=== PATIENT | female | born 1975 | race Caucasian/White ===

== ENCOUNTER → 2018-08-22 | Outpatient (CLI) | payer MEDICAID ==
[~2018-08-22] MED LIST: BNZT1T; ESCT10T PO; RSP2T1
== END ==
LOC: LAB 11:02
PROVIDERS: ATTEND Family Medicine
DX: R29.818 Other symptoms and signs involving the nervous system (principal)
CPT/HCPCS: 36415; 82306; 82607; 82746

== ENCOUNTER → 2018-08-25 | Outpatient (CLI) | payer MEDICAID ==
--- NOTE | 2018-08-25 12:43 | Diagnostic Imaging Report ---
INDICATION: Neurologic deficit. Noncontrast brain CT is performed. There is no prior study for comparison. FINDINGS: There is a large area of hypodensity and mass effect in the left frontal lobe with vasogenic edema and sulcal effacement. The findings are suspicious for underlying neoplasm, either primary or metastatic. There is no associated hemorrhage or subdural collection. There is about 3 mm of midline shift in the frontal region. The ventricles are nondilated. There is no other focal abnormality. There is opacification of the left maxillary sinus incidentally noted. IMPRESSION: Findings suspicious for a mass in left frontal lobe as described above. Recommend MRI pre-and post IV contrast for further characterization. Either primary or metastatic lesion is suspected. Report faxed to Dr. Monson at 1:10 p.m. 08/25/2018/cb Dictated by: Dictated on workstation # [id number]
== END ==
LOC: RAD 11:18
PROVIDERS: ATTEND Family Medicine
DX: J34.89 Other specified disorders of nose and nasal sinuses (principal); R29.818 Other symptoms and signs involving the nervous system
CPT/HCPCS: 70450

== ENCOUNTER → 2018-08-28 | Outpatient (CLI) | payer MEDICAID ==
--- NOTE | 2018-08-28 09:33 | Diagnostic Imaging Report ---
INDICATION: Left arm pain Two views of the left humerus show no fracture or dislocation. IMPRESSION: Negative left humerus Dictated by: Dictated on workstation # [id number]
== END ==
LOC: RAD 08:48
PROVIDERS: ATTEND Family Medicine
DX: M79.602 Pain in left arm (principal); R29.818 Other symptoms and signs involving the nervous system
CPT/HCPCS: 73060

== ENCOUNTER → 2018-09-01 | Outpatient (CLI) | payer MEDICAID ==
[2018-09-01] MEDS: GADOBUTROL 10 MMOL/10 ML (GADAVIST) VIAL IV ONE (13:19)
--- NOTE | 2018-09-01 14:17 | Diagnostic Imaging Report ---
PROCEDURE: MR imaging of the brain with and without contrast. TECHNIQUE: Multiplanar, multisequence MR imaging of the brain was performed with and without contrast. INDICATION: Focal neurological deficit. Infiltrative process with vasogenic edema in the left frontal lobe with mass effect was present on head CT 08/25/2018. Pre-and postcontrast brain MRI performed as further evaluation. An infiltrative process intra-axial in the left frontal lobe is present with substantial perilesional vasogenic edema as well as some regional cortical edema. While this showed no identifiable enhancement following contrast, it is very suspicious for underlying neoplasm. The associated parenchymal distortion and edematous-like T2 signal crosses the midline via the genu of the corpus callosum. It is unclear if this is the perilesional vasogenic edema or if tumor itself is crossing the midline. Result in distortion and effacement and mass effect upon the left greater than right lateral ventricles anteriorly may be increased from the previous however some of this is likely attributed to improved sensitivity modality. The degree of left to right shifting of the midline structures is probably most accurately quantified on the coronal images measuring 4.4 mm left to right. This appears at least slightly increased from the previous when it measured about 3 mm. The brainstem and posterior fossa appeared unremarkable. There are no foci of abnormal diffusion restriction. There is no evidence for an acute or subacute ischemic infarct. There is no intracranial or intratumoral hemorrhage. There are no abnormal extra-axial fluid collections. There was no other focal abnormality identified. Owing to the absence of mass effect and the ill-defined character of this infiltrative process its very difficult to measure with any degree of confidence. When measured as a region of relative T1 hypointensity the process is roughly 5 cm x 4 cm in axial plane and even more poorly estimated in the coronal images. If not already performed, neurosurgical consultation is needed. IMPRESSION: Ill-defined nonenhancing intra-axial infiltrative process epicenter left frontal lobe. The findings are very suspicious for infiltrative neoplasm despite the absence of enhancement. Cannot be measured with any high level of confidence given the substantial perilesional vasogenic edema. Signal crosses the midline left to right via the genu of the corpus callosum which may be of extension of tumor versus perilesional edema itself. Mass effect and mild [id number] shift showed slight progression, no infarct, hemorrhage or hydrocephalus. Called and faxed to Dr. Monson at 2:10 p.m. by cvb. Dictated by: Dictated on workstation # [id number]
== END ==
LOC: RAD 12:08
PROVIDERS: ATTEND Family Medicine
DX: G93.6 Cerebral edema (principal); R29.818 Other symptoms and signs involving the nervous system
CPT/HCPCS: 70553

== ENCOUNTER → 2018-09-15 | Outpatient (CLI) | payer MEDICAID ==
[2018-09-15] MEDS: GADOBUTROL 10 MMOL/10 ML (GADAVIST) VIAL IV ONE (09:22)
--- NOTE | 2018-09-15 09:57 | Diagnostic Imaging Report ---
MRI LT UPPER EXT JOINT W/WO TECHNIQUE: Multiplanar, multisequence MR imaging of the left shoulder was performed without and with IV contrast. COMPARISON: Humerus radiographs of 08/28/2018. INDICATION: Right shoulder pain. FINDINGS: Rotator cuff: No high-grade partial or full-thickness rotator cuff tear. Low-grade partial-thickness bursal sided tearing of the posterior supraspinatus. No rotator cuff muscle atrophy. No muscle edema. Glenoid labrum: By non-arthrogram imaging, the glenoid labrum appears intact. No para-labral cyst. Long head of biceps: Long head of biceps is normally positioned within the bicipital groove. The intracapsular segment is intact. Bones and cartilage: No focal osseous lesion about the right humeral. No glenohumeral chondromalacia. The acromioclavicular joint is normal in alignment without significant degenerative change. Soft tissues: No glenohumeral joint effusion. No MRI findings to suggest adhesive capsulitis. No fluid or inflammatory like signal within the subacromial/subdeltoid space to indicate bursitis. No abnormal enhancing soft tissue masses around the left shoulder. IMPRESSION: 1. No osseous or soft tissue lesion about the left shoulder to indicate neoplastic process. 2. Low-grade partial-thickness bursal-sided tear of the supraspinatus. Dictated by: Dictated on workstation # [id number]
== END ==
LOC: RAD 08:23
PROVIDERS: ATTEND Internal Medicine Hematology & Oncology
DX: M75.101 Unspecified rotator cuff tear or rupture of right shoulder, not specified as traumatic (principal); G93.9 Disorder of brain, unspecified
CPT/HCPCS: 73223

== ENCOUNTER 2018-11-08 21:20 | Emergency (ER) | payer MEDICAID ==
[~2018-11-08] VITALS: Ht 165.1 cm; Wt 107.5 kg
--- OUTSIDE RECORDS SUMMARY | 2018-11-08 21:26 | XMS REPORT | Encounter Summary ---
Author Author [facility] Organization [facility] Address Unknown Phone Unavailable Care Team Providers Care Public Health Aide Name Role Phone Frandy Monson MD PCP Leatha Kolb MD 21 Reason for Visit * Reason Comments Surgical Followup Encounter Details Care Team Description Date Type Department Tavares Raman MD [address] [facility] [address] [place] [address] Surgical Followup 10/12/2018 Telephone [facility] [address] [place] [address] Social History Date Tobacco Use Types Packs/Day Years Used Never Smoker Smokeless Tobacco: Never Used Drinks/Week oz/Week Comments Alcohol Use Never Alcohol Habits Answer Date Recorded How often do you have a drink containing alcohol? Never 09/22/2018 How many drinks containing alcohol do you have on Not asked a typical day when you are drinking? How often do you have six or more drinks on one Not asked occasion? Sex Assigned at Date Recorded Not on file Industry Job Start Date Occupation Not on file Not on file Not on file Travel End Travel History Travel Start No recent travel history available. documented as of this encounter Functional Status Date of Assessment Functional Status Response 10/06/2018 Does the patient have a hearing impairment: No documented as of this encounter Plan of Treatment Not on filedocumented as of this encounter Visit Diagnoses Not on filedocumented in this encounter
--- OUTSIDE RECORDS SUMMARY | 2018-11-08 21:26 | XMS REPORT | Clinical Summary ---
Author Author [facility] Organization [facility] Address Unknown Phone Unavailable Care Team Providers Care Gamewell Operator Name Role Phone Frandy Monson MD PCP Leatha Kolb MD 21 Source Comments Some departments are not documenting in the electronic medical record. If you d o not see the information that you expected, contact Release of Information in [facility] [employer] Information Management department at [phone] for further assistan ce in locating additional records.[facility] Allergies No Known Allergies Medications End Date Status Medication Sig Dispensed Refills Start Date Active ARIPiprazole (ABILIFY) 15 Take 15 mg by 0 mg tablet mouth daily before dinner. Active escitalopram oxalate Take 20 mg by 0 (LEXAPRO) 20 mg tablet mouth daily before dinner. Active oxyCODONE (ROXICODONE, Take one 40 tablet 0 OXY-IR) 5 mg tablet tablet to two 9 tablets by mouth every 4 hours as needed Earliest Fill Date: 10/06/18 Active senna/docusate Take one 0 (SENOKOT-S) 8.6/50 mg tablet by 9 tablet mouth twice daily. Active acetaminophen (TYLENOL) Take two 0 325 mg tablet tablets by 9 mouth every 4 hours as needed. 10/12/2018 levETIRAcetam (KEPPRA) Take one 12 tablet 0 500 mg tablet tablet by 9 mouth twice daily for 6 days. 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 Encounters Care Team Description Date Type Specialty Ascencion Sanchez MD Anaplastic astrocytoma (HCC) (Primary Dx) 10/30/2018 Office Visit Neurosurgery Liz Dale MD Brain tumor, glioma (HCC) (Primary Dx) 10/17/2018 Office Visit Ascencion Willams MD Error 10/17/2018 Telephone Oncology Cynthia Soto MD Follow-up Phone Call 10/12/2018 Telephone Neurosurgery Cynthia Soto MD Surgical Followup 10/12/2018 Telephone Neurosurgery Ascencion Sanchez MD Navigation Assessment 10/05/2018 Telephone Oncology Cynthia Soto MD LEFT FRONTAL CRANIOTOMY FOR FRONTAL LOBECTOMY AND TUMOR RESECTION 10/04/2018 Surgery Marina Claudio, EVER 10/04/2018 Anesthesia Event Cynthia Soto MD 10/04/2018 Hospital Radiology Encounter Cynthia Soto MD Schizoaffective disorder (HCC) 10/04/2018 Hospital - Encounter 10/06/2018 Cynthia Soto MD Brain mass (Primary Dx) 09/25/2018 Orders Only Neurosurgery Cynthia Soto MD Mass of brain (Primary Dx); Brain mass 09/25/2018 Orders Only Cynthia Norton MD Brain tumor (HCC) (Primary Dx) 09/22/2018 PAC Office Anesthesiology Visit Cynthia Soto MD Brain tumor (HCC) 09/22/2018 Office Visit Cynthia Norton MD Brain tumor (HCC) (Primary Dx) 09/22/2018 Prep for Case Cynthia Norton MD Navigation Assessment 09/18/2018 Telephone Oncology 09/15/2018 Hospital Radiology Encounter 09/01/2018 Hospital Radiology Encounter 08/25/2018 Hospital Radiology Encounter from Last 3 Months Family History Medical History Relation Name Comments Arthritis Maternal Grandmother Heart Disease Maternal Grandmother Cataract Mother Diabetes Mother Hypertension Mother Relation Name Status Comments Maternal Grandmother Mother Social History Date Tobacco Use Types Packs/Day [...] Travel Start No recent travel history available. Last Filed Vital Signs Reading Time Taken Comments Vital Sign 114/83 10/30/2018 10:59 AM CDT Blood Pressure 89 10/30/2018 10:59 AM CDT Pulse 36.6 C (97.8 F) 10/30/2018 10:59 AM CDT Temperature 16 10/30/2018 10:59 AM CDT Respiratory Rate 99% 10/30/2018 10:59 AM CDT Oxygen Saturation - - Inhaled Oxygen Concentration 107.6 kg (237 lb 3.2 oz) 10/30/2018 10:59 AM CDT Weight 165.1 cm (5' 5") 10/30/2018 10:59 AM CDT Height 39.47 10/30/2018 10:59 AM CDT Body Mass Index Plan of Treatment Health Maintenance Due Date Last Done Comments PHYSICAL (COMPREHENSIVE) 1982 EXAM HIV SCREENING 1990 DTAP/TDAP VACCINES ( - 1993 Tdap) CERVICAL CANCER SCREENING 2005 BREAST CANCER SCREENING 2015 INFLUENZA VACCINE 02/06/2019 Implants Device Identifier Shelf Expiration Date Model / Serial / Lot Implanted Type Area Manufactur er [id number] / NA / NA Plate Bone Level One Medium Curve Left: Jaleesa SERRANO Craniofacial Bur Hole - Sna CMF Implanted: Qty: 3 on 10/04/2018 by IMPLANTS Cynthia Soto MD at [facility] [id number] / NA / NA Plate Bone Level One Square Left: Skull FANY SERRANO Craniofacial 2x2 Hole Ultra Low - CMF Sna IMPLANTS Implanted: Qty: 1 on 10/04/2018 by Cynthia Soto MD at [facility] [id number] / NA / NA Plate Bone Level One Long Left: Jaleesa SERRANO Craniofacial 2 Hole Ultra Low - Sna CMF Implanted: Qty: 1 on 10/04/2018 by IMPLANTS Cynthia Soto MD at [facility] [id number] / NA / NA Screw Bone Level One Titanium Left: Jaleesa SERRANO Craniomaxillofacial Drill Free - CMF Sna IMPLANTS Implanted: Qty: 18 on 10/04/2018 by Cynthia Soto MD at [facility] Procedures Comments Procedure Name Priority Date/Time Associated Diagnosis MRI HEAD WO/W CONTRAST Routine 10/05/2018 2:09 PM CDT IONIZED CALCIUM Routine 10/05/2018 3:53 AM CDT PHOSPHORUS Routine 10/05/2018 3:03 AM CDT MAGNESIUM Routine 10/05/2018 3:03 AM CDT BASIC METABOLIC PANEL Routine 10/05/2018 3:03 AM CDT CBC Routine 10/05/2018 3:03 AM CDT SURGICAL PATHOLOGY 10/04/2018 10:00 AM CDT ANESTHESIA ARTERIAL LINE Routine 10/04/2018 INSERTION 9:17 AM CDT MICROSURGICAL TECHNIQUES 10/04/2018 Brain tumor (HCC) - REQUIRING OPERATING 7:51 AM CDT MICROSCOPE USE STEREOTACTIC 10/04/2018 Brain tumor (HCC) COMPUTER-ASSISTED CRANIAL 7:51 AM CDT PROCEDURE - INTRADURAL CRANIECTOMY/ BONE FLAP 10/04/2018 Brain tumor (HCC) CRANIOTOMY EXCISION 7:51 AM CDT SUPRATENTORIAL BRAIN TUMOR MRI HEAD WO/W CONTRAST Routine 10/04/2018 Brain mass 7:20 AM CDT TYPE & CROSSMATCH Routine 10/04/2018 Brain tumor (HCC) 6:16 AM CDT BETA-HCG STAT 10/04/2018 6:16 AM CDT PATHOLOGY REPORTS FROM 10/04/2018 OUTSIDE SCAN 12:00 AM CDT PATHOLOGY REPORTS FROM 10/04/2018 OUTSIDE SCAN 12:00 AM CDT TELEMETRY STRIPS-SCAN 10/04/2018 12:00 AM CDT TYPE & SCREEN (NOT Routine 09/22/2018 Brain tumor (HCC) CROSSMATCH ELIGIBLE) 3:59 PM CDT COMPREHENSIVE METABOLIC Routine 09/22/2018 Brain tumor (HCC) PANEL 3:59 PM CDT PTT (APTT) Routine 09/22/2018 Brain tumor (HCC) 3:59 PM CDT PROTIME INR (PT) Routine 09/22/2018 Brain tumor (HCC) 3:59 PM CDT CBC Routine 09/22/2018 Brain tumor (HCC) 3:59 PM CDT MRI UPPER EXT EXTERNAL Routine 09/15/2018 IMAGING 12:00 AM CDT MRI HEAD EXTERNAL IMAGING Routine 09/01/2018 12:[address] HEAD EXTERNAL IMAGING Routine 08/25/2018 12:00 AM CDT from Last 3 Months Results * MRI HEAD WO/W CONTRAST (10/05/2018 2:09 PM CDT) Only the most recent of 2 results within the time period is included. Specimen Impressions Performed At 1.Interval debulking/partial resection of the infiltrative left frontal [facility] RAD RESULTS mass. There is persistent left frontal, anterior callosal, and medial right frontal FLAIR hyperintensity consistent with tumor and/or edema. 2.Unchanged tiny right external capsule/insular focus of enhancement, favored to represent benign vascular area of enhancement. Approved by Alcides Guerrero M.D. on 10/05/2018 3:48 PM By my electronic signature, I attest that I have personally reviewed the images for this examination and formulated the interpretations and opinions expressed in this report Finalized by Sánchez Villatoro M.D. on 10/05/2018 3:49 PM. Dictated by Alcides Guerrero M.D. on 10/05/2018 2:11 PM. Narrative Performed At EXAM: MRI BRAIN [facility] RAD RESULTS HISTORY: 43-year-old female, Include stereotactic flair, left frontal tumor. TECHNIQUE: Multiplanar and multisequence MR imaging of the head was performed. This was done both before and after the administration of gadolinium contrast. COMPARISON: MRI head 10/04/2018 FINDINGS: Interval left frontal craniotomy with partial resection/debulking of the infiltrative left frontal mass. There is postsurgical fluid within the resection cavity and small volume pneumocephalus. There are areas of T1 hyperintense hemorrhage at the resection margins. Residual infiltrative FLAIR hyperintensity along the posterior margins of the resection cavity within the frontal lobe extends across the midline along the genu to involve the medial right frontal lobe white matter. The ventricles and subarachnoid spaces are otherwise stable in size and configuration. There is no significant change in degree of mild rightward midline shift, again measuring up to 5 mm. There is no area of abnormal contrast enhancement. The vascular flow-voids are unremarkable. Diffusion weighted imaging is not indicative of acute or recent infarct. Redemonstration of a tiny focus of enhancement along the right external capsule/insula which previously demonstrated susceptibility. Procedure Note Interface, Radiant Results - 10/05/2018 3:52 PM CDT EXAM: MRI BRAIN HISTORY: 43-year-old female, Include stereotactic flair, left frontal tumor. TECHNIQUE: Multiplanar and multisequence MR imaging of the head was performed. This was done both before and after the administration of gadolinium contrast. COMPARISON: MRI head 10/04/2018 FINDINGS: Interval left frontal craniotomy with partial resection/debulking of the infiltrative left frontal mass. There is postsurgical fluid within the resection cavity and small volume pneumocephalus. There are areas of T1 hyperintense hemorrhage at the resection margins. Residual infiltrative FLAIR hyperintensity along the posterior margins of the resection cavity within the frontal lobe extends across the midline along the genu to involve the medial right frontal lobe white matter. The ventricles and subarachnoid spaces are otherwise stable in size and configuration. There is no significant change in degree of mild rightward midline shift, again measuring up to 5 mm. There is no area of abnormal contrast enhancement. The vascular flow-voids are unremarkable. Diffusion weighted imaging is not indicative of acute or recent infarct. Redemonstration of a tiny focus of enhancement along the right external capsule/insula which previously demonstrated susceptibility. IMPRESSION 1. Interval debulking/partial resection of the infiltrative left frontal mass. There is persistent left frontal, anterior callosal, and medial right frontal FLAIR hyperintensity consistent with tumor and/or edema. 2. Unchanged tiny right external capsule/insular focus of enhancement, favored to represent benign vascular area of enhancement. Approved by Alcides Guerrero M.D. on 10/05/2018 3:48 PM By my electronic signature, I attest that I have personally reviewed the images for this examination and formulated the interpretations and opinions expressed in this report Finalized by Sánchez Villatoro M.D. on 10/05/2018 3:49 PM. Dictated by Alcides Guerrero M.D. on 10/05/2018 2:11 PM. Performing Organization Address [facility] Phone Number [facility] RESULTS * IONIZED CALCIUM (10/05/2018 3:53 AM CDT) Pathologist [facility] Ionized Calcium 1.20 1.0 - 1.3 MMOL/L MAIN LAB Specimen Blood Performing Organization Address [facility] Phone Number MAIN LAB [address] [place] [address] * CBC (10/05/2018 3:03 AM CDT) Only the most recent of 2 results within the time period is included. White Blood 6.3 4.5 - 11.0 K/UL MAIN LAB Cells RBC 4.06 4.0 - 5.0 M/UL MAIN LAB Hemoglobin 12.5 12.0 - 15.0 GM/DL MAIN LAB Hematocrit 36.0 36 - 45 % MAIN LAB MCV 88.5 80 - 100 FL MAIN LAB MCH 30.9 26 - 34 PG MAIN LAB MCHC 34.9 32.0 - 36.0 G/DL MAIN LAB RDW 14.3 11 - 15 % [facility] MAIN [facility] Platelet Count 92 (L) 150 - 400 K/UL MAIN LAB MPV 9.5 7 - 11 FL MAIN LAB Specimen Blood Performing Organization Address [facility] Phone Number MAIN LAB [address] [place] [address] * PHOSPHORUS (10/05/2018 3:03 AM CDT) Phosphorus 3.3Comment: NOTE NEW REFERENCE 2.0 - 4.5 MG/DL MAIN LAB RANGES Specimen Blood Performing Organization Address [facility] Phone Number MAIN LAB [address] [place] [address] * MAGNESIUM (10/05/2018 3:03 AM CDT) Magnesium 2.2 1.6 - 2.6 mg/dL MAIN LAB Specimen Blood Performing Organization Address [facility] Phone Number [facility] [address] [place] [phone] * BASIC METABOLIC PANEL (10/05/2018 3:03 AM CDT) Sodium 143 137 - 147 MMOL/L [facility] Potassium 4.2 3.5 - 5.1 MMOL/L [facility] Chloride 110 98 - 110 MMOL/L [facility] CO2 26 21 - 30 MMOL/L [facility] Anion Gap 7 3 - 12 [facility] Glucose 145 (H) 70 - 100 MG/DL [facility] Blood Urea 9 7 - 25 MG/DL [facility] Nitrogen Creatinine 0.83 0.4 - 1.00 MG/DL [facility] Calcium 8.7 8.5 - 10.6 MG/DL [facility] eGFR Non >60 >60 mL/min [facility] Comment: [place] The eGFR is not validated for use in drug dosing adjustments.Continue to use estimated creatinine clearance per dosing reference text.Please contact the Clinical Pharmacist for questions. eGFR >60 >60 mL/min [facility] [place] Comment: The eGFR is not validated for use in drug dosing adjustments.Continue to use estimated creatinine clearance per dosing reference text.Please contact the Clinical Pharmacist for questions. Specimen Blood Performing Organization Address City/State/Zipcode Phone Number [facility] [address] [place] [address] * SURGICAL PATHOLOGY (10/04/2018 10:00 AM CDT) PATHOLOGY [email or web address] Department of Pathology and Laboratory Medicine [address] [place] [address] Surgical Pathology Office:[phone] :[phone] SURGICAL PATHOLOGY REPORT NAME: DEBBIE LOUISE SURG PATH #: [id number] MR #: [id number] SPECIMEN CLASS: [facility] BILLING #: [id number] ALT ID #:LOCATION: DISCHARGED DATE OF PROCEDURE: 10/04/2018 AGE:43 SEX: F DATE RECEIVED: 10/04/2018 : 1975TIME RECEIVED:10:00 PHYSICIAN: CYNTHIA SOTO MD DATE OF REPORT: 10/05/2018 COPY TO:DATE OF PRINTIN11/02/2018 Procedures/Addenda Addendum Date Ordered: 11/02/2018 Status:Signed Out Date Complete: 11/02/2018 By: Mónica Roberson MD Date Reported: 11/02/2018 Addendum Diagnosis Final integrated diagnosis from the [facility] scanned into the medical record on 11/02/2018: "Brain, left frontal lobe mass, resection ([id number]; 10/04/2018): Anaplastic astrocytoma, 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 See comment. Comment: This infiltrating glioma is positive for the IDH1 p.R132S mutation and does not harbor 1p/19q-codeletion, supporting the diagnosis of infiltrating astrocytoma, IDH mutant. Scattered mitotic figures (up to 3 per 10 HPF) are identified throughout the tumor. No microvascular proliferation or necrosis is present. Grading of IDH-mutant astrocytomas (grade II and grade III) is controversial at present. The WHO 2016 POLICE DETENTION ATTENDANT Classification suggests to continue grading IDH-mutant astrocytoma with the traditional criteria used before (WHO 2007) by which this tumor is best considered an anaplastic astrocytoma, IDH mutant (WHO grade III). There is, however, evidence that the traditional WHO criteria may not provide adequate stratification for diffuse grade II and grade III astrocytomas, IDH mutant ([place] et al. Acta Neuropathol 2015; 129:585 - 96 and Reuss et al. Acta Neuropathol 2015 129:867-73). Although the tumor does not show CDKN2A/B homozygous deletion, which has recently been associated with poor outcome, it shows a moderately complex array pattern (see below). This copy number complexity may be associated with a poor outcome in IDH-mutant astrocytomas (John et al. J Neuropathol Exp Pathol 74:442; 2015). Overall, the frequency of mitotic activity identified here in conjunction with the molecular findings, is considered to be in keeping with the WHO grade III designation." Initial preliminary report from the [facility] was scanned into the medical record on 10/16/2018. Please see the medical record/O2 for all original scanned reports as well the molecular studies results reports performed at the [facility]. The treating team were provided with updates on 10/16/2018 & 10/25/2018. ############################## ############################## ############ Final Diagnosis: A. Brain, "frontal tumor frozen", biopsy: Pending outside consultation. B. Brain, "frontal tumor permanent", biopsy: Pending outside consultation. Comment: The case is submitted to [facility] for diagnostic evaluation. Please see addendum report and O2 for final diagnosis. Attestation: By this signature, I attest that I have personally formulated the final interpretation expressed in this report and that the above diagnosis is based upon my examination of the slides and/or other material indicated in this report. +++ +++ john/10/05/2018 ############################## ############################## ############ Material Received: A: frontal tumor frozen B: frontal tumor permanent History: 43-year-old female with a history of brain tumor. Gross Description: A. Received fresh, labeled with patient's name and "frontal tumor for frozen" is a 0.6 x 0.6 x 0.2 cm white-white tissue fragment. Touch preps are made. A sales representative printing paper section is submitted for frozen consultation with the remnant placed in cassette A1FS for permanent diagnosis. The remaining tissue is submitted entirely in cassette A2. ([facility]) B. Received in formalin, labeled with the patient's name and "frontal tumor for routine" is a 7.2 x 4.9 x 2.2 cm white-white portion of brain. The specimen is serially sectioned to reveal a white-white cut surface with scattered, somewhat speckled appearing white-brown to red focal areas. Represented sections of the specimen are submitted in cassettes B1-B5 (B4 and B5 contain sales representative printing paper sections of focal speckled areas). ([facility]) [facility]/10/04/2018 Intraoperative Consultation: A1FS and smears, brain, "frontal tumor for frozen", biopsy: Mild to moderately hypercellular neoplasm with atypia, compatible with glial tumor. Note: Acytologic smear/squash (A1TP) was performed on different areas from the specimen and used together with frozen sections (A1FS) for optimal evaluation. Frozen section performed at the [facility], [facility], [address] [place] [address]. Margaret Boyce MD Specimen Performing Organization Address City/State/Zipcode Phone Number MAIN LAB [address] [place] [address] * A-LINE INSERTION (10/04/2018 9:17 AM CDT) Narrative Performed At Nirav Sung MD 10/04/20183:16 PM Anesthesia Procedure: Arterial Line Placement A-LINE INSERTION Date/Time: 10/04/2018 8:40 AM Patient location: OR Indications: multiple ABGs, frequent labs and hemodynamic monitoring Preprocedure checklist performed: 2 patient identifiers, risks & benefits discussed, patient evaluated, timeout performed, consent obtained, patient being monitored and sterile drape Sterile technique: - Proper hand washing - Cap, mask - Sterile gloves - Skin prep for antisepsis Arterial Line Procedure Patient sedated: yes (see MAR) Sedation type: general; Artery prepped with chlorhexidine; skin prep agent completely dried prior to procedure. Location: dorsalis pedis artery Laterality: left Technique: palpation and anatomical landmarks Needle gauge: 20 G Number of attempts: 4 Procedure Outcome Catheter secured with adhesive dressing applied Events: no complications noted during insertion Observation: pt tolerated well Additional notes: ATTESTATION I was present during the entire procedure performed by a GREENHOUSE MANAGER Staff name:Nirav Sung MD Date:10/04/2018 Performed by: Andrew Mcneill CRNA Authorized by: Nirav Sung MD Procedure Note Nirav Sung MD - 10/04/2018 9:17 AM CDT Anesthesia Procedure: Arterial Line Placement A-LINE INSERTION Date/Time: 10/04/2018 8:40 AM Patient location: OR Indications: multiple ABGs, frequent labs and hemodynamic monitoring Preprocedure checklist performed: 2 patient identifiers, risks & benefits discussed, patient evaluated, timeout performed, consent obtained, patient being monitored and sterile drape Sterile technique: - Proper hand washing - Cap, mask - Sterile gloves - Skin prep for antisepsis Arterial Line Procedure Patient sedated: yes (see MAR) Sedation type: general; Artery prepped with chlorhexidine; skin prep agent completely dried prior to procedure. Location: dorsalis pedis artery Laterality: left Technique: palpation and anatomical landmarks Needle gauge: 20 G Number of attempts: 4 Procedure Outcome Catheter secured with adhesive dressing applied Events: no complications noted during insertion Observation: pt tolerated well Additional notes: ATTESTATION I was present during the entire procedure performed by a GREENHOUSE MANAGER Staff name: Nirav Sung MD Date: 10/04/2018 Performed by: Andrew Mcneill CRNA Authorized by: Nirav Sung MD * TYPE & CROSSMATCH (10/04/2018 6:16 AM CDT) Units Ordered 0 MAIN LAB Crossmatch 10/07/2018 MAIN LAB Expires Record Check FOUND MAIN LAB ABO/RH(D) O POS [facility] MAIN LAB Antibody Screen NEG MAIN LAB Electronic YES MAIN LAB Crossmatch Specimen Blood Performing Organization Address [facility] Phone Number [facility] LAB [address] [place] [address] * BETA-HCG (10/04/2018 6:16 AM CDT) Beta-HCG,Serum <1 <5 U/L MAIN LAB Specimen Blood Performing Organization Address [facility] Phone Number [facility] [address] [place] [address] * PATHOLOGY REPORTS FROM OUTSIDE SCAN (10/04/2018 12:00 AM CDT) Only the most recent of 2 results within the time period is included. Narrative Performed At Ordered by an unspecified provider. * TELEMETRY STRIPS-SCAN (10/04/2018 12:00 AM CDT) Narrative Performed At Ordered by an unspecified provider. * PTT (APTT) (09/22/2018 3:59 PM CDT) APTT 22.5 (L) 24.0 - 36.5 SEC MAIN LAB Specimen Blood Performing Organization Address [facility] Phone Number MA[facility] LAB [address] [place] [address] * PROTIME INR (PT) (09/22/2018 3:59 PM CDT) INR 1.0 0.8 - 1.2 MAIN LAB Specimen Blood Performing Organization Address [facility] Phone Number [facility] [address] [place] [address] * TYPE & SCREEN (NOT CROSSMATCH ELIGIBLE) (09/22/2018 3:59 PM CDT) ABO/RH(D) O POS MAIN LAB Antibody Screen NEG MAIN LAB Blood Component RED CELL GROUP MAIN LAB Type Specimen Blood, venous - Blood Performing Organization Address [facility] Phone Number [facility] [address] [place] [address] * COMPREHENSIVE METABOLIC PANEL (09/22/2018 3:59 PM CDT) Sodium 137 137 - 147 MMOL/L MAIN LAB Potassium 4.0 3.5 - 5.1 MMOL/L MAIN LAB Chloride 105 98 - 110 MMOL/L [facility] MAIN LAB Glucose 134 (H) 70 - 100 MG/DL [facility] MAIN LAB Blood Urea 26 (H) 7 - 25 MG/DL [facility]IN [facility] Nitrogen Creatinine 0.99 0.4 - 1.00 MG/DL [facility] MAIN [facility] Calcium 9.3 8.5 - 10.6 MG/DL [facility] MAIN [facility] Total Protein 6.6 6.0 - 8.0 G/DL [facility] MAIN [facility] Total Bilirubin 2.4 (H) 0.3 - 1.2 MG/DL [facility] MAIN LAB Albumin 4.2 3.5 - 5.0 G/DL [facility] MAIN LAB Alk Phosphatase 70 25 - 110 U/L [facility] MAIN LAB AST (SGOT) 11 7 - 40 U/L [facility] MAIN LAB CO2 24 21 - 30 MMOL/L MAIN LAB ALT (SGPT) 15 7 - 56 U/L MAIN LAB Anion Gap 8 3 - 12 MAIN LAB eGFR Non >60 >60 mL/min MAIN LAB Comment: [place] The eGFR is not validated for use in drug dosing adjustments.Continue to use estimated creatinine clearance per dosing reference text.Please contact the Clinical Pharmacist for questions. eGFR >60 >60 mL/min MAIN LAB [place] Comment: The eGFR is not validated for use in drug dosing adjustments.Continue to use estimated creatinine clearance per dosing reference text.Please contact the Clinical Pharmacist for questions. Specimen Blood Performing Organization Address [facility]/Zipcode Phone Number [facility] [address] [place] [address] * MRI UPPER EXT EXTERNAL IMAGING (09/15/2018 12:00 AM CDT) Specimen Narrative Performed At This order has been auto finalized and does not contain a result. * MRI HEAD EXTERNAL IMAGING (09/01/2018 12:00 AM CDT) Specimen Narrative Performed At This order has been auto finalized and does not contain a result. * CT HEAD EXTERNAL IMAGING (08/25/2018 12:00 AM CDT) Specimen Narrative Performed At This order has been auto finalized and does not contain a result. from Last 3 Months Insurance Type Payer Benefit Subscriber ID Effective Phone Address Plan / Dates Group Medicaid UHC MEDICAID [place] UHC xxxxxxxxxxx 2018-P COMMUNITY resent PLAN [place] Advance Directives Patient Exhibit Technician Explanation Type Date Recorded Advance Directive/DPOA Advance 10/04/2018 7:48 AM Directive/DPOA Date Inactivated Comments Code Status Date Activated 10/06/2018 5:02 PM Full Code 10/04/2018 12:02 PM Provider has discussed Code Status No, discussion not w/Patient or Family? necessary based on Dx
--- OUTSIDE RECORDS SUMMARY | 2018-11-08 21:26 | XMS REPORT | Encounter Summary ---
Author Author [facility] Organization [facility] Address Unknown Phone Unavailable Care Team Providers Care Population Geneticist Name Role Phone Frandy Monson MD PCP Leatha Kolb MD 21 Reason for Visit * Reason Comments Error Encounter Details Care Team Description Date [place] [address] [place] [address] [phone] Error 10/17/2018 Telephone [facility] [address] [address] Social History Date Tobacco Use Types Packs/Day [...]
--- OUTSIDE RECORDS SUMMARY | 2018-11-08 21:26 | XMS REPORT | Encounter Summary ---
Author Author [facility] Organization [facility] Address Unknown Phone Unavailable Care Team Providers Care Supervisor Grain And Yeast Plants Name Role Phone Frandy Monson MD PCP Leatha Kolb MD 21 Reason for Visit * Reason Comments Neuro Oncology Care Encounter Details Care Team Description Date [place] [address] [place] [address] Anaplastic astrocytoma (HCC) (Primary Dx) 10/30/2018 Office Visit [facility] [address] [place] [address] Social History Date Tobacco Use [...] history available. documented as of this encounter Last Filed Vital Signs Reading Time Taken [...] 10/30/2018 10:59 AM CDT Body Mass Index documented in this encounter Functional Status Date of Assessment Functional Status Response 10/06/2018 Does the patient have a hearing impairment: No documented as of this encounter Progress Notes * Ascencion Sanchez MD - 10/30/2018 11:00 AM CDT Neuro-oncology Clinic Visit Summary Date of Service: 10/30/2018 Subjective: Debbie Farrell is a 43 y.o. 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 Reason For Visit: Neuro-Oncology Care Treatment History: Seen by her PCP for hand tremor and left shoulder pain that had been occurring f or about 2 months. PCP ordered a CT Head and MRI Brain and found a lesion. S he was referred to oncology who referred on to neurosurgery at . Patient has a history of mental retardation and schizophrenia but is very high functioning. Roller Gold Leaf is her mother who is a nurse at [employer]. Seen in clinic by Dr. Soto and surgery was scheduled. RE-Navigation the following reflects updated information since original navigati on note dated 09/18/18 10/04/18: MRI Head - Large, infiltrative non enhancing left frontal lobe mass w hich extends across midline and results in associated mass effect and minimal le ft right midline shift. 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 Increased conspicuity of a t iny right external capsule/insular focus, which is favored for a small vascular lesion such as telangiectasia or cavernoma . Attention follow-up imaging is suggested. Nasal turbinate prominence, sugges tive of rhinitis or allergies. 10/04/18: Left frontal craniotomy - [place] prelim: Diffusely infiltrating glioma w ith increased mitotic active. See comment. Report attached. 10/05/18: MRI Head - Interval debulking/partial resection of the infiltrative l eft frontal mass. There is persistent left frontal, anterior callosal, and media l right frontal FLAIR hyperintensity consistent with tumor and/or edema.Unchange d tiny right external capsule/insular focus of enhancement, favored to represent benign vascular area of enhancement Interval History: Debbie Farrell is seen today in the company of her mother, she is recoverin g well from surgery with no focal deficits. Incision healing well. Review of Systems ROS is conducted in all 12 systems and, except as noted above in HPI, is summari zed below: No headaches, no vision changes. No difficulty with speech or swallowing. No chest pain, back pain, no breathing difficulties. No abdominal pain. No extremity edema No neurologic changes, specifically weakness or sensory changes No recent seizures, no recent falls No fevers, chills or sweats. No cough No nausea, vomiting, diarrhea or constipation No unintended weight loss. No excessive fatigue. No skin changes or rash No depression complaints Past Medical History: Medical History: Diagnosis Date Depression Glioma of frontal lobe (HCC) History of tremor Murmur Schizophrenia (HCC) Surgical History: Procedure Laterality Date CRANIECTOMY Left 10/04/2018 LEFT FRONTAL CRANIOTOMY FOR FRONTAL LOBECTOMY AND TUMOR RESECTION performed by Cynthia Soto MD at [facility] OR/Periop Social History Socioeconomic History Marital status: Single Spouse name: Not on file Number of children: Not on file Years of education: Not on file Highest education level: Not on file Occupational History Not on file Tobacco Use Smoking status: Never Smoker Smokeless tobacco: Never Used Substance and Sexual Activity Alcohol use: Never Frequency: Never Drug use: Never Sexual activity: Not on file Other Topics Concern Not on file Social History Narrative She has a long history of schizoaffective disorder that was diagnosed in her 20 s. She lives with her mother at home. 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 Current Medications: acetaminophen (TYLENOL) 325 mg tablet Take two tablets by mouth every 4 hour s as needed. ARIPiprazole (ABILIFY) 15 mg tablet Take 15 mg by mouth daily before dinner. escitalopram oxalate (LEXAPRO) 20 mg tablet Take 20 mg by mouth daily before dinner. oxyCODONE (ROXICODONE, OXY-IR) 5 mg tablet Take one tablet to two tablets by mouth every 4 hours as needed Earliest Fill Date: 10/06/18 senna/docusate (SENOKOT-S) 8.6/50 mg tablet Take one tablet by mouth twice d aily. Allergies: No Known Allergies Vitals: Vitals: 10/30/18 1059 BP: 114/83 Pulse: 89 Resp: 16 Temp: 36.6 C (97.8 F) TempSrc: Oral SpO2: 99% Weight: 107.6 kg (237 lb 3.2 oz) Height: 165.1 cm (65") Body surface area is 2.22 meters squared. Pain Addressed: No pain complaints today, pain score=0/10. Eastern Cooperative Oncology Group performance status is 1. Physical Exam General- This is a well-nourished, well developed female who appears in no acute distress . Mood and affect are appropriate for the situation Speech is fluent and cognition appears grossly intact. Ambulatory around the clinic without difficulty. Head - Normocephalic, with a well healed surgical incision, no erythema or drain age Eyes - Pupils are equal, extra-ocular movements are intact. Visual soler are g rossly intact to testing Mouth - Oral mucosa pink and moist, no lesions. Neck - No cervical lyphadenopathy, thyroid non-remarkable to palpation. Lungs (auscultation) - Clear bilaterally with good air movement. Heart (auscultation) - Regular rate and rhythm, no murmors Abdomen - Soft, non tender, no masses, positive bowel sounds. Lymph Node Exam/Extremities - No palpable adenopathy, no extremity edema. Derm - No rashes or lesions Neurologic - Cranial nerves II - XII are grossly intact Strength is 5/5 in all muscle groups in all four extremities. Sensation is subjectively intact Balance function, including ptpohe-hgml-bdeocp and gait testing are unremarkable . Laboratory and Imaging Results (FlexMinder system): [facility] [email or web address] Department of Pathology and Laboratory Medicine [address] [place] [id number] Surgical Pathology Office: [phone] SURGICAL PATHOLOGY REPORT NAME: DEBBIE FARRELL SURG PATH #: [id number] MR #: [id number] SPECIMEN CLASS: [facility] BILLING #: [id number] ALT ID #: LOCATION: DISCHARGED DATE OF PROCEDURE: 10/04/2018 AGE: 43 SEX: F DATE RECEIVED: 10/04/2018 : 1975 TIME RECEIVED: 10:00 PHYSICIAN: CYNTHIA SOTO MD DATE OF REPORT: 10/05/2018 COPY TO: DATE OF PRINTIN11/02/2018 Procedures/Addenda Addendum Date Ordered: 11/02/2018 Status: Signed Out Date Complete: 11/02/2018 By: Mónica Roberson MD Date Reported: 11/02/2018 Addendum Diagnosis Final integrated diagnosis from the [facility] scanned into the medical record on 11/02/2018: "Brain, left frontal lobe mass, resection ([id number]; 10/04/2018): Anaplastic astrocytoma, 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 [...] is controversial at present. The WHO 2016 HARNESS REPAIRER Classification suggests to continue grading IDH-mutant astrocytoma with the traditional criteria used before (WHO 2007) by which this tumor is best considered an anaplastic astrocytoma, IDH mutant (WHO grade III). There is, however, evidence that the traditional WHO criteria may not provide adequate stratification for diffuse grade II and grade III astrocytomas, IDH mutant (Dayton et al. Acta Neuropathol 2015; 129:585 - [...] III designation." Initial preliminary report from the [facility] was scanned into the medical record on 10/16/2018. Please see the medical record/O2 for all original scanned reports as well the molecular studies results reports performed at the [facility]. The treating team were provided with updates on 10/16/2018 & 10/25/2018. ######################################################################## Final Diagnosis: A. Brain, "frontal tumor frozen", biopsy: Pending outside consultation. B. Brain, "frontal tumor permanent", biopsy: Pending outside consultation. Comment: The case is submitted to [facility] for diagnostic evaluation. Please see addendum report and O2 for final diagnosis. Attestation: By this signature, I attest that I have personally formulated the final interpretation expressed in this report and that the above diagnosis is based upon my examination of the slides and/or other material indicated in this report. +++ +++ rolandor/10/05/2018 ######################################################################## Material Received: A: frontal tumor frozen B: frontal tumor permanent History: 43-year-old female with a history of brain tumor. Gross Description: A. Received fresh, labeled with patient's name and "frontal tumor for frozen" is a 0.6 x 0.6 x 0.2 cm white-white tissue fragment. Touch preps are made. A pharmaceutical specialty representative section is submitted for frozen consultation with the remnant placed in cassette A1FS for permanent diagnosis. The remaining tissue is submitted entirely in cassette A2. ([facility]) B. Received in formalin, labeled with the patient's name and "frontal tumor for routine" is a 7.2 x 4.9 x 2.2 cm white-white portion of brain. The specimen is serially sectioned to reveal a white-white cut surface with scattered, somewhat speckled appearing white-brown to red focal areas. Represented sections of the specimen are submitted in cassettes B1-B5 (B4 and B5 contain pharmaceutical specialty representative sections of focal speckled areas). ([facility]) [facility]/10/04/2018 Intraoperative Consultation: A1FS and smears, brain, "frontal tumor for frozen", biopsy: Mild to moderately hypercellular neoplasm with atypia, compatible with glial tumor. Note: Acytologic smear/squash (A1TP) was performed on different areas from the specimen and used together with frozen sections (A1FS) for optimal evaluation. Frozen section performed at the [facility], [facility], [address] [facility] [place] [address]. Margaret Boyce MD EXAM: MRI BRAIN HISTORY: 43-year-old female, Include [...] by Alcides Guerrero M.D. 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 Her mother is DPOA and caregiver given her history of axis 1 psychiatric disorder, and she is present for this conversation. Clinically Ms Farrell has recovered to her base line, we reviewed the MRI scans together demonstrating the interval left frontal debulking of a left > right, non-ennhancing, bifrontal, infiltrative FLAIR hyperintense lesion with residual FLAIR signal in the left frontal lobe, genu and right frontal areas. We discussed the pathology results demonstrating a mitotically active infiltrative astrocytoma with favorable IDH mutation and lacking 1p/19q codeletion. No findings suggestive of grade 4 tumor (no necrosis or microvascular proliferation). Discussed the CATNON data demonstrating superiority of adjuvant 5-day temozolomide x 12 cycles (vs no adjuvant) and the equivocal results of concurrent temozolomide. I would recommend a course of involved field RT for grade 3 glioma and then adjuvantly 12 cycles of 5-day temozolomide. Plant to RTC about 2-3 weeks post conclusion of RT mono-therapy with repeat MRI scan. I spent a total of 70 minutes today in direct patient evaluation, from 1100 to 1 210, with more than 45 minutes spent in treatment plan formulation, symptom marquita gement discussion and consultation as outlined above. * Maylin Morel RN - 10/30/2018 11:00 AM CDT Follow up with local oncologist for referral to radiation monotherapy. RTC 2 we eks post completion of RT with new MRI head w/wo contrast. documented in this encounter Plan of Treatment Not on filedocumented as of this encounter Visit Diagnoses Diagnosis Anaplastic astrocytoma (HCC) - Primary Malignant neoplasm of brain, unspecified site documented in this encounter
--- OUTSIDE RECORDS SUMMARY | 2018-11-08 21:26 | XMS REPORT | Encounter Summary ---
Author Author [facility] Organization [facility] Address Unknown Phone Unavailable Care Team Providers Care Multiskill Operator Name Role Phone Frandy Monson MD PCP Leatha Kolb MD 21 Reason for Visit * Reason Comments Post Operative Visit Encounter Details Care Team Description Date Type Department Liz Dale MD [address] [facility] [address] [place], [place] [id number] Brain tumor, glioma (HCC) (Primary Dx) 10/17/2018 Office Visit [facility] [address] [place] [address] Social History Date Tobacco Use Types Packs/Day [...] Signs Reading Time Taken Comments Vital Sign 120/79 10/17/2018 11:30 AM CDT Blood Pressure 77 10/17/2018 11:30 AM CDT Pulse 36.8 C (98.3 F) 10/17/2018 11:30 AM CDT Temperature - - Respiratory Rate - - Oxygen Saturation - - Inhaled Oxygen Concentration - - Weight - - Height - - Body Mass Index documented in this encounter Functional Status Date of Assessment Functional Status Response 10/06/2018 Does the patient have a hearing impairment: No documented as of this encounter Progress Notes * Liz Dale MD - 10/17/2018 11:15 AM CDT 10/17/2018 Patient: Ashley [facility] Rec #: [id number] : 1975 Vitals: 10/17/18 1130 BP: 120/79 Pulse: 77 Temp: 36.8 C (98.3 F) TempSrc: Oral History of Present Illness: Ashley Louise is a 43 y.o. female with a past medical history significant for schizophrenia and depression as well as left upper extremity tremor who underwen t a left frontal craniotomy for resection of a diffuse infiltrating glioma with increased mitotic activity and IDH 1- on October 04, 2018. She presents today with her mother for removal of her sutures. Since she has been home she has been doing fairly well. She denies having any m ajor headaches. She does have some incisional pain which goes away with Tylenol . She is been taking Tylenol at bedtime otherwise she is gone without. She den ies any difficulty with nausea or constipation. She has had some difficulty wit h her medication and schizophrenic type symptoms. Her mom states that originally after surgery she no longer had the tremor howeve r about a week after surgery the tremor has returned. She denies any redness or drainage from her wound. She denies fevers or chills. She denies any seizures. Allergies as of 10/17/2018 (No Known Allergies) acetaminophen (TYLENOL) 325 mg tablet Take two [...] one tablet by mouth twice d aily. Medical History: Diagnosis Date Depression Glioma of frontal lobe (HCC) History of tremor Murmur Schizophrenia (HCC) Surgical History: Procedure Laterality Date CRANIECTOMY Left 10/04/2018 LEFT FRONTAL CRANIOTOMY FOR FRONTAL LOBECTOMY AND TUMOR RESECTION performed by Tavares Raman MD at [facility] OR/Periop No flowsheet data found. Incision: Her left frontal incision is healing well. She does have some associa walter scabbing but there is no evidence of wound separation or underlying fluid. She has some left periorbital swelling with bruising. Physical Exam: She is alert and oriented. Her speech is clear and fluent. Her face is asymmet yamini to the left periorbital swelling and bruising. Her extraocular muscles are intact. Tongue is midline. Her sensorimotor exam are normal. Her gait is inde pendent she is right-handed. Assessment and Plan: 1. Brain tumor, glioma (HCC) Ashley Louise is recovering well from surgery. I briefly went over her pathology results. I discussed these with her mother as well as her. They are understanding that this appears to be a glioma that will require some adjuvant therapy which may include chemotherapy as well as radiati on therapy. She is set up for a follow-up appointment with Dr. Sanchez from the oncology department. Her care will be coordinated with him and her oncologist n [facility]. She will be following up for postoperative care with Dr. Raman. We will assist baltazar charles arranging her oncological care as needed. All of her questions and her mother 's questions were answered to their satisfaction. Liz Dale MD phone. [phone] fax. [phone] Dictated but not read. documented in this encounter Plan of Treatment Not on filedocumented as of this encounter Visit Diagnoses Diagnosis Brain tumor, glioma (HCC) - Primary Malignant neoplasm of brain, unspecified site documented in this encounter
--- OUTSIDE RECORDS SUMMARY | 2018-11-08 21:26 | XMS REPORT | Encounter Summary ---
Author Author [facility] Organization [facility] Address Unknown Phone Unavailable Care Team Providers Care Roving Teller Name Role Phone Frandy Monson MD PCP Leatha Kolb MD 21 Reason for Visit * Reason Comments Follow-up Phone Call Encounter Details Care Team Description Date Type Department Tavares Raman MD [address] Ortho/Med Pav[facility] [address] [place] [address] Follow-up Phone Call 10/12/2018 Telephone [facility] [address] [place] [address] Social History Date Tobacco Use [...] impairment: No documented as of this encounter Miscellaneous Notes * Telephone Encounter - Nahed Oconnor RN - 10/12/2018 5:30 PM CDT Katina patient's mother returned post op phone call for Ashley. She states Leightonalfred is doing very well, she has not used any pain medications and has seen her PCP and follow up appointment with Psychiatry. She states incision looks great, pat ient is eating/sleeping well. Mother has no other questions or concerns at this time. Provided clinic number for any further needs. Nahed Oconnor RN Clinical Nurse Coordinator Neurosurgery Office: [phone] documented in this encounter Plan of Treatment Not on filedocumented as of this encounter Visit Diagnoses Not on filedocumented in this encounter
--- OUTSIDE RECORDS SUMMARY | 2018-11-08 21:27 | XMS REPORT | Encounter Summary ---
Author Author [facility] Organization [facility] Address Unknown Phone Unavailable Care Team Providers Care Turkey Pinner Name Role Phone Frandy Monson MD PCP Leatha Kolb MD 21 Reason for Visit * Auth/Cert Referred By Contact Referred To Contact Status Reason Specialty Diagnoses / Procedures Diagnoses Brain tumor (HCC) Brain tumor (HCC) [D49.6] P rocedures OR CRANIEC TREPHINE BONE FLP BRAIN TUMOR SUPRTENTOR OR STRTCTC CPTR ASSTD PX CRANIAL INTRADURAL OR MICROSURG TQS REQ USE OPERATING MICROSCOPE LEFT FRONTAL CRANIOTOMY FOR FRONTAL LOBECTOMY AND TUMOR RESECTION STEREOTACTIC COMPUTER-ASSISTED CRANIAL PROCEDURE - INTRADURAL MICROSURGICAL TECHNIQUES - REQUIRING OPERATING MICROSCOPE USE Encounter Details Care Team Description Date Type Department Tavares Soto MD [address] [facility] [address] [place] [address] [phone] Schizoaffective disorder (HCC) 10/04/2018 [facility] 10/06/[address] [place] [id number] Social History Date Tobacco Use Types Packs/Day [...] Signs Reading Time Taken Comments Vital Sign 124/79 10/06/2018 12:14 PM CDT Blood Pressure 75 10/06/2018 12:14 PM CDT Pulse 36.9 C (98.5 F) 10/06/2018 12:14 PM CDT Temperature - - Respiratory Rate 96% 10/06/2018 12:14 PM CDT Oxygen Saturation - - Inhaled Oxygen Concentration 107.9 kg (237 lb 14 oz) 10/06/2018 5:00 AM CDT Weight 165.1 cm (5' 5") 10/04/2018 6:00 AM CDT Height 39.58 10/04/2018 6:00 AM CDT Body Mass Index documented in this encounter Functional Status Date of Assessment Functional Status Response 10/06/2018 Does the patient have a hearing impairment: No documented as of this encounter Discharge Summaries * Mercy Aviles APRN-NP - 10/06/2018 2:57 PM CDT Physician Discharge Summary Name: Debbie Louise Date Of : 1975 Age: 43 years Admit date: 10/04/2018 Discharge date: 10/06/18 Attending Physician: Tavares Soto MD Service: Surgery-Neuro Physician Summary completed by: HARINDER Greenwood Reason for hospitalization: Brain mass Significant PMH: Medical History: Diagnosis Date Depression Glioma of frontal lobe (HCC) History of tremor Murmur Schizophrenia (HCC) Allergies: Patient has no known allergies. Admission Physical Exam notable for: 43-year-old very pleasant right-handed fe male who is here for evaluation of tremors. She has developed tremors that are resting on the left side and the right side. It is worse in the left side. It is hard to know exactly when this begun, but she has had some changes in her antipsychotic medications. She has seen her psychiatrist, and they do not helga saji that this is the cause. She has a long history of schizoaffective disorder that was diagnosed in the 20s. She is on multiple antipsychotic medications a nd lives with her mother at home. 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 She even uriel etimes drives. She has occasionally had headaches, but they are relatively mild. Denies any h istory of seizures. She has never had an MRI before. During the work-up of h er tremor, an MRI was obtained which showed evidence of a left frontal tumor and therefore she was referred to Dr. Soto for further care. Admission Lab/Radiology studies notable for: MRI of the brain reviewed which sultana ws evidence of an extensive left frontal ill-defined nonenhancing mass which is most consistent with an infiltrative glioma. This does cross over to the right side to the corpus callosum and also goes into parts of the insula. Brief Hospital Course: The patient was admitted and the following issues were a ddressed during this hospitalization: (with pertinent details). Patient was adm itted and underwent the procedure listed below. Patient was extubated and tolera walter procedure well. Post operative MRI head was obtained and reviewed. Patient was admitted to Neurology ICU in stable condition. Post-operatively, patient's d iet was advanced and was mobilized with PT/OT. Pain was controlled. Patient was transferred to floor and dressings removed. Patient continued to work with PT/OT . Patient was discharged home with follow-up appointment with Dr. Soto. Condition at Discharge: Stable Discharge Diagnoses: Hospital Problems Active Problems Brain tumor (HCC) Cerebral edema (HCC) Brain compression (HCC) Schizoaffective disorder (HCC) Brain tumor, glioma (HCC) Schizophrenia (HCC) Murmur History of tremor Glioma of frontal lobe (HCC) Depression Surgical Procedures: LEFT FRONTAL CRANIOTOMY FOR FRONTAL LOBECTOMY AND TUMOR RES ECTION Significant Diagnostic Studies and Procedures: noted in brief hospital course Consults: Neuro critical care Patient Disposition: Home Patient instructions/medications: Orders/Medications for Discharges to Home and External Facilities: Activity as Tolerated It is important to keep increasing your activity level after you leave the hosp ital. Moving around can help prevent blood clots, lung infection (pneumonia) an d other problems. Gradually increasing the number of times you are up moving ar ound will help you return to your normal activity level more quickly. Continue to increase the number of times you are up to the chair and walking daily to ret urn to your normal activity level. Begin to work toward your normal activity lev el at discharge. .As tolerated; No driving until cleared by your surgeon at foll ow up appointment. Avoid pulling, pushing or lifting greater than 10 pounds. Regular Diet You have no dietary restriction. Please continue with a healthy balanced diet. Report These Signs and Symptoms Please contact your doctor if you have any of the following symptoms: Call if t emperature greater than 101, incision red, drainage or odor noted from incision, pain that is uncontrolled with pain medication, numbness or weakness, vision ch anges, trouble with speech or slurring of speech, or any questions/concerns. Questions About Your Stay For questions or concerns regarding your hospital stay. Call [phone]. If y ou have any questions once at home during the work week between the hours of 080 0 -1500, please call the clinic at [phone]. Otherwise, [facility] ([phone]) and ask for the neurosurgery resident rn peritoneal dialysis t o be paged. Discharging attending physician: TAVARES SOTO [[id number]] Incision Care *Keep your incision clean and dry. *May shower. May get incision wet and wash hair 5 days following procedure. *Do not submerge incision in tub, pool, hot tub, or kelly for 4 weeks. *Your incision should gradually look better each day. If you notice unusual swel ling, redness, drainage, have increasing pain at the site, or have a fever great er than 100 degrees, notify your physician immediately. Opioid (Narcotic) Safety Information OPIOID (NARCOTIC) PAIN MEDICATION SAFETY We care about your comfort, and believe you need opioid medications at this time to treat your pain. An opioid is a strong pain medication. It is only availab le by prescription for moderate to severe pain. Usually these medications are u sed for only a short time to treat pain, but sometimes will be prescribed for lo nger. Talk with your doctor or nurse about how long they expect you to need thi s medication. When used the right way, opioids are safe and effective medications to treat you r pain, even when used for a long time. Yet, when used in the wrong way, opioid s can be dangerous for you or others. Opioids do not work for everyone. Most p atients do not get full relief of their pain from opioid medication; full relief of your pain may not be possible. For your safety, we ask you to follow these instructions: *Only take your opioid medication as prescribed. If your pain is not controlled with the prescribed dose, or the medication is not lasting long enough, call yo ur doctor. *Do not break or crush your opioid medication unless your doctor or pharmacist s ays you can. With certain medications, this can be dangerous, and may cause ashly th. *Never share your medications with others, even if they appear to have a good re ason. Never take someone else's pain medication-this is dangerous, and illegal (a crime). Overdoses and deaths have occurred. *Keep your opioid medications safe, as you would with cochran, in a lock box or sim ilar container. *Make sure your opioids are going to be secure, especially if you are around chi ldren or teens. *Talk with your doctor or pharmacist before you take other medications. *Avoid driving, operating machinery, or drinking alcohol while taking opioid chuck n medication. This may be unsafe. Pain medications can cause constipation. Constipation is bowel movements that ar e less often than normal. Stools often become very hard and difficult to pass. T his may lead to stomach pain and bloating. It may also cause pain when trying to use the bathroom. Constipation may be treated with suppositories, laxatives or stool softeners. A diet high in fiber with plenty of fluids helps to maintain re gular, soft bowel movements. DISCHARGE SUTURE/STAPLE REMOVAL Farnam will be removed at 2 week follow up appointment. Medication List START taking these medications acetaminophen 325 mg tablet Commonly known as: TYLENOL Take two tablets by mouth every 4 hours as needed. levETIRAcetam 500 mg tablet Commonly known as: KEPPRA Take one tablet by mouth twice daily for 6 days. oxyCODONE 5 mg tablet Commonly known as: ROXICODONE, OXY-IR Take one tablet to two tablets by mouth every 4 hours as needed Earliest Fill Da te: 10/06/18 senna/docusate 8.6/50 mg tablet Commonly known as: SENOKOT-S Take one tablet by mouth twice daily. CONTINUE taking these medications ABILIFY 15 mg tablet Generic drug: ARIPiprazole escitalopram oxalate 20 mg tablet Commonly known as: LEXAPRO Where to Get Your Medications These medications were sent to [facility] [address] [place] [id number] [place] [id number] Hours: M-F 9:00AM-5:30PM levETIRAcetam 500 mg tablet oxyCODONE 5 mg tablet You can get these medications from any pharmacy You don't need a prescription for these medications acetaminophen 325 mg tablet senna/docusate 8.6/50 mg tablet Scheduled appointments: Oct 17, 2018 11:15 AM CDT Post - Op with Liz Dale MD [facility] (NeuroSurgery) [address] [facility] [id number] Oct 30, 2018 11:00 AM CDT (Arrive by 9:45 AM) New Patient with Ascencion Sanchez MD [facility] (NeuroSurgery) [address] [facility] Level 2 Pod [address] [facility] [id number] Nov 10, 2018 1:15 PM CDT Post - Op with Tavares Soto MD [facility] (NeuroSurgery) [address] [facility] Level 2 [address] [facility] [id number] Pending items needing follow up: Final pathology pending outside consultation Signed: HARINDER Greenwood 10/09/2018 cc: Primary Care Physician: Frandy Monson Verified Referring physicians: Frandy Monson MD Additional provider(s): documented in this encounter Discharge Instructions * Instructions* Nahed Oconnor RN - 10/05/2018 2:42 PM CDT Debbie Louise Left Frontal Craniotomy for Frontal Lobectomy and Tumor Resection on 10/04/18 [facility] Dr. Soto Neurosurgery Discharge Instructions Contact information: ? Please feel free to call Neurosurgery at any time if you have questions or are experiencing problems at discharge [phone]. Post-operative wound care: ? Your incision has kartik in place. Your incision may be open to air. ? Keep your incision dry for 5 days. After this you may shower normally on 9. ? Use baby shampoo to wash incision, pat dry and leave open to air. ? Do not submerge your incision under water at all for 6 weeks. ? Have someone look at your incision every day. It should look the same or maria esther r daily. ? Do not apply any ointment, cream or lotions to incision line. Activity restrictions: ? Avoid pushing, pulling, lifting or bending more than 10 pounds (about a gallon of milk). If you hold children, they should be placed in your lap or crawl into lap if old enough. ? Do NOT drive until you are cleared by your physician. Post-operative pain and medications: ? Please use your pain medications and muscle relaxers as prescribed. ? Pain medications can make you constipated. You may take a stool softener and m iralax. ? Do NOT take Ibuprofen or NSAIDS (Aleve, Motrin, Naproxen) until doctor approve d. ? Tylenol is approved for pain control. This is available over the counter. Follow up appointment: ? 10/17/18 @ 11:[address] Dale for staple removal and wound check. ? 10/30/18 @ 11:[address] Sanchez, Neuro-Oncologist. ? 11/10/18 @ 1:[address] Soto for surgical follow up. Please contact Neurosurgery if you develop any of the following: ? Numbness, abnormal sensations of your face, arms or legs, especially on one si de. ? New or worsening changes in memory, confusion, speech or vision, or coordinati on. ? Fever 101 or greater. Redness, swelling, continuous oozing, fluid collection, warmth or bad odor near the incision site. ? Intense pain that is getting worse or unrelieved by pain medications or muscle relaxers. ? Seizure or new onset seizure like activity. documented in this encounter Medications at Time of Discharge Start Date End Date Medication Sig Dispensed Refills 10/06/2018 acetaminophen (TYLENOL) Take two 0 325 mg tablet tablets by mouth every 4 hours as needed. ARIPiprazole (ABILIFY) 15 Take 15 mg by 0 mg tablet mouth daily before dinner. escitalopram oxalate Take 20 mg by 0 (LEXAPRO) 20 mg tablet mouth daily before dinner. 10/06/2018 oxyCODONE (ROXICODONE, Take one 40 tablet 0 OXY-IR) 5 mg tablet tablet to two tablets by mouth every 4 hours as needed Earliest Fill Date: 10/06/18 10/06/2018 senna/docusate Take one 0 (SENOKOT-S) 8.6/50 mg tablet by tablet mouth twice daily. 10/06/2018 10/12/2018 levETIRAcetam (KEPPRA) Take one 12 tablet 0 500 mg tablet tablet by mouth twice daily for 6 days. documented as of this encounter Progress Notes * Jeremie Davis RN - 10/06/2018 12:34 PM CDT Debbie Louise discharged on 10/06/2018. . Discharge instructions reviewed with patient and family. Valuables returned: Personal Items / Valuables: Clothing Where Are Valuables Stored?: sent with family. Home medications: . Functional assessment at discharge complete: Yes . Discharge instructions were reviewed with the patient and the patients mother. A ll of their questions were answered. Prescriptions had been given to the patient . Patients IV was removed earlier d/t being infiltrated. Awaiting patients ride and she will be wheeled off of the unit. 1455 patient was wheeled off of the unit with all of her belongings. * Simran Prince OT - 10/06/2018 11:51 AM CDT OCCUPATIONAL THERAPY NO TREATMENT/DISCHARGE NOTE The patient was not seen due to: Patient resting, remained asleep while OT spoke with pt's mother. Pt's mother denies any ADL concerns and will be available to help pt at discharge. She feels pt is at her cognitive and ADL baseline. Pt with mild balance deficits for which they plan to do outpatient PT. Pt's mother stat es pt does have a tear in R shoulder, diagnosed by MRI at outside facility. Moth er asking if this will improve on its own. OT advised it depends on what is torn and to what extent. Recommend pt do pain-free ROM only, modify ADLs to thread L UE first and unthread last when donning shirts. Mother stating they are already doing this. Mother also stating that shoulder ROM is improving some. Pt may bene fit from outpatient therapy, which could be done by PT or OT for L shoulder to e ncourage good shoulder mechanics and prevent further impingement/tearing. Since pt is already going to go to PT, this may be the best option. Pt's mother plans to ask about this. There are no acute OT needs identified, will sign off. Therapist: Simran Prince OT Date: 10/06/2018 * Rehana Syed, PT - 10/06/2018 11:05 AM CDT PHYSICAL THERAPY PROGRESS NOTE MOBILITY: Progressive Mobility Level: Walk laps Distance Walked (feet): 450 ft Level of Assistance: Stand by assistance Assistive Device: None Time Tolerated: 0-10 minutes Activity Limited By: Fatigue SUBJECTIVE: Significant hospital events: 43 y.o. female with a PMH of schizoaffective disord er and bilateral resting tremor found on MRI to have a left frontal infiltrative glioma now s/p left frontal crani for left frontal lobectomy and tumor resectio n. Mental / Cognitive Status: Alert;Cooperative;Follows Commands Persons Present: Mother Pain: Patient has no complaint of pain BED MOBILITY/TRANSFERS: Bed Mobility: Supine to Sit: Standby Assist;Head of Bed Elevated;No Rail Transfer Type: Sit to/from Stand Transfer: Assistance Level: To/From;Bed;Standby Assist Transfer: Assistive Device: None Transfers: Type Of Assistance: For Safety Considerations End Of Activity Status: In Bed;Nursing Notified;Instructed Patient to Request As sist with Mobility;Instructed Patient to Use Call Light BALANCE: 4 Item Dynamic Gait Index: Assessed Gait Level Surface: 3 - Normal: Walks 20', no assistive devices, good speed, no evidence for imbalance, normal gait pattern Change in Gait Speed: 2 - Mild Impairment: Is able to change speed but demonstra karen mild gait deviations, or not gait deviations but unable to achieve a signifi cant change in velocity, or uses an assistive device. Gait with Horizontal Head Turns: 2 - Mild Impairment: Performs head turns smooth ly with slight change in gait velocity, ie., minor disruption to smooth gait pat h or uses walking aid. Gait with Vertical Head Turns: 2 - Mild Impairment: Performs head turns smoothly with slight change in gait velocity, ie., minor disruption to smooth gait path or uses walking aid. 4 Dynamic Gait Index Total : 9 out of 12 4 Dynamic Gait Index Fall Risk: Less than 10 - Increased Risk for Falls GAIT: Gait Distance: 450 feet Gait: Assistance Level: Standby Assist Gait: Assistive Device: None Gait: Descriptors: Pace: Slow;No balance loss;Normal step length Stairs: Number Climbed: 3 Stairs: Descriptors: Ascend;Descend;Reciprocal Stairs: Assistance Level: Standby Assist Stairs: Assistive Device: Two Rails Activity Limited By: Complaint of Fatigue EDUCATION: Persons Educated: Patient/Family Patient Barriers To Learning: Cognitive Deficits Interventions: Family Education Teaching Methods: Verbal Instruction Patient Response: Verbalized Understanding Topics: Plan/Goals of PT Interventions;Mobility Progression;Up with Assist Only; Importance of Increasing Activity;Ambulate With Nursing;Recommend Continued Ther apy ASSESSMENT/PROGRESS: Impaired Mobility Due To: Impaired Balance;Safety Concerns;Decreased Activity To lerance;Post Surgical Changes Assessment/Progress: Should Improve w/ Continued PT Turning from your back to your side while in a flat bed without using bed rails: None Moving from lying on your back to sitting on the side of a flatbed without using bedrails : None Moving to and from a bed to a chair (including a wheelchair): A Little Standing up from a chair using your arms (e.g. wheelchair, or bedside chair): A Little To walk in hospital room: A Little Climbing 3-5 steps with a railing: A Little Raw Score: 20 Standardized (T-scale) Score: 43.99 Basic Mobility CMS 0-100%: 33.32 CMS G Code Modifier for Basic Mobility: CJ GOALS: Goal Formulation: With Patient/Family Time For Goal Achievement: 4 days Patient Will Go Supine To/From Sit: Independently Patient Will Transfer Bed/Chair: Independently Patient Will Ambulate: Greater than 200 Feet, w/ No Device, Independently Patient Will Go Up / Down Stairs: 1-2 Flights, Independently PLAN: Treatment Interventions: Mobility Training;Strengthening;Balance Activities;Coor dination Training;Endurance Training;Neuromuscular Reeducation Plan Frequency: 5 Days per Week PT Plan for Next Visit: Increase stair training; balance activities. RECOMMENDATIONS: Recommendation: Home with consistent supervision/assistance Recommendation for Therapy Post Discharge: Outpatient Patient Currently Requires Physical Assist With: Ambulation Patient Currently Requires Equipment: None Therapist: Rehana Syed, PT Date: 10/06/2018 Mercy Houser, FIELD SALES AGENT-SUPERVISOR ADULT EDUCATION - 10/06/2018 9:00 AM CDT Neurosurgery Progress Note Admission Date: 10/04/2018 LOS: 2 days S: No acute events noted. Patient seen this AM with resident team. Mom at bedsid e, states patient is at her cognitive baseline. Patient reports pain but states it is managed well with medication. Mom and patient agreeable to discharge home today. O: Vital Signs: 24 Hour Range BP: (89-138)/(65-93) Temp: [36.5 C (97.7 F)-37.2 C (98.9 F)] Pulse: [81-97] Respirations: [11 PER MINUTE-21 PER MINUTE] SpO2: [95 %-97 %] O2 Delivery: None (Room Air) Physical Exam: Awake and alert Swelling and bruising to left eye--expected Oriented x4 VICK to command without focal deficit at the bed level Incision CDI with kartik, OR dressing removed A/P: 43 y.o. female Active Problems: Brain tumor (HCC) Cerebral edema (HCC) Brain compression (HCC) Schizoaffective disorder (HCC) Brain tumor, glioma (HCC) Schizophrenia (HCC) Murmur History of tremor Glioma of frontal lobe (HCC) Depression Neurologically stable--transition to floor care MRI reviewed with Dr. Lamine Canales for 48 hours-ends today, lorrie PRN Pain control PT./OT--home with assist Regular diet Discharge planning ongoing--home today Prophylaxis: A) GI: PPI B) Lines: No C) Urinary Catheter: No D) Antibiotic Usage: No E) VTE: Mechanical prophylaxis; Sequential compression device; No anticoagulati on until 48 hours post operative; contraindication due to bleeding risk F) Restraints: Patient assessed for need for restraints. Please call [phone] with any questions. HARINDER Greenwood Pager [phone] * Yoana Mc - 10/06/2018 8:19 AM CDT SPEECH-LANGUAGE PATHOLOGY Orders rec'd for a cognitive evaluation. Contacted by BRENT Madrid w/ primary team zev carrillo communicated order for cognitive evaluation canceled. Chart review completed . Please re-consult in future for language evaluation as indicated. Therapist: Yoana Mc MA, L/CCC-LINOLEUM INSTALLER Voalte: [id number] Date: 10/06/2018 * Maylin Dougherty, PT - 10/05/2018 11:00 AM CDT PHYSICAL THERAPY ASSESSMENT MOBILITY: Progressive Mobility Level: Walk in room Distance Walked (feet): 75 ft Level of Assistance: Assist X1 Assistive Device: Hand Held Time Tolerated: 11-30 minutes Activity Limited By: Dizziness(slow processing) SUBJECTIVE: Significant hospital events: 43 y.o. female with a PMH of schizoaffective disord er and bilateral resting tremor found on MRI to have a left frontal infiltrative glioma now s/p left frontal crani for left frontal lobectomy and tumor resectio n. Mental / Cognitive Status: Cooperative;Alert;Disoriented;To Place;To Time;[place] ed;To Person Persons Present: Mother Ambulation Assist: Independent Mobility in Community without Device Patient Owned Equipment: None Home Situation: Lives with Family Type of Home: House Entry Stairs: Rail on 1 Side;3-5 Stairs In-Home Stairs: No Stairs Comments: patient lives with her mother, denies falls prior, very slow to respon d both in motor and verbal reponses throughout session ROM: UE ROM WFL: Yes LE ROM WFL: Yes STRENGTH: Overall Strength: Generalized Weakness POSTURE/NEURO: LUE Sensation/Proprioception: Intact Light Touch RUE Sensation/Proprioception: Intact Light Touch LLE Sensation/Proprioception: Intact Light Touch RLE Sensation/Proprioception: Intact Light Touch Coordination: (delayed reaction) BED MOBILITY/TRANSFERS: Bed Mobility: Supine to Sit: Minimal Assist Transfer Type: Sit to/from Stand Transfer: Assistance Level: To/From;Bed;Minimal Assist Transfer: Assistive Device: Hand Hold Assist Transfers: Type Of Assistance: For Balance;For Strength Deficit;For Safety Consi derations Other Transfer Type: Stand to Sit Other Transfer: Assistance Level: To;Bed Side Chair;Minimal Assist End Of Activity Status: Up in Chair;Nursing Notified;Instructed Patient to Reque st Assist with Mobility;Instructed Patient to Use Call Light BALANCE: Sitting Balance: Static Sitting Balance;Dynamic Sitting Balance;Standby Assist Standing Balance: Static Standing Balance;Dynamic Standing Balance;Minimal Meghan t GAIT: Gait Distance: 75 feet Gait: Assistance Level: Minimal Assist Gait: Assistive Device: Hand Hold Assist Gait: Descriptors: Pace: Slow;Pathway deviations;Loss of balance Comments: large LOB x2 episodes requiring modA to recover Activity Limited By: Complaint of Fatigue;Complaint of Dizziness EDUCATION: Persons Educated: Patient/Family Patient Barriers To Learning: Cognitive Deficits Interventions: Family Education Teaching Methods: Verbal Instruction Patient Response: Verbalized Understanding Topics: Plan/Goals of PT Interventions;Mobility Progression;Up with Assist Only; Importance of Increasing Activity;Ambulate With Nursing;Recommend Continued Ther apy ASSESSMENT/PROGRESS: Impaired Mobility Due To: Decreased Strength;Impaired Balance;Cognitive Deficits ;Safety Concerns;Decreased Activity Tolerance;Post Surgical Changes Impaired Strength Due To: Decreased Level of Alertness;Post Surgical Changes Assessment/Progress: Should Improve w/ Continued PT Turning from your back to your side while in a flat bed without using bed rails: A Little Moving from lying on your back to sitting on the side of a flatbed without using bedrails : A Little Moving to and from a bed to a chair (including a wheelchair): A Little Standing up from a chair using your arms (e.g. wheelchair, or bedside chair): A Little To walk in hospital room: A Little Climbing 3-5 steps with a railing: A Little Raw Score: 18 Standardized (T-scale) Score: 41.05 Basic Mobility [facility] 0-100%: 40.47 [facility] G Code Modifier for Basic Mobility: CK GOALS: Goal Formulation: With Patient/Family Time For Goal Achievement: 4 days Patient Will Go Supine To/From Sit: Independently Patient Will Transfer Bed/Chair: Independently Patient Will Ambulate: Greater than 200 Feet, w/ No Device, Independently Patient Will Go Up / Down Stairs: 1-2 Flights, Independently PLAN: Treatment Interventions: Mobility Training;Strengthening;Balance Activities;Coor dination Training;Endurance Training;Neuromuscular Reeducation Plan Frequency: 5 Days per Week PT Plan for Next Visit: increase ind with gait, balance activities and steps RECOMMENDATIONS: Recommendation: Home with consistent supervision/assistance Recommendation for Therapy Post Discharge: Outpatient Patient Currently Requires Physical Assist With: All mobility Comments: 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 Patient seen this AM with resident team. Family at bed side. O: Vital Signs: 24 Hour Range BP: (92-144)/(53-87) ABP: (142-183)/(53-75) Temp: [36.6 C (97.9 F)-36.8 C (98.3 F)] Pulse: [66-99] Respirations: [12 PER MINUTE-27 PER MINUTE] SpO2: [93 %-98 %] O2 Delivery: None (Room Air) Physical Exam: Sleeping, wakes easily to voice Swelling and bruising to left eye--expected Oriented x4 VICK to command without focal deficit at the bed level Incision CDI A/P: 43 y.o. female Active Problems: Brain tumor (HCC) Cerebral edema (HCC) Brain compression (HCC) Schizoaffective disorder (HCC) Brain tumor, glioma (HCC) Schizophrenia (HCC) Murmur History of tremor Glioma of frontal lobe (HCC) Depression Neurologically stable--transition to floor care MRI pending Dex for 48 hours, keppra x14 days Na 143 PRN Pain control PT./OT Regular diet Discharge planning ongoing--likely home next day or two Prophylaxis: A) GI: PPI B) Lines: No C) Urinary Catheter: No D) Antibiotic Usage: No E) VTE: Mechanical prophylaxis; Sequential compression device; No anticoagulati on until 48 hours post operative; contraindication due to bleeding risk F) Restraints: Patient assessed for need for restraints. Please call [phone] with any questions. HARINDER Greenwood Pager [phone] * Haley Nelson RN - 10/05/2018 12:11 AM CDT Unable to get MRI tonight until 24 hours after initial dose of IV contrast on 0700. Will pass along to day RN. * Angely Ragsdale RN - 10/04/2018 12:57 PM CDT Patient arrived to room # 5119 via bed accompanied by OR staff. Patient transfer red to the bed with assistance. Bedside safety checks completed. Initial patient assessment completed. Refer to flowsheet for details. Admission skin assessment completed with: Nancy Guadarrama RN Pressure injury present on arrival?: No 1. Head/Face/Neck: No 2. Trunk/Back: No 3. Upper Extremities: No 4. Lower Extremities: No 5. Pelvic/Coccyx: No 6. Assessed for device associated injury? No 7. Malnutrition Screening Tool (Nursing Nutrition Assessment) Completed? Yes See Doc Flowsheet for additional wound details. INTERVENTIONS: * Jenny Braden RN - 10/04/2018 6:43 AM CDT Pt taken off unit to MRI per request of Dr. Soto. documented in this encounter H&P Notes * Tavares Soto MD - 10/04/2018 6:21 AM CDT I have seen and examined the patient. There have been no interval changes from t he H&P. Pt denies recent infection, fevers, chills, cp, or soa. Consent signed. We will proceed with Left frontal craniotomy for tumor resection. Tavares Soto MD Most recent clinic note: History of Present Illness PCP: Dr. Frandy Monson Oncology: Dr. Damien Kolb 43-year-old very pleasant right-handed female who is here for evaluation of trem ors. She has developed tremors that are resting on the left side and the right side. It is worse in the left side. It is hard to know exactly when this begun , but she has had some changes in her antipsychotic medications. She has seen h psychiatrist, and they do not believe that this is the cause. She has a long history of schizoaffective disorder that was diagnosed in the 20s. She is on m ultiple antipsychotic medications and lives with her mother at home. 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 She has occasionally had headaches, but they are relatively mild. Denies any hi story of seizures. She has never had an MRI before. During the work-up of her tremor, an MRI was obtained which showed evidence of a left frontal tumor and th erefore she has been referred to me. She is not on any blood thinners. Review of Systems Neurological: Positive for headaches. All other systems reviewed and are negative. Medical History: Diagnosis Date Schizophrenia (HCC) History reviewed. No pertinent surgical history. Family History Problem Relation Age of Onset Diabetes Mother Cataract Mother Hypertension Mother Social History Socioeconomic History Marital status: Single [...] Concern Not on file Social History Narrative Not on file Objective: ARIPiprazole (ABILIFY) 15 mg tablet Take 15 mg by mouth daily. dexamethasone (DECADRON) 4 mg tablet Take 4 mg by mouth every 6 hours. Take with food. escitalopram oxalate (LEXAPRO) 20 mg tablet Take 20 mg by mouth daily. Vitals: 09/22/18 1328 BP: 130/82 Pulse: 111 Temp: 36.8 C (98.2 F) TempSrc: Oral Weight: 106.6 kg (235 lb) Height: 165.1 cm (65") Body mass index is 39.11 kg/m. Physical Exam Constitutional: Well-developed, well nourished, flat affect HENT: Normocephalic, atraumatic, Oropharynx clear and moist Eyes: Pupils equal round and reactive to light, Extraocular muscles normal Cardiovascular: Heart sounds normal, heart murmur present Pulmonary: Effort normal Abdominal: No tenderness Musculoskeletal: ROM normal Skin: Warm, dry Neurological: A&Ox3, speech slow, but understandable (baseline) CN: Facial sensation equal, Smile equal, eye closure equal, hearing present bila terally, palate rises bilaterally, shoulder shrug equal, tongue protrusion midline 5/5 strength x 4 extremities Soft touch present x 4 extremities MRI of the brain reviewed which shows evidence of an extensive left frontal ill- defined nonenhancing mass which is most consistent with an infiltrative glioma. This does cross over to the right side to the corpus callosum and also goes into parts of the insula. 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 This is not believed to be the cause of her tremors. Had a long discussion with the patient and her mother today in the office about the findings of the MRI. We reviewed the MRI together. I showed them that the infiltration goes into the left frontal lobe going into the premotor cortex and also goes across midline through the corpus callosum to the right side. She als o has evidence of tumor going into the left insula. She is right-handed making speech very likely on the left side. I thoroughly reviewed the indications, risks, alternatives, and potential compli cations of the procedure. I also explained to them that the purpose of the surg hansel would be for tumor resection, but we could not get all of the tumor. I jasbir duff will be performing a left frontal lobectomy for tumor resection. We will have her see PAT clinic. On the morning of surgery, we will obtain a [facility] MRI with the addition of thin cut FLAIR sequences and DTI. She is currently on steroids, dexamethasone 4 mg every 6 hours. She has been on this for approximately 2 weeks. I am going to taper her off the steroids over 6 days. I have written out the taper plan for them. I personally do not think that there is significant edema in the situation. She has not had much benefit since being on the steroids. I also reviewed with her that neuro-oncology would be required and would help us decide on further treatment which could include chemotherapy and/or radiation t herapy. We will refer her to see Dr. Ascencion Sanchez postoperatively from neuro- oncology. She is scheduled for surgery 10/04. Thank you for allowing me to take care of Debbie Louise. If you have any quest ions or concerns, do not hesitate to contact me at [phone]. Tavares Soto MD documented in this encounter Consult Notes * Noris Fonseca MD - 10/04/2018 2:07 PM CDT Debbie Louise October 04, 2018 Noris Fonseca MD Neuro ICU Admission Referral: Neurosurgery Chief Complaint: post-op This note is tied to the note authored by Ms. Flores of today's date. I have seen and examined Debbie Louise in the neurosciences ICU. I have revie wed the hospital admission note authored by Ms. Flores and I agree with their f indings as stated, unless amended below. History of Present Illness: Ms. Louise is a 43 yo female with a medical historyof schizophrenia, cardiac mu rmur, and a recently found left frontal tumor identified after presenting with t remor. She underwent frontal lobectomy and tumor resection today and is admitte d to the ICU for post-op care. She is feeling well currently, after receiving so me pain medication, and has no specific concerns at this time. 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 Family History: Family History Problem Relation Age of Onset Diabetes Mother Cataract Mother Hypertension Mother Review of Systems: per Ms. Flores Physical Exam: Vitals: 10/04/18 1230 10/04/18 1245 10/04/18 1300 10/04/18 1315 BP: 144/72 Pulse: 78 76 81 81 Temp: SpO2: 96% 98% 97% Weight: Height: General: awake, sitting in bed Cardiac: regular rate and rhythm, subtle systolic murmur Pulmonary: clear anteriorly, normal effort on room air. Abdomen: soft, non-distended, non-tender Extremities: no edema. Art line in left foot. Neurologic: awake, attentive. EOMI, face symmetric, normal strength grossly in U E. No dysarthria. Impression: Ms. Louise is a 43 yo who is s/p resection of a left frontal lobe tumor. Continue supportive care. Remove arterial line in left foot. Advance diet. Mobilize as able. Continue home aripiprazole and escitalopram. Kaley-operative Ancef per surgery. Steroids and prophylactic Keppra per surgery. Remainder per Ms. Flores. * Dayan Flores, FIELD SALES AGENT - 10/04/2018 1:02 PM CDT Associated Order(s): CONSULT NEURO CRITICAL CARE PHYSICIAN Neuro Critical Care Consult Note Debbie Louise Admission Date: 10/04/2018 LOS: 0 days Full Code ASSESSMENT/PLAN Patient Active Problem List Diagnosis Date Noted Cerebral edema (HCC) 10/04/2018 Brain compression (HCC) 10/04/2018 Schizoaffective disorder (HCC) 10/04/2018 Brain tumor, glioma (HCC) 10/04/2018 Schizophrenia (HCC) Murmur History of tremor Glioma of frontal lobe (HCC) Depression Brain tumor (HCC) 09/22/2018 Debbie Louise is a 43 y.o. female with a PMH of schizoaffective disorder and b ilateral resting tremor found on MRI to have a left frontal infiltrative glioma now s/p left frontal crani for left frontal lobectomy and tumor resection. Hospital and ICU course: 10/04: Admit NEICU post op Neuro: Schizoaffective disorder, bilateral resting tremor, left frontal infiltr ative glioma s/p left frotnal crani for left frontal lobectomy and tumor resecti on. - Pre-op MRI: Evidence of an extensive left frontal ill-defined nonenhancing mas s which is most consistent with an infiltrative glioma. This does cross over t o the right side to the corpus callosum and also goes into parts of the insula. - NeuroOncology following - MRI in AM - Keppra for secondary seizure prevention - Ancef x 3 doses - MRI w w/o in the morning - Dexamethazone - S IRON WORKER Abilify and Lexapro - Neuro-ICU monitoring, neurochecks q 1 hrs Sedation/Pain Management: - PRN fentanyl, oxycodone, and tylenol - Assess for delirium daily Cardiac: Murmur - SBP goal: <150 - MAP goal > 65 - PRN labetalol and hydralazine available Respiratory: - Sating well on room air - PaO2 goal >100, Spo2 goal >95% GI: - Feeding: ADAT to regular diet - pepcid - continue while on steroids - neurosurgery bowel regimen, ensure daily BM Heme: - Daily CBC - assess for coagulopathy, maintain platelets above 100k, INR <1.5 ID: - Tmax afebrile - Daily CBC - aim for normothermia, Temp <38.3 celsius, normothermia protocol if febrile Renal: - maintain strict I&O monitoring - Daily BMP - Aim for normovolemia Endocrine: - Blood glucose goal 100-180mg/dl FEN: - IVF: SL - electrolyte replacement protocol in place - Magnesium goal >2.0, i-Bertin goal > 1.0, Potassium goal >4.0 mEq/L Prophylaxis Review: A)GI: [id number] B) Lines: Yes; Arterial Line; Indication: Continuous BP monitoring; Location: Radial C) Urinary Catheter: Yes; Retain wetzel due to: Need for accurate Intake and Ou tput D) Antibiotic Usage: Yes; Infection present or suspected: Post op ppx E) VTE: Mechanical prophylaxis; Sequential compression device F) Isolation: NA G)Seizures: NA I) Restraints: Patient assessed for need for restraints. Disposition/Family: NEICU post op Primary service: GENEVA Consults: NEICU, NeuroOncology, CRISTY/TRACE SUBJECTIVE Chief Complaint: Left frontal tumor, tremor History of Present Illness: Debbie Louise is a 43 y.o. female with a PMH of sc hizoaffective disorder and bilateral resting tremor L>R found on MRI to have a left frontal infiltrative glioma that extends over to the right side to the corpus callosum and also goes into parts of the insula. This tumor is not felt to be the cause of her tremor however. She met with Neurosurgery who discussed that they would not be able to resect the entire mass, but would do a left frontal lobectomy and debulking of the tumor and she would be followed by NeuroOncology afterward. The pt is now s/p left frontal crani for left frontal lobectomy and tumor resection. Medical History: Diagnosis Date Depression Glioma of frontal lobe (HCC) History of tremor Murmur Schizophrenia (HCC) History reviewed. No pertinent surgical history. Family History Problem Relation Age of Onset Diabetes Mother Cataract Mother Hypertension Mother Social History Social History Narrative She has a long history of schizoaffective disorder that was diagnosed in her 20 s. She lives with her mother at home. 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 Code Status: Full Code Decision Maker: Mother Josep Immunizations (includes history and patient reported): There is no immunization history on file for this patient. Allergies: Patient has no known allergies. Medications Prior to Admission Medication Sig ARIPiprazole (ABILIFY) 15 mg tablet Take 15 mg by mouth daily before dinner. escitalopram oxalate (LEXAPRO) 20 mg tablet Take 20 mg by mouth daily before dinner. Review of Systems: A 14 point review of systems was negative except for: Neurological: positive for headaches OBJECTIVE Vital Signs: Last Filed Vital Signs: [address] [facility] BP: 151/104 (10/04 0600) ABP: 179/72 (10/04 1245) Temp: 36.6 C (97.9 F) (10/04 1202) Pulse: 76 (10/04 1245) Respirations: 26 PER MINUTE (10/04 1245) SpO2: 96 % (10/04 1230) O2 Delivery: None (Room Air) (10/04 1202) Height: 165.1 cm (65") (10/04 0600) Weight: 106.5 kg (234 lb 12.8 oz) (10/04 06) BP: (151)/(104) ABP: (166-183)/(69-75) Temp: [36.6 C (97.9 F)-36.8 C (98.2 F)] Pulse: [76-98] Respirations: [16 PER MINUTE-26 PER MINUTE] SpO2: [94 %-97 %] O2 Delivery: None (Room Air) Intensity Pain Scale (Self Report): (not recorded) Vitals: 10/04/18 0600 Weight: 106.5 kg (234 lb 12.8 oz) Lines: Arterial Line and Peripheral Line Drains: Wetzel Catheter: -720 mL Intake/Output Summary: (Last 24 hours) Intake/Output Summary (Last 24 hours) at 10/04/2018 1316 Last data filed at 10/04/2018 1202 Gross per 24 hour Intake 1700 ml Output 920 ml Net 780 ml Physical Exam: Blood pressure (!) 151/104, pulse 76, temperature 36.6 C (97.9 F), height 16 5.1 cm (65"), weight 106.5 kg (234 lb 12.8 oz), last menstrual period 09/25/2018 , SpO2 96 %. Mariela coma score: E: 4 - Opens eyes on own M: 6 - Follows simple motor commands V: 5 - Alert and oriented Neuro: Mental Status: Lethargic post op but awake and oriented x4 Cranial Nerves: Cranial nerves 2-12 INTACT by inspection. - Pupil exam: Size: 3 Reactivity: Brisk - EOM: Intact - Corneal reflex: R - present L - present - Grimace/facial movement: present - Cough: present Motor: 4/5 throughout Sensory: normal Lungs: clear to auscultation bilaterally Pulmonary: Respiratory status: Stable Heart: RRR, murmur grade 1 Abdomen: soft, non-tender. Bowel sounds normal. No masses, no organomegaly, abn ormal findings: obese Extremities: extremities normal, atraumatic, no cyanosis or edema Skin: Skin color, texture, turgor normal. No rashes or lesions Point of Care Testing: (Last 24 hours): Lab Review: Pertinent labs reviewed Radiology and Other Diagnostic Procedures Review: Pertinent radiologic and diag nostic procedures reviewed. Dayan Mark, FIELD SALES AGENT Date: 10/04/[phone] I spent 45 minutes managing the care of this patient. Ms. Louise is in need of critical care monitoring with schizoaffective disorder and left frontal tumor s/ p left frontal lobectomy and tumor resection. Cares included: detailed neurologi c and systems exam, medication review, laboratory data review and interpretation , electrolyte management, review of available imaging, DVT/PE prophylaxis review , diet review, activity review, mechanical ventilation and sedation management, and coordination of care with consulted teams documented in this encounter Miscellaneous Notes * Case Mgmt DC Plan - Lavinia Puri RN - 10/06/2018 10:08 AM CDT Case Management Progress Note NAME:Debbie Louise :1975 AGE: 43 y.o. ADMISSION DATE: 10/04/2018 DAYS ADMITTED: LOS: 2 days Todays Date: 10/06/2018 Plan Discharge to home today Outpatient therapy Interventions ? Support ? Info or Referral ? Discharge Planning [facility] notes PT is recommending outpatient therapy at discharge. Patient has not castillo d OT evaluation. Patient has adequate transportation options to attend outpatient therapy appoint ments, and family support to participate in recovery recommendations. [facility] tasked [facility] Alex D to deliver list of in-network PT providers in patient's area to otoniel ent's room, along with written instructions describing process of accessing outp atient therapies. ? Medication Needs ? Financial ? Legal ? Other Disposition ? Expected Discharge Date Expected Discharge Date: 10/06/18 Expected Discharge Time: 1300 ? Transportation Does the patient need discharge transport arranged?: No Transportation Name, Phone and Availability #1: Pt's mother is planning to stay with pt time analysis clerk, until she is medically stable to return home. Does the patient use Medicaid Transportation?: No ? Next Level of Care (Acute Psych discharges only) ? Discharge Disposition Durable Medical Equipment No service has been selected for the patient. [facility] Destination No service has been selected for the patient. Home Care No service has been selected for the patient. Dialysis/Infusion No service has been selected for the patient. FANNIE Millan, RN, ACM-commercial sales consultant Nurse Entry Analyst [phone], *[phone] * Case Mgmt DC Plan - Corina Harris - 10/05/2018 11:49 AM CDT Case Management Admission Assessment NAME:Debbie Louise : [birth year] AGE: 43 y.o. ADMISSION DATE: 10/04/2018 DAYS ADMITTED: LOS: 1 day Todays Date: 10/05/2018 Source of Information: Mrs. Calderon (pt's mother) and Ms. Louise Plan Plan: Case Management Assessment, Discharge Planning for Home Anticipated Ms. Louise was admitted for frontal lobectomy and tumor resection. She is doin g well, overall, with some obvious swelling and fatigue. Ms. Louise lives at home with her mother, who works in a clinical setting for [email or web address] (RN). 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 She can drive, but her mother typically does the driving for Ms. Louise. Ms. Louise really enjoys reading, spending time with her animals, cooking, and taking walks outside. She sees Dr. Corrales 2-4x/month and feels as though her mental health symptoms are really well controlled at this point in time. CM d/c planning: No identified needs at this time. CM team will continue to fol low and be available to assist. Patient Address/Phone [address] [facility] [id number] (home) Emergency Contact Extended Emergency Contact Information Primary Emergency Contact: JOSEP CALDERON Mobile Relation: Mother Preferred language: TOGOLESE Healthcare Directive Healthcare Directive: Yes, patient has a healthcare directive Type of Healthcare Directive: Durable power of deputy attorney general for healthcare, [facility] re directive Location of Healthcare Directive: Copy in paper chart Would patient like to fill out a (a new) Healthcare Directive?: No, patient decl ined Psych Advance Directive (Psych unit only): No, patient does not have a Psych Adv ance Directive Transportation Does the patient need discharge transport arranged?: No Transportation Name, Phone and Availability #1: Pt's mother is planning to stay with pt time analysis clerk, until she is medically stable to return home. Does the patient use Medicaid Transportation?: No Expected Discharge Date Expected Discharge Date: 10/07/18 Expected Discharge Time: 1300 Living Situation Prior to Admission ? Living Arrangements Type of Residence: Home, independent Living Arrangements: Parent Bathroom Shower / Tub: Tub/Shower Unit How many levels in the residence?: 1 Can patient live on one level if needed?: Yes Does residence have entry and/or side stairs?: No Assistance needed prior to admit or anticipated on discharge: No Who provides assistance or could if needed?: Pt's mother is at home with pt, and has 2 weeks off from work to assist with transitioning bck home Are they in good health?: Yes Can support system provide 24/7 care if needed?: Yes ? Level of Function Prior level of function: Independent ? Cognitive Abilities Cognitive Abilities: Alert and Oriented, Continue to Assess(Pt extremely sleepy during the assessment) Financial Resources ? Coverage Primary Insurance: Medicaid Pending Additional Coverage: RX ? Source of Income Source Of Income: SSI ? Financial Assistance Needed? Psychosocial Needs ? Mental Health Mental Health History: Yes Agency name: [facility] Mental Health Provider: Dr. Corrales Mental Health Symptoms: Feeling depressed, Confused thinking(Schizoaffective dis order) ? Substance Use History Substance Use History Screen: No ? Other Current/Previous Services ? PCP Frandy Monson, , ? Pharmacy [address] - [address] [facility] [address] ? Durable Medical Equipment Durable Medical Equipment at home: None ? Home Health Receiving home health: No ? Hemodialysis or Peritoneal Dialysis Undergoing hemodialysis or peritoneal dialysis: No ? Tube/Enteral Feeds Receive tube/enteral feeds: No ? Infusion Receive infusions: No ? Private Duty Private duty help used: No ? Home and Community Based Services Home and community based services: No ? Etrence White Terence White: N/A ? Hospice Hospice: No ? Outpatient Therapy PT: No OT: No LINOLEUM INSTALLER: No ? [facility] Facility/Custodial SNF: No NH: No ? Inpatient Rehab IPR: No ? [facility]-Term Acute Care Hospital LTACH: No ? Acute Hospital Stay Acute Hospital Stay: No Corina Harris LMSW *[phone] * Anesthesia Post Op Day 1 - Flynn Martinez SRNA - 10/05/2018 10:36 AM CDT Anesthesia Follow-Up Evaluation: Post-Procedure Day One Name: Debbie Louise : 1975 Age: 43 y.o. Se x: female Procedure Date: 10/04/2018 Procedure: Procedure(s) with comments: LEFT FRONTAL CRANIOTOMY FOR FRONTAL LOBECTOMY AND TUMOR RESECTION - CASE LENGTH 4 HOURS, [place] CHAMBERS, MICROSCOPE, NEEDS MRI BRAIN W/ & W/OUT CONTRAST STEREOTACTIC SEQUENCES INCLUDING DTI & THIN CUT FLAIR SEQUENCES MORNING OF SURGERY, REQUEST 0800 START STEREOTACTIC COMPUTER-ASSISTED CRANIAL PROCEDURE - INTRADURAL MICROSURGICAL TECHNIQUES - REQUIRING OPERATING MICROSCOPE USE Physical Assessment Height: 165.1 cm (65") Weight: 106.6 kg (235 lb 0.2 oz) Vital Signs (Last Filed in 24 hours) BP: 97/66 (10/05 899) Temp: 36.8 C (98.3 F) (10/05 0400) Pulse: 99 (10/05 899) Respirations: 17 PER MINUTE (10/05 899) SpO2: 98 % (10/05 899) O2 Delivery: None (Room Air) (10/05 899) SpO2 Pulse: 99 (10/05 0800) Patient History Allergies No Known Allergies Medications Scheduled Meds: ARIPiprazole (ABILIFY) tablet 15 mg 15 mg Oral QDAY before dinner dexamethasone (DECADRON) injection 4 mg 4 mg Intravenous Q6H* docusate (COLACE) capsule 100 mg 100 mg Oral BID escitalopram oxalate (LEXAPRO) tablet 20 mg 20 mg Oral QDAY before dinner levETIRAcetam (KEPPRA) tablet 500 mg 500 mg Oral BID milk of magnesia (CONC) oral suspension 10 mL 10 mL Oral QDAY senna/docusate (SENOKOT-S) tablet 1 tablet 1 tablet Oral BID Continuous Infusions: niCARdipine (cardENE) 20 mg/NS 200 mL infusion (std conc)(premade) Stopped (10/04/18 1259) PRN and Respiratory Meds:acetaminophen Q4H PRN, fentaNYL citrate PF Q1H PRN, hyd rALAZINE Q6H PRN, labetalol (NORMODYNE; TRANDATE) injection Q15 MIN PRN, ondanse janette (ZOFRAN) IV Q6H PRN, oxyCODONE Q4H PRN Diagnostic Tests Hematology: Lab Results Component Value Date HGB 12.5 10/05/2018 HCT 36.0 10/05/2018 PLTCT 92 10/05/2018 WBC 6.3 10/05/2018 MCV 88.5 10/05/2018 MCH 30.9 10/05/2018 MCHC 34.9 10/05/2018 MPV 9.5 10/05/2018 RDW 14.3 10/05/2018 General Chemistry: Lab Results Component Value Date NA 143 10/05/2018 K 4.2 10/05/2018 CL 110 10/05/2018 CO2 26 10/05/2018 GAP 7 10/05/2018 BUN 9 10/05/2018 CR 0.83 10/05/2018 GLU 145 10/05/2018 CA 8.7 10/05/2018 ALBUMIN 4.2 09/22/2018 OBSCA 1.20 10/05/2018 MG 2.2 10/05/2018 TOTBILI 2.4 09/22/2018 PO4 3.3 10/05/2018 Coagulation: Lab Results Component Value Date PTT 22.5 09/22/2018 INR 1.0 09/22/2018 Follow-Up Assessment Patient location during evaluation: ICU Anesthetic Complications: Anesthetic complications: The patient did not experience any anesthestic complic ations. Pain: Score: 5 Management:satisfactory to patient Level of Consciousness: awake and alert Hydration:acceptable Airway Patency: patent Respiratory Status: acceptable and room air Cardiovascular Status:hemodynamically stable and acceptable Regional/Neuroaxial: * Operative Report (Direct Entry) - Tavares Soto MD - 10/04/2018 9:00 AM CDT Operative Note Name: Debbie Louise is a 43 y.o. female : 1975 MRN#: [id number] DATE OF OPERATION: 10/04/2018 Surgeon(s) and Role: * Tavares Soto MD - Primary * Alex Abdi MD - Resident - Assisting Pre-op Diagnosis: Left frontal tumor Post-op Diagnosis: Same Procedure: Procedure(s) (LRB): LEFT FRONTAL CRANIOTOMY FOR FRONTAL LOBECTOMY AND TUMOR RESECTION (Left) STEREOTACTIC COMPUTER-ASSISTED CRANIAL PROCEDURE - INTRADURAL (Left) MICROSURGICAL TECHNIQUES - REQUIRING OPERATING MICROSCOPE USE (Left) Anesthesia: General endotracheal anesthesia Estimated Blood Loss: 200 mL Drains: none Specimens: ID Type Source Tests Collected by Time Destination 1 : Frontal Tumor Tissue Brain SURGICAL PATHOLOGY Tavares Soto MD 10/04 0957 2 : Frontal Tumor Tissue Brain SURGICAL PATHOLOGY Tavares Soto MD 10/04 1016 Complications: none Implants: KLS plating system Indication for Procedure: 43-year-old female who presents with tremors and 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 After reviewing the MRI and reviewing this with the patient and her m other, we decided to do subtotal resection. After reviewing the indications, ri sks, alternatives, and potential complications of the procedure, patient has keyanna cted to proceed with surgery. Description of Procedure: After obtaining informed consent, the patient was brou ght back to the operating room where orotracheal anesthesia was induced. The [facility] desizing machine operator head end was attached and the patient was positioned appropriately. [employer] neuro navigation system was utilized and registration was performed to allow for intraoperative stereotaxis. Clippers were used to remove a small a mount of hair. Chlorhexidine, alcohol, and DuraPrep were applied in usual steri le fashion. After confirming site and side, a proper timeout was performed. St erile towels, Ioban, and sterile drapes were applied in the usual sterile fashio n. Local anesthetic was injected into the incision site. A 10 blade scalpel was used to make a question manolo incision on the left side. Monopolar cautery was used to obtain hemostasis and dissect down to the bone. J ust a little bit of the muscle had to be dissected for our exposure. Fishhooks were placed for retraction. A blackjack dealer was used to make several bur holes on midline. A craniotomy was then fashioned in the usual manner. Epidural hemosta sis was obtained and several tack up sutures were placed. The dura was then opened in the usual manner and flap towards the midline. We n ext identified the superior and middle frontal gyrus. We used our navigation to figure out the posterior extent of resection. Using her bipolar cautery, and s ections, we performed a frontal lobectomy involving the superior and middle fron neeru gyrus. We took this down to the cingulate gyrus. We did this in the subpia l manner. We were extremely careful to not injure or violate any crossing/passi ng arteries. There is a small branch that was bleeding which was able to be con trolled easily with Gelfoam and cottonoids. The operating room microscope was brought into the field and used for the remain oli of the case for microdissection. Using our navigation, we cleaned up the ed ges and removed additional tumor. We did send a frozen section which was consis tent with a low to mid grade glioma. Hemostasis was obtained and the cavity was layered with Surgicel. The dura was reapproximated using 4-0 Nurolon sutures in a simple running fashion. A dry piece of Gelfoam was placed on top of the dura. The bone flap was then pl ated and secured using the KLS plating system. The wound was thoroughly irrigat ed with bacitracin irrigation and hemostasis was obtained. The tissues were ismael sed in anatomical layers using 2-0 Vicryl sutures. The skin was closed using st aples. The incision was cleaned and dressed in the usual sterile fashion. The patient was extubated, moved to the rwashington, and taken to the recovery room in st able fashion. All sponge and needle counts were correct. I performed this proc edure with the resident. Disposition: PACU - hemodynamically stable. Condition: stable Post-op Instructions: MRI in AM. Dex. Keppra. Ancef x 3. Post-op Exam: Patient sedated, unable to perform neurological exam. Tavares Soto MD Pager [phone] documented in this encounter Plan of Treatment Order Schedule Name Type Priority Associated Diagnoses ONCE for 1 Occurrences starting 10/04/2018 SURGICAL PATHOLOGY Pathology Routine Brain tumor (HCC) documented as of this encounter Procedures Comments Procedure Name Priority Date/Time Associated Diagnosis MRI HEAD WO/W CONTRAST Routine 10/05/2018 2:09 PM CDT IONIZED CALCIUM Routine 10/05/2018 3:53 AM CDT CBC Routine 10/05/2018 3:03 AM CDT PHOSPHORUS Routine 10/05/2018 3:03 AM CDT MAGNESIUM Routine 10/05/2018 3:03 AM CDT BASIC METABOLIC PANEL Routine 10/05/2018 3:03 AM CDT SURGICAL PATHOLOGY 10/04/2018 10:00 AM CDT MICROSURGICAL TECHNIQUES 10/04/2018 Brain tumor (HCC) - REQUIRING OPERATING 7:51 AM CDT MICROSCOPE USE STEREOTACTIC 10/04/2018 Brain tumor (HCC) COMPUTER-ASSISTED CRANIAL 7:51 AM CDT PROCEDURE - INTRADURAL CRANIECTOMY/ BONE FLAP 10/04/2018 Brain tumor (HCC) CRANIOTOMY EXCISION 7:51 AM CDT SUPRATENTORIAL BRAIN TUMOR TYPE & CROSSMATCH Routine 10/04/2018 Brain tumor (HCC) 6:16 AM CDT BETA-HCG STAT 10/04/2018 6:16 AM CDT PATHOLOGY REPORTS FROM 10/04/2018 OUTSIDE SCAN 12:00 AM CDT PATHOLOGY REPORTS FROM 10/04/2018 OUTSIDE SCAN 12:00 AM CDT TELEMETRY STRIPS-SCAN 10/04/2018 12:00 AM CDT documented in this encounter Results * MRI HEAD WO/W CONTRAST (10/05/2018 2:09 PM CDT) Specimen Impressions Performed At 1.Interval debulking/partial resection [...] on 10/05/2018 2:11 PM. Performing Organization Address City/[facility] Phone Number RAD RESULTS * IONIZED CALCIUM (10/05/2018 3:53 AM CDT) Ionized Calcium 1.20 1.0 - 1.3 MMOL/L MAIN LAB Specimen Blood Performing Organization Address [facility] Phone Number MAIN LAB [address] [place] [address] * PHOSPHORUS (10/05/2018 3:03 AM CDT) Phosphorus 3.3Comment: NOTE NEW REFERENCE 2.0 - 4.5 MG/DL MAIN LAB RANGES Specimen Blood Performing Organization Address [facility]/Zipcode Phone Number [facility] [address] [place] [address] * MAGNESIUM (10/05/2018 3:03 AM CDT) Magnesium 2.2 1.6 - 2.6 mg/dL [facility] Specimen Blood Performing Organization Address [facility] Phone Number [facility] [address] [place] [address] * BASIC METABOLIC PANEL (10/05/2018 3:03 AM CDT) Sodium 143 137 - 147 MMOL/L [facility] Potassium 4.2 3.5 - 5.1 MMOL/L [facility] Chloride 110 98 - 110 MMOL/L [facility] CO2 26 21 - 30 MMOL/L [facility] Anion Gap 7 3 - 12 [facility] Glucose 145 (H) 70 - 100 MG/DL [facility] Blood Urea 9 7 - 25 MG/DL [facility] Nitrogen Creatinine 0.83 0.4 - 1.00 MG/DL [facility] Calcium 8.7 8.5 - 10.6 MG/DL [facility] eGFR Non >60 >60 mL/min [facility] Comment: Serbian The eGFR is not validated for use in drug dosing adjustments.Continue to use estimated creatinine clearance per dosing reference text.Please contact the Clinical Pharmacist for questions. eGFR >60 >60 mL/min [facility] Serbian Comment: The eGFR is not validated for use in drug dosing adjustments.Continue to use estimated creatinine clearance per dosing reference text.Please contact the Clinical Pharmacist for questions. Specimen Blood Performing Organization Address [facility] Phone Number MAIN LAB [address] [place] [address] * CBC (10/05/2018 3:03 AM CDT) White Blood 6.3 4.5 - 11.0 K/UL [facility] Cells RBC 4.06 4.0 - 5.0 M/UL [facility] Hemoglobin 12.5 12.0 - 15.0 GM/DL [facility] Hematocrit 36.0 36 - 45 % [facility] MCV 88.5 80 - 100 FL [facility] MCH 30.9 26 - 34 PG [facility] MCHC 34.9 32.0 - 36.0 G/DL [facility] RDW 14.3 11 - 15 % [facility] Platelet Count 92 (L) 150 - 400 K/UL [facility] MPV 9.5 7 - 11 FL [facility] Specimen Blood Performing Organization Address City/State/Zipcode Phone Number [facility] [address] [place] [address] * SURGICAL PATHOLOGY (10/04/2018 10:00 AM CDT) PATHOLOGY [facility] [email or web address] Department of Pathology and Laboratory Medicine [address] [place] [address] Surgical Pathology Office:[phone] :[phone] SURGICAL PATHOLOGY REPORT NAME: DEBBIE LOUISE SURG PATH #: [id number] MR #: [id number] SPECIMEN CLASS: [facility] BILLING #: [id number] ALT ID #:LOCATION: DISCHARGED DATE OF PROCEDURE: 10/04/2018 AGE:43 SEX: F DATE RECEIVED: 10/04/2018 : 1975TIME RECEIVED:10:00 PHYSICIAN: TAVARES SOTO MD DATE OF REPORT: 10/05/2018 COPY TO:DATE OF PRINTIN11/02/2018 Procedures/Addenda Addendum Date Ordered: 11/02/2018 Status:Signed Out Date Complete: 11/02/2018 By: Mónica Roberson MD Date Reported: 11/02/2018 Addendum Diagnosis Final integrated diagnosis from the [facility] scanned into the medical record on 11/02/2018: "Brain, left frontal lobe mass, resection ([id number]; 10/04/2018): Anaplastic astrocytoma, 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 [...] is controversial at present. The WHO 2016 [employer] DIRECT[employer] Classification suggests to continue grading IDH-mutant astrocytoma with the traditional criteria used before (WHO 2007) by which this tumor is best considered an anaplastic astrocytoma, IDH mutant (WHO grade III). There is, however, evidence that the traditional WHO criteria may not provide adequate stratification for diffuse grade II and grade III astrocytomas, IDH mutant ([place] et al. Acta Neuropathol 2015; 129:585 - [...] Initial preliminary report from the [facility] was scanned into the medical record on 10/16/2018. Please see the medical record/O2 for all original scanned reports as well the molecular studies results reports performed at the [facility]. The treating team were provided with updates on 10/16/2018 & 10/25/2018. ############################## ############################## ############ Final Diagnosis: A. Brain, "frontal tumor frozen", biopsy: Pending outside consultation. B. Brain, "frontal tumor permanent", biopsy: Pending outside consultation. Comment: The case is submitted to [facility] for diagnostic evaluation. Please see addendum [...] tissue fragment. Touch preps are made. A industrial relations representative section is submitted for frozen consultation [...] in cassettes B1-B5 (B4 and B5 contain industrial relations representative sections of focal speckled areas). (nyu [...] optimal evaluation. Frozen section performed at the [facility], [address] [place] [address]. Margaret Boyce MD Specimen Performing Organization Address City/[facility]/Zipcode Phone Number [facility] [address] [phone] * BETA-HCG (10/04/2018 6:16 AM CDT) Beta-HCG,Serum <1 <5 U/L [facility] Specimen Blood Performing Organization Address City/[facility]/Zipcode Phone Number [facility] [address] [place] [address] * TYPE & CROSSMATCH (10/04/2018 6:16 AM CDT) Units Ordered 0 [facility] Crossmatch 10/07/2018 [facility] Expires Record Check FOUND [facility] ABO/RH(D) O POS MAIN LAB Antibody Screen NEG MAIN LAB Electronic YES [facility] Crossmatch Specimen Blood Performing Organization Address City/State/Zipcode Phone Number MAIN LAB [address] [place] [address] * TELEMETRY STRIPS-SCAN (10/04/2018 12:00 AM CDT) Narrative Performed At Ordered by an unspecified provider. * PATHOLOGY REPORTS FROM OUTSIDE SCAN (10/04/2018 12:00 AM CDT) Narrative Performed At Ordered by an unspecified provider. * PATHOLOGY REPORTS FROM OUTSIDE SCAN (10/04/2018 12:00 AM CDT) Narrative Performed At Ordered by an unspecified provider. documented in this encounter Visit Diagnoses Diagnosis Glioma of frontal lobe (HCC) - Primary Brain tumor (HCC) Neoplasm of unspecified nature of brain Cerebral edema (HCC) Cerebral edema Brain compression (HCC) Compression of brain Schizoaffective disorder (HCC) Schizoaffective disorder, unspecified condition Anaplastic astrocytoma (HCC) Malignant neoplasm of brain, unspecified site Schizophrenia (HCC) Unspecified schizophrenia, unspecified condition Murmur Undiagnosed cardiac murmurs History of tremor Depression Depressive disorder, not elsewhere classified documented in this encounter Admitting Diagnoses Diagnosis Brain tumor, glioma (HCC) Malignant neoplasm of brain, unspecified site documented in this encounter Administered Medications Action Date Dose Rate Site Medication Order MAR Action 10/06/2018 10:13 AM CDT 650 mg acetaminophen (TYLENOL) tablet 650 mg Given 650 mg, Oral, EVERY 4 HOURS PRN, Starting Tue10/04/18 at 1730, Until Tue10/06/18 at 1657, Temp > ..., 38.3 C, TOTAL ACETAMINOPHEN DOSE NOT TO EXCEED 4GM DAILY, 650 mg Given 10/05/2018 3:34 PM CDT 650 mg Given 10/05/2018 8:55 AM CDT 10/05/2018 4:53 PM CDT 15 mg ARIPiprazole (ABILIFY) tablet 15 mg Given 15 mg, Oral, DAILY BEFORE DINNER, First dose on Tue10/04/18 at 1700, Until Discontinued 15 mg Given 10/04/2018 3:54 PM CDT 10/05/2018 8:46 AM CDT 2 g ceFAZolin (ANCEF) IVP 2 g Given 2 g, Intravenous, EVERY 8 HOURS, 3 doses, First dose on Tue10/04/18 at 1700, Last dose on Tue10/05/18 at 0900, IV PUSH -- RECONSTITUTE each 1 g vial by adding 10 mL 0.9% NACL, 2 g Given 10/05/2018 1:17 AM CDT 2 g Given 10/04/2018 5:17 PM CDT 10/06/2018 3:02 AM CDT 4 mg dexamethasone (DECADRON) injection 4 mg Given 4 mg, Intravenous, 1 mL, Administer over 5 Minutes, EVERY 6 HOURS, 8 doses, First dose on Tue10/04/18 at 1500, Last dose on Tue10/06/18 at 0900, Administration of IV Push Dexamethasone (on Non-Critical Care Units): - Adults: Administer doses of 10 mg or less diluted in 10 mL of NS or D5W IV Push over 5 minutes. Doses greater than 10mg should be administered via Piggyback. - Pediatrics: Administer doses of 10 mg or less diluted in 5-10 mL of NS or D5W IV Push over 5 minutes. Doses greater than 10mg should be administered via Piggyback., 4 mg Given 10/05/2018 9:07 PM CDT 4 mg Given 10/05/2018 3:15 PM CDT 10/06/2018 9:16 AM CDT 4 mg dexamethasone (DECADRON) tablet 4 mg Given 4 mg, Oral, EVERY 6 HOURS, 1 dose, First dose on Tue10/06/18 at 0915 10/06/2018 8:55 AM CDT 100 mg docusate (COLACE) capsule 100 mg Given 100 mg, Oral, TWICE DAILY, First dose on Tue10/04/18 at 1230, Until Discontinued, Hold for loose stools, 100 mg Given 10/05/2018 8:16 PM CDT 100 mg Given 10/05/2018 8:46 AM CDT 10/05/2018 4:53 PM CDT 20 mg escitalopram oxalate (LEXAPRO) tablet 20 Given mg 20 mg, Oral, DAILY BEFORE DINNER, First dose on Tue10/04/18 at 1700, Until Discontinued 20 mg Given 10/04/2018 3:55 PM CDT 10/04/2018 1:22 PM CDT 50 mcg fentaNYL citrate PF (SUBLIMAZE) Given injection 25-50 mcg 25-50 mcg, Intravenous, EVERY 1 HOUR PRN, Starting Tue10/04/18 at 1202, Until Tue10/05/18 at 1047, Pain Injectable fentaNYL citrate PF (SUBLIMAZE) injection 25-50 mcg 25-50 mcg, Intravenous, EVERY 4 HOURS PRN, Starting Tue10/05/18 at 1045, Until Tue10/06/18 at 1657, Pain Injectable 10/05/2018 1:55 PM CDT 20 mL gadobenate dimeglumine (MULTIHANCE) Given injection 20 mL 20 mL, Intravenous, ONCE, 1 dose, Tue10/05/18 at 1415, NOTE: This is a HIGH ALERT Medication., 10/04/2018 12:48 PM CDT 10 mg hydrALAZINE (APRESOLINE) injection 10 mg Given 10 mg, Intravenous, EVERY 6 HOURS PRN, Starting Tue10/04/18 at 1202, Until Tue10/05/18 at 1047, Systolic Blood Pressure..., >160 mmHg or MAP >110 mmHg 10/04/2018 12:19 PM CDT 10 mg labetalol (NORMODYNE) injection 10-20 mg Given 10-20 mg, Intravenous, EVERY 15 MIN PRN, Starting Tue10/04/18 at 1202, Until Tue10/05/18 at 1047, Other..., For SBP > 160 mmHg or MAP > 110 mmHg, Hold for HR < 60/min and/or MAP < 110 mmHg or SBP < 160 mmHg. , 10/06/2018 8:55 AM CDT 500 mg levETIRAcetam (KEPPRA) tablet 500 mg Given 500 mg, Oral, TWICE DAILY, 14 doses, First dose on Tue10/04/18 at 1245, Last dose on Tue10/10/18 at 2100 500 mg Given 10/05/2018 8:16 PM CDT 500 mg Given 10/05/2018 8:46 AM CDT 10/06/2018 8:55 AM CDT 10 mL milk of magnesia (CONC) oral suspension Given 10 mL 10 mL, Oral, DAILY, First dose on Tue10/04/18 at 1215, Until Discontinued, May hold if BM within 24 hours of dose. 10 mL CONC=30 mL MOM, 10 mL Given 10/05/2018 8:46 AM CDT 10/06/2018 10:13 AM CDT 10 mg oxyCODONE (ROXICODONE, OXY-IR) tablet Given 5-10 mg 5-10 mg, Oral, EVERY 4 HOURS PRN, Starting Tue10/04/18 at 1202, Until Tue10/06/18 at 1657, Pain PO 10 mg Given 10/05/2018 8:21 PM CDT 5 mg Given 10/05/2018 3:34 PM CDT 10/06/2018 8:55 AM CDT 1 tablet senna/docusate (SENOKOT-S) tablet 1 Given tablet 1 tablet, Oral, TWICE DAILY, First dose on Tue10/04/18 at 1230, Until Discontinued, Hold for loose stools. If patient unable to take tablet, give 10 mL of senna/docusate (SENOKOT-S) solution. Send inCaliopa message to pharmacy., If patient unable to take tablet, give 10 mL of senna/docusate (SENOKOT-S) solution., 1 tablet Given 10/05/2018 8:16 PM CDT 1 tablet Given 10/05/2018 8:46 AM CDT 10/04/2018 6:00 AM CDT 1,000 mL 20 mL/hr sodium chloride 0.9 % infusion Given - New 1,000 mL, 1,000 mL, Intravenous, at 20 Bag mL/hr, CONTINUOUS, Starting Tue10/04/18 at 0545, Until Tue10/05/18 at 0745, Pre-Op SODIUM CHLORIDE 0.9 % IV SOLP (Cabinet Override) NOW, 1 dose, Tue10/04/18 at 0600, Created by cabinet override, Created by cabinet override, documented in this encounter
--- OUTSIDE RECORDS SUMMARY | 2018-11-08 21:27 | XMS REPORT | Encounter Summary ---
Author Author [facility] Organization [facility] Address Unknown Phone Unavailable Care Team Providers Care Cold Rolling Supervisor Name Role Phone Frandy Monson MD PCP Leatha Kolb MD 21 Reason for Visit * Reason Comments Navigation Assessment Encounter Details Care Team Description Date [place] [address] [place] [address] [phone] Navigation Assessment 10/05/2018 Telephone [facility] [address] [id number] Social History Date Tobacco Use Types Packs/Day [...] history available. 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 PCP ordered a CT Head and MRI Brain and found a lesion. She was referred to oncology who referred on to neurosurgery at . Patient has a history of mental retardation and schizophrenia but is very high functioning. Abimbola obregon is her mother who is a nurse at [employer]. Seen in clinic b y Dr. Raman and surgery was scheduled. RE-Navigation the following [...] or allergies. 10/04/18: Left frontal craniotomy - [place] prelim: Diffusely infiltrating glioma w ith increased mitotic active. See comment. Report attached. 10/05/18: MRI Head - Interval debulking/partial resection of the infiltrative l eft frontal mass. There is persistent left frontal, anterior callosal, and media l right frontal FLAIR hyperintensity consistent with tumor and/or edema.Unchange d tiny right external capsule/insular focus of enhancement, favored to represent benign vascular area of enhancement. Comments: Final path expected 10/27/18. Will forward when received. Spoke with p atients mom who will be bringing her to this appointment. She is MMR and mom is POA/caregiver. [facility] scheduling letter sent. documented in this encounter Plan of Treatment Not on filedocumented as of this encounter Visit Diagnoses Not on filedocumented in this encounter
--- OUTSIDE RECORDS SUMMARY | 2018-11-08 21:27 | XMS REPORT | Encounter Summary ---
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 Name Role Phone Frandy Monson MD PCP Leatha Kolb MD 21 Reason for Referral * Radiology Services (Routine) Referred By Contact Referred To Contact Status Reason Specialty Diagnoses / Procedures Tavares Raman MD [address] [facility] [address] [place] [address] Ca2 Mri [address] [address] No Auth Needed Radiology Diagnoses Brain mass P rocedures MRI HEAD WO/W CONTRAST * Radiology Services (Routine) Referred By Contact Referred To Contact Status Reason Specialty Diagnoses / Procedures Tavares Raman MD [address] [facility] [address] [place] [address] Ca2 Mri [address] [address] No Auth Needed Radiology Diagnoses Brain mass P rocedures MRI HEAD WO/W CONTRAST Reason for Visit * Auth/Cert Referred By Contact Referred To Contact Status Reason Specialty Diagnoses / Procedures Diagnoses Brain tumor (HCC) Brain tumor (HCC) [D49.6] P rocedures CO CRANIEC TREPHINE BONE FLP BRAIN TUMOR SUPRTENTOR CO STRTCTC CPTR ASSTD PX CRANIAL INTRADURAL CO MICROSURG TQS REQ USE OPERATING MICROSCOPE LEFT FRONTAL CRANIOTOMY FOR FRONTAL LOBECTOMY AND TUMOR RESECTION STEREOTACTIC COMPUTER-ASSISTED CRANIAL PROCEDURE - INTRADURAL MICROSURGICAL TECHNIQUES - REQUIRING OPERATING MICROSCOPE USE Encounter Details Care Team Description Date Type Department Tavares Raman MD [address] [facility] [address] [place] [address] [phone] 10/04/2018 [facility] [address] [place] [phone] Social History Date Tobacco Use Types Packs/Day [...] history available. documented as of this encounter Medications at Time of Discharge [...] by mouth twice daily for 6 days. 10/06/2018 10/06/2018 levETIRAcetam (KEPPRA) Take one 12 tablet 0 500 mg tablet tablet by mouth twice daily for 6 days. documented as of this encounter Plan of Treatment Not on filedocumented as of this encounter Procedures Comments Procedure Name Priority Date/Time Associated Diagnosis MRI HEAD WO/W CONTRAST Routine 10/04/2018 Brain mass 7:20 AM CDT documented in this encounter Results * MRI HEAD WO/W CONTRAST (10/04/2018 7:20 AM CDT) Specimen Impressions Performed At 1.Large, infiltrative nonenhancing left frontal lobe mass which extends [facility] across midline and results in associated mass effect and minimal left right midline shift. 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 2.Increased conspicuity of a tiny right external capsule/insular focus, which is favored for a small vascular lesion such as telangiectasia or cavernoma. Attention follow-up imaging is suggested. 3.Nasal turbinate prominence, suggestive of rhinitis or allergies. Approved by Jaimie Marques D.O. on 10/04/2018 9:15 AM By my electronic signature, I attest that I have personally reviewed the images for this examination and formulated the interpretations and opinions expressed in this report Finalized by Sánchez Villatoro M.D. on 10/04/2018 11:15 AM. Dictated by Jaimie Marques D.O. on 10/04/2018 8:30 AM. Narrative Performed At EXAM: MRI BRAIN (NEURONAVIGATIONAL TREATMENT PLANNING) [facility] HISTORY: 43-year-old female. Neuronavigational protocol for surgical planning. Brain mass. TECHNIQUE: Thin section MRI images were obtained of the brain before and following the administration of MultiHancecontrast according to neuronavigational treatment planning protocol. COMPARISON:Outside MRI brain 09/01/2018 FINDINGS: Redemonstration of confluent, nonenhancing masslike FLAIR hyperintensity in the left frontal lobe with cortical and diffuse white matter involvement, which extends into portions of the anterior inferior and external capsule. Infiltrative mass extends across midline along the genu and anterior body of the corpus callosum to involve the adjacent anterior right frontal lobe deep white matter. There is associated mass effect, mild ventricular effacement and izxb-cs-vlkgn midline shift measuring approximately 5 mm. There is disruption of the descending corticospinal tracts in the left frontal lobe and diffusion tensor imaging. There has been interval increased conspicuity of a tiny focus of enhancement along the right external capsule/insula with associated susceptibility. There is prominence of the bilateral visualized nasal turbinates. Procedure Note Interface, Radiant Results - 10/04/2018 11:30 AM CDT EXAM: MRI BRAIN (NEURONAVIGATIONAL TREATMENT PLANNING) HISTORY: 43-year-old female. Neuronavigational protocol for surgical planning. Brain mass. TECHNIQUE: Thin section MRI images were obtained of the brain before and following the administration of MultiHancecontrast according to neuronavigational treatment planning protocol. COMPARISON:Outside MRI brain 09/01/2018 FINDINGS: Redemonstration of confluent, nonenhancing masslike FLAIR hyperintensity in the left frontal lobe with cortical and diffuse white matter involvement, which extends into portions of the anterior inferior and external capsule. Infiltrative mass extends across midline along the genu and anterior body of the corpus callosum to involve the adjacent anterior right frontal lobe deep white matter. There is associated mass effect, mild ventricular effacement and ykoh-fy-ffbjw midline shift measuring approximately 5 mm. There is disruption of the descending corticospinal tracts in the left frontal lobe and diffusion tensor imaging. There has been interval increased conspicuity of a tiny focus of enhancement along the right external capsule/insula with associated susceptibility. There is prominence of the bilateral visualized nasal turbinates. IMPRESSION 1. Large, infiltrative nonenhancing left frontal lobe mass which extends across midline and results in associated mass effect and minimal left right midline shift. 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 2. Increased conspicuity of a tiny right external capsule/insular focus, which is favored for a small vascular lesion such as telangiectasia or cavernoma. Attention follow-up imaging is suggested. 3. Nasal turbinate prominence, suggestive of rhinitis or allergies. Approved by Jaimie Marques D.O. on 10/04/2018 9:15 AM By my electronic signature, I attest that I have personally reviewed the images for this examination and formulated the interpretations and opinions expressed in this report Finalized by Sánchez Villatoro M.D. on 10/04/2018 11:15 AM. Dictated by Jaimie Marques D.O. on 10/04/2018 8:30 AM. Performing Organization Address City/State/Zipcode Phone Number [facility] documented in this encounter Visit Diagnoses Diagnosis Brain mass Unspecified condition of brain documented in this encounter Administered Medications Action Date Dose Rate Site Medication Order MAR Action 10/04/2018 7:10 AM CDT 20 mL gadobenate dimeglumine (MULTIHANCE) Given injection 20 mL 20 mL, Intravenous, ONCE, 1 dose, 10/04/18 at 0715, NOTE: This is a HIGH ALERT Medication., documented in this encounter
--- OUTSIDE RECORDS SUMMARY | 2018-11-08 21:28 | XMS REPORT | Encounter Summary ---
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 Name Role Phone Frandy Monson MD PCP Leatha Kolb MD 21 Encounter Details Care Team Description Date Type Department Tavares Raman MD [address] [facility] [address] [place] [address] Brain tumor (HCC) (Primary Dx) 09/22/2018 PAC Office [facility] [address] [place], [place] [id number] Anesthesia Record Responsible Anesthesiologist Anesthesia Start Time Anesthesia Stop Time Procedure Name Nirav Sung MD 10/04/18 0751 10/04/18 1158 LEFT FRONTAL CRANIOTOMY FOR FRONTAL LOBECTOMY AND TUMOR RESECTION (Left Head) Date Time Event Comment 629 AN Equip Check 2018 0746 0750 Out of Pre Procedure 0751 Anes Start 0751 In Room 0753 An Start Data 0757 An Induction The patient was reevaluated immediately before moderate or deep sedation use and before anesthesia induction. 0800 An Intubation 0803 IV Placed 0805 Anesthesia Ready 0818 Quick Note pinning 0840 Art Line 0851 Antibiotic Given 0900 Proc Start 0911 Quick Note 1140 An Extubation 1143 an stop data 1148 Handoff to RN I completed my SBAR handoff to the receiving nurse. 1158 An Stop Meds * No agents on file. * No blood administrations on file. Removal Type Details Placement Wounds 10/04/18; 1102; Left; Head; Surgical 10/04/18 1102 by (NOT for Incision Tao Gatica RN Pressure Injuries) 10/05/18 1309 by Kaela Kunz RN Peripheral 10/04/18; 0645; RN; L; Hand; 20 G; 1; 10/04/18 0645 by IV 10/05/18; 1309 Jenny Braden RN 10/04/18 1140 by Andrew Mcneill CRNA ETT 10/04/18; 0800; Ventilated by mask (1); 10/04/18 0800 by Direct laryngoscopy, Stylet; Andrew Mcneill CRNA Single-Lumen; 7mm; Mac; 3; Oral; 2a-Partial view of the glottis; 2 insertion attempts (SRNA attempt, STAMPING PRESS OPERATOR successful; small mouth opening, slight anterior); Auscultation, ETCO2 Detector; 21 centimeters; atraumatic intubation; dentition unchanged; 10/04/18; 1140 10/05/18 1309 by Kaela Kunz RN Peripheral 10/04/18; 0803; Provider (Dr. Sung); 10/04/18 0803 by IV R; Hand; 16 G; No; 1; 10/05/18; 1309 Andrew Mcneill CRNA 10/05/18 0903 by Kaela Kunz RN Indwelling 10/04/18; 0815; 16 FR; Regular 10/04/18 0815 by Urinary (Two-way); 10/05/18; 0903 Tao Gatica RN Catheter 10/04/18 1420 by Angely Ragsdale RN Arterial 10/04/18; 0840 (created via procedure 10/04/18 0840 by Line documentation); 20 G; 10/04/18; 1420 Andrew Mcneill CRNA documented in this encounter Social History Date Tobacco Use Types Packs/Day [...] Signs Reading Time Taken Comments Vital Sign 123/78 09/22/2018 2:51 PM CDT michael-big cuff Blood Pressure 90 09/22/2018 2:51 PM CDT Pulse 37 C (98.6 F) 09/22/2018 2:51 PM CDT Temperature - - Respiratory Rate 100% 09/22/2018 2:51 PM CDT Oxygen Saturation - - Inhaled Oxygen Concentration 107 kg (235 lb 12.8 oz) 09/22/2018 2:51 PM CDT Weight 165.1 cm (5' 5") 09/22/2018 2:51 PM CDT Height 39.24 09/22/2018 2:51 PM CDT Body Mass Index documented in this encounter Patient Instructions * Pre-Anesthesia Patient Instructions* Shyann Soto RN - 09/22/2018 2:30 PM CDT GENERAL INFORMATION Before you come to the hospital Make arrangements for a responsible adult to drive you home and stay with you for 24 hours following surgery. Bath/Shower Instructions Take a bath or shower using the special soap given to you in PAC. Use half th e bottle the night before, and the other half the morning of your procedure. Use clean towels with each bath or shower. Put on clean clothes after bath or shower. Avoid using lotion and oils. If you are having surgery above the waist, wear a shirt that fastens up the f ront. Sleep on clean sheets if bath or shower is done the night before procedure. Leave money, credit cards, jewelry, and any other valuables at home. The [facility] is not responsible for the loss or breakage of persona l items. Remove nail lithuanian, makeup and all jewelry (including piercings) before comin g to the hospital. The morning of your procedure: brush your teeth and tongue do not smoke do not shave the area where you will have surgery What to bring to the hospital ID/ Insurance Card Records And Information Manager card Official documents for legal guardianship Copy of your Living Will, Advanced Directives, and/or Durable Power of Attorn ey Small bag with a few personal belongings CPAP/BiPAP machine (including all supplies) Walker,cane, or motorized scooter Cases for glasses/hearing aids/contact lens (bring solutions for contacts) Dress in clean, loose, comfortable clothing Eating or drinking before surgery Do not eat or drink anything after 11:00 p.m. the day before your procedure ( including gum, mints, candy, or chewing tobacco) OR follow the specific instruct ions you were given by your Surgeon. You may have WATER ONLY up to 2 hours before arriving at the hospital. Other instructions Notify your surgeon if: there is a possibility that you are you become ill with a cough, fever, sore throat, nausea, vomiting or flu-like symptoms you have any open wounds/sores that are red, painful, draining, or are new si nce you last saw the doctor you need to cancel your procedure You will receive a call with your surgery arrival time from between 2:30pm an d 4:30pm the last business day before your procedure. If you do not receive a c all, please call [phone] before 4:30pm or [phone] after 4:30pm. Notify us at [facility]: if you need to cancel your procedure if you are going to be late Arrival at the [id number] [place] [address] ? Park in the P5 parking garage located at [facility] [address]. ? Director Of Student Affairs parking is available in front of [facility] between the hours of 7:00 am and 4:00 pm Tuesday through Tuesday. ? If parking in the P5 garage, take the east elevators in the parking garage to the second level and walk to the entrance of the [facility]. ? Enter through the 1st floor main entrance and check in with Information Desk. ? If you are a woman between the ages of 10 and 55, and have not had a hysterect rochelle, you will be asked for a urine sample prior to surgery. Please do not urina te before arriving in the Surgery Waiting Room. Once there, check in and let th e attendant know if you need to provide a sample. * Pre-Anesthesia Medication Instructions* Franny Jackson, PHARMD - 09/22/2018 2:30 PM CDT YOUR MEDICATIONS: ARIPiprazole (ABILIFY) 15 mg tablet Take 15 mg by mouth daily before dinner. dexamethasone (DECADRON) 4 mg tablet Take 4 mg by mouth. Tapering down. Take with food. escitalopram oxalate (LEXAPRO) 20 mg tablet Take 20 mg by mouth daily before dinner. YOUR MEDICATION INSTRUCTIONS FOR SURGERY: Before surgery Do not start any new vitamins, herbals, or natural supplements before surgery. Stop the following medications 7 days before surgery: Anti-inflammatory medications such as ibuprofen (Advil, Motrin) and naproxen (Aleve) You may use acetaminophen (Tylenol) Morning of surgery On the morning of surgery, do NOT take these medications: Remaining vitamins/supplements Ointments/creams/lotions On the morning of surgery, nothing to take! Other information Before surgery, please contact the clinic pharmacist with any medicine updates o r questions. E-mail: [email or web address] Before going home from the hospital, please ask your doctor when you should re-s tart your medicines that were stopped before surgery. documented in this encounter Plan of Treatment Not on filedocumented as of this encounter Procedures Comments Procedure Name Priority Date/Time Associated Diagnosis PTT (APTT) Routine 09/22/2018 Brain tumor (HCC) 3:59 PM CDT PROTIME INR (PT) Routine 09/22/2018 Brain tumor (HCC) 3:59 PM CDT CBC Routine 09/22/2018 Brain tumor (HCC) 3:59 PM CDT TYPE & SCREEN (NOT Routine 09/22/2018 Brain tumor (HCC) CROSSMATCH ELIGIBLE) 3:59 PM CDT COMPREHENSIVE METABOLIC Routine 09/22/2018 Brain tumor (HCC) PANEL 3:59 PM CDT documented in this encounter Results * TYPE & SCREEN (NOT CROSSMATCH ELIGIBLE) (09/22/2018 3:59 PM CDT) Pathologist [facility] ABO/RH(D) O POS MAIN LAB Antibody Screen NEG MAIN LAB Blood Component RED CELL GROUP MAIN LAB Type Specimen Blood, venous - Blood Performing Organization Address City/[facility]/Zipcode Phone Number [facility] [address] [place] [address] * COMPREHENSIVE METABOLIC PANEL (09/22/2018 3:59 PM CDT) Pathologist [facility] Sodium 137 137 - 147 MMOL/L MAIN LAB Potassium 4.0 3.5 - 5.1 MMOL/L MAIN LAB Chloride 105 98 - 110 MMOL/L [facility] Glucose 134 (H) 70 - 100 MG/DL MAIN LAB Blood Urea 26 (H) 7 - 25 MG/DL MAIN LAB Nitrogen Creatinine 0.99 0.4 - 1.00 MG/DL [facility] Calcium 9.3 8.5 - 10.6 MG/DL MAIN LAB Total Protein 6.6 6.0 - 8.0 G/DL MAIN LAB Total Bilirubin 2.4 (H) 0.3 - 1.2 MG/DL [facility] Albumin 4.2 3.5 - 5.0 G/DL MAIN LAB Alk Phosphatase 70 25 - 110 U/L MAIN LAB AST (SGOT) 11 7 - 40 U/L [facility] CO2 24 21 - 30 MMOL/L [facility] ALT (SGPT) 15 7 - 56 U/L [facility] Anion Gap 8 3 - 12 [facility] eGFR Non >60 >60 mL/min [facility] Comment: [place] The eGFR is not validated for use in drug dosing adjustments.Continue to use estimated creatinine clearance per dosing reference text.Please contact the Clinical Pharmacist for questions. eGFR >60 >60 mL/min [facility] [place] Comment: The eGFR is not validated for use in drug dosing adjustments.Continue to use estimated creatinine clearance per dosing reference text.Please contact the Clinical Pharmacist for questions. Specimen Blood Performing Organization Address City/[facility]/Zipcode Phone Number [facility] [address] [place] [address] * PTT (APTT) (09/22/2018 3:59 PM CDT) Pathologist [facility] APTT 22.5 (L) 24.0 - 36.5 SEC [facility] Specimen Blood Performing Organization Address City/[facility]/Zipcode Phone Number [facility] [address] [place] [address] * PROTIME INR (PT) (09/22/2018 3:59 PM CDT) Pathologist [facility] INR 1.0 0.8 - 1.2 MAIN LAB Specimen Blood Performing Organization Address City/[facility] Phone Number [facility] [address] [place] [address] * CBC (09/22/2018 3:59 PM CDT) Pathologist [facility] White Blood 8.1 4.5 - 11.0 K/UL MAIN LAB Cells RBC 4.79 4.0 - 5.0 M/UL [facility] Hemoglobin 14.2 12.0 - 15.0 GM/DL MAIN LAB Hematocrit 43.2 36 - 45 % MAIN LAB MCV 90.1 80 - 100 FL MAIN LAB MCH 29.6 26 - 34 PG MAIN LAB MCHC 32.9 32.0 - 36.0 G/DL MAIN LAB RDW 14.0 11 - 15 % MAIN LAB Platelet Count 171 150 - 400 K/UL MAIN LAB MPV 10.4 7 - 11 FL MAIN LAB Specimen Blood Performing Organization Address City/[facility] Phone Number MA[facility] LAB [address] [place] [address] documented in this encounter Visit Diagnoses Diagnosis Brain tumor (HCC) - Primary Neoplasm of unspecified nature of brain documented in this encounter
--- OUTSIDE RECORDS SUMMARY | 2018-11-08 21:28 | XMS REPORT | Encounter Summary ---
Author Author [facility] Organization [facility] Address Unknown Phone Unavailable Care Team Providers Care Hogshead Wrecker Name Role Phone Frandy Monson MD PCP Leatha Kolb MD 21 Reason for Visit * Auth/Cert Referred By Contact Referred To Contact Status Reason Specialty Diagnoses / Procedures Diagnoses Brain tumor (HCC) Brain tumor (HCC) [D49.6] P rocedures UT CRANIEC TREPHINE BONE FLP BRAIN TUMOR SUPRTENTOR UT STRTCTC CPTR ASSTD PX CRANIAL INTRADURAL UT MICROSURG TQS REQ USE OPERATING MICROSCOPE LEFT FRONTAL CRANIOTOMY FOR FRONTAL LOBECTOMY AND TUMOR RESECTION STEREOTACTIC COMPUTER-ASSISTED CRANIAL PROCEDURE - INTRADURAL MICROSURGICAL TECHNIQUES - REQUIRING OPERATING MICROSCOPE USE Encounter Details Care Team Description Date Type Department Tavares Soto MD [address] [facility] [address] [place] [address] [phone] LEFT FRONTAL CRANIOTOMY FOR FRONTAL LOBECTOMY AND TUMOR RESECTION 10/04/2018 Surgery [facility] [place] [address] [place] [id number] Social History Date Tobacco Use Types Packs/Day [...] Service: Surgery-Neuro Physician Summary completed by: HARINDER Greenowod Reason for hospitalization: Brain mass Significant PMH: [...] or concerns regarding your hospital stay. Call [phone]. If y ou have any questions once at home during the work week between the hours of 080 0 -1500, please call the clinic at [phone]. Otherwise, please call the [facility] number ([phone]) and ask for the neurosurgery resident boring machine operator horizontal t o be paged. Discharging attending physician: TAVARES SOTO [[id number]] Incision Care *Keep your incision clean and [...] gular, soft bowel movements. DISCHARGE SUTURE/STAPLE REMOVAL [place] will be removed at 2 week follow [...] Your Medications These medications were sent to [facility] [address] [place] [id number] [place] [id number] Hours: M-F 9:00AM-5:30PM levETIRAcetam 500 mg tablet oxyCODONE 5 mg tablet You can get these medications from any pharmacy You don't need a prescription for these medications acetaminophen 325 mg tablet senna/docusate 8.6/50 mg tablet Scheduled appointments: Oct 17, 2018 11:15 AM CDT Post - Op with Liz Dale MD [facility] (NeuroSurgery) [address] [facility] [address] Oct 30, 2018 11:00 AM CDT (Arrive by 9:45 AM) New Patient with Ascencion Sanchez MD [facility] (NeuroSurgery) [address] [facility] Level 2 [address] [facility] [id number] Nov 10, 2018 1:15 PM CDT Post - Op with Tavares Soto MD [facility] (NeuroSurgery) [address] [facility] [address] [facility] [id number] Pending items needing follow up: Final pathology pending outside consultation Signed: HARINDER Greenwood 10/09/2018 cc: Primary Care Physician: Frandy Monson Verified Referring physicians: Frandy Monson MD Additional provider(s): documented in this encounter Discharge Instructions * Instructions* Nahed Oconnor RN - 10/05/2018 2:42 PM CDT Debbie Louise Left Frontal Craniotomy for Frontal Lobectomy and Tumor Resection on 10/04/[address] [facility] [address] Soto Neurosurgery Discharge Instructions Contact information: ? Please feel free to call Neurosurgery at any time if you have questions or are experiencing problems at discharge [phone]. Post-operative wound care: ? Your incision has [...] Rehana Syed, PT Date: 10/06/2018 Mercy Houser, HAIR TINTER-NURSING SERVICES MANAGER - 10/06/2018 9:00 AM CDT Neurosurgery Progress [...] assessed for need for restraints. Please call [phone] with any questions. HARINDER Greenwood Pager [phone] * Yoana Mc - 10/06/2018 8:19 AM CDT SPEECH-LANGUAGE PATHOLOGY Orders rec'd for a cognitive evaluation. Contacted by BRENT Madrid/ primary team w lorena communicated order for cognitive evaluation canceled. Chart review completed . Please re-consult in future for language evaluation as indicated. Therapist: Yoana Mc MA, L/CCC-CONCRETE PRODUCTS DISPATCHER Voalte: [phone] Date: 10/06/2018 * Maylin Dougherty, PT - [...] n. Mental / Cognitive Status: Cooperative;Alert;Disoriented;To Place;To Time;[place] ed;To Person Persons Present: Mother Ambulation Assist: [...] 18 Standardized (T-scale) Score: 41.05 Basic Mobility [facility] 0-100%: 40.47 [facility] G Code Modifier for Basic Mobility: CK [...] Physical Assist With: All mobility Comments: rec CONCRETE PRODUCTS DISPATCHER consult for cognition Therapist: Mayiln Dougherty PT, DPT, [facility] [place] Date: 10/05/2018 * Stefan Mercy Josette, HAIR TINTER-NURSING SERVICES MANAGER - 10/05/2018 10:49 AM CDT Neurosurgery Progress [...] assessed for need for restraints. Please call [phone] with any questions. HARINDER Greenwood Pager [phone] * Haley Nelson RN - 10/05/2018 12:11 [...] morning of surgery, we will obtain a [facility] MRI with the addition of thin [...] do not hesitate to contact me at [phone]. Tavares Soto MD documented in this encounter [...] cooking, cleaning, bathe herself, and she works [employer]. She drive s occasionally. Family History: Family [...] per surgery. Remainder per Ms. Flores. * Mark Dayan, EVER - 10/04/2018 1:02 PM CDT Associated Order(s): [...] w/o in the morning - Dexamethazone - MILLROOM SUPERVISOR Abilify and Lexapro - Neuro-ICU monitoring, neurochecks [...] Potassium goal >4.0 mEq/L Prophylaxis Review: A)GI: N3Ljurimy B) Lines: Yes; Arterial Line; Indication: Continuous BP monitoring; Location: Radial C) Urinary Catheter: Yes; Retain wetzel due to: Need for accurate Intake and Ou tput D) Antibiotic Usage: Yes; Infection present or suspected: Post op ppx E) VTE: Mechanical prophylaxis; Sequential compression device F) Isolation: NA G)Seizures: NA I) Restraints: Patient assessed for need for restraints. Disposition/Family: NEICU post op Primary service: JOIEG Consults: NEICU, NeuroOncology, CRISTY/TRACE SUBJECTIVE Chief Complaint: [...] Signs: Last Filed Vital Signs: 24 Hour [facility] BP: 151/104 (10/04 0600) ABP: 179/72 (10/04 1245) Temp: 36.6 C (97.9 F) (10/04 1202) Pulse: 76 (10/04 1245) Respirations: 26 PER MINUTE (10/04 1245) SpO2: 96 % (10/04 1230) O2 Delivery: None (Room Air) (10/04 1202) Height: 165.1 cm (65") (10/04 06) Weight: 106.5 kg (234 lb 12.8 oz) [...] menstrual period 09/25/2018 , SpO2 96 %. [place] coma score: E: 4 - Opens eyes [...] and diag nostic procedures reviewed. Dayan Mark, HAIR TINTER Date: 10/04/[phone] I spent 45 minutes managing the care [...] ? Info or Referral ? Discharge Planning [facility] notes PT is recommending outpatient therapy at discharge. Patient has not castillo d OT evaluation. Patient has adequate transportation options to attend outpatient therapy appoint ments, and family support to participate in recovery recommendations. [facility] tasked [facility] Alex D to deliver list of in-network [...] mother is planning to stay with pt roller hand, until she is medically stable to return [...] selected for the patient. 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 Ms. Louise works 1 day a [...] to assist. Patient Address/Phone [address] [facility] [phone] (home) Emergency Contact Extended Emergency Contact Information Primary Emergency Contact: JOSEP CALDERON Mobile Relation: Mother Preferred language: VIET[place]ESE Healthcare Directive Healthcare Directive: Yes, patient has a healthcare directive Type of Healthcare Directive: Durable power of sports attorney for healthcare, [facility] re directive Location of [...] mother is planning to stay with pt roller hand, until she is medically stable to return [...] Health Mental Health History: Yes Agency name: [facility] M/H Mental Health Provider: Dr. Corrales Mental Health Symptoms: Feeling depressed, Confused thinking(Schizoaffective dis order) ? Substance Use History Substance Use History Screen: No ? Other Current/Previous Services ? PCP Frandy Monson, , ? Pharm[address] [facility] [address] ? Durable Medical Equipment Durable Medical Equipment at home: None ? Home Health Receiving home health: No ? Hemodialysis or Peritoneal Dialysis Undergoing hemodialysis or peritoneal dialysis: No ? Tube/Enteral Feeds Receive tube/enteral feeds: No ? Infusion Receive infusions: No ? Private Duty Private duty help used: No ? Home and Community Based Services Home and community based services: No ? Terence White Terence White: N/A ? Hospice Hospice: No ? Outpatient Therapy PT: No OT: No CONCRETE PRODUCTS DISPATCHER: No ? Assisted Facility/Correction SNF: No NH: No ? Inpatient Rehab IPR: No ? Long-Term Acute Care Hospital LTACH: No ? Acute Hospital Stay Acute Hospital Stay: No Corina Harris LMSW *[phone] * Anesthesia Post Op Day 1 - [...] Air) (10/05 899) SpO2 Pulse: 99 (10/05 899) Patient History Allergies No Known Allergies Medications [...] 43 y.o. female : 1975 MRN#: [id number] DATE OF OPERATION: 10/04/2018 Surgeon(s) and Role: [...] room where orotracheal anesthesia was induced. [facility] overhead crane technician was attached and the patient was positioned appropriately. [employer] neuro navigation system was utilized and registration [...] exposure. Fishhooks were placed for retraction. A kitchen mechanic was used to make several bur holes [...] The patient was extubated, moved to the rgreenwood, and taken to the recovery room in st able fashion. All sponge and needle counts were correct. I performed this proc edure with the resident. Disposition: PACU - hemodynamically stable. Condition: stable Post-op Instructions: MRI in AM. Dex. Keppra. Ancef x 3. Post-op Exam: Patient sedated, unable to perform neurological exam. Tavares Soto MD Pager [phone] documented in this encounter Plan of Treatment [...] on 10/05/2018 2:11 PM. Performing Organization Address City/[facility] Phone Number RAD RESULTS * IONIZED CALCIUM (10/05/2018 3:53 AM CDT) Ionized Calcium 1.20 1.0 - 1.3 MMOL/L [employer] MAIN LAB Specimen Blood Performing Organization Address [facility] Phone Number MAIN LAB [address] [place] [address] * PHOSPHORUS (10/05/2018 3:03 AM CDT) Phosphorus 3.3Comment: NOTE NEW REFERENCE 2.0 - 4.5 MG/DL [facility] MAIN LAB RANGES Specimen Blood Performing Organization Address [facility] Phone Number MAIN LAB [address] [place] [address] * MAGNESIUM (10/05/2018 3:03 AM CDT) Magnesium 2.2 1.6 - 2.6 mg/dL [facility] MAIN LAB Specimen Blood Performing Organization Address [facility] [place] Phone Number MAIN LAB [address] [place] [address] * BASIC METABOLIC PANEL (10/05/2018 3:03 AM [...] >60 >60 mL/min [facility] MAIN LAB Comment: [place] The eGFR is not validated for use in drug dosing adjustments.Continue to use estimated creatinine clearance per dosing reference text.Please contact the Clinical Pharmacist for questions. eGFR >60 >60 mL/min [facility] MAIN LAB [place] Comment: The eGFR is not validated for use in drug dosing adjustments.Continue to use estimated creatinine clearance per dosing reference text.Please contact the Clinical Pharmacist for questions. Specimen Blood Performing Organization Address [facility] Phone Number MAIN LAB [address] [place] [address] * CBC (10/05/2018 3:03 AM CDT) White [...] LAB RDW 14.3 11 - 15 % [facility] Platelet Count 92 (L) 150 - 400 K/UL [facility] MPV 9.5 7 - 11 FL [facility] Specimen Blood Performing Organization Address City/State/Zipcode Phone Number [facility] [address] [place] [address] * SURGICAL PATHOLOGY (10/04/2018 10:00 AM CDT) PATHOLOGY [facility] [email or web address] Department of Pathology and Laboratory Medicine [address] [place] [address] Surgical Pathology Office:[phone] :[phone] SURGICAL PATHOLOGY REPORT NAME: DEBBIE LOUISE SURG PATH #: [id number] MR #: [id number] SPECIMEN CLASS: [facility] BILLING #: [id number] ALT ID #:LOCATION: DISCHARGED DATE OF PROCEDURE: 10/04/2018 AGE:43 SEX: F DATE RECEIVED: 10/04/2018 : 1975TIME RECEIVED:10:00 PHYSICIAN: TAVARES SOTO MD DATE OF REPORT: 10/05/2018 COPY TO:DATE OF PRINTIN11/02/2018 Procedures/Addenda Addendum Date Ordered: 11/02/2018 Status:Signed Out Date Complete: 11/02/2018 By: Mónica Roberson MD Date Reported: 11/02/2018 Addendum Diagnosis Final integrated diagnosis from the [facility] scanned into the medical record on 11/02/2018: "Brain, left frontal lobe mass, resection ([id number]; 10/04/2018): Anaplastic astrocytoma, 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 [...] is controversial at present. The WHO 2016 FINANCE CONSULTANT Classification suggests to continue grading IDH-mutant astrocytoma with the traditional criteria used before (WHO 2007) by which this tumor is best considered an anaplastic astrocytoma, IDH mutant (WHO grade III). There is, however, evidence that the traditional WHO criteria may not provide adequate stratification for diffuse grade II and grade III astrocytomas, IDH mutant (Ewing et al. Acta Neuropathol 2015; 129:585 - [...] Initial preliminary report from the [facility] was scanned into the medical record on 10/16/2018. Please see the medical record/O2 for all original scanned reports as well the molecular studies results reports performed at the [facility]. The treating team were provided with updates on 10/16/2018 & 10/25/2018. ############################## ############################## ############ Final Diagnosis: A. Brain, "frontal tumor frozen", biopsy: Pending outside consultation. B. Brain, "frontal tumor permanent", biopsy: Pending outside consultation. Comment: The case is submitted to [facility] for diagnostic evaluation. Please see addendum [...] tissue fragment. Touch preps are made. A route service representative section is submitted for frozen consultation with the remnant placed in cassette A1FS for permanent diagnosis. The remaining tissue is submitted entirely in cassette A2. ([facility]) B. Received in formalin, labeled with the patient's name and "frontal tumor for routine" is a 7.2 x 4.9 x 2.2 cm white-white portion of brain. The specimen is serially sectioned to reveal a white-white cut surface with scattered, somewhat speckled appearing white-brown to red focal areas. Represented sections of the specimen are submitted in cassettes B1-B5 (B4 and B5 contain route service representative sections of focal speckled areas). 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 Note: Acytologic smear/squash (A1TP) was performed on different areas from the specimen and used together with frozen sections (A1FS) for optimal evaluation. Frozen section performed at the [facility], [address] [place] [address]. Margaret Boyce MD Specimen Performing Organization Address City/[facility]/Zipcode Phone Number [facility] [address] [place] [address] * BETA-HCG (10/04/2018 6:16 AM CDT) Beta-HCG,Serum <1 <5 U/L [facility] Specimen Blood Performing Organization Address City/[facility]/Zipcode Phone Number [facility] [address] [place] [address] * TYPE & CROSSMATCH (10/04/2018 6:16 AM CDT) Units Ordered 0 [facility] Crossmatch 10/07/2018 [facility] Expires Record Check FOUND [facility] ABO/RH(D) O POS [employer] Antibody Screen NEG [facility] MAIN LAB Electronic YES [facility] Crossmatch Specimen Blood Performing Organization Address City/State/Zipcode Phone Number MAIN LAB [address] [place] [address] * TELEMETRY STRIPS-SCAN (10/04/2018 12:00 AM CDT) Narrative Performed At Ordered by an unspecified provider. * PATHOLOGY REPORTS FROM OUTSIDE SCAN (10/04/2018 12:00 AM CDT) Narrative Performed At Ordered by an unspecified provider. * PATHOLOGY REPORTS FROM OUTSIDE SCAN (10/04/2018 12:00 AM CDT) Narrative Performed At Ordered by an unspecified provider. documented in this encounter Visit Diagnoses Diagnosis Brain tumor (HCC) Neoplasm of unspecified nature of brain documented in this encounter Admitting Diagnoses Diagnosis [...] 15 mg Given 10/04/2018 3:54 PM CDT 10/04/2018 9:40 AM CDT 500 mL Other bacitracin (BACIIM) 50,000 Units in Given Ringer's 500 mL irrigation bottle 500 mL, INTRA-PROCEDURE MED, Starting Tue10/04/18 at 0940, Until Tue10/04/18 at 1143, Intra-op 10/04/2018 11:17 AM CDT 1 Dose Other bacitracin topical ointment Given INTRA-PROCEDURE MED, Starting Tue10/04/18 at 1117, Until Tue10/04/18 at 1143, Intra-op 10/06/2018 8:55 AM CDT 100 mg docusate [...] 20 mg Given 10/04/2018 3:55 PM CDT fentaNYL citrate PF (SUBLIMAZE) injection 25-50 mcg 25-50 mcg, Intravenous, EVERY 4 HOURS PRN, Starting Jenny 10/05/18 at 1045, Until Tue10/06/18 at 1657, Pain Injectable 10/06/2018 8:55 AM CDT 500 mg levETIRAcetam (KEPPRA) tablet 500 mg Given 500 mg, Oral, TWICE DAILY, 14 doses, First dose on Tue10/04/18 at 1245, Last dose on Tue10/10/18 at 2100 500 mg Given 10/05/2018 8:16 PM CDT 500 mg Given 10/05/2018 8:46 AM CDT 10/04/2018 10:03 AM CDT 8 mL Other lidocaine 1%/EPINEPHrine 1:100,000 Given injection INTRA-PROCEDURE MED, Starting Tue10/04/18 at 1003, Until Tue10/04/18 at 1143, Intra-op 10/06/2018 8:55 AM CDT 10 mL milk [...] 10 mL of senna/docusate (SENOKOT-S) solution. Send [employer] message to pharmacy., If patient unable to take tablet, give 10 mL of senna/docusate (SENOKOT-S) solution., 1 tablet Given 10/05/2018 8:16 PM CDT 1 tablet Given 10/05/2018 8:46 AM CDT 10/04/2018 9:40 AM CDT 5,000 Units Other thrombin 5,000 unit topical solution Given INTRA-PROCEDURE MED, Starting Tue10/04/18 at 0940, Until Tue10/04/18 at 1143, Intra-op documented in this encounter
--- OUTSIDE RECORDS SUMMARY | 2018-11-08 21:28 | XMS REPORT | Encounter Summary ---
Author Author [facility] Organization [facility] Address Unknown Phone Unavailable Care Team Providers Care Wastewater Treatment Operator Name Role Phone Frandy Monson MD PCP Leatha Kolb MD 21 Reason for Visit * Auth/Cert Referred By Contact Referred To Contact Status Reason Specialty Diagnoses / Procedures Diagnoses Brain tumor (HCC) Brain tumor (HCC) [D49.6] P rocedures WI CRANIEC TREPHINE BONE FLP BRAIN TUMOR SUPRTENTOR WI STRTCTC CPTR ASSTD PX CRANIAL INTRADURAL WI MICROSURG TQS REQ USE OPERATING MICROSCOPE LEFT FRONTAL CRANIOTOMY FOR FRONTAL LOBECTOMY AND TUMOR RESECTION STEREOTACTIC COMPUTER-ASSISTED CRANIAL PROCEDURE - INTRADURAL MICROSURGICAL TECHNIQUES - REQUIRING OPERATING MICROSCOPE USE Encounter Details Care Team Description Date Type Department Geno Buchanan MD [address] [place] [address] [id number] 10/04/2018 Anesthesia [facility] [place] [address] [place] [address] Anesthesia Record Responsible Anesthesiologist Anesthesia Start Time [...] the receiving nurse. 1158 An Stop Meds Name Total fentaNYL PF (SUBLIMAZE) injection 125 mcg lidocaine (2%) 200 mg/10mL Injection 130 mg syringe propofol (DIPRIVAN) 200 mg/ 20 mL 200 mg injection (VIAL) rocuronium (ZEMURON) injection 40 mg ondansetron (ZOFRAN) injection 4 mg dexamethasone (DECADRON) 4 mg/mL 10 mg injection propofol (DIPRIVAN) infusion 2,338.21 mg remifentanil (ULTIVA) 1 mg/3 mL 1,000 1,998.95 mcg mcg in sodium chloride 0.9% (NS) 20 mL Injection phenylephrine (GURWINDER-SYNEPHRINE) 0.1 mg/mL 100 mcg injection (SYRINGE) dextran 70/hypromellose (GENTEAL TEARS; 2 drop BION TEARS) ophthalmic solution ceFAZolin (ANCEF) IVP 2 g 2 g levETIRAcetam (KEPPRA) 1,000 mg in 1,000 mg sodium chloride 0.9% (NS) 100 mL IVPB mannitol (OSMITROL) 20 % infusion 35 g esmolol (BREVIBLOC) 10 mg/mL injection 5 mg labetalol (NORMODYNE; TRANDATE) 5mg/mL 20 mg 20 mg injection (SYRINGE) acetaminophen (OFIRMEV) 1,000 mg 1,000 mg injection sugammadex (BRIDION) 100 mg/mL iv soln 213 mg sodium chloride 0.9 % infusion 900 mL electrolyte-A (PLASMA-LYTE A PH 7.4) 800 mL infusion * Name O2 N2O Inspired * No blood administrations on file. Removal [...] the glottis; 2 insertion attempts (SRNA attempt, HERNAN successful; small mouth opening, slight anterior); Auscultation, [...] history available. documented as of this encounter OR Notes * Anesthesia Postprocedure Evaluation - Andrew Mcneill CRNA - 10/04/2018 12:07 PM CDT Post-Anesthesia Evaluation Name: Ashley Louise : 1975 Age: 43 y.o. S ex: female Procedure Date: 10/04/2018 Procedure: Procedure(s) with comments: LEFT FRONTAL CRANIOTOMY FOR FRONTAL LOBECTOMY AND TUMOR RESECTION - CASE LENGTH 4 HOURS, CHAMBERS, BRAINLAB, MICROSCOPE, NEEDS MRI BRAIN W/ & W/OUT CONTRAST STEREOTACTIC SEQUENCES INCLUDING DTI & THIN CUT FLAIR SEQUENCES MORNING OF SURGERY, REQUEST 0800 START STEREOTACTIC COMPUTER-ASSISTED CRANIAL PROCEDURE - INTRADURAL MICROSURGICAL TECHNIQUES - REQUIRING OPERATING MICROSCOPE USE Surgeon: Surgeon(s): Alex Abdi MD Shah, Kushal, MD Post-Anesthesia Vitals BP 144/82, HR 84, RR 14, SPO2 100% 6L NC, 98.2 F Post Anesthesia Evaluation Note Evaluation location: ICU Patient participation: recovered; patient participated in evaluation Level of consciousness: sleepy but conscious Pain management: adequate Hydration: normovolemia Temperature: 36.0C - 38.4C Airway patency: adequate Perioperative Events Post-op nausea and vomiting: no PONV Postoperative Status Cardiovascular status: hemodynamically stable Respiratory status: spontaneous ventilation and supplemental oxygen (6L NC) ICU Information Blood Products Given-no NSICU information ICP lowering technique in OR: mannitol no ICP monitor used anticonvulsants were given Staff involved in transport include: JOGGLE PRESS OPERATOR, SRNA, OR nurse and surg resident Perioperative Events Perioperative Event: No Emergency Case Activation: No Associated attestation - Nirav Sung MD - 10/04/2018 3:17 PM CDT Post-Anesthesia Evaluation Attestation: I reviewed and agree the indicated post- anethesia care was provided. Staff name: Nirav Sung MD Date: 10/04/2018 * Anesthesia Procedure Notes - Nirav Sung MD - 10/04/2018 9:17 AM CDT Associated Order(s): A-LINE INSERTION Anesthesia Procedure: Arterial Line Placement A-LINE INSERTION [...] skin prep agent completely dried prior to pro cedure. Location: dorsalis pedis artery Laterality: left Technique: palpation and anatomical landmarks Needle gauge: 20 G Number of attempts: 4 Procedure Outcome Catheter secured with adhesive dressing applied Events: no complications noted during insertion Observation: pt tolerated well Additional notes: ATTESTATION I was present during the entire procedure performed by a JOGGLE PRESS OPERATOR Staff name: Nirav Sung MD Date: 10/04/2018 Performed by: Andrew Mcneill CRNA Authorized by: Nirav Sung MD * Anesthesia Preprocedure Evaluation - Nirav Sung MD - 09/22/2018 3:15 PM CDT Anesthesia Pre-Procedure Evaluation Name: Ashley Louise : 1975 Age: 43 y.o. S ex: female Procedure Date: 10/04/2018 Procedure: Procedure(s) with comments: LEFT FRONTAL CRANIOTOMY FOR FRONTAL LOBECTOMY AND TUMOR RESECTION - CASE LENGTH 4 HOURS, [place] CHAMBERS, MICROSCOPE, NEEDS MRI BRAIN W/ & W/OUT CONTRAST STEREOTACTIC SEQUENCES INCLUDING DTI & THIN CUT FLAIR SEQUENCES MORNING OF SURGERY, REQUEST 0800 START STEREOTACTIC COMPUTER-ASSISTED CRANIAL PROCEDURE - INTRADURAL MICROSURGICAL TECHNIQUES - REQUIRING OPERATING MICROSCOPE USE Physical Assessment Vital Signs (last filed in past 24 hours): BP: 151/104 (10/04 0600) Temp: 36.8 C (98.2 F) (10/04 599) Pulse: 98 (10/04 599) Respirations: 16 PER MINUTE (10/04 599) SpO2: 97 % (10/04 599) O2 Delivery: None (Room Air) (10/04 599) Height: 165.1 cm (65") (10/04 599) Weight: 106.5 kg (234 lb 12.8 oz) (10/04 599) Patient History No Known Allergies Current Medications Medication Directions ARIPiprazole (ABILIFY) 15 mg tablet Take 15 mg by mouth daily before dinner. escitalopram oxalate (LEXAPRO) 20 mg tablet Take 20 mg by mouth daily before din ner. Medical History: Diagnosis Date Depression Glioma of frontal lobe (HCC) History of tremor Murmur Schizophrenia (HCC) History reviewed. No pertinent surgical history. Social History Socioeconomic History Marital status: Single [...] file Social History Narrative Not on file Review of Systems/Medical History Patient summary reviewed Nursing notes reviewed Pertinent labs reviewed PONV Screening: Female gender and Non-smoker No history of anesthetic complications No family history of anesthetic complications Airway - negative Pulmonary - negative Not a current smoker Cardiovascular Exercise tolerance: >4 METS (able to walk 4 blocks, ascend 1 flight of stairs, push grocery cart without CP or dyspnea) Beta Janes therapy: No No hypertension, Valvular problems/murmurs (Dr. Raman appreciated murmur on exam 09/2018; patijohn nt denies history of known murmur) No past MS, No palpitations No dysrhythmias No angina No hyperlipidemia GI/Hepatic/Renal - negative No GERD, Neuro/Psych No seizures Psychiatric history Depression Psychosis Glioma: current steroid taper per Lamine (anticipated end date 09/27/18) tremors RUE > LUE (per patient) Musculoskeletal Left shoulder rotator cuff tear (able to abduct to ~70 degrees passively wit hout discomfort) Endocrine/Other Obesity Not (LMP: 09/07/18); GA:Unknown, GP:No obstetric history on file. Constitution - negative Physical Exam Airway Findings Mallampati: II TM distance: >3 FB Neck ROM: full Mouth opening: limited Dental Findings: Cardiovascular Findings: Rhythm: regular Rate: normal Other findings: murmur (I/ murmur) No carotid bruit, no peripheral edema Pulmonary Findings: Negative Abdominal Findings: Obese (BMI 39) Neurological Findings: Negative Alert and oriented x 3 Normal mental status Comments: flat affect Constitutional findings: Negative Diagnostic Tests Hematology: Lab Results Component Value Date HGB 14.2 09/22/2018 HCT 43.2 09/22/2018 PLTCT 171 09/22/2018 WBC 8.1 09/22/2018 MCV 90.1 09/22/2018 MCH 29.6 09/22/2018 MCHC 32.9 09/22/2018 MPV 10.4 09/22/2018 RDW 14.0 09/22/2018 General Chemistry: Lab Results Component Value Date NA 137 09/22/2018 K 4.0 09/22/2018 CL 105 09/22/2018 CO2 24 09/22/2018 GAP 8 09/22/2018 BUN 26 09/22/2018 CR 0.99 09/22/2018 GLU 134 09/22/2018 CA 9.3 09/22/2018 ALBUMIN 4.2 09/22/2018 TOTBILI 2.4 09/22/2018 Coagulation: Lab Results Component Value Date PTT 22.5 09/22/2018 INR 1.0 09/22/2018 Anesthesia Plan ASA score: 3 Plan: general Special equipment/procedures: Art line Induction method: intravenous NPO status: acceptable Informed Consent Anesthetic plan and risks discussed with patient and mother. Use of blood products discussed with patient and mother Blood Consent: consented Plan discussed with: anesthesiologist, JOGGLE PRESS OPERATOR and SRNA. labs: CBC, CMP, PT/PTT, T & S, T & C DOS MAHENDRA: none consult: none Patient discussed with Dr. Buchanan. Slight murmur appreciated on exam. Patien t is functional at >4 METS, no peripheral edema noted, denies SOB. ECHO recommended in future if murmur becomes symptomatic. documented in this encounter Plan of Treatment Not on filedocumented as of this encounter Procedures Comments Procedure Name Priority Date/Time Associated Diagnosis ANESTHESIA ARTERIAL LINE Routine 10/04/2018 INSERTION 9:17 AM CDT documented in this encounter Results * A-LINE INSERTION (10/04/2018 9:17 AM CDT) [...] during the entire procedure performed by a JOGGLE PRESS OPERATOR Staff name:Nirav Sung MD Date:10/04/2018 Performed by: Andrew Mcneill JOGGLE PRESS OPERATOR Authorized by: Nirav Sung MD Procedure Note [...] during the entire procedure performed by a JOGGLE PRESS OPERATOR Staff name: Nirav Sung MD Date: 10/04/2018 Performed by: Andrew Mcneill CRNA Authorized by: Nirav Sung MD documented in this encounter Visit Diagnoses Not on filedocumented in this encounter Administered Medications Action Date Dose Rate Site Medication Order MAR Action 10/04/2018 11:31 AM CDT 1,000 mg acetaminophen (OFIRMEV) injection Given Administer over 15 Minutes, INTRA-PROCEDURE MED, Starting Tue10/04/18 at 1131, Until Tue10/04/18 at 1158, Anesthesia Intra-op 10/04/2018 8:51 AM CDT 2 g ceFAZolin (ANCEF) IVP 2 g Given 2 g, Intravenous, ONCE, 1 dose, Tue10/04/18 at 0545, Give Pre-Op < 60 minutes prior to first incision. (Given in OR) IV PUSH -- RECONSTITUTE each 1 g vial by adding 10 mL 0.9% NACL, patients < 120 kg, Pre-Op 10/04/2018 9:05 AM CDT 10 mg dexamethasone (DECADRON) injection Given Intravenous, INTRA-PROCEDURE MED, Starting Tue10/04/18 at 0905, Until Tue10/04/18 at 1158, Anesthesia Intra-op 10/04/2018 8:01 AM CDT 2 drops dextran 70/hypromellose (GENTEAL TEARS; Given BION TEARS) ophthalmic solution INTRA-PROCEDURE MED, Starting Tue10/04/18 at 0801, Until Tue10/04/18 at 1158, Anesthesia Intra-op 10/04/2018 8:05 AM CDT electrolyte-A (PLASMA-LYTE A PH 7.4) Given - New injection Bag INTRA-PROCEDURE MED(CONT), Starting Tue10/04/18 at 0805, Until Tue10/04/18 at 1158, Anesthesia Intra-op 10/04/2018 11:19 AM CDT 5 mg esmolol (BREVIBLOC) injection Given INTRA-PROCEDURE MED, Starting Tue10/04/18 at 1119, Until Tue10/04/18 at 1158, Anesthesia Intra-op 10/04/2018 11:40 AM CDT 25 mcg fentaNYL citrate PF (SUBLIMAZE) Given injection INTRA-PROCEDURE MED, Starting Tue10/04/18 at 0756, Until Tue10/04/18 at 1158, Anesthesia Intra-op 25 mcg Given 10/04/2018 11:01 AM CDT 75 mcg Given 10/04/2018 7:56 AM CDT 10/04/2018 11:35 AM CDT 10 mg labetalol (NORMODYNE) injection Given INTRA-PROCEDURE MED, Starting Tue10/04/18 at 1129, Until Tue10/04/18 at 1158, Anesthesia Intra-op 5 mg Given 10/04/2018 11:33 AM CDT 5 mg Given 10/04/2018 11:29 AM CDT 10/04/2018 9:05 AM CDT 1,000 mg levETIRAcetam (KEPPRA) 1,000 mg in Given - New sodium chloride 0.9% (NS) 100 mL IVPB Bag 100 mL, Administer over 15 Minutes, INTRA-PROCEDURE MED(CONT), Starting Tue10/04/18 at 0905, Until Tue10/04/18 at 1158, Anesthesia Intra-op 10/04/2018 11:17 AM CDT 40 mg lidocaine (PF) injection Given INTRA-PROCEDURE MED, Starting Tue10/04/18 at 0757, Until Tue10/04/18 at 1158, Anesthesia Intra-op 90 mg Given 10/04/2018 7:57 AM CDT 10/04/2018 9:05 AM CDT 35 g mannitol (OSMITROL) 20 % infusion Given INTRA-PROCEDURE MED, Starting Tue10/04/18 at 0905, Until Tue10/04/18 at 1158, Anesthesia Intra-op 10/04/2018 11:11 AM CDT 4 mg ondansetron (ZOFRAN) injection Given Intravenous, INTRA-PROCEDURE MED, Starting Tue10/04/18 at 1111, Until Tue10/04/18 at 1158, Anesthesia Intra-op 10/04/2018 8:10 AM CDT 100 mcg phenylephrine in NS injection syringe Given Intravenous, INTRA-PROCEDURE MED, Starting Tue10/04/18 at 0808, Until Tue10/04/18 at 1158, Anesthesia Intra-op 10/04/2018 11:00 AM CDT 40 mcg/kg/min 25.6 mL/hr propofol (DIPRIVAN) infusion Dose/Rate 100 mL, Intravenous, INTRA-PROCEDURE Change MED(CONT), Starting Tue10/04/18 at 0800, Until Tue10/04/18 at 1158, Anesthesia Intra-op 90 mcg/kg/min 57.5 mL/hr Dose/Rate Change 10/04/2018 9:45 AM CDT 100 mcg/kg/min 63.9 mL/hr Dose/Rate Change 10/04/2018 9:37 AM CDT 10/04/2018 11:03 AM CDT 20 mg propofol (DIPRIVAN) injection Given Intravenous, INTRA-PROCEDURE MED, Starting Tue10/04/18 at 0757, Until Tue10/04/18 at 1158, Anesthesia Intra-op 30 mg Given 10/04/2018 8:18 AM CDT 150 mg Given 10/04/2018 7:57 AM CDT 10/04/2018 11:14 AM CDT 0.05 mcg/kg/min 6.4 mL/hr remifentanil (ULTIVA) 1 mg/3 mL 1,000 Dose/Rate mcg in sodium chloride 0.9% (NS) 20 mL Change Injection Intravenous, INTRA-PROCEDURE MED(CONT), Starting Tue10/04/18 at 0800, Until Tue10/04/18 at 1158, Anesthesia Intra-op 0.05 mcg/kg/min 6.4 mL/hr Dose/Rate Change 10/04/2018 11:08 AM CDT 0.05 mcg/kg/min 6.4 mL/hr Dose/Rate Change 10/04/2018 10:50 AM CDT 10/04/2018 7:57 AM CDT 40 mg rocuronium (ZEMURON) injection Given Intravenous, INTRA-PROCEDURE MED, Starting Tue10/04/18 at 0757, Until Tue10/04/18 at 1158, Anesthesia Intra-op 10/04/2018 11:35 AM CDT 213 mg sugammadex (BRIDION) injection Given INTRA-PROCEDURE MED, Starting Tue10/04/18 at 1135, Until Tue10/04/18 at 1158, Anesthesia Intra-op documented in this encounter
--- OUTSIDE RECORDS SUMMARY | 2018-11-08 21:28 | XMS REPORT | Encounter Summary ---
Author Author [facility] Organization [facility] Address Unknown Phone Unavailable Care Team Providers Care Tunnel Mucker Name Role Phone Frandy Monson MD PCP Leatha Kolb MD 21 Encounter Details Care Team Description Date Type Department Tavares Raman MD [address] [facility] [address] [place] [address] Brain tumor (HCC) (Primary Dx) 09/22/2018 Prep for Case [facility] [address] [place] [address] Social History Date Tobacco Use [...] history available. documented as of this encounter Plan of Treatment Not on filedocumented as of this encounter Visit Diagnoses Diagnosis Brain tumor (HCC) - Primary Neoplasm of unspecified nature of brain documented in this encounter
--- OUTSIDE RECORDS SUMMARY | 2018-11-08 21:28 | XMS REPORT | Encounter Summary ---
Author Author [facility] Organization [facility] Address Unknown Phone Unavailable Care Team Providers Care Car Salesperson Name Role Phone Frandy Monson MD PCP Leatha Kolb MD 21 Encounter Details Care Team Description Date Type Department aTvares Raman MD [address] [facility] [address] [place] [address] Mass of brain (Primary Dx); Brain mass 09/25/2018 Orders Only [facility] [address] [place] [address] Social History Date Tobacco Use [...] as of this encounter Miscellaneous Notes * Addendum Note - Janett Costa RN - 09/25/2018 9:57 AM CDT Addended by: JANETT COSTA on: 09/25/2018 10:05 AM Modules accepted: Orders documented in this encounter Plan of Treatment Not on filedocumented as of this encounter Visit Diagnoses Diagnosis Mass of brain - Primary Unspecified condition of brain Brain mass Unspecified condition of brain documented in this encounter
--- OUTSIDE RECORDS SUMMARY | 2018-11-08 21:28 | XMS REPORT | Encounter Summary ---
Author Author [facility] Organization [facility] Address Unknown Phone Unavailable Care Team Providers Care Interior Design Project Manager Name Role Phone Frandy Monson MD PCP Leatha Kolb MD 21 Reason for Referral * Radiology Services (Routine) Referred By Contact Referred To Contact Status Reason Specialty Diagnoses / Procedures Tavares Raman MD [address] [facility] [address] [place] [address] Ca2 Mri [address] [address] No Auth Needed Radiology Diagnoses Brain mass P rocedures MRI HEAD WO/W CONTRAST Encounter Details Care Team Description Date Type Department Tavares Raman MD [address] [facility] [address] [place] [address] [phone] Brain mass (Primary Dx) 09/25/2018 Orders Only The [facility] [address] [place] [id number] Social History Date Tobacco Use Types Packs/Day [...] Not on filedocumented as of this encounter Results * MRI HEAD WO/W [...] associated mass effect, mild ventricular effacement and [id number] midline shift measuring approximately 5 mm. There [...] associated mass effect, mild ventricular effacement and [id number] midline shift measuring approximately 5 mm. There [...] M.D. on 10/04/2018 11:15 AM. Dictated by Jiamie Marques D.O. on 10/04/2018 8:30 AM. Performing Organization Address City/State/Zipcode Phone Number [facility] RESULTS documented in this encounter Visit Diagnoses Diagnosis Brain mass - Primary Unspecified condition of brain documented in this encounter
--- OUTSIDE RECORDS SUMMARY | 2018-11-08 21:28 | XMS REPORT | Encounter Summary ---
Author Author [facility] Organization [facility] Address Unknown Phone Unavailable Care Team Providers Care Adult High School Instructor Name Role Phone Frandy Monson MD PCP Leatha Kolb MD 21 Reason for Visit * Reason Comments New Patient * Consult, Test & Treat (Routine) Referred By Contact Referred To Contact Status Reason Specialty Diagnoses / Procedures Leatha Kolb MD [address] [place] [address] Tavares Raman MD [address] [facility] [address] [place] [address] Pending Review Neurological Diagnoses Surgery / GAS BRAZER, new brain Neurosurgery lesion, Ambrose Kolb rocedures NEW PATIENT Encounter Details Care Team Description Date Type Department Tavares Raman MD [address] [facility] [address] [place] [address] Brain tumor (HCC) 09/22/2018 Office Visit [facility] [address] [place] [address] Social History Date Tobacco Use [...] Signs Reading Time Taken Comments Vital Sign 130/82 09/22/2018 1:28 PM CDT Blood Pressure 111 09/22/2018 1:28 PM CDT Pulse 36.8 C (98.2 F) 09/22/2018 1:28 PM CDT Temperature - - Respiratory Rate - - Oxygen Saturation - - Inhaled Oxygen Concentration 106.6 kg (235 lb) 09/22/2018 1:28 PM CDT Weight 165.1 cm (5' 5") 09/22/2018 1:28 PM CDT Height 39.11 09/22/2018 1:28 PM CDT Body Mass Index documented in this encounter Progress Notes * Tavares Raman MD - 09/22/2018 2:15 PM CDT Date of Service: 09/22/2018 Subjective: Ashley Louise is a 43 y.o. female. History of Present Illness PCP: Dr. Frandy [...] her antipsychotic medications. She has seen h er psychiatrist, and they do not believe that [...] morning of surgery, we will obtain a [facility] MRI with the addition of thin [...] for allowing me to take care of Ashley Louise. If you have any quest ions or concerns, do not hesitate to contact me at [phone]. Tavares Raman MD documented in this encounter Plan of Treatment Not on filedocumented as of this encounter Visit Diagnoses Diagnosis Brain tumor (HCC) Neoplasm of unspecified nature of brain documented in this encounter
--- OUTSIDE RECORDS SUMMARY | 2018-11-08 21:29 | XMS REPORT ---
Author Author Migration, Doctor Organization [facility] Address Unknown Phone Unavailable Care Team Providers Care Pmp Name Role Phone Migration, Doctor Unavailable Unavailable PROBLEMS Type Condition ICD9-CM Code HUK53-TS Code Onset Dates Condition Status SNOMED Code Problem Schizoaffective disorder, depressive type F25.1 Active [id number] ALLERGIES No Information ENCOUNTERS Encounter Location Date Diagnosis [facility] [address] [address] Oct, [facility] [id number] [place] [address] September, [facility] [id number] [place] [address] Jul, Schizoaffective disorder, depressive type F25.1 [facility] [id number] [place] [address] Jul, [facility] [id number] [place] [address] Jul, [facility] [id number] [place] [address] May, Schizoaffective disorder, depressive type F25.1 [facility] [id number] [place] [address] Feb, Schizoaffective disorder, depressive type F25.1 [facility] [id number] [address] Feb, Schizoaffective disorder, depressive type F25.1 [facility] [address] [address] Jan, Schizoaffective disorder, depressive type F25.1 [facility] [id number] [place] [address] Jun, Schizoaffective disorder, depressive type F25.1 [facility] [address] [id number] [place] [address] Apr, Schizoaffective disorder, depressive type F25.1 [facility] [address] [id number] [place] [address] Feb, Schizoaffective disorder, depressive type F25.1 [facility] [address] [facility] [id number] [place] [address] Jan, Schizoaffective disorder, depressive type F25.1 [facility] [address] [id number] [place] [address] Nov, [facility] [address] [id number] [place] [address] Nov, Schizoaffective disorder, depressive type F25.1 [facility] [address] [id number] [place] [address] Aug, Schizoaffective disorder, depressive type F25.1 [facility] [address] [id number] [place] [address] Jun, Schizoaffective disorder, depressive type F25.1 [facility] [address] [id number] [place] [address] May, Schizoaffective disorder, depressive type F25.1 [facility] [address] [facility] [id number] [place] [address] Apr, Schizoaffective disorder, depressive type F25.1 [facility] [address] [id number] [place] [address] 14 Aug, 2014 [facility] [address] [id number] [address] 13 Aug, 2014 [facility] [address] [id number] [address] Dec, [facility] [address] [id number] [place] [address] Dec, [facility] [place] [facility] [address] [id number] [place] [address] Dec, [facility] [address] [id number] [place] [address] Nov, [facility] [place] [facility] [address] [id number] [place] [address] Nov, [facility] [address] [id number] [place] [address] September, [facility] [place] [facility] [address] [id number] [place] [address] Aug, [facility] [address] [id number] [place] [address] Apr, [facility] [place] [facility] [address] [id number] [place] [address] Apr, [facility] [address] [id number] [place] [address] Apr, [facility] [place] [facility] [address] [facility] [id number] [place] [address] Apr, [facility] [place] [facility] [address] [id number] [place] [address] Feb, [facility] [place] [facility] [address] [id number] [place] [address] Feb, [facility] [place] [facility] [address] [id number] [place] [address] Nov, [facility] [place] [facility] [address] [id number] [place] [address] September, [facility] [place] [facility] [address] [facility] [id number] [place] [address] September, [facility] [place] [facility] [address] [id number] [place] [address] Aug, [facility] [place] [facility] [address] [id number] [place] [address] Jul, [facility] [place] [facility] [address] [id number] [place] [address] Jul, [facility] [place] [facility] [address] [id number] [place] [address] 24 Jun, 2011 [facility] [place] [facility] [address] [id number] [place] [address] Jun, [facility] [place] [facility] [address] [id number] [place] [address] May, [facility] [place] [facility] [address] [id number] [place] [address] May, [facility] [place] [facility] [address] [id number] [place] [address] 29 Apr, 2011 [facility] [place] [facility] [address] [id number] [place] [address] Apr, [facility] [place] [facility] [address] [id number] [place] [address] Apr, [facility] [place] [facility] [address] [id number] [place] [address] Apr, [facility] [place] [facility] [address] [id number] [place] [address] 28 Mar, 2011 [facility] [place] [facility] [address] [id number] [place] [address] 15 Mar, 2011 [facility] [place] [facility] [address] [id number] [place] [address] 15 Mar, 2011 [facility] [place] [facility] [address] [id number] [place] [address] 08 Mar, 2010 [facility] [place] [facility] [address] [id number] [place] [address] Feb, IMMUNIZATIONS No Known Immunizations SOCIAL HISTORY Never Assessed REASON FOR VISIT EMR-[facility] PLAN OF CARE VITAL SIGNS MEDICATIONS Medication Instructions Dosage Frequency Start Date End Date Duration Status Risperdal 2 mg 0.5 Tablet by Oral route 1 time per day qAM1.5 Tablet by Oral route 1 time per day q Nov, Active Ativan 1 mg Take Ativan 1mg and Risperidone 1mg with any exaurbation of auditory hallucination September, Active Lexapro 10 mg 1 tablet by Oral route 1 time per day Nov, Active benztropine 1 mg 1 Tablet by Oral route 1 time per day qAM and3 Tablet(s) by Oral route 1 time per day q Dec, Active RESULTS No Results PROCEDURES No Known procedures INSTRUCTIONS MEDICATIONS ADMINISTERED No Known Medications MEDICAL (GENERAL) HISTORY Type Description Date Surgical History No Surgical history information
--- OUTSIDE RECORDS SUMMARY | 2018-11-08 21:29 | XMS REPORT ---
Author Author MARVIN MULLINS [facility] Address [address] [place] [address] Care Team Providers Care Edger Automatic Name Role Phone SUSANNA, MARVIN Unavailable PROBLEMS Type Condition ICD9-CM Code [id number] Code Onset Dates Condition Status SNOMED Code Problem Schizoaffective disorder, depressive type F25.1 Active [id number] ALLERGIES No Known Allergies ENCOUNTERS Encounter Location Date Diagnosis [place] [id number] [place] [address] Jul, [place] [id number] [place] [address] Feb, Schizoaffective disorder, depressive type F25.1 [place] [id number] [place] [address] Feb, Schizoaffective disorder, depressive type F25.1 [place] [id number] [place] [address] Jan, Schizoaffective disorder, depressive type F25.1 [place] [id number] [place] [address] Jun, Schizoaffective disorder, depressive type F25.1 [place] [id number] [place] [address] Apr, Schizoaffective disorder, depressive type F25.1 [place] [id number] [place] [address] Feb, Schizoaffective disorder, depressive type F25.1 [place] [id number] [place] [address] Jan, Schizoaffective disorder, depressive type F25.1 [facility] [address] [facility] [id number] [place] [address] Nov, [facility] [address] [id number] [address] Nov, Schizoaffective disorder, depressive type F25.1 [facility] [address] [place] [address] Aug, Schizoaffective disorder, depressive type F25.1 [facility] [address] [id number] [address] Jun, Schizoaffective disorder, depressive type F25.1 [facility] [address] [id number] [address] May, Schizoaffective disorder, depressive type F25.1 [facility] [address] [place] [address] Apr, Schizoaffective disorder, depressive type F25.1 [facility] [address] [address] Aug, [facility] [id number] [address] Aug, [facility] [address], [place] [address] Dec, [facility] [id number] [address] Dec, [facility] [id number] [address] Dec, [facility] [id number] [address] Nov, [facility] [address], [place] [address] Nov, [facility] [id number] [place] [address] September, [facility] [address] [id number] [place] [address] Aug, [facility] [address] [id number] [place] [address] Apr, [facility] [address] [id number] [place] [address] Apr, [facility] [address] [id number] [place] [address] Apr, [facility] [address] [id number] [place] [address] Apr, [facility] [address] [id number] [place] [address] Feb, [facility] [address] [id number] [place] [address] Feb, [facility] [address] [id number] [place] [address] Nov, [facility] [address] [id number] [place] [address] September, [facility] [address] [facility] [id number] [place] [address] September, [facility] [address] [id number] [place] [address] Aug, [facility] [address] [id number] [place] [address] Jul, [facility] [place] [facility] [address] [id number] [place] [address] Jul, [facility] [place] [facility] [address] [id number] [place] [address] 24 Jun, 2011 [facility] [address] [id number] [place] [address] Jun, [facility] [id number] [address] May, [facility] [address] [facility] [id number] [address] May, [facility] [address] [facility] [id number] [address] Apr, [facility] [address] [facility] [id number] [address] Apr, [facility] [address] [facility] [id number] [address] Apr, [facility] [address] [facility] [id number], [place] [address] Apr, [facility] [address], [place] [address] Mar, [facility] [address], [place] [address] Mar, [facility] [address], [place] [address] Mar, [facility] [address], [place] [address] Mar, [facility] [id number], [place] [address] Feb, IMMUNIZATIONS No Known Immunizations SOCIAL HISTORY Never Assessed REASON FOR VISIT f/u Lissette PLAN OF CARE Activity Details Follow Up 6 Months Reason: VITAL SIGNS Height 65.5 in 2018-02-22 Weight 236.8 lbs 2018-02-22 Heart Rate 74 bpm 2018-02-22 Respiratory Rate 20 2018-02-22 BMI 38.80 kg/m2 2018-02-22 Blood pressure systolic 130 mmHg 2018-02-22 Blood pressure diastolic 82 mmHg 2018-02-22 MEDICATIONS Medication Instructions Dosage Frequency Start Date End Date Duration Status Lexapro 20 mg Orally QHS 1 tablet 30 days Active Abilify 15 mg Orally Once a day 1 tablet 24h 30 days Active RESULTS No Results PROCEDURES No Known procedures INSTRUCTIONS MEDICATIONS ADMINISTERED No Known Medications MEDICAL (GENERAL) HISTORY Type Description Date Surgical History No Surgical history information
--- OUTSIDE RECORDS SUMMARY | 2018-11-08 21:29 | XMS REPORT | Encounter Summary ---
Author Author [facility] Organization [facility] Address Unknown Phone Unavailable Care Team Providers Care Line Welder Name Role Phone PCP Unavailable Encounter Details Care Team Description Date Type Department 09/15/2018 Hospital [facility] Encounter [facility] [address] [address] Social History Date Tobacco Use Types Packs/Day Years Used Never Assessed Sex Assigned at Date Recorded Not on file Industry Job Start Date Occupation Not on file Not on file Not on file Travel End Travel History Travel Start No recent travel history available. documented as of this encounter Plan of Treatment Not on filedocumented as of this encounter Procedures Comments Procedure Name Priority Date/Time Associated Diagnosis MRI UPPER EXT EXTERNAL Routine 09/15/2018 IMAGING 12:00 AM CDT documented in this encounter Results * MRI UPPER EXT EXTERNAL IMAGING (09/15/2018 12:00 AM CDT) Specimen Narrative Performed At This order has been auto finalized and does not contain a result. documented in this encounter Visit Diagnoses Not on filedocumented in this encounter
--- OUTSIDE RECORDS SUMMARY | 2018-11-08 21:29 | XMS REPORT ---
Author Author Migration, Doctor Organization [facility] Address Unknown Phone Unavailable Care Team Providers Care Geophysical Manager Name Role Phone Migration, Doctor Unavailable Unavailable PROBLEMS Type Condition ICD9-CM Code HUI38-UT Code Onset Dates Condition Status SNOMED Code Problem Schizoaffective disorder, depressive type F25.1 Active [id number] ALLERGIES No Information ENCOUNTERS Encounter Location Date Diagnosis [facility] [address] [address] Oct, [facility] [id number] [place] [address] Aug, [facility] [id number] [place] [address] Jul, Schizoaffective disorder, depressive type F25.1 [facility] [id number] [place] [address] Jul, [facility] [id number] [place] [address] Jul, [facility] [id number] [place] [address] May, Schizoaffective disorder, depressive type F25.1 [facility] [id number] [place] [address] Feb, Schizoaffective disorder, depressive type F25.1 [facility] [id number] [address] Feb, Schizoaffective disorder, depressive type F25.1 [facility] [address], [place] [address] Jan, Schizoaffective disorder, depressive type F25.1 [facility] [id number] [place] [address] Jun, Schizoaffective disorder, depressive type F25.1 [facility] [address] [id number] [place] [address] Apr, Schizoaffective disorder, depressive type F25.1 [facility] [address] [id number] [place] [address] Feb, Schizoaffective disorder, depressive type F25.1 [facility] [address] [facility] [id number] [place] [address] Jan, Schizoaffective disorder, depressive type F25.1 [facility] [address] [id number] [place] [address] Nov, [facility] [id number] [place] [address] Nov, Schizoaffective disorder, depressive type F25.1 [facility] [id number] [place] [address] Aug, Schizoaffective disorder, depressive type F25.1 [facility] [address] [id number] [place] [address] Jun, Schizoaffective disorder, depressive type F25.1 [facility] [id number] [place] [address] May, Schizoaffective disorder, depressive type F25.1 [facility] [address] [facility] [id number] [place] [address] Apr, Schizoaffective disorder, depressive type F25.1 [facility] [address] [id number] [place] [address] 14 Aug, 2014 [facility] [id number] [address] 13 Aug, 2014 [facility] [id number] [address] Dec, [facility] [address] [id number] [place] [address] Dec, [facility] [place] [facility] [address] [id number] [place] [address] Dec, [facility] [address] [id number] [place] [address] Nov, [facility] [place] [facility] [address] [id number] [place] [address] Nov, [facility] [address] [id number] [place] [address] September, [facility] [place] [facility] [address] [id number] [place] [address] Aug, [facility] [address] [id number] [place] [address] Apr, [facility] [place] [facility] [address] [id number] [place] [address] Apr, [facility] [address] [id number] [place] [address] Apr, [facility] [place] [facility] [address] [facility] [id number] [place] [address] Apr, [facility] [place] [facility] [address] [id number] [place] [address] Feb, [facility] [place] [facility] [address] [id number] [place] [address] Feb, [facility] [place] [facility] [address] [id number] [place] [address] Nov, [facility] [place] [facility] [address] [id number] [place] [address] September, [facility] [place] [facility] [address] [facility] [id number] [place] [address] September, [facility] [place] [facility] [address] [id number] [place] [address] Aug, [facility] [place] [facility] [address] [id number] [place] [address] Jul, [facility] [place] [facility] [address] [id number] [place] [address] Jul, [facility] [place] [facility] [address] [id number] [place] [address] 24 Jun, 2011 [facility] [place] [facility] [address] [id number] [place] [address] Jun, [facility] [place] [facility] [address] [id number] [place] [address] May, [facility] [place] [facility] [address] [id number] [place] [address] May, [facility] [place] [facility] [address] [id number] [place] [address] 29 Apr, 2011 [facility] [place] [facility] [address] [id number] [place] [address] Apr, [facility] [place] [facility] [address] [id number] [place] [address] Apr, [facility] [place] [facility] [address] [id number] [place] [address] Apr, [facility] [place] [facility] [address] [id number] [place] [address] 28 Mar, 2011 [facility] [place] [facility] [address] [id number] [place] [address] 15 Mar, 2011 [facility] [place] [facility] [address] [id number] [place] [address] 15 Mar, 2011 [facility] [place] [facility] [address] [id number] [place] [address] 08 Mar, 2010 [facility] [place] [facility] [address] [id number] [place] [address] Feb, IMMUNIZATIONS No Known Immunizations SOCIAL HISTORY Never Assessed REASON FOR VISIT [facility] PLAN OF CARE VITAL SIGNS MEDICATIONS Unknown Medications RESULTS No Results PROCEDURES No Known procedures INSTRUCTIONS MEDICATIONS ADMINISTERED No Known Medications MEDICAL (GENERAL) HISTORY Type Description Date Surgical History No Surgical history information
--- OUTSIDE RECORDS SUMMARY | 2018-11-08 21:29 | XMS REPORT | Encounter Summary ---
Author Author [facility] Organization [facility] Address Unknown Phone Unavailable Care Team Providers Care Hadoop Administrator Name Role Phone PCP Unavailable Encounter Details Care Team Description Date Type Department 08/25/2018 Hospital [facility] En[facility] [address] [address] Social History Date Tobacco Use Types Packs/Day [...] Comments Procedure Name Priority Date/Time Associated Diagnosis CT HEAD EXTERNAL IMAGING Routine 08/25/2018 12:00 AM CDT documented in this encounter Results * CT HEAD EXTERNAL IMAGING (08/25/2018 12:00 AM CDT) Specimen Narrative Performed At This order has been auto finalized and does not contain a result. documented in this encounter Visit Diagnoses Not on filedocumented in this encounter
--- OUTSIDE RECORDS SUMMARY | 2018-11-08 21:29 | XMS REPORT | Encounter Summary ---
Author Author [facility] Organization [facility] Address Unknown Phone Unavailable Care Team Providers Care Carton Packaging Machine Operator Name Role Phone PCP Unavailable Encounter Details Care Team Description Date Type Department 09/01/2018 Hospital [facility] [address] [address] Social History Date Tobacco Use Types Packs/Day [...] Name Priority Date/Time Associated Diagnosis MRI HEAD EXTERNAL IMAGING Routine 09/01/2018 12:00 AM CDT documented in this encounter Results * MRI HEAD EXTERNAL IMAGING (09/01/2018 12:00 AM CDT) Specimen Narrative Performed At This order has been auto finalized and does not contain a result. documented in this encounter Visit Diagnoses Not on filedocumented in this encounter
--- OUTSIDE RECORDS SUMMARY | 2018-11-08 21:29 | XMS REPORT | Encounter Summary ---
Author Author [facility] Organization [facility] Address Unknown Phone Unavailable Care Team Providers Care Office Machinery Or Equipment Installer Name Role Phone Frandy Monson MD PCP Leatha Kolb MD 21 Reason for Visit * Reason Comments Navigation Assessment Encounter Details Care Team Description Date Type Department Tavares Raman MD [address] [facility] [address] [place] [address] [phone] Navigation Assessment 09/18/2018 Telephone [facility] [address] [address] Social History Date Tobacco Use Types Packs/Day Years Used Never Assessed Sex Assigned at Date Recorded Not on file Industry Job Start Date Occupation Not on file Not on file Not on file Travel End Travel History Travel Start No recent travel history available. documented as of this encounter Miscellaneous Notes * Telephone Encounter - Kenisha Miranda RN - 09/18/2018 11:22 AM CDT Neuro-Tumor Navigation Intake Assessment Document Patient Name: Ashley Louise : 1975 Insurance: [email or web address] Appointment Info: Future Appointments Date Time Provider Department Center 09/22/2018 2:15 PM Tavares Raman MD NEUROSRG NeuroSurg Diagnosis & Reason for Visit: New brain lesion/Discuss treatment options Physician Info: Referring Physician: Kennedi Medical Oncologist: Kennedi Phone/ /[phone] Medical Oncologist: Kennedi PCP: [place]ona Phone/ /[phone] Location of Films: PACS Location of Pathology: N/A History of Present Illness/Treatment Timeline: Seen by [...] her mother who is a nurse at [employer]. Imagin09/01/18: CT Head - There is a large area of hypodensity and mass effect in the left frontal lobe with vasogenic edema and sulcal effacement. The findings are suspicious for underlying neoplasm, either primary or metastatic. There is No associated hemorrhage or subdural collection. There is about 3 mm of midline sh ift in the frontal region. The ventricles are non dilated. There is no other f ocal abnormality. 09/01/18: MRI Brain - Ill-defined non enhancing intra-axial infiltrative process epicenter left frontal lobe. The findings are very suspicious for infiltrative neoplasm despite the absence of enhancement. Cannot be measured with an high le luan of confidence given the substantial perilesional vasogenic edema. Signa cros ses the midline left to right via the genu of the corpus callosum which may be o f extension of tumor versus perilesional edema itself. Mass effect and mild lef t to right shift showed slight progression, no infarct, hemorrhage or hydrocepha darrick. Needs Assessment: Genetic Counseling: Genetic Assessment: Not assessed at this time Nutrition: Additional Nutrition Assessment: No concerns identified Social & Financial: Social and Financial Assessment: No needs identified;Reports adequate support sy stem Tobacco assessment last 30 days: Patient has not used tobacco products within th e last 30 days Spiritual & Emotional: Spiritual and Emotional Assessment: No needs identified;Reports adequate support system Physical: Fall Risk: None identified Communication: Communication Barrier: No Onc Fertility: Onc Fertility Assessment: Not applicable Additional Education: Additional Education Documented: No Referral Type: Fax Comments: Mom (RN) is POA as patient is mildly MR and schizophrenic but high fu nctioning. They will be at this appointment. documented in this encounter Plan of Treatment Not on filedocumented as of this encounter Visit Diagnoses Not on filedocumented in this encounter
--- OUTSIDE RECORDS SUMMARY | 2018-11-08 21:29 | XMS REPORT ---
Author Author Migration, Doctor Organization [facility] Address Unknown Phone Unavailable Care Team Providers Care Precision Inspector Name Role Phone Migration, Doctor Unavailable Unavailable PROBLEMS Type Condition ICD9-CM Code [id number] Code Onset Dates Condition Status SNOMED Code Problem Schizoaffective disorder, depressive type F25.1 Active 07377949 ALLERGIES No Information ENCOUNTERS Encounter Location Date Diagnosis [facility] [place] [address] [address] Oct, [facility] [place] [id number] [place] [address] Aug, [facility] [place] [id number] [place] [address] Jul, Schizoaffective disorder, depressive type F25.1 [facility] [place] [id number] [place] [address] Jul, [facility] [place] [id number] [place] [address] Jul, [facility] [place] [id number] [place] [address] May, Schizoaffective disorder, depressive type F25.1 [facility] [place] [id number] [place] [address] Feb, Schizoaffective disorder, depressive type F25.1 [facility] [place] [id number] [address] Feb, Schizoaffective disorder, depressive type F25.1 [facility] [place] [address] [address] Jan, Schizoaffective disorder, depressive type F25.1 [facility] [place] [id number] [address] Jun, Schizoaffective disorder, depressive type F25.1 [facility] [place] [id number] [address] Apr, Schizoaffective disorder, depressive type F25.1 [facility] [place] [id number] [address] Feb, Schizoaffective disorder, depressive type F25.1 [facility] [place] [address] [facility] [id number] [place] [address] Jan, Schizoaffective disorder, depressive type F25.1 [facility] [place] [id number] [address] Nov, [facility] [place] [id number] [address] Nov, Schizoaffective disorder, depressive type F25.1 [facility] [place] [id number] [address] Aug, Schizoaffective disorder, depressive type F25.1 [facility] [place] [id number] [address] Jun, Schizoaffective disorder, depressive type F25.1 [facility] [place] [id number] [address] May, Schizoaffective disorder, depressive type F25.1 [facility] [place] [address] [facility] [id number] [place] [address] Apr, Schizoaffective disorder, depressive type F25.1 [facility] [place] [id number] [address] 14 Aug, 2014 [facility] [place] [id number] [address] 13 Aug, 2014 [facility] [place] [id number] [address] Dec, [facility] [address] [id number] [place] [address] Dec, [facility] [place] [facility] [address] [id number] [place] [address] Dec, [facility] [address] [id number] [place] [address] Nov, [facility] [place] [facility] [address] [id number] [place] [address] Nov, [facility] [address] [id number] [place] [address] September, [facility] [place] [facility] [address] [id number] [place] [address] Aug, [facility] [address] [id number] [place] [address] Apr, [facility] [place] [facility] [address] [id number] [place] [address] Apr, [facility] [address] [id number] [place] [address] Apr, [facility] [place] [facility] [address] [facility] [id number] [place] [address] Apr, [facility] [place] [facility] [address] [id number] [place] [address] Feb, [facility] [place] [facility] [address] [id number] [place] [address] Feb, [facility] [place] [facility] [address] [id number] [place] [address] Nov, [facility] [place] [facility] [address] [id number] [place] [address] September, [facility] [place] [facility] [address] [facility] [id number] [place] [address] September, [facility] [place] [facility] [address] [id number] [place] [address] Aug, [facility] [place] [facility] [address] [id number] [place] [address] Jul, [facility] [place] [facility] [address] [id number] [place] [address] Jul, [facility] [place] [facility] [address] [id number] [place] [address] 24 Jun, 2011 [facility] [place] [facility] [address] [id number] [place] [address] Jun, [facility] [place] [facility] [address] [id number] [place] [address] May, [facility] [place] [facility] [address] [id number] [place] [address] May, [facility] [place] [facility] [address] [id number] [place] [address] 29 Apr, 2011 [facility] [place] [facility] [address] [id number] [place] [address] Apr, [facility] [place] [facility] [address] [id number] [place] [address] Apr, [facility] [place] [facility] [address] [id number] [place] [address] Apr, [facility] [place] [facility] [address] [id number] [place] [address] 28 Mar, 2011 [facility] [place] [facility] [address] [id number] [place] [address] 15 Mar, 2011 [facility] [place] [facility] [address] [id number] [place] [address] 15 Mar, 2011 [facility] [place] [facility] [address] [id number] [place] [address] 08 Mar, 2010 [facility] [place] [facility] [address] [id number] [place] [address] Feb, IMMUNIZATIONS No Known Immunizations SOCIAL HISTORY Never Assessed REASON FOR VISIT EMR-[facility] PLAN OF CARE VITAL SIGNS MEDICATIONS Unknown Medications RESULTS No Results PROCEDURES No Known procedures INSTRUCTIONS MEDICATIONS ADMINISTERED No Known Medications MEDICAL (GENERAL) HISTORY Type Description Date Surgical History No Surgical history information
--- OUTSIDE RECORDS SUMMARY | 2018-11-08 21:30 | XMS REPORT ---
Author Author MARVIN MULLINS [facility] Address [address] [place] [address] Care Team Providers Care Nursing Department Chairperson Name Role Phone SUSANNA, MARVIN Unavailable PROBLEMS Type Condition ICD9-CM Code [id number] Code Onset Dates Condition Status SNOMED Code Problem Schizoaffective disorder, depressive type F25.1 Active [id number] ALLERGIES No Information ENCOUNTERS Encounter Location Date Diagnosis [place] [id number] [place] [address] Feb, [place] [id number] [place] [address] Jan, Schizoaffective disorder, depressive type F25.1 [place] [id number] [place] [address] Jun, Schizoaffective disorder, depressive type F25.1 [place] [id number] [place] [address] Apr, Schizoaffective disorder, depressive type F25.1 [place] [id number] [place] [address] Feb, Schizoaffective disorder, depressive type F25.1 [facility] [id number] [place] [address] Jan, Schizoaffective disorder, depressive type F25.1 [place] [id number] [place] [address] Nov, [place] [id number] [place] [address] Nov, Schizoaffective disorder, depressive type F25.1 [place] [address] [place] [address] Aug, Schizoaffective disorder, depressive type F25.1 [facility] [address] [place] [address] Jun, Schizoaffective disorder, depressive type F25.1 [facility] [address] [place] [address] May, Schizoaffective disorder, depressive type F25.1 [facility] [address] [place] [address] Apr, Schizoaffective disorder, depressive type F25.1 [facility] [address] [place] [address] Aug, [facility] [address] [place] [address] Aug, [facility] [address] [place] [address] Dec, [facility] [address] [place] [address] Dec, [facility] [address] [place] [address] Dec, [facility] [address] [place] [address] Nov, [facility] [address], [place] [address] Nov, [facility] [address] [place] [address] September, [facility] [address] [place] [address] Aug, [facility] [address] [place] [address] Apr, [facility] [address] [id number] [place] [address] Apr, [facility] [place] [facility] [address] [id number] [place] [address] Apr, [facility] [place] [facility] [address] [id number] [place] [address] Apr, [facility] [place] [facility] [address] [id number] [place] [address] Feb, [facility] [place] [facility] [address] [id number] [place] [address] Feb, [facility] [place] [facility] [address] [id number] [place] [address] Nov, [facility] [place] [facility] [address] [id number] [place] [address] September, [facility] [place] [facility] [address] [id number] [place] [address] September, [facility] [place] [facility] [address] [id number] [place] [address] Aug, [facility] [place] [facility] [address] [id number] [place] [address] Jul, [facility] [place] [facility] [address] [id number] [place] [address] Jul, [facility] [place] [facility] [address] [id number] [place] [address] Jun, [facility] [place] [facility] [address] [id number] [place] [address] Jun, [facility] [place] [facility] [address] [id number] [place] [address] May, [facility] [place] [facility] [address] [id number] [place] [address] May, [facility] [place] [facility] [address] [id number] [place] [address] Apr, [facility] [id number] [address] Apr, [facility] [address], [place] [address] Apr, [facility] [address], [place] [address] Apr, [facility] [address], [place] [address] Mar, [facility] [address], [place] [address] Mar, [facility] [address], [place] [address] Mar, [facility] [address], [place] [address] Mar, [facility] [address], [place] [address] Feb, IMMUNIZATIONS No Known Immunizations SOCIAL HISTORY Never Assessed REASON FOR VISIT f/u PLAN OF CARE Activity Details Follow Up 6 Weeks Reason: VITAL SIGNS Height 65.5 in 2018-01-11 Weight 241.1 lbs 2018-01-11 Heart Rate 75 bpm 2018-01-11 Respiratory Rate 24 2018-01-11 BMI 39.51 kg/m2 2018-01-11 Blood pressure systolic 120 mmHg 2018-01-11 Blood pressure diastolic 78 mmHg 2018-01-11 MEDICATIONS Medication Instructions Dosage Frequency Start Date End Date Duration Status Lexapro 20 MG TAKE ONE-HALF TABLET BY MOUTH IN THE MORNING AND ONE-HALF TABLET AT BEDTIME 30 Active Aripiprazole 10 MG TAKE ONE-HALF TABLET BY MOUTH TWICE DAILY 30 Active Benztropine Mesylate 1 MG Orally QHS 1/2 tablet 30 days Active Risperdal 0.25 MG Orally at bedtime as needed 1 tablet Active Lexapro 20 mg Orally QHS 1 tablet 30 days Active Abilify 15 MG Orally twice a day 1/2 tablet 12h 30 days Active Risperidone 0.5 MG Orally QHS 1/2 tablet 30 days Active Risperidone 0.25 MG TAKE ONE TABLET BY MOUTH AT BEDTIME 30 Active RESULTS No Results PROCEDURES No Known procedures INSTRUCTIONS MEDICATIONS ADMINISTERED No Known Medications
--- OUTSIDE RECORDS SUMMARY | 2018-11-08 21:30 | XMS REPORT ---
Author Author MARVIN MULLINS Organization [facility] Address [address] [place] [address] Care Team Providers Care Stock Letterer Name Role Phone MARVIN MULLINS Unavailable PROBLEMS Type Condition ICD9-CM Code [id number] Code Onset Dates Condition Status SNOMED Code Problem Schizoaffective disorder, depressive type F25.1 Active [id number] ALLERGIES Unknown Allergies SOCIAL HISTORY No smoking Hx information available PLAN OF CARE VITAL SIGNS MEDICATIONS Unknown Medications RESULTS Name Result Date Reference Range TSH 2016-05-18 TSH 3.790 0.450-4.500 CBC 2016-05-18 WBC 3.1 3.4-10.8 RBC 4.48 3.77-5.28 Hemoglobin 13.4 11.1-15.9 Hematocrit 39.7 34.0-46.6 MCV 89 79-97 MCH 29.9 26.6-33.0 MCHC 33.8 31.5-35.7 RDW 13.5 12.3-15.4 Platelets 180 150-379 Neutrophils 51 Lymphs 38 Monocytes 6 Eos 4 Basos 1 Neutrophils (Absolute) 1.6 1.4-7.0 Lymphs (Absolute) 1.2 0.7-3.1 Monocytes(Absolute) 0.2 0.1-0.9 Eos (Absolute) 0.1 0.0-0.4 Baso (Absolute) 0.0 0.0-0.2 Immature Granulocytes 0 Immature Grans (Abs) 0.0 0.0-0.1 LIPID PANEL 2016-05-18 Cholesterol, Total 158 100-199 Triglycerides 94 0-149 HDL Cholesterol 58 >39 VLDL Cholesterol Bertin 19 5-40 LDL Cholesterol Calc 81 0-99 Comment: CMP 2016-05-18 Glucose, Serum 85 65-99 BUN 13 6-24 Creatinine, Serum 0.86 0.57-1.00 eGFR If NonAfricn Am 84 >59 eGFR If Africn Am 97 >59 BUN/Creatinine Ratio 15 9-23 Sodium, Serum 146 134-144 Potassium, Serum 3.9 3.5-5.2 Chloride, Serum 107 96-106 Carbon Dioxide, Total 21 18-29 Calcium, Serum 9.0 8.7-10.2 Protein, Total, Serum 7.0 6.0-8.5 Albumin, Serum 4.5 3.5-5.5 Globulin, Total 2.5 1.5-4.5 A/G Ratio 1.8 1.1-2.5 Bilirubin, Total 0.7 0.0-1.2 Alkaline Phosphatase, S 84 39-117 AST (SGOT) 22 0-40 ALT (SGPT) 17 0-32 PROCEDURES Procedure Date Ordered Related Diagnosis Body [facility] May 18, 2016 VENIPUNCT, ROUTINE* May 18, 2016 IMMUNIZATIONS No Known Immunizations
--- OUTSIDE RECORDS SUMMARY | 2018-11-08 21:30 | XMS REPORT ---
Author Author MARVIN MULLINS Organization [facility] Address [address] [place] [address] Care Team Providers Care Couture Dressmaker Name Role Phone MARVIN MULLINS Unavailable PROBLEMS Type Condition ICD9-CM Code [id number] Code Onset Dates Condition Status SNOMED Code Problem Schizoaffective disorder, depressive type F25.1 Active [id number] ALLERGIES No Known Allergies SOCIAL HISTORY Never Assessed PLAN OF CARE Activity Details Follow Up 3 Months Reason: VITAL SIGNS Height 65.5 in 2016-08-25 Weight 238.7 lbs 2016-08-25 Heart Rate 92 bpm 2016-08-25 Respiratory Rate 20 2016-08-25 BMI 39.11 kg/m2 2016-08-25 Blood pressure systolic 109 mmHg 2016-08-25 Blood pressure diastolic 76 mmHg 2016-08-25 MEDICATIONS Medication Instructions Dosage Frequency Start Date End Date Duration Status Abilify 5 mg Orally twice a day 1 tablet 12h 30 days Active Benztropine Mesylate 1 MG Orally Once a day 1 tablet at bedtime 24h 30 days Active Risperidone 1 MG Orally QHS 1 tablet 30 days Active Lexapro 20 mg Orally Once a day 1/2 tablet in the AM and 1/2 tab QHS 24h 30 days Active RESULTS No Results PROCEDURES No Known procedures IMMUNIZATIONS No Known Immunizations
--- OUTSIDE RECORDS SUMMARY | 2018-11-08 21:30 | XMS REPORT ---
Author Author MARVIN MULLINS [facility] Address [address] [place] [address] Care Team Providers Care Wellness Rn Name Role Phone SUSANNA, MARVIN Unavailable PROBLEMS Type Condition ICD9-CM Code [id number] Code Onset Dates Condition Status SNOMED Code Problem Schizoaffective disorder, depressive type F25.1 Active 13559169 ALLERGIES No Known Allergies ENCOUNTERS Encounter Location Date Diagnosis [place] [id number] [place] [address] Dec, [place] [id number] [place] [address] Jun, Schizoaffective disorder, depressive type F25.1 [place] [id number] [place] [address] Apr, Schizoaffective disorder, depressive type F25.1 [place] [id number] [place] [address] Feb, Schizoaffective disorder, depressive type F25.1 [place] [id number] [place] [address] Jan, Schizoaffective disorder, depressive type F25.1 [facility] [id number] [place] [address] Nov, [place] [id number] [place] [address] Nov, Schizoaffective disorder, depressive type F25.1 [place] [id number] [place] [address] Aug, Schizoaffective disorder, depressive type F25.1 [place] [address] [facility] [id number] [place] [address] Jun, Schizoaffective disorder, depressive type F25.1 [facility] [address] [facility] [id number] [place] [address] May, Schizoaffective disorder, depressive type F25.1 [facility] [address] [facility] [id number] [place] [address] Apr, Schizoaffective disorder, depressive type F25.1 [facility] [address] [facility] [id number] [place] [address] Aug, [facility] [address] [facility] [id number] [place] [address] Aug, [facility] [id number] [place] [address] Dec, [facility] [address] [facility] [id number], [place] [address] Dec, [facility] [id number] [place] [address] Dec, [facility] [address] [id number] [address] Nov, [facility] [address] [id number] [address] Nov, [facility] [address] [facility] [id number], [place] [address] September, [facility] [address] [facility] [id number] [place] [address] Aug, [facility] [address] [facility] [id number] [place] [address] Apr, [facility] [place] [facility] [address] [facility] [id number], [place] [address] Apr, [facility] [address] [id number] [address] Apr, [facility] [address] [id number] [place] [address] Apr, [facility] [place] [facility] [address] [id number] [place] [address] Feb, [facility] [address] [id number] [place] [address] Feb, [facility] [place] [facility] [address] [id number] [place] [address] Nov, [facility] [address] [id number] [place] [address] September, [facility] [address] [id number] [place] [address] September, [facility] [address] [id number] [place] [address] Aug, [facility] [place] [facility] [address] [id number] [place] [address] Jul, [facility] [address] [id number] [place] [address] Jul, [facility] [place] [facility] [address] [id number] [place] [address] Jun, [facility] [address] [id number] [place] [address] Jun, [facility] [place] [facility] [address] [id number] [place] [address] May, [facility] [place] [facility] [address] [id number] [place] [address] May, [facility] [place] [facility] [address] [id number] [place] [address] Apr, [facility] [place] [facility] [address] [id number] [place] [address] Apr, [facility] [place] [facility] [address] [facility] [id number], [place] [address] Apr, [facility] [address] [id number] [address] Apr, [facility] [address] [facility] [id number], [place] [address] Mar, [facility] [address] [id number] [address] Mar, [facility] [address] [id number] [address] Mar, [facility] [address] [id number] [address] Mar, [facility] [address] [facility] [id number], [place] [address] Feb, IMMUNIZATIONS No Known Immunizations SOCIAL HISTORY Never Assessed REASON FOR VISIT f/u Lissette PLAN OF CARE Activity Details Follow Up 2 Months Reason: VITAL SIGNS Height 65.5 in 2017-04-27 Weight 231.2 lbs 2017-04-27 Heart Rate 84 bpm 2017-04-27 Respiratory Rate 20 2017-04-27 BMI 37.88 kg/m2 2017-04-27 Blood pressure systolic 150 mmHg 2017-04-27 Blood pressure diastolic 78 mmHg 2017-04-27 MEDICATIONS Medication Instructions Dosage Frequency Start Date End Date Duration Status Benztropine Mesylate 1 MG Orally QHS 1/2 tablet 30 days Active Risperdal 2 MG Orally Once a day PRN 1/4 tablet Active Abilify 5 mg Orally twice a day 1 tablet 12h 30 days Active Lexapro 20 mg Orally Once a day 1/2 tablet in the AM and 1/2 tab QHS 24h 30 days Active Risperidone 0.5 MG Orally QHS 1/2 tablet 30 days Active RESULTS No Results PROCEDURES No Known procedures INSTRUCTIONS MEDICATIONS ADMINISTERED No Known Medications
--- OUTSIDE RECORDS SUMMARY | 2018-11-08 21:30 | XMS REPORT ---
Author Author MARVIN MULLINS [facility] Address [address] [place] [address] Care Team Providers Care Instrumentation Technologist Name Role Phone SUSANNA, MARVIN Unavailable PROBLEMS Type Condition ICD9-CM Code [id number] Code Onset Dates Condition Status SNOMED Code Problem Schizoaffective disorder, depressive type F25.1 Active [id number] ALLERGIES No Information ENCOUNTERS Encounter Location Date Diagnosis [place] [id number] [place] [address] Dec, [place] [id number] [place] [address] Jun, Schizoaffective disorder, depressive type F25.1 [place] [id number] [place] [address] Apr, Schizoaffective disorder, depressive type F25.1 [place] [id number] [place] [address] Feb, Schizoaffective disorder, depressive type F25.1 [place] [id number] [place] [address] Jan, Schizoaffective disorder, depressive type F25.1 [facility] [id number] [place] [address] Nov, [place] [id number] [place] [address] Nov, Schizoaffective disorder, depressive type F25.1 [place] [id number] [place] [address] Aug, Schizoaffective disorder, depressive type F25.1 [place] [address] [facility] [id number] [place] [address] Jun, Schizoaffective disorder, depressive type F25.1 [facility] [address] [facility] [id number] [place] [address] May, Schizoaffective disorder, depressive type F25.1 [facility] [address] [facility] [id number] [place] [address] Apr, Schizoaffective disorder, depressive type F25.1 [facility] [address] [id number] [place] [address] Aug, [facility] [address] [facility] [id number] [place] [address] Aug, [facility] [id number] [place] [address] Dec, [facility] [id number] [place] [address] Dec, [facility] [address] [facility] [id number] [place] [address] Dec, [facility] [id number] [address] Nov, [facility] [id number] [place] [address] Nov, [facility] [address] [facility] [id number], [place] [address] September, [facility] [address] [facility] [id number] [place] [address] Aug, [facility] [address] [facility] [id number] [place] [address] Apr, [facility] [address] [facility] [id number] [place] [address] Apr, [facility] [address] [id number], [place] [address] Apr, [facility] [place] [address] [id number] [place] [address] Apr, [facility] [place] [facility] [address] [id number] [place] [address] Feb, [facility] [place] [facility] [address] [id number] [place] [address] Feb, [facility] [place] [facility] [address] [id number] [place] [address] Nov, [facility] [place] [facility] [address] [id number] [place] [address] September, [facility] [place] [facility] [address] [id number] [place] [address] September, [facility] [place] [facility] [address] [id number] [place] [address] Aug, [facility] [place] [facility] [address] [id number] [place] [address] Jul, [facility] [place] [facility] [address] [id number] [place] [address] Jul, [facility] [place] [facility] [address] [id number] [place] [address] 24 Jun, 2011 [facility] [place] [facility] [address] [id number] [place] [address] Jun, [facility] [place] [facility] [address] [id number] [place] [address] May, [facility] [place] [facility] [address] [id number] [place] [address] May, [facility] [place] [facility] [address] [id number] [place] [address] Apr, [facility] [place] [facility] [address] [id number] [place] [address] Apr, [facility] [place] [facility] [address] [id number] [address] 13 Apr, 2011 [facility] [address] [id number] [address] Apr, [facility] [address], [place] [address] Mar, [facility] [address], [place] [address] Mar, [facility] [address], [place] [address] Mar, [facility] [id number] [address] 08 Mar, 2010 [facility] [address] [id number] [address] Feb, IMMUNIZATIONS No Known Immunizations SOCIAL HISTORY Never Assessed REASON FOR VISIT Requests return call PLAN OF CARE VITAL SIGNS MEDICATIONS Unknown Medications RESULTS No Results PROCEDURES No Known procedures INSTRUCTIONS MEDICATIONS ADMINISTERED No Known Medications
--- OUTSIDE RECORDS SUMMARY | 2018-11-08 21:30 | XMS REPORT ---
Author Author MARVIN MULLINS [facility] Address [address] [place] [address] Care Team Providers Care Ocular Care Aide Name Role Phone SUSANNA, MARVIN Unavailable PROBLEMS Type Condition ICD9-CM Code MLC38-OY Code Onset Dates Condition Status SNOMED Code Problem Schizoaffective disorder, depressive type F25.1 Active [id number] ALLERGIES No Information ENCOUNTERS Encounter Location Date Diagnosis [place] [id number] [place] [address] Dec, [place] [id number] [place] [address] Jun, Schizoaffective disorder, depressive type F25.1 [place] [id number] [place] [address] Apr, Schizoaffective disorder, depressive type F25.1 [place] [id number] [place] [address] Feb, Schizoaffective disorder, depressive type F25.1 [place] [id number] [place] [address] Jan, Schizoaffective disorder, depressive type F25.1 [facility] [id number] [place] [address] Nov, [place] [id number] [place] [address] Nov, Schizoaffective disorder, depressive type F25.1 [place] [id number] [place] [address] Aug, Schizoaffective disorder, depressive type F25.1 [place] [address] [facility] [id number] [place] [address] Jun, Schizoaffective disorder, depressive type F25.1 [facility] [address] [facility] [id number] [place] [address] May, Schizoaffective disorder, depressive type F25.1 [facility] [address] [facility] [id number] [place] [address] Apr, Schizoaffective disorder, depressive type F25.1 [facility] [address] [id number] [place] [address] Aug, [facility] [address] [facility] [id number] [place] [address] Aug, [facility] [address] [id number] [place] [address] Dec, [facility] [id number] [place] [address] Dec, [facility] [address] [facility] [id number] [place] [address] Dec, [facility] [address] [id number] [address] Nov, [facility] [address] [id number] [place] [address] Nov, [facility] [address] [facility] [id number], [place] [address] September, [facility] [address] [facility] [id number] [place] [address] Aug, [facility] [address] [facility] [id number] [place] [address] Apr, [facility] [address] [facility] [id number] [place] [address] Apr, [facility] [address] [id number] [address] Apr, [facility] [address] [id number] [place] [address] Apr, [facility] [place] [facility] [address] [id number] [place] [address] Feb, [facility] [place] [facility] [address] [id number] [place] [address] Feb, [facility] [place] [facility] [address] [id number] [place] [address] Nov, [facility] [place] [facility] [address] [id number] [place] [address] September, [facility] [place] [facility] [address] [id number] [place] [address] September, [facility] [address] [id number] [place] [address] Aug, [facility] [place] [facility] [address] [id number] [place] [address] Jul, [facility] [place] [facility] [address] [id number] [place] [address] Jul, [facility] [place] [facility] [address] [id number] [place] [address] 24 Jun, 2011 [facility] [place] [facility] [address] [id number] [place] [address] Jun, [facility] [place] [facility] [address] [id number] [place] [address] May, [facility] [place] [facility] [address] [id number] [place] [address] May, [facility] [place] [facility] [address] [id number] [place] [address] Apr, [facility] [place] [facility] [address] [id number] [place] [address] Apr, [facility] [place] [facility] [address] [facility] [id number], [place] [address] Apr, [facility] [address] [id number] [address] Apr, [facility] [address] [facility] [id number], [place] [address] Mar, [facility] [address] [id number] [address] Mar, [facility] [id number] [address] Mar, [facility] [id number] [address] Mar, [facility] [address] [facility] [id number], [place] [address] Feb, IMMUNIZATIONS No Known Immunizations SOCIAL HISTORY Never Assessed REASON FOR VISIT f/u-- Vira Larry RN PLAN OF CARE Activity Details Follow Up 2 Months Reason: VITAL SIGNS Height 65.5 in 2016-11-17 Heart Rate 88 bpm 2016-11-17 Blood pressure systolic 134 mmHg 2016-11-17 Blood pressure diastolic 82 mmHg 2016-11-17 MEDICATIONS Medication Instructions Dosage Frequency Start Date End Date Duration Status Abilify 5 mg Orally twice a day 1 tablet 12h 30 days Active Benztropine Mesylate 1 MG Orally QHS 1/2 tablet 30 days Active Risperidone 1 MG Orally QHS 1/2 tablet 30 days Active Lexapro 20 mg Orally Once a day 1/2 tablet in the AM and 1/2 tab QHS 24h 30 days Active RESULTS No Results PROCEDURES No Known procedures INSTRUCTIONS MEDICATIONS ADMINISTERED No Known Medications
--- OUTSIDE RECORDS SUMMARY | 2018-11-08 21:30 | XMS REPORT ---
Author Author HAYES VARMA Organization [facility] Address [address] [place] [address] Care Team Providers Care Program Management Specialist Name Role Phone RICOGATITOALLI HAYES Unavailable PROBLEMS Type Condition ICD9-CM Code [id number] Code Onset Dates Condition Status SNOMED Code Problem Schizoaffective disorder, depressive type F25.1 Active [id number] ALLERGIES No Information ENCOUNTERS Encounter Location Date Diagnosis [facility] [id number] [place] [address] Feb, [facility] [id number] [place] [address] Feb, Schizoaffective disorder, depressive type F25.1 [facility] [id number] [place] [address] Jan, Schizoaffective disorder, depressive type F25.1 [facility] [id number] [place] [address] Jun, Schizoaffective disorder, depressive type F25.1 [facility] [id number], [place] [address] Apr, Schizoaffective disorder, depressive type F25.1 [facility] [id number] [address] Feb, Schizoaffective disorder, depressive type F25.1 [facility] [id number] [place] [address] Jan, Schizoaffective disorder, depressive type F25.1 [facility] [id number] [place] [address] Nov, [facility] [address] [facility] [id number] [place] [address] Nov, Schizoaffective disorder, depressive type F25.1 [facility] [place] [address] [facility] [id number] [place] [address] Aug, Schizoaffective disorder, depressive type F25.1 [facility] [address] [facility] [id number] [place] [address] Jun, Schizoaffective disorder, depressive type F25.1 [facility] [address] [facility] [id number] [place] [address] May, Schizoaffective disorder, depressive type F25.1 [facility] [id number] [place] [address] Apr, Schizoaffective disorder, depressive type F25.1 [facility] [address] [id number] [address] Aug, [facility] [id number] [address] Aug, [facility] [id number] [address] Dec, [facility] [id number], [place] [address] Dec, [facility] [id number], [place] [address] Dec, [facility] [address] [facility] [id number], [place] [address] Nov, [facility] [id number] [address] Nov, [facility] [address] [id number] [address] September, [facility] [id number], [place] [address] 17 Aug, 2012 [facility] [address] [id number] [place] [address] Apr, [facility] [place] [facility] [address] [id number] [place] [address] Apr, [facility] [address] [facility] [id number] [place] [address] Apr, [facility] [place] [facility] [address] [id number] [place] [address] Apr, [facility] [address] [id number] [place] [address] Feb, [facility] [place] [facility] [address] [id number] [place] [address] Feb, [facility] [id number] [place] [address] Nov, [facility] [place] [facility] [address] [facility] [id number] [place] [address] September, [facility] [address] [facility] [id number] [place] [address] September, [facility] [place] [facility] [address] [facility] [id number] [place] [address] Aug, [facility] [place] [facility] [address] [facility] [id number], [place] [address] Jul, [facility] [place] [facility] [address] [facility] [id number], [place] [address] Jul, [facility] [place] [facility] [address] [id number] [place] [address] Jun, [facility] [place] [facility] [address] [facility] [id number], [place] [address] Jun, [facility] [place] [facility] [address] [facility] [id number] [place] [address] May, [facility] [place] [facility] [address] [facility] [id number], [place] [address] May, [facility] [address] [facility] [id number], [place] [address] 29 Apr, 2011 [facility] [address] [facility] [id number], [place] [address] Apr, [facility] [address] [facility] [id number], [place] [address] Apr, [facility] [address] [facility] [id number], [place] [address] Apr, [facility] [address] [facility] [id number], [place] [address] Mar, [facility] [address] [facility] [id number], [place] [address] Mar, [facility] [address], [place] [address] Mar, [facility] [address] [facility] [id number], [place] [address] Mar, [facility] [address] [id number], [place] [address] Feb, IMMUNIZATIONS No Known Immunizations SOCIAL HISTORY Never Assessed REASON FOR VISIT Lab (walk-in) PLAN OF CARE Activity Details Pending Test DIFFERENTIAL, MANUAL Pending Test TSH w/ FREE T4 Pending Test LIPID PANEL Pending Test CMP Pending Test CBC w/MANUAL DIFF Pending Test A1C VITAL SIGNS MEDICATIONS Unknown Medications RESULTS No Results PROCEDURES Procedure Date Ordered Result Body Site LAB NOT BILLED BY [facility] Feb 10, 2018 Hemoglobin Test Send Out 0 dollar Feb 10, 2018 VENIPFORREST, ROUTINE* Feb 10, 2018 INSTRUCTIONS MEDICATIONS ADMINISTERED No Known Medications
--- OUTSIDE RECORDS SUMMARY | 2018-11-08 21:31 | XMS REPORT ---
Author Author MARVIN MULLINS Organization [facility] Address [address] [place] [address] Care Team Providers Care Media Law Faculty Member Name Role Phone MARVIN MULLINS Unavailable PROBLEMS Type Condition ICD9-CM Code [id number] Code Onset Dates Condition Status SNOMED Code Problem Schizoaffective disorder, depressive type F25.1 Active [id number] ALLERGIES No Known Allergies SOCIAL HISTORY Never Assessed PLAN OF CARE Activity Details Follow Up 2 Months Reason: VITAL SIGNS Height 65.5 in 2016-06-30 Weight 234.8 lbs 2016-06-30 Heart Rate 92 bpm 2016-06-30 Respiratory Rate 20 2016-06-30 BMI 38.47 kg/m2 2016-06-30 Blood pressure systolic 119 mmHg 2016-06-30 Blood pressure diastolic 82 mmHg 2016-06-30 MEDICATIONS Medication Instructions Dosage Frequency Start Date End Date Duration Status Lexapro 20 mg Orally Once a day 1/2 tablet in the AM and 1/2 tab QHS 24h 30 days Active Risperidone 1 MG Orally QHS 1 tablet 30 days Active Benztropine Mesylate 1 MG Orally Once a day 1 tablet at bedtime 24h 30 days Active Abilify 5 mg Orally twice a day 1 tablet 12h 30 days Active RESULTS No Results PROCEDURES No Known procedures IMMUNIZATIONS No Known Immunizations
--- OUTSIDE RECORDS SUMMARY | 2018-11-08 21:31 | XMS REPORT ---
Author Author MARVIN MULLINS Organization [facility] Address [address] [place] [address] Care Team Providers Care Utility Maintenance Worker Name Role Phone VICTOR MANUEL MULLINSKARY Unavailable PROBLEMS Type Condition ICD9-CM Code [id number] Code Onset Dates Condition Status SNOMED Code Problem Schizoaffective disorder, depressive type F25.1 Active [id number] ALLERGIES Substance Reaction Event Type Date Status N.K.D.A. Unknown Non Drug Allergy Apr, Unknown SOCIAL HISTORY No smoking Hx information available PLAN OF CARE Activity Details Follow Up 2 Months Reason: VITAL SIGNS Height 65.5 in 2016-05-05 Weight 237.3 lbs 2016-05-05 Heart Rate 72 bpm 2016-05-05 Respiratory Rate 20 2016-05-05 BMI 38.88 kg/m2 2016-05-05 Blood pressure systolic 110 mmHg 2016-05-05 Blood pressure diastolic 77 mmHg 2016-05-05 MEDICATIONS Medication Instructions Dosage Frequency Start Date End Date Duration Status Risperidone 1 MG Orally QHS 1 tablet Active Benztropine Mesylate 1 MG Orally Once a day 1 tablet at bedtime 24h Active Lexapro 20 MG Orally Once a day 1 tablet 24h Active Abilify 5 mg Orally twice a day 1 tablet 12h Active RESULTS No Results PROCEDURES Procedure Date Ordered Related Diagnosis Body Site MH Office Visit, Est Pt., Level 3 May 05, 2016 IMMUNIZATIONS No Known Immunizations
--- OUTSIDE RECORDS SUMMARY | 2018-11-08 21:31 | XMS REPORT | Continuity of Care Document ---
Author Organization Unknown Address Unknown Allergies Active Description Code Type Severity Reaction Onset Reported/Identified Relationship to Patient Clinical Status Yes No Known Drug Allergies [id number] Drug Allergy Unknown N/A 02/20/2010 Medications There is no data. 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 01/02/2008 PATSY TIMMONS DDS 311 MO DEPRESSIVE DISORDER NOS 07/02/2008 995.20 UNSPECIFIED ADVERSE EFFECT OF UNSPECIFIED DRUG MEDICINAL AND BIOLOGICAL SUBSTANCE 07/02/2008 E939.9 UNSPECIFIED PSYCHOTROPIC AGENT CAUSING ADVERSE EFFECTS IN THERAPEUTIC USE 07/02/2008 995.20 UNSPECIFIED ADVERSE EFFECT OF UNSPECIFIED DRUG MEDICINAL AND BIOLOGICAL SUBSTANCE 07/02/2008 E939.9 UNSPECIFIED PSYCHOTROPIC AGENT CAUSING ADVERSE EFFECTS IN THERAPEUTIC USE 07/02/2008 PHILIP RIVERO DO 995.20 UNSPECIFIED ADVERSE EFFECT OF UNSPECIFIED DRUG MEDICINAL AND BIOLOGICAL SUBSTANCE 07/02/2008 PHILIP RIVERO DO E939.9 UNSPECIFIED PSYCHOTROPIC AGENT CAUSING ADVERSE EFFECTS IN THERAPEUTIC USE 07/02/2008 PATSY TIMMONS DDS 995.20 UNSPECIFIED ADVERSE EFFECT OF UNSPECIFIED DRUG MEDICINAL AND BIOLOGICAL SUBSTANCE 07/02/2008 PATSY TIMMONS DDS E939.9 UNSPECIFIED PSYCHOTROPIC AGENT CAUSING ADVERSE EFFECTS IN THERAPEUTIC USE 09/02/2009 318.0 MODERATE MENTAL RETARDATION 09/02/2009 V58.69 MEDICATION HIGH RISK 09/02/2009 318.0 MODERATE MENTAL RETARDATION 09/02/2009 V58.69 MEDICATION HIGH RISK 09/02/2009 PHILIP RIVERO DO 318.0 MODERATE MENTAL RETARDATION 09/02/2009 PHILIP RIVERO DO V58.69 MEDICATION HIGH RISK 09/02/2009 IAIN DDS, PATSY Johnston 318.0 MODERATE MENTAL RETARDATION 09/02/2009 IAIN DDS, PATSY Johnston V58.69 MEDICATION HIGH RISK 02/20/2010 Ot 295.90 02/20/2010 Ot 300.00 04/20/2011 295.70 P SCHIZO AFFECTIVE 04/20/2011 295.70 P SCHIZO AFFECTIVE 04/20/2011 PHILIP RIVERO DO 295.70 P SCHIZO AFFECTIVE 04/20/2011 IAIN DDS, PATSY Johnston 295.70 P SCHIZO AFFECTIVE 11/02/2014 VITT, VERA M PROJECT PRODUCTION ENGINEER Ot 285.9 11/02/2014 VITT, VERA M PROJECT PRODUCTION ENGINEER Ot 311 11/02/2014 VITT, VERA M PROJECT PRODUCTION ENGINEER Ot V58.69 01/17/2015 BREONNA PINEDA, ROCÍO R Ot 625.9 01/17/2015 BREONNA PINEDA, ROCÍO R Ot 793.82 01/17/2015 BREONNA PINEDA, ROCÍO R Ot V76.12 03/11/2015 VITT, VERA M PROJECT PRODUCTION ENGINEER Ot 285.9 03/11/2015 VITT, VERA M PROJECT PRODUCTION ENGINEER Ot 311 03/11/2015 VITT, VERA M PROJECT PRODUCTION ENGINEER Ot V58.69 03/11/2015 VITT, VERA M PROJECT PRODUCTION ENGINEER Ot 311 03/11/2015 VITT, VERA M PROJECT PRODUCTION ENGINEER Ot V58.69 03/11/2015 VITT, VERA M PROJECT PRODUCTION ENGINEER Ot V58.83 03/11/2015 VITT, VERA M PROJECT PRODUCTION ENGINEER Ot 285.9 03/11/2015 VITT, VERA M PROJECT PRODUCTION ENGINEER Ot 311 03/11/2015 VITT, VERA M PROJECT PRODUCTION ENGINEER Ot V58.69 03/11/2015 BREONNA PINEDA, ROCÍO R Ot 625.9 03/11/2015 BREONNA PINEDA, ROCÍO R Ot 793.82 03/11/2015 BREONNA PINEDA, ROCÍO R Ot V76.12 04/01/2015 BREONNA PINEDA, ROCÍO R Ot R92.8 09/19/2015 BREONNA PINEDA, ROCÍO R Ot R92.8 OTH ABN AND INCONCLUSIVE FINDINGS ON DX 10/03/2015 ROCÍO RAVI MD R Ot R92.8 OTH ABN AND INCONCLUSIVE FINDINGS ON DX 02/05/2016 VITT, VERA M PROJECT PRODUCTION ENGINEER Ot 285.9 ANEMIA NOS 02/05/2016 VITT, VERA M PROJECT PRODUCTION ENGINEER Ot 311 DEPRESSIVE DISORDER NEC 02/05/2016 VITT, VERA M PROJECT PRODUCTION ENGINEER Ot V58.69 OTH MED,LT,CURRENT USE 02/05/2016 VITT, VERA M PROJECT PRODUCTION ENGINEER Ot 311 DEPRESSIVE DISORDER NEC 02/05/2016 VITT, VERA M PROJECT PRODUCTION ENGINEER Ot V58.69 OTH MED,LT,CURRENT USE 02/05/2016 VITT, VERA M PROJECT PRODUCTION ENGINEER Ot V58.83 ENCOUNTER FOR THERAPEUTIC DRUG MONITORIN 02/05/2016 VITT, VERA M PROJECT PRODUCTION ENGINEER Ot 285.9 ANEMIA NOS 02/05/2016 VITT, VERA M PROJECT PRODUCTION ENGINEER Ot 311 DEPRESSIVE DISORDER NEC 02/05/2016 VITT, VERA M PROJECT PRODUCTION ENGINEER Ot V58.69 OTH MED,LT,CURRENT USE 02/05/2016 ROCÍO RAVI MD R Ot 625.9 FEM GENITAL SYMPTOMS NOS 02/05/2016 ROCÍO RAVI MD R Ot 793.82 INCONCLUSIVE MAMMOGRAM 02/05/2016 ROCÍO RAVI MD R Ot V76.12 OTH SCREEN MAMMO-MALIGN NEOPLASM OF JAMES 02/05/2016 ROCÍO RAVI MD R Ot R92.8 OTH ABN AND INCONCLUSIVE FINDINGS ON DX 02/05/2016 ROCÍO RAVI MD R Ot R92.8 OTH ABN AND INCONCLUSIVE FINDINGS ON DX 02/06/2016 ROCÍO RAVI MD R Ot R92.8 OTH ABN AND INCONCLUSIVE FINDINGS ON DX 02/06/2016 VITT, VERA M PROJECT PRODUCTION ENGINEER Ot 285.9 ANEMIA NOS 02/06/2016 VITT, VERA M PROJECT PRODUCTION ENGINEER Ot 311 DEPRESSIVE DISORDER NEC 02/06/2016 VITT, VERA M PROJECT PRODUCTION ENGINEER Ot V58.69 OTH MED,LT,CURRENT USE 02/06/2016 VITT, VERA M PROJECT PRODUCTION ENGINEER Ot 311 DEPRESSIVE DISORDER NEC 02/06/2016 VITT, VERA M PROJECT PRODUCTION ENGINEER Ot V58.69 OTH MED,LT,CURRENT USE 02/06/2016 VITT, VERA M PROJECT PRODUCTION ENGINEER Ot V58.83 ENCOUNTER FOR THERAPEUTIC DRUG MONITORIN 02/06/2016 VITTKATIEA M PROJECT PRODUCTION ENGINEER Ot 285.9 ANEMIA NOS 02/06/2016 VITT, VERA M PROJECT PRODUCTION ENGINEER Ot 311 DEPRESSIVE DISORDER NEC 02/06/2016 VITT, VERA M PROJECT PRODUCTION ENGINEER Ot V58.69 OTH MED,LT,CURRENT USE 02/06/2016 ROCÍO RAVI MD R Ot 625.9 FEM GENITAL SYMPTOMS NOS 02/06/2016 ROCÍO RAVI MD R Ot 793.82 INCONCLUSIVE MAMMOGRAM 02/06/2016 ROCÍO RAVI MD R Ot V76.12 OTH SCREEN MAMMO-MALIGN NEOPLASM OF JAMES 02/06/2016 ROCÍO RAVI MD R Ot R92.8 OTH ABN AND INCONCLUSIVE FINDINGS ON DX 02/06/2016 ROCÍO RAVI MD R Ot R92.8 OTH ABN AND INCONCLUSIVE FINDINGS ON DX 02/06/2016 ROCÍO RAVI MD R Ot R92.8 OTH ABN AND INCONCLUSIVE FINDINGS ON DX 02/19/2016 ROCÍO RAVI MD R Ot R92.8 OTH ABN AND INCONCLUSIVE FINDINGS ON DX 08/23/2018 ROCÍO RAVI MD R Ot R29.818 OTHER SYMPTOMS AND SIGNS INVOLVING THE N 08/28/2018 ROCÍO RAVI MD R Ot J34.89 OTHER SPECIFIED DISORDERS OF NOSE AND NA 08/28/2018 ROCÍO RAVI MD R Ot R29.818 OTHER SYMPTOMS AND SIGNS INVOLVING THE N 08/29/2018 ROCÍO RAVI MD R Ot M79.602 PAIN IN LEFT ARM 08/29/2018 ROCÍO RAVI MD R Ot R29.818 OTHER SYMPTOMS AND SIGNS INVOLVING THE N 09/03/2018 ROCÍO RAVI MD R Ot G93.6 CEREBRAL EDEMA 09/03/2018 ROCÍO RAVI MD R Ot R29.818 OTHER SYMPTOMS AND SIGNS INVOLVING THE N 09/04/2018 VITT VERA M PROJECT PRODUCTION ENGINEER Ot 285.9 ANEMIA NOS 09/04/2018 VITT, VERA M PROJECT PRODUCTION ENGINEER Ot 311 DEPRESSIVE DISORDER NEC 09/04/2018 VITT, KATIEA M PROJECT PRODUCTION ENGINEER Ot V58.69 OTH MED,LT,CURRENT USE 09/04/2018 VITT, VERA M PROJECT PRODUCTION ENGINEER Ot 311 DEPRESSIVE DISORDER NEC 09/04/2018 VITT, VERA M PROJECT PRODUCTION ENGINEER Ot V58.69 OTH MED,LT,CURRENT USE 09/04/2018 VITTELIJAH PROJECT PRODUCTION ENGINEER Ot V58.83 ENCOUNTER FOR THERAPEUTIC DRUG MONITORIN 09/04/2018 ELIJAH CUADRA PROJECT PRODUCTION ENGINEER Ot 285.9 ANEMIA NOS 09/04/2018 VITTELIJAH PROJECT PRODUCTION ENGINEER Ot 311 DEPRESSIVE DISORDER NEC 09/04/2018 ELIJAH CUADRA PROJECT PRODUCTION ENGINEER Ot V58.69 OTH MED,LT,CURRENT USE 09/04/2018 ROCÍO RAVI MD Ot 625.9 FEM GENITAL SYMPTOMS NOS 09/04/2018 ROCÍO RAVI MD Ot 793.82 INCONCLUSIVE MAMMOGRAM 09/04/2018 ROCÍO RAVI MD Ot V76.12 OTH SCREEN MAMMO-MALIGN NEOPLASM OF JAMES 09/04/2018 ROCÍO RAVI MD Ot R92.8 OTH ABN AND INCONCLUSIVE FINDINGS ON DX 09/04/2018 ROCÍO RAVI MD Ot R92.8 OTH ABN AND INCONCLUSIVE FINDINGS ON DX 09/04/2018 ROCÍO RAVI MD R Ot R92.8 OTH ABN AND INCONCLUSIVE FINDINGS ON DX 09/04/2018 ROCÍO RAVI MD R Ot J34.89 OTHER SPECIFIED DISORDERS OF NOSE AND NA 09/04/2018 ROCÍO RAVI MD R Ot R29.818 OTHER SYMPTOMS AND SIGNS INVOLVING THE N 09/04/2018 ROCÍO RAVI MD R Ot R29.818 OTHER SYMPTOMS AND SIGNS INVOLVING THE N 09/04/2018 ROCÍO RAVI MD Ot M79.602 PAIN IN LEFT ARM 09/04/2018 ROCÍO RAVI MD R Ot R29.818 OTHER SYMPTOMS AND SIGNS INVOLVING THE N 09/04/2018 ROCÍO RAVI MD Ot G93.6 CEREBRAL EDEMA 09/04/2018 ROCÍO RAVI MD R Ot R29.818 OTHER SYMPTOMS AND SIGNS INVOLVING THE N 09/07/2018 ROCÍO RAVI MD R Ot R29.818 OTHER SYMPTOMS AND SIGNS INVOLVING THE N 09/07/2018 ROCÍO RAVI MD R Ot J34.89 OTHER SPECIFIED DISORDERS OF NOSE AND NA 09/07/2018 ROCÍO RAVI MD R Ot R29.818 OTHER SYMPTOMS AND SIGNS INVOLVING THE N 09/15/2018 VITT, VERA M PROJECT PRODUCTION ENGINEER Ot 285.9 ANEMIA NOS 09/15/2018 VITT, VERA M PROJECT PRODUCTION ENGINEER Ot 311 DEPRESSIVE DISORDER NEC 09/15/2018 VITT, VERA M PROJECT PRODUCTION ENGINEER Ot V58.69 OTH MED,LT,CURRENT USE 09/15/2018 VITT, VERA M PROJECT PRODUCTION ENGINEER Ot 311 DEPRESSIVE DISORDER NEC 09/15/2018 VITT, VERA M PROJECT PRODUCTION ENGINEER Ot V58.69 OTH MED,LT,CURRENT USE 09/15/2018 VITT, VERA M PROJECT PRODUCTION ENGINEER Ot V58.83 ENCOUNTER FOR THERAPEUTIC DRUG MONITORIN 09/15/2018 VITT, VERA M PROJECT PRODUCTION ENGINEER Ot 285.9 ANEMIA NOS 09/15/2018 VITT, VERA M PROJECT PRODUCTION ENGINEER Ot 311 DEPRESSIVE DISORDER NEC 09/15/2018 VITT, VERA M PROJECT PRODUCTION ENGINEER Ot V58.69 OTH MED,LT,CURRENT USE 09/15/2018 ROCÍO RAVI MD Ot 625.9 FEM GENITAL SYMPTOMS NOS 09/15/2018 ROCÍO RAVI MD Ot 793.82 INCONCLUSIVE MAMMOGRAM 09/15/2018 ROCÍO RAVI MD Ot V76.12 OTH SCREEN MAMMO-MALIGN NEOPLASM OF JAMES 09/15/2018 ROCÍO RAVI MD Ot R92.8 OTH ABN AND INCONCLUSIVE FINDINGS ON DX 09/15/2018 ROCÍO RAVI MD Ot R92.8 OTH ABN AND INCONCLUSIVE FINDINGS ON DX 09/15/2018 ROCÍO RAVI MD Ot R92.8 OTH ABN AND INCONCLUSIVE FINDINGS ON DX 09/15/2018 ROCÍO RAVI MD Ot J34.89 OTHER SPECIFIED DISORDERS OF NOSE AND NA 09/15/2018 ROCÍO RAVI MD Ot R29.818 OTHER SYMPTOMS AND SIGNS INVOLVING THE N 09/15/2018 ROCÍO RAVI MD Ot R29.818 OTHER SYMPTOMS AND SIGNS INVOLVING THE N 09/15/2018 ROCÍO RAVI MD Ot M79.602 PAIN IN LEFT ARM 09/15/2018 ROCÍO RAVI MD Ot R29.818 OTHER SYMPTOMS AND SIGNS INVOLVING THE N 09/15/2018 ROCÍO RAVI MD Ot G93.6 CEREBRAL EDEMA 09/15/2018 ROCÍO RAVI MD Ot R29.818 OTHER SYMPTOMS AND SIGNS INVOLVING THE N 09/15/2018 ANJUM GOMEZ MD, Ot E66.9 OBESITY, UNSPECIFIED 09/15/2018 ANJUM GOMEZ MD, Ot F20.9 SCHIZOPHRENIA, UNSPECIFIED 09/15/2018 ANJUM GOMEZ MD, Ot F32.9 MAJOR DEPRESSIVE DISORDER, SINGLE EPISOD 09/15/2018 ANJUM GOMEZ MD, Ot F41.9 ANXIETY DISORDER, UNSPECIFIED 09/15/2018 ANJUM GOMEZ MD Ot F70 MILD INTELLECTUAL DISABILITIES 09/15/2018 ANJUM GOMEZ MD, Ot G93.9 DISORDER OF BRAIN, UNSPECIFIED 09/15/2018 ANJUM GOMEZ MD, Ot M25.512 PAIN IN LEFT SHOULDER 09/15/2018 ANJUM GOMEZ MD, Ot R25.1 TREMOR, UNSPECIFIED 09/15/2018 ANJUM GOMEZ MD, Ot Z68.39 BODY MASS INDEX (BMI) 39.0-39.9, ADULT 09/15/2018 ANJUM GOMEZ MD, Ot Z79.899 OTHER BANK OFFICER (CURRENT) DRUG THERAPY 09/15/2018 ROCÍO RAVI MD Ot M79.602 PAIN IN LEFT ARM 09/15/2018 ROCÍO RAVI MD Ot R29.818 OTHER SYMPTOMS AND SIGNS INVOLVING THE N 09/15/2018 ROCÍO RAVI MD Ot G93.6 CEREBRAL EDEMA 09/15/2018 ROCÍO RAVI MD Ot R29.818 OTHER SYMPTOMS AND SIGNS INVOLVING THE N 09/16/2018 ANJUM GOMEZ MD, Ot G93.9 DISORDER OF BRAIN, UNSPECIFIED 09/16/2018 ANJUM GOMEZ MD Ot M75.101 UNSP ROTATR-CUFF TEAR/RUPTR OF RIGHT MING 09/29/2018 ANJUM GOMEZ MD, Ot G93.9 DISORDER OF BRAIN, UNSPECIFIED 09/29/2018 ANJUM GOMEZ MD Ot M75.101 UNSP ROTATR-CUFF TEAR/RUPTR OF RIGHT MING 11/02/2018 ANJUM GOMEZ MD, Ot E66.9 OBESITY, UNSPECIFIED 11/02/2018 ANJUM GOMEZ MD, Ot F20.9 SCHIZOPHRENIA, UNSPECIFIED 11/02/2018 ANJUM GOMEZ MD, Ot F32.9 MAJOR DEPRESSIVE DISORDER, SINGLE EPISOD 11/02/2018 ANJUM GOMEZ MD, Ot F41.9 ANXIETY DISORDER, UNSPECIFIED 11/02/2018 ANJUM GOMEZ MD, Ot F70 MILD INTELLECTUAL DISABILITIES 11/02/2018 ANJUM GOMEZ MD, Ot G93.9 DISORDER OF BRAIN, UNSPECIFIED 11/02/2018 ANJUM GOMEZ MD, Ot M25.512 PAIN IN LEFT SHOULDER 11/02/2018 ANJUM GOMEZ MD, Ot R25.1 TREMOR, UNSPECIFIED 11/02/2018 ANJUM GOMEZ MD, Ot Z68.39 BODY MASS INDEX (BMI) 39.0-39.9, ADULT 11/02/2018 ANJUM GOMEZ MD, Ot Z79.899 OTHER BANK OFFICER (CURRENT) DRUG THERAPY Procedures Code Description [place] [address] ROUTINE VENIPUNCTURE 09/07/2012 27751 GLUCOSE 09/07/2012 63416 LIPID PANEL 09/07/2012 Results Test Result Range A1C - 02/10/18 08:57 HEMOGLOBIN A1c 4.8 % of total Hgb <5.7 DIFFERENTIAL, MANUAL - 02/10/18 08:57 ABSOLUTE NEUTROPHILS 1495 cells/uL 6614-6569 ABSOLUTE MONOCYTES 374 cells/uL 200-950 ABSOLUTE EOSINOPHILS 74 cells/uL 15-500 ABSOLUTE BASOPHILS 111 cells/uL 0-200 NEUTROPHILS 40.4 % NRG LYMPHOCYTES 44.5 % NRG MONOCYTES 10.1 % NRG EOSINOPHILS 2.0 % NRG BASOPHILS 3.0 % NRG ABSOLUTE LYMPHOCYTES 1647 cells/uL 850-3900 PLATELET ESTIMATION ADEQUATE ADEQUATE Serum or plasma folate measurement (mass/volume) - 08/22/18 11:08 Serum or plasma folate measurement (mass/volume) 9.8 % >=4.0 Cyanocobalamin measurement - 08/22/18 11:08 Vitamin B12 311 pg/mL 190-1100 VITAMIN D 25-HYDROXY - 08/22/18 11:08 VITAMIN D 25-HYDROXY (TOTAL) 10.5 % 30.0-100.0 Encounters ACCT No. Visit Date/Time Discharge Status Pt. Type Provider Facility Loc./Unit Complaint [id number] 05/31/2013 00:00:00 05/31/2013 23:59:59 CLS Outpatient PATSY TIMMONS DDS [id number] 11/22/2012 10:37:00 11/22/2012 23:59:59 CLS Outpatient PHILIP RIVERO DO [id number] 04/24/2012 12:36:00 04/24/2012 23:59:59 CLS Outpatient [id number] 09/07/2012 11:43:00 Document Registration [id number] 09/15/2018 08:23:00 09/15/2018 23:59:59 CLS Outpatient PATRICIA PINEDA, ANJUM [facility] RAD PAIN,FRONTAL MASS OF BRAIN [id number] 09/01/2018 12:08:00 09/01/2018 23:59:59 CLS Outpatient ROCÍO RAVI MD [facility] RAD FOCAL NEUOLOGICAL DEFICIT [id number] 08/28/2018 08:48:00 08/28/2018 23:59:59 CLS Outpatient ROCÍO RAVI MD [facility] RAD PAIN IN LEFT ARM [id number] 08/25/2018 11:18:00 08/25/2018 23:59:59 CLS Outpatient ROCÍO RAVI MD [facility] RAD FOCAL NEUROLOGICAL DEFICIT [id number] 08/22/2018 11:02:00 08/22/2018 23:59:59 CLS Outpatient ROCÍO RAVI MD [facility] LAB ROUTINE [id number] 02/05/2016 08:35:00 02/05/2016 23:59:59 CLS Outpatient ROCÍO RAVI MD [facility] RAD NODULE INFERIOR ASPECT LT BREAST [id number] 09/18/2015 07:24:00 09/18/2015 23:59:59 CLS Outpatient ROCÍO RAVI MD [facility] RAD ANBORMAL MAMMO [id number] 03/11/2015 08:03:00 03/11/2015 23:59:59 CLS Outpatient ROCÍO RAVI MD [facility] RAD ABNORMAL MAMMO L BREAST [id number] 01/03/2015 13:21:00 01/03/2015 23:59:59 CLS Outpatient ROCÍO RAVI MD [facility] RAD VAGINAL INTROITUS [id number] 10/04/2014 07:35:00 10/04/2014 23:59:59 CLS Outpatient VITTELIJAH [facility] LAB BANK OFFICER MED UASGE,DEPRESSION,ANEMIA [id number] 08/27/2013 11:51:00 08/27/2013 23:59:59 CLS Outpatient VITTLEIJAH PROJECT PRODUCTION ENGINEER [facility] LAB DEPRESSION [id number] 06/05/2013 09:15:00 06/05/2013 23:59:59 CLS Outpatient VITTELIJAH PROJECT PRODUCTION ENGINEER [facility] LAB DEPRESSION [id number] 11/08/2018 21:21:00 ACT Emergency DUNIA PINEDA, WALT Brown [facility] ER RASH [id number] 11/07/2018 08:06:00 ACT Outpatient PATRICIA PINEDA, ANJUM [facility] ONC [id number] 02/20/2010 20:17:00 Document Registration [id number] 10/11/2018 14:40:00 10/11/2018 23:59:59 CLS Outpatient PHILIP RIVERO DO [facility] [id number] 02/10/2018 09:20:00 Document Registration
[2018-11-08] MEDS ORDERED: methylPREDNISolone 125 MG (Solu-MEDROL) VIAL IM ONE (21:45)
[2018-11-08] MEDS ORDERED: diphenhydrAMINE 50 MG/ML INJ (BENADRYL) IM ONE (21:45)
--- NOTE | 2018-11-08 21:45 | ED Integumentary General ---
General Chief Complaint: Allergic Reaction Stated Complaint: RASH Source: patient Exam Limitations: no limitations History of Present Illness Date Seen by Provider: Nov 08, 2018 Time Seen by Provider: 21:40 Initial Comments To ER with a rash. This began yesterday about 5 PM. This was to the inguinal folds and lower abdominal folds. It is nonpruritic. About 4 hours before the rash started she received IV contrast for CT of the brain. 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 She is to start radiation next Week. Her only 2 medications are Lexapro and Abilify. She is no longer on the Decadron. Mother states that she had several MRIs up at the [facility] which she believes were with IV contrast and without adverse reaction. I discussed with her that this is a different type of contrast material than with CTs. Timing/Duration: just prior to arrival Severity: moderate Location: torso Associated Symptoms: rash Allergies and Home Medications Allergies Coded Allergies: No Known Drug Allergies (Unverified , 02/20/10) PT REPORTS ALLERGIES TO MEDICINES "SOMETIMES." Home Medications Escitalopram Oxalate 10 Mg Tablet, 1 EACH PO DAILY, (Reported) Patient Home Medication List Home Medication List Reviewed: Yes Review of Systems Review of Systems Constitutional: see HPI EENTM: see HPI Respiratory: no symptoms reported Cardiovascular: no symptoms reported Genitourinary: no symptoms reported Musculoskeletal: no symptoms reported Skin: no symptoms reported Psychiatric/Neurological: No Symptoms Reported Endocrine: No Symptoms Reported Past Mhzgmha-Eonqyu-Ryrcsi Hx Patient Social History Alcohol Use: Denies Use Recreational Drug Use: No Smoking Status: Never a Smoker Recent Foreign Travel: No Contact w/Someone Who Travel: No Recent Hopitalizations: No Seasonal Allergies Seasonal Allergies: No Past Medical History Surgeries: No Respiratory: No Cardiac: No Neurological: No Genitourinary: No Gastrointestinal: No Musculoskeletal: No Endocrine: No HEENT: No Cancer: No Psychosocial: No Integumentary: No Physical Exam Vital Signs Capillary Refill : General Appearance: WD/WN, no apparent distress HEENT: PERRL/EOMI, normal ENT inspection, pharynx normal Neck: non-tender, full range of motion Respiratory: no respiratory distress, no accessory muscle use Neurologic/Psychiatric: alert, normal mood/affect, oriented x 3 Skin: normal color, warm/dry Skin Problem Location: other (is a fine maculopapular rash to the torso that is much more fluent and erythematous to the lower abdominal folds and inguinal folds) Progress/Results/Core Measures Results/Orders My Orders Orders - DANNY CHAMPAGNE APRN Diphenhydramine Injection (Benadryl Inje (11/08/18 21:45) Methylprednisolone Sod Succ (Solu-Medrol (11/08/18 21:45) Departure Impression Primary Impression: Rash and nonspecific skin eruption Disposition: HOME, SELF-CARE Condition: Stable Departure-Patient Inst. Decision time for Depature: 21:45 Referrals: ROCÍO RAVI MD (PCP/Family) Primary Care Physician Patient Instructions: Skin Rash Add. Discharge Instructions: 1. Steroids as directed 2. Benadryl one tablet every 4-6 hours as needed for itching develops. Return to ER for any concerns. I cannot say with certainty that this is from the IV contrast for CT, however it would be worthwhile mentioning that she's had this twice following IV contrast for CT and they may want to premedicate her with an antihistamine and steroid prior to receiving the IV contrast. All discharge instructions reviewed with patient and/or family. Voiced understanding. Scripts Prednisone (Prednisone) 20 Mg Tab 40 MG PO DAILY, #6 TAB 0 Refills Prov: DANNY CHAMPAGNE APRN 11/08/18 DANNY CHAMPAGNE APRN Nov 08, 2018 21:45
[2018-11-08] MEDS ORDERED: PRD20T PO (21:47)
[2018-11-08 22:21] VITALS: BP 147/116
== END 2018-11-08 22:22 | disposition home or self-care (01) ==
LOC: EDUNIT# 21:20 → ER 21:21
DX: R21 Rash and other nonspecific skin eruption (principal)
CPT/HCPCS: 99284

== ENCOUNTER → 2018-12-06 | Outpatient (RCR) | payer MEDICAID ==
[2018-09-07 10:16] LABS: BASOPHILS % (AUTO) 1 % (0-10); EOSINOPHILS # (AUTO) 0.1 10^3/uL (0.0-0.3); EOSINOPHILS % (AUTO) 2 % (0-10); HEMATOCRIT 39 % (35-52); HEMOGLOBIN 12.5 G/DL (11.5-16.0); LYMPHOCYTES # (AUTO) 1.1 X 10^3 (1.0-4.0); LYMPHOCYTES % (AUTO) 29 % (12-44); MEAN CORPUSCULAR HEMOGLOBIN 29 PG (25-34); MEAN CORPUSCULAR HGB CONC 32 G/DL (32-36); MEAN CORPUSCULAR VOLUME 90 FL (80-99); MEAN PLATELET VOLUME 11.9 FL (7.4-10.4); MONOCYTES # (AUTO) 0.3 X 10^3 (0.0-1.0); MONOCYTES % (AUTO) 8 % (0-12); NEUTROPHILS # (AUTO) 2.4 X 10^3 (1.8-7.8); NEUTROPHILS % (AUTO) 61 % (42-75); PLATELET COUNT 181 10^3/uL (130-400); RED CELL DISTRIBUTION WIDTH 13.3 % (10.0-14.5); WHITE BLOOD COUNT 3.9 10^3/uL (4.3-11.0)
[2018-09-07 10:41] LABS: ALANINE AMINOTRANSFERASE 14 U/L (0-55); ALBUMIN 4.2 GM/DL (3.2-4.5); ALKALINE PHOSPHATASE 101 U/L (40-136); BILIRUBIN,TOTAL 1.1 MG/DL (0.1-1.0); BUN/CREATININE RATIO 14; CALCIUM 9.4 MG/DL (8.5-10.1); CARBON DIOXIDE 23 MMOL/L (21-32); CHLORIDE 110 MMOL/L (98-107); CREATININE SERUM 0.92 MG/DL (0.60-1.30); GFR ESTIMATED > 60; GLUCOSE 77 MG/DL (70-105); POTASSIUM 3.9 MMOL/L (3.6-5.0); SODIUM 145 MMOL/L (135-145); TOTAL PROTEIN 6.9 GM/DL (6.4-8.2)
[~2018-12-06] MED LIST changes: +PRD20T PO
== END | disposition home or self-care (01) ==
LOC: ONC 09-07 08:41
PROVIDERS: ATTEND Internal Medicine Hematology & Oncology
DX: Z51.0 Encounter for antineoplastic radiation therapy (principal); G93.9 Disorder of brain, unspecified; F70 Mild intellectual disabilities; F20.9 Schizophrenia, unspecified; F41.9 Anxiety disorder, unspecified; F32.9 Major depressive disorder, single episode, unspecified; R25.1 Tremor, unspecified; M25.512 Pain in left shoulder; E66.9 Obesity, unspecified; Z68.39 Body mass index [BMI] 39.0-39.9, adult; Z79.899 Other long term (current) drug therapy
CPT/HCPCS: 36415; 77290; 77300; 77301; 77334; 77336; 77338; 77386; 77470; 80053; 85025; 99205; 99213; 99214

== ENCOUNTER 2019-01-01 17:11 | Emergency (ER) | payer MEDICAID ==
[~2019-01-01] VITALS: Ht 165.1 cm; Wt 107.5 kg
--- NOTE | 2019-01-01 17:47 | ED Syncope ---
General Chief Complaint: Neurological Problems Stated Complaint: SEIZURE Nursing Triage Note: pt arrives via ems with c/o "seizurue like activity" PT WAS FOUND BY MOTHER SLUMPED OVER TO THE RIGHT SIDE WITH SNORING RESPIRIAITONS AND LOOKING AROUND AND NOT VERBALLY RESPONDING TO MOTHER. MOTHER DENIES SEIZURE HISTORY. PT HAD TUMOR RESECTION AND CRANIOTOMY IN SEPTEMBER. PT JUST FINISHED RADIATION. PT WAS PROACTIVELY ON KEPPRA FOR 6 DAYS POST CRANIOTOMY. History of Present Illness Date Seen by Provider: Jan 01, 2019 Time Seen by Provider: 17:21 Initial Comments 43 year old female presents via EMS after episode of syncopal event and lethargy at home. She at lunch about 2:30 pm, hadn't eaten prior to that today, approximately 3:15 pm her mother found her unresponsive and 'staring off" in her room, slumped to her right side, but no facial drooping. She had no inconti nence. After moving her and yelling her name, she became responsive. She was found to have a blood sugar of 64 and EMS gave her oral glucose, while in transport it was rechecked and found to be 88. No previous history of seizures, she did have craniotomy for brain tumor at [facility] in September of 2018 and just finished 30 treatments of radiation. She is currently alert and oriented, no c omplaints of headache, n/v or weakness. She answers all questions appropriately. Timing/Prior Episodes: Single Episode Today Symptoms Prior to Episode: None Precipitating Factors: None Loss of Consciousness: No Loss of Consciousness Current Symptoms: Back to Normal Allergies and Home Medications Allergies Coded Allergies: No Known Drug Allergies (Unverified , 02/20/10) PT REPORTS ALLERGIES TO MEDICINES "SOMETIMES." Home Medications Escitalopram Oxalate 10 Mg Tablet, 1 EACH PO DAILY, (Reported) Prednisone 20 Mg Tab, 40 MG PO DAILY Prescribed by: DANNY CHAMPAGNE on 11/08/182146 Sulfamethoxazole/Trimethoprim 1 Each Tablet, 1 EACH PO BID Prescribed by: KENDRA TRUJILLO on 01/01/191919 Patient Home Medication List Home Medication List Reviewed: Yes Review of Systems Constitutional: no symptoms reported, see HPI Psychiatric/Neurological: See HPI, Weakness, Other (Hx Brain Tumor with craniotomy 3 months ago. ) All Other Systems Reviewed Negative Unless Noted: Yes Past Ajytqub-Nigyec-Cxelwy Hx Past Med/Social Hx: Reviewed Nursing Past Med/Soc Hx Patient Social History Alcohol Use: Denies Use Recreational Drug Use: No Smoking Status: Never a Smoker Recent Foreign Travel: No Contact w/Someone Who Travel: No Recent Infectious Disease Expo: No Recent Hopitalizations: No Physical Abuse: No Sexual Abuse: No Mistreated: No Fear: No Seasonal Allergies Seasonal Allergies: No Past Medical History Surgeries: Yes (craniotomy) Respiratory: No Cardiac: No Neurological: No Genitourinary: No Gastrointestinal: No Musculoskeletal: No Endocrine: No HEENT: No Cancer: Yes Brain Did You Recieve Any Treatments: Yes What Type of Treatment Did You: Chemotherapy, Radiation, Surgical Intervention Psychosocial: No Integumentary: No Physical Exam Vital Signs Vital Signs - First Documented 01/01/19 01/01/19 17:21 19:27 Temp 98.6 Pulse 108 Resp 20 B/P (MAP) 140/96 (111) Pulse Ox 98 O2 Delivery Room Air Capillary Refill : Less Than 3 Seconds Height, Weight, BMI Height: 5'5.00" Weight: 237lbs. oz. 107.286590tk; BMI Method:Stated General Appearance: No Apparent Distress, WD/WN HEENT: PERRL/EOMI, TMs Normal, Normal ENT Inspection, Pharynx Normal Neck: Full Range of Motion, Normal Inspection, Non Tender, Supple Cardiovascular: Regular Rate, Rhythm, No Edema, No Murmur, Normal Peripheral Pulses Respiratory: Chest Non Tender, Lungs Clear, Normal Breath Sounds Gastrointestinal: Normal Bowel Sounds, Non Tender, Soft; No Distended, No Gua rding, No Rebound, No Tenderness Back: Normal Inspection, No CVA Tenderness, No Vertebral Tenderness Extremities: Normal Capillary Refill, Normal Inspection, Normal Range of Motion, No Pedal Edema Neurologic/Psychiatric: Alert, Oriented x3, No Motor/Sensory Deficits, Normal Mood/Affect, 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 Norm as Tested Cranial Nerves: Normal Hearing, Normal Speech, PERRL Coordination/Gait: Normal Finger to Nose, Normal Gait Motor/Sensory: No Motor Deficit, No Sensory Deficit Skin: Normal Color, Warm/Dry Lymphatic: No Adenopathy Progress/Results/Core Measures Results/Orders Lab Results Laboratory Tests Test 01/01/19 17:26 01/01/19 17:49 01/01/19 18:34 Range/Units Glucometer 94 70-110 MG/DL White Blood Count 6.0 4.3-11.0 10^3/uL Red Blood Count 4.47 4.35-5.85 10^6/uL Hemoglobin 12.6 11.5-16.0 G/DL Hematocrit 40 35-52 % Mean Corpuscular Volume 89 80-99 FL Mean Corpuscular Hemoglobin 28 25-34 PG Mean Corpuscular Hemoglobin Concent 32 32-36 G/DL Red Cell Distribution Width 13.2 10.0-14.5 % Platelet Count 234 130-400 10^3/uL Mean Platelet Volume 11.6 H 7.4-10.4 FL Neutrophils (%) (Auto) 81 H 42-75 % Lymphocytes (%) (Auto) 14 12-44 % Monocytes (%) (Auto) 4 0-12 % Eosinophils (%) (Auto) 1 0-10 % Basophils (%) (Auto) 1 0-10 % Neutrophils # (Auto) 4.8 1.8-7.8 X 10^3 Lymphocytes # (Auto) 0.8 L 1.0-4.0 X 10^3 Monocytes # (Auto) 0.2 0.0-1.0 X 10^3 Eosinophils # (Auto) 0.1 0.0-0.3 10^3/uL Basophils # (Auto) 0.0 0.0-0.1 10^3/uL Sodium Level 144 135-145 MMOL/L Potassium Level 3.4 L 3.6-5.0 MMOL/L Chloride Level 108 H 98-107 MMOL/L Carbon Dioxide Level 24 21-32 MMOL/L Anion Gap 12 5-14 MMOL/L Blood Urea Nitrogen 11 7-18 MG/DL Creatinine 0.90 0.60-1.30 MG/DL Estimat Glomerular Filtration Rate > 60 BUN/Creatinine Ratio 12 Glucose Level 102 70-105 MG/DL Calcium Level 9.5 8.5-10.1 MG/DL Corrected Calcium 9.3 8.5-10.1 MG/DL Total Bilirubin 1.0 0.1-1.0 MG/DL Aspartate Amino Transf (AST/SGOT) 11 5-34 U/L Alanine Aminotransferase (ALT/SGPT) 13 0-55 U/L Alkaline Phosphatase 126 40-136 U/L Total Protein 7.4 6.4-8.2 GM/DL Albumin 4.3 3.2-4.5 GM/DL Urine Color YELLOW Urine Clarity SLIGHTLY CLOUDY Urine pH 5 5-9 Urine Specific [place] 1.025 H 1.016-1.022 Urine Protein 2+ H NEGATIVE Urine Glucose (UA) NEGATIVE NEGATIVE Urine Ketones 2+ H NEGATIVE Urine Nitrite NEGATIVE NEGATIVE Urine Bilirubin NEGATIVE NEGATIVE Urine Urobilinogen 1 NORMAL MG/DL Urine Leukocyte Esterase 1+ H NEGATIVE Urine RBC (Auto) 2+ H NEGATIVE Urine RBC NONE /HPF Urine WBC 5-10 H /HPF Urine Squamous Epithelial Cells 5-10 /HPF Urine Crystals NONE /LPF Urine Bacteria MODERATE H /HPF Urine Casts NONE /LPF Urine Mucus NEGATIVE /LPF Urine Culture Indicated YES My Orders Orders - KENDRA TRUJILLO Cbc With Automated Diff (01/01/19 17:32) Comprehensive Metabolic Panel (01/01/19 17:32) Ua Culture If Indicated (01/01/19 17:32) Ekg Tracing (01/01/19 17:32) Accucheck Stat ONCE (01/01/19 17:32) Urine Culture (01/01/19 18:34) Vital Signs/I&O 01/01/19 01/01/19 17:21 19:27 Temp 98.6 98.6 Pulse 108 78 Resp 20 18 B/P (MAP) 140/96 (111) 138/82 (100) Pulse Ox 98 O2 Delivery Room Air Room Air Blood Pressure Mean: 111 Progress Progress Note : Time: 17:21 Progress Note Patient seen and evaluated, will obtain labs and administer 1 L of normal saline per IV. Will await lab results and determine if CT is indicated. 1800 labs essentially normal, awaiting UA. Patient's had no further syncopal episodes. She is alert talking to her mother. Discussed with her mother, we will hold on getting a CT she has a scheduled follow-up with her radiation oncologist later this week. 1845 UA positive for urinary tract infection, discussed results with the patient and her mother. She is continuing to improve with no further weakness or ma laise. Discharge instructions and return precautions reviewed. Initial ECG Impression Date: Jan 01, 2019 Initial ECG Impression Time: 17:22 Initial ECG Rate: 103 Initial ECG Rhythm: S.Tach Initial ECG Intervals: Normal Initial ECG Intervals IL 144, QRSD 68, QT 324, QTc 424. [place] P 38, QRS 7, T1 Initial ECG Impression: Normal Initial ECG Comparisson: Unchanged Comment Reviewed with Dr. Sims, agreed with interpretation Departure Impression Primary Impression: UTI (urinary tract infection) Qualified Codes: N30.01 - Acute cystitis with hematuria Additional Impressions: Syncopal episodes Qualified Codes: R55 - Syncope and collapse Hypoglycemia Disposition: HOME, SELF-CARE Condition: Improved Departure-Patient Inst. Decision time for Depature: 18:50 Referrals: ROCÍO RAVI MD (PCP/Family) Primary Care Physician Patient Instructions: Syncope (Fainting) (DC), Urinary Tract Infection, Adult (DC) Add. Discharge Instructions: Increase her water intake, and empty her bladder every 2 hours while awake. Eat fresh blueberries or drink 1 cup of cranberry juice daily. Keep your scheduled follow-up at the cancer center for later this week. Eat every 2-3 hours while awake. Return to emergency department for syncopal episodes, seizure activity, headache not relieved, or new concerns. All discharge instructions reviewed with patient and/or family. Voiced understanding. Scripts Sulfamethoxazole/Trimethoprim (Sulfamethoxazole-Tmp Ds Tablet) 1 Each Tablet 1 EACH PO BID, #14 TAB 0 Refills Prov: KENDRA TRUJILLO 01/01/19 Copy Copies To 1: ANJUM GOMEZ MD Copies To 2: ROCÍO RAVI MD, AMY ARNP Jan 01, 2019 17:47
[2019-01-01 17:58] LABS: BASOPHILS % (AUTO) 1 % (0-10); EOSINOPHILS # (AUTO) 0.1 10^3/uL (0.0-0.3); EOSINOPHILS % (AUTO) 1 % (0-10); HEMATOCRIT 40 % (35-52); HEMOGLOBIN 12.6 G/DL (11.5-16.0); LYMPHOCYTES # (AUTO) 0.8 X 10^3 (1.0-4.0); LYMPHOCYTES % (AUTO) 14 % (12-44); MEAN CORPUSCULAR HEMOGLOBIN 28 PG (25-34); MEAN CORPUSCULAR HGB CONC 32 G/DL (32-36); MEAN CORPUSCULAR VOLUME 89 FL (80-99); MEAN PLATELET VOLUME 11.6 FL (7.4-10.4); MONOCYTES # (AUTO) 0.2 X 10^3 (0.0-1.0); MONOCYTES % (AUTO) 4 % (0-12); NEUTROPHILS # (AUTO) 4.8 X 10^3 (1.8-7.8); NEUTROPHILS % (AUTO) 81 % (42-75); PLATELET COUNT 234 10^3/uL (130-400); RED CELL DISTRIBUTION WIDTH 13.2 % (10.0-14.5)
[2019-01-01 18:18] LABS: ALANINE AMINOTRANSFERASE 13 U/L (0-55); ALBUMIN 4.3 GM/DL (3.2-4.5); ALKALINE PHOSPHATASE 126 U/L (40-136); BUN/CREATININE RATIO 12; CALCIUM 9.5 MG/DL (8.5-10.1); CARBON DIOXIDE 24 MMOL/L (21-32); CHLORIDE 108 MMOL/L (98-107); GFR ESTIMATED > 60; GLUCOSE 102 MG/DL (70-105); POTASSIUM 3.4 MMOL/L (3.6-5.0); SODIUM 144 MMOL/L (135-145); TOTAL PROTEIN 7.4 GM/DL (6.4-8.2)
[2019-01-01 18:40] LABS: BILIRUBIN,URINE NEGATIVE (NEGATIVE); CLARITY,URINE SLIGHTLY CLOUDY; COLOR,URINE YELLOW; GLUCOSE, URINE (UA) NEGATIVE (NEGATIVE); KETONES,URINE 2+ (NEGATIVE); LEUKOCYTE ESTERASE ,URINE 1+ (NEGATIVE); NITRITE,URINE NEGATIVE (NEGATIVE); PH,URINE 5 (5-9); PROTEIN,URINE 2+ (NEGATIVE); UROBILINOGEN,URINE 1 MG/DL (NORMAL)
[2019-01-01 18:50] LABS: BACTERIA,URINE MODERATE /HPF
--- NOTE | 2019-01-01 19:10 | NUR ---
Recieved report from ANCELMO Mooney to assume care of pt @ this time.
[2019-01-01] MEDS ORDERED: SULF-222 PO (19:20)
[2019-01-01 19:27] VITALS: BP 138/82
== END 2019-01-01 19:27 | disposition home or self-care (01) ==
LOC: EDUNIT# 17:11 → ER 17:12
DX: N39.0 Urinary tract infection, site not specified (principal); R55 Syncope and collapse; E16.2 Hypoglycemia, unspecified; Z86.011 Personal history of benign neoplasm of the brain
CPT/HCPCS: 36415; 80053; 81000; 82962; 85025; 87088; 93005

== ENCOUNTER 2019-02-05 15:49 | Emergency (ER) | payer MEDICAID ==
[~2019-02-05] VITALS: Ht 167 cm; Wt 102.0 kg
[~2019-02-05 15:49] MED LIST changes: +SULF-222 PO
[2019-02-05] MEDS ORDERED: NS IV 1000 ML 1,000 ML IV ONE (16:03)
[2019-02-05 16:13] LABS: BASOPHILS % (AUTO) 0 % (0-10); EOSINOPHILS % (AUTO) 0 % (0-10); HEMATOCRIT 40 % (35-52); HEMOGLOBIN 12.5 G/DL (11.5-16.0); LYMPHOCYTES # (AUTO) 0.9 X 10^3 (1.0-4.0); LYMPHOCYTES % (AUTO) 19 % (12-44); MEAN CORPUSCULAR HEMOGLOBIN 27 PG (25-34); MEAN CORPUSCULAR HGB CONC 32 G/DL (32-36); MEAN CORPUSCULAR VOLUME 87 FL (80-99); MEAN PLATELET VOLUME 11.1 FL (7.4-10.4); MONOCYTES # (AUTO) 0.1 X 10^3 (0.0-1.0); MONOCYTES % (AUTO) 2 % (0-12); NEUTROPHILS # (AUTO) 3.9 X 10^3 (1.8-7.8); NEUTROPHILS % (AUTO) 79 % (42-75); PLATELET COUNT 245 10^3/uL (130-400); RED CELL DISTRIBUTION WIDTH 13.2 % (10.0-14.5); WHITE BLOOD COUNT 4.9 10^3/uL (4.3-11.0)
[2019-02-05 16:31] LABS: ALANINE AMINOTRANSFERASE 12 U/L (0-55); ALBUMIN 4.3 GM/DL (3.2-4.5); ALKALINE PHOSPHATASE 125 U/L (40-136); BILIRUBIN,TOTAL 0.6 MG/DL (0.1-1.0); BUN/CREATININE RATIO 11; CALCIUM 9.9 MG/DL (8.5-10.1); CARBON DIOXIDE 17 MMOL/L (21-32); CHLORIDE 106 MMOL/L (98-107); CREATININE SERUM 0.98 MG/DL (0.60-1.30); GFR ESTIMATED > 60; GLUCOSE 150 MG/DL (70-105); POTASSIUM 4.2 MMOL/L (3.6-5.0); SODIUM 142 MMOL/L (135-145); TOTAL PROTEIN 8.4 GM/DL (6.4-8.2)
--- NOTE | 2019-02-05 16:41 | Diagnostic Imaging Report ---
INDICATION: Seizure, history of brain cancer. TECHNIQUE: Noncontrast brain CT is performed and compared to 08/25/2018. FINDINGS: Compared to the prior study, patient has undergone a left frontal craniotomy. Parenchymal defect in the left frontal lobe is noted compatible with previous surgical site. There is no acute hemorrhage. There is some residual dural thickening or old hemorrhage along the craniotomy site. There is no significant mass effect or midline shift. Ventricles are normal in size. Calvarial windows show no acute finding. IMPRESSION: Evidence of previous left frontal craniotomy. Postsurgical defect in left frontal lobe compatible with resection site. There is no significant mass effect or new hemorrhage. There is some thickening along the dura at the craniotomy site which may be due to old blood or postop change. There is no definite recurrent mass effect, consider followup MRI if clinically warranted. Dictated by: Dictated on workstation # [id number]
--- NOTE | 2019-02-05 16:48 | ED Neurological Problem ---
General Chief Complaint: Neurological Problems Stated Complaint: SEIZURE Nursing Triage Note: Pt to room 7 via bed, brought from outpatient registration, postictal phase from seizure that occurred approx 1550. Pt had craniotomy on 10/06/18, no prior seizure Hx. Pt is arousable to touch, nonverbal at this time. Nursing Sepsis Screen: No Definite Risk Source: patient Exam Limitations: no limitations History of Present Illness Date Seen by Provider: Feb 05, 2019 Time Seen by Provider: 15:56 Initial Comments This 43-year-old woman presents to the emergency room because of seizure in the outpatient registration area. She has history of brain mass resected in September by Dr. Tavares Raman at [facility]. She had an episode about one month ago in which she experienced and altered mental status that mother felt was likely post ictal. Mother suspected seizure at that time. Patient has not been on Keppra since about a week after her surgery. She has no prior seizure history. EMS noted a blood sugar in the 60s during her episode a month ago. No true seizure activity was observed. She was at the hospital today to obtain an MRI to further evaluate the episode a month ago. Mother reports she had received steroids and Benadryl at home in preparation for the MRI as she had a contrast allergy to iodine in the past. Patient recently finished radiation therapy as well. Blood sugar on arrival to the ER was 170. Patient was brought from the registration area to the ER by hospital bed. She was minimally responsive and appeared rather post ictal. Mother reports she had contracture and tremoring activity for about 45 seconds in the registration room. Her oncologist is Dr. Gomez and her PCP is Dr. Monson. Mother also reports she was treated for a urinary tract infection about a month ago. Allergies and Home Medications Allergies Coded Allergies: Iodinated Contrast Media (Verified Allergy, Unknown, 02/05/19) Home Medications Escitalopram Oxalate 10 Mg Tablet, 1 EACH PO DAILY, (Reported) Levetiracetam 500 Mg Tablet, 500 MG PO BID Prescribed by: JOSÉ MIGUEL THOMAS on 02/05/191743 Prednisone 20 Mg Tab, 40 MG PO DAILY Prescribed by: DANNY CHAMPAGNE on 11/08/182146 Sulfamethoxazole/Trimethoprim 1 Each Tablet, 1 EACH PO BID Prescribed by: KENDRA TRUJILLO on 01/01/19 1920 Patient Home Medication List Home Medication List Reviewed: Yes Review of Systems Review of Systems Constitutional: no symptoms reported Eyes: No Symptoms Reported Ears, Nose, Mouth, Throat: no symptoms reported Respiratory: no symptoms reported Cardiovascular: no symptoms reported Gastrointestinal: no symptoms reported Genitourinary: no symptoms reported Musculoskeletal: no symptoms reported Skin: no symptoms reported Psychiatric/Neurological: See HPI Endocrine: No Symptoms Reported Hematologic/Lymphatic: No Symptoms Reported Past Qyxhcnx-Eafezx-Iqrwcx Hx Past Med/Social Hx: Reviewed Nursing Past Med/Soc Hx Patient Social History Alcohol Use: Denies Use Recreational Drug Use: No Smoking Status: Never a Smoker Recent Foreign Travel: No Contact w/Someone Who Travel: No Recent Infectious Disease Expo: No Recent Hopitalizations: No Physical Abuse: No Sexual Abuse: No Mistreated: No Fear: No Seasonal Allergies Seasonal Allergies: No Past Medical History Surgeries: Yes (craniotomy 10/04/18) Respiratory: No Cardiac: No Neurological: No Genitourinary: No Gastrointestinal: No Musculoskeletal: No Endocrine: No HEENT: No Cancer: Yes Brain Did You Recieve Any Treatments: Yes What Type of Treatment Did You: Chemotherapy, Radiation, Surgical Intervention Psychosocial: No Integumentary: No Physical Exam Vital Signs Vital Signs - First Documented 02/05/19 16:01 Temp 37.5 Pulse 116 Resp 19 B/P (MAP) 105/77 (86) O2 Delivery Room Air Capillary Refill : Less Than 3 Seconds Height, Weight, BMI Height: 5'5.00" Weight: 237lbs. oz. 107.933297aq; 36.00 BMI Method:Stated General Appearance: WD/WN, no apparent distress HEENT: PERRL/EOMI, normal ENT inspection Neck: normal inspection Respiratory: lungs clear, normal breath sounds, no respiratory distress, no accessory muscle use Cardiovascular: regular rate, rhythm, no edema, no murmur Gastrointestinal: non tender, soft Extremities: normal inspection, no pedal edema Neurologic/Psychiatric: staff developer II-XII nml as tested, no motor/sensory deficits, other (patient initially was post ictal with minimal responsiveness. Motor mov ements were equal in all extremities. Mentation gradually improved over 30-60 minutes. She was then feeling well, was alert and oriented, and had no focal deficits.) Skin: normal color, warm/dry Progress/Results/Core Measures Results/Orders Lab Results Laboratory Tests Test 02/05/19 15:58 02/05/19 16:04 02/05/19 16:44 Range/Units Glucometer 170 H 70-110 MG/DL White Blood Count 4.9 4.3-11.0 10^3/uL Red Blood Count 4.57 4.35-5.85 10^6/uL Hemoglobin 12.5 11.5-16.0 G/DL Hematocrit 40 35-52 % Mean Corpuscular Volume 87 80-99 FL Mean Corpuscular Hemoglobin 27 25-34 PG Mean Corpuscular Hemoglobin Concent 32 32-36 G/DL Red Cell Distribution Width 13.2 10.0-14.5 % Platelet Count 245 130-400 10^3/uL Mean Platelet Volume 11.1 H 7.4-10.4 FL Neutrophils (%) (Auto) 79 H 42-75 % Lymphocytes (%) (Auto) 19 12-44 % Monocytes (%) (Auto) 2 0-12 % Eosinophils (%) (Auto) 0 0-10 % Basophils (%) (Auto) 0 0-10 % Neutrophils # (Auto) 3.9 1.8-7.8 X 10^3 Lymphocytes # (Auto) 0.9 L 1.0-4.0 X 10^3 Monocytes # (Auto) 0.1 0.0-1.0 X 10^3 Eosinophils # (Auto) 0.0 0.0-0.3 10^3/uL Basophils # (Auto) 0.0 0.0-0.1 10^3/uL Sodium Level 142 135-145 MMOL/L Potassium Level 4.2 3.6-5.0 MMOL/L Chloride Level 106 98-107 MMOL/L Carbon Dioxide Level 17 L 21-32 MMOL/L Anion Gap 19 H 5-14 MMOL/L Blood Urea Nitrogen 11 7-18 MG/DL Creatinine 0.98 0.60-1.30 MG/DL Estimat Glomerular Filtration Rate > 60 BUN/Creatinine Ratio 11 Glucose Level 150 H 70-105 MG/DL Calcium Level 9.9 8.5-10.1 MG/DL Corrected Calcium 9.7 8.5-10.1 MG/DL Magnesium Level 2.0 1.6-2.4 MG/DL Total Bilirubin 0.6 0.1-1.0 MG/DL Aspartate Amino Transf (AST/SGOT) 12 5-34 U/L Alanine Aminotransferase (ALT/SGPT) 12 0-55 U/L Alkaline Phosphatase 125 40-136 U/L Total Protein 8.4 H 6.4-8.2 GM/DL Albumin 4.3 3.2-4.5 GM/DL Urine Color YELLOW Urine Clarity CLEAR Urine pH 5 5-9 Urine Specific [place] 1.030 H 1.016-1.022 Urine Protein 2+ H NEGATIVE Urine Glucose (UA) NEGATIVE NEGATIVE Urine Ketones 2+ H NEGATIVE Urine Nitrite NEGATIVE NEGATIVE Urine Bilirubin NEGATIVE NEGATIVE Urine Urobilinogen NORMAL NORMAL MG/DL Urine Leukocyte Esterase 1+ H NEGATIVE Urine RBC (Auto) 1+ H NEGATIVE Urine RBC RARE /HPF Urine WBC RARE /HPF Urine Squamous Epithelial Cells 5-10 /HPF Urine Crystals NONE /LPF Urine Bacteria TRACE /HPF Urine Casts NONE /LPF Urine Mucus NEGATIVE /LPF Urine Culture Indicated NO My Orders Orders - JOSÉ MIGUEL JUAREZ MD Cbc With Automated Diff (02/05/19 16:03) Comprehensive Metabolic Panel (02/05/19 16:03) Magnesium (02/05/19 16:03) Ua Culture If Indicated (02/05/19 16:03) Ct Head Wo (02/05/19 16:03) Ed Iv/Invasive Line Start (02/05/19 16:03) Ns Iv 1000 Ml (Sodium Chloride 0.9%) (02/05/19 16:03) Accucheck Stat ONCE (02/05/19 17:08) Levetiracetam Injection (Keppra Injectio (02/05/19 21:00) Levetiracetam Injection (Keppra Injectio (02/05/19 17:46) Ns (Ivpb) (Sodium Chloride 0.9% Ivpb Bag (02/05/19 17:48) Levetiracetam Injection (Keppra Injectio (02/05/19 17:48) Medications Given in ED Current Medications Medications Dose Ordered Sig/Bi Route Start Time Stop Time Status Last Admin Dose Admin Levetiracetam 500 mg/Sodium Chloride 105 ml @ 210 mls/hr BID ONCE IV 02/05/19 21:00 02/05/19 21:29 02/05/19 17:51 210 MLS/HR Sodium Chloride 1,000 ml @ 0 mls/hr Q0M ONCE IV 02/05/19 16:03 02/05/19 16:05 DC 02/05/19 16:22 0 MLS/HR Vital Signs/I&O 02/05/19 16:01 Temp 37.5 Pulse 116 Resp 19 B/P (MAP) 105/77 (86) O2 Delivery Room Air Blood Pressure Mean: 86 Progress Progress Note : Progress Note Patient's post ictal state seems to have resolved. I discussed the case with Dr. Merritt, neurosurgeon paint line production supervisor for Dr. Raman at [facility]. He recommended starting Keppra prophylactically and establishing with a neurologist as well as following up with Dr. Raman. The neurology consult does not need to be as far away as [facility]. He recommended selecting a more local neurologist that would be more convenient for the patient. CT was unremarkable. Labs were also unremarkable. There was 2+ ketones in the urine. Patient was hydrated with a liter of IV fluids. Diagnostic Imaging Diagonstic Imaging: CT Plain Films/CT/US/NM/MRI: head Comments CT head viewed by me and report reviewed. See report below: NAME: DEBBIE FARRELL [facility] REC#: [id number] PT STATUS: REG ER : 1975 PHYSICIAN: JOSÉ MIGUEL JUAREZ MD ADMIT DATE: 02/05/19/ER Draft Date of Exam:02/05/19 CT HEAD WO INDICATION: Seizure, history of brain cancer. TECHNIQUE: Noncontrast brain CT is performed and compared to 08/25/2018. FINDINGS: Compared to the prior study, patient has undergone a left frontal craniotomy. Parenchymal defect in the left frontal lobe is noted compatible with previous surgical site. There is no acute hemorrhage. There is some residual dural thickening or old hemorrhage along the craniotomy site. There is no significant mass effect or midline shift. Ventricles are normal in size. Calvarial windows show no acute finding. IMPRESSION: Evidence of previous left frontal craniotomy. Postsurgical defect in left frontal lobe compatible with resection site. There is no significant mass effect or new hemorrhage. There is some thickening along the dura at the craniotomy site which may be due to old blood or postop change. There is no definite recurrent mass effect, consider followup MRI if clinically warranted. Dictated on workstation # [id number] Dict: 02/05/19 1627 Trans: 02/05/19 1641 [id number] Interpreted by: JUAN DIEGO ACKERMAN MD Departure Impression Primary Impression: Seizure Disposition: 01 HOME, SELF-CARE Condition: Improved Departure-Patient Inst. Decision time for Depature: 17:42 Referrals: ROCÍO MONSON MD (PCP/Family) Primary Care Physician Patient Instructions: Seizures, Adult (DC) Add. Discharge Instructions: Start Keppra prophylactically as prescribed. Follow-up with Dr. Monson as soon as possible and work with him to establish a neurology referral. Also follow-up with Dr. Raman in neurosurgery as soon as possible. Your MRI will also need to be rescheduled. Return to the emergency room if you have worsening symptoms. All discharge instructions reviewed with patient and/or family. Voiced understanding. Scripts Levetiracetam (Keppra) 500 Mg Tablet 500 MG PO BID, #60 TAB Prov: JOSÉ MIGUEL JUAREZ MD 02/05/19 Copy Copies To 1: ROCÍO MONSON MD Copies To 2: ANJUM GOMEZ MD, JOSHUA T MD Feb 05, 2019 16:48
[2019-02-05 16:49] LABS: BILIRUBIN,URINE NEGATIVE (NEGATIVE); CLARITY,URINE CLEAR; COLOR,URINE YELLOW; GLUCOSE, URINE (UA) NEGATIVE (NEGATIVE); KETONES,URINE 2+ (NEGATIVE); LEUKOCYTE ESTERASE ,URINE 1+ (NEGATIVE); NITRITE,URINE NEGATIVE (NEGATIVE); PH,URINE 5 (5-9); PROTEIN,URINE 2+ (NEGATIVE); UROBILINOGEN,URINE NORMAL (NORMAL)
[2019-02-05 17:02] LABS: BACTERIA,URINE TRACE /HPF; RBC,URINE RARE /HPF; WBC,URINE RARE /HPF
[2019-02-05] MEDS ORDERED: LEVE500T99 PO (17:44)
[2019-02-05] MEDS ORDERED: LEVETIRACETAM 500 MG/5 ML (KEPPRA) VIAL IV ONE ×2 (17:46→17:48)
[2019-02-05] MEDS ORDERED: NS (IVPB) 100 ML ONE (17:48)
[2019-02-05 18:33] VITALS: BP 123/92
[2019-02-05] MEDS ORDERED: LEVETIRACETAM INJECTION 500 MG in NS (IVPB) 100 ML IV ONE (21:00)
== END 2019-02-05 18:33 | disposition home or self-care (01) ==
LOC: EDUNIT# 15:49 → ER 15:54
DX: R56.9 Unspecified convulsions (principal); Z91.041 Radiographic dye allergy status; Z79.52 Long term (current) use of systemic steroids; Z85.841 Personal history of malignant neoplasm of brain
CPT/HCPCS: 36415; 70450; 80053; 81000; 82962; 83735; 85025; 96361; 96365

== ENCOUNTER → 2019-02-15 | Outpatient (CLI) | payer MEDICAID ==
[~2019-02-15] MED LIST changes: +LEVE500T99 PO
[2019-02-15] MEDS: GADOBUTROL 10 MMOL/10 ML (GADAVIST) VIAL IV ONE (17:45)
[2019-02-15] MEDS: CATHETER FLUSH 10 ML SYR IV PRN (17:46)
--- NOTE | 2019-02-15 18:13 | Diagnostic Imaging Report ---
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 EXAMINATION: MRI brain obtained pre and post IV contrast. COMPARISON: Comparison made to 10/05/2018. FINDINGS: Diffusion-weighted images demonstrate no acute ischemic changes. Postsurgical defect in the left frontal lobe is noted. There is residual dural enhancement along the falx and along the convexity which may be postsurgical in nature. There is some faint linear enhancement at the operative margins, but no definitive recurrent enhancing mass is seen. There appears to be less edema when compared to the previous study. There are some signal changes in the frontal deep white matter on both sides which may reflect post radiation change if there is such a history. There is no new area of enhancement seen elsewhere. IMPRESSION: Postop changes in left frontal lobe with postsurgical defect in the left frontal lobe superiorly. There is some residual dural enhancement at the operative site as well as some linear enhancement along the operative margins which may be due to gliosis. There is no definitive enhancing or recurrent mass detected. There is less edema when compared to the prior study of 10/05/2018. There are areas of signal change in the deep white matter in the frontal regions which may be due to post radiation change. If there is such a history, suggest continued follow-up as clinically warranted. Dictated by: Dictated on workstation # [id number]
== END ==
LOC: RAD 17:01
PROVIDERS: ATTEND Internal Medicine Hematology & Oncology
DX: C71.1 Malignant neoplasm of frontal lobe (principal); Z98.890 Other specified postprocedural states
CPT/HCPCS: 70553

== ENCOUNTER 2019-03-05 14:39 | Outpatient (RCR) | payer MEDICAID ==
[2019-02-01 13:05] LABS: BASOPHILS % (AUTO) 1 % (0-10); EOSINOPHILS # (AUTO) 0.1 10^3/uL (0.0-0.3); EOSINOPHILS % (AUTO) 2 % (0-10); HEMATOCRIT 37 % (35-52); HEMOGLOBIN 11.7 G/DL (11.5-16.0); LYMPHOCYTES # (AUTO) 0.9 X 10^3 (1.0-4.0); LYMPHOCYTES % (AUTO) 23 % (12-44); MEAN CORPUSCULAR HEMOGLOBIN 27 PG (25-34); MEAN CORPUSCULAR HGB CONC 32 G/DL (32-36); MEAN CORPUSCULAR VOLUME 87 FL (80-99); MEAN PLATELET VOLUME 10.9 FL (7.4-10.4); MONOCYTES # (AUTO) 0.3 X 10^3 (0.0-1.0); MONOCYTES % (AUTO) 9 % (0-12); NEUTROPHILS # (AUTO) 2.4 X 10^3 (1.8-7.8); NEUTROPHILS % (AUTO) 66 % (42-75); PLATELET COUNT 219 10^3/uL (130-400); RED CELL DISTRIBUTION WIDTH 13.4 % (10.0-14.5); WHITE BLOOD COUNT 3.7 10^3/uL (4.3-11.0)
[2019-02-01 13:27] LABS: ALANINE AMINOTRANSFERASE 10 U/L (0-55); ALBUMIN 3.8 GM/DL (3.2-4.5); ALKALINE PHOSPHATASE 127 U/L (40-136); BILIRUBIN,TOTAL 0.6 MG/DL (0.1-1.0); BUN/CREATININE RATIO 11; CARBON DIOXIDE 28 MMOL/L (21-32); CHLORIDE 108 MMOL/L (98-107); CREATININE SERUM 0.94 MG/DL (0.60-1.30); GFR ESTIMATED > 60; GLUCOSE 84 MG/DL (70-105); POTASSIUM 3.8 MMOL/L (3.6-5.0); SODIUM 142 MMOL/L (135-145); TOTAL PROTEIN 6.5 GM/DL (6.4-8.2)
[2019-02-26 11:21] LABS: BASOPHILS % (AUTO) 1 % (0-10); EOSINOPHILS # (AUTO) 0.1 10^3/uL (0.0-0.3); EOSINOPHILS % (AUTO) 2 % (0-10); HEMATOCRIT 40 % (35-52); HEMOGLOBIN 12.4 G/DL (11.5-16.0); LYMPHOCYTES % (AUTO) 22 % (12-44); MEAN CORPUSCULAR HEMOGLOBIN 27 PG (25-34); MEAN CORPUSCULAR HGB CONC 31 G/DL (32-36); MEAN CORPUSCULAR VOLUME 89 FL (80-99); MEAN PLATELET VOLUME 11.2 FL (7.4-10.4); MONOCYTES # (AUTO) 0.4 X 10^3 (0.0-1.0); MONOCYTES % (AUTO) 8 % (0-12); NEUTROPHILS # (AUTO) 3.1 X 10^3 (1.8-7.8); NEUTROPHILS % (AUTO) 68 % (42-75); PLATELET COUNT 182 10^3/uL (130-400); RED CELL DISTRIBUTION WIDTH 14.3 % (10.0-14.5); WHITE BLOOD COUNT 4.6 10^3/uL (4.3-11.0)
[2019-02-26 11:37] LABS: CREATININE SERUM 1.06 MG/DL (0.60-1.30)
== END 2019-03-07 | disposition home or self-care (01) ==
LOC: ONC 14:39
PROVIDERS: ATTEND Internal Medicine Hematology & Oncology
DX: G93.9 Disorder of brain, unspecified (principal); F70 Mild intellectual disabilities; F20.9 Schizophrenia, unspecified; F41.9 Anxiety disorder, unspecified; F32.9 Major depressive disorder, single episode, unspecified; R25.1 Tremor, unspecified; M25.512 Pain in left shoulder; E66.9 Obesity, unspecified; Z68.39 Body mass index [BMI] 39.0-39.9, adult; Z79.899 Other long term (current) drug therapy
CPT/HCPCS: 36415; 77336; 77386; 80048; 80053; 85025; 87804; 99213

== ENCOUNTER 2019-04-03 14:21 | Outpatient (RCR) | payer MEDICAID | END 2019-04-03 17:00 | disposition home or self-care (01) | PROVIDERS: ATTEND Family Medicine | DX: M25.512 Pain in left shoulder (principal) ==

== ENCOUNTER 2019-06-12 10:32 | Outpatient (RCR) | payer MEDICAID ==
[2019-03-19 13:14] LABS: BASOPHILS % (AUTO) 1 % (0-10); EOSINOPHILS # (AUTO) 0.1 10^3/uL (0.0-0.3); EOSINOPHILS % (AUTO) 3 % (0-10); HEMATOCRIT 39 % (35-52); HEMOGLOBIN 12.3 G/DL (11.5-16.0); LYMPHOCYTES # (AUTO) 0.9 X 10^3 (1.0-4.0); LYMPHOCYTES % (AUTO) 21 % (12-44); MEAN CORPUSCULAR HEMOGLOBIN 27 PG (25-34); MEAN CORPUSCULAR HGB CONC 32 G/DL (32-36); MEAN CORPUSCULAR VOLUME 87 FL (80-99); MEAN PLATELET VOLUME 11.2 FL (7.4-10.4); MONOCYTES # (AUTO) 0.3 X 10^3 (0.0-1.0); MONOCYTES % (AUTO) 8 % (0-12); NEUTROPHILS # (AUTO) 2.9 X 10^3 (1.8-7.8); NEUTROPHILS % (AUTO) 67 % (42-75); PLATELET COUNT 274 10^3/uL (130-400); RED CELL DISTRIBUTION WIDTH 15.3 % (10.0-14.5); WHITE BLOOD COUNT 4.3 10^3/uL (4.3-11.0)
[2019-03-19 13:44] LABS: ALANINE AMINOTRANSFERASE 36 U/L (0-55); ALBUMIN 4.1 GM/DL (3.2-4.5); ALKALINE PHOSPHATASE 141 U/L (40-136); BILIRUBIN,TOTAL 0.6 MG/DL (0.1-1.0); BUN/CREATININE RATIO 16; CALCIUM 9.5 MG/DL (8.5-10.1); CARBON DIOXIDE 23 MMOL/L (21-32); CHLORIDE 111 MMOL/L (98-107); CREATININE SERUM 0.85 MG/DL (0.60-1.30); GFR ESTIMATED > 60; GLUCOSE 76 MG/DL (70-105); SODIUM 144 MMOL/L (135-145); TOTAL PROTEIN 7.2 GM/DL (6.4-8.2)
[2019-04-16 10:27] LABS: BASOPHILS % (AUTO) 1 % (0-10); EOSINOPHILS # (AUTO) 0.2 10^3/uL (0.0-0.3); EOSINOPHILS % (AUTO) 4 % (0-10); HEMATOCRIT 41 % (35-52); HEMOGLOBIN 12.9 G/DL (11.5-16.0); LYMPHOCYTES # (AUTO) 0.6 X 10^3 (1.0-4.0); LYMPHOCYTES % (AUTO) 17 % (12-44); MEAN CORPUSCULAR HEMOGLOBIN 27 PG (25-34); MEAN CORPUSCULAR HGB CONC 32 G/DL (32-36); MEAN CORPUSCULAR VOLUME 86 FL (80-99); MEAN PLATELET VOLUME 11.2 FL (7.4-10.4); MONOCYTES # (AUTO) 0.2 X 10^3 (0.0-1.0); MONOCYTES % (AUTO) 6 % (0-12); NEUTROPHILS # (AUTO) 2.7 X 10^3 (1.8-7.8); NEUTROPHILS % (AUTO) 72 % (42-75); PLATELET COUNT 228 10^3/uL (130-400); RED CELL DISTRIBUTION WIDTH 16.1 % (10.0-14.5); WHITE BLOOD COUNT 3.7 10^3/uL (4.3-11.0)
[2019-04-16 10:44] LABS: ALANINE AMINOTRANSFERASE 20 U/L (0-55); ALBUMIN 4.4 GM/DL (3.2-4.5); ALKALINE PHOSPHATASE 128 U/L (40-136); BILIRUBIN,TOTAL 0.7 MG/DL (0.1-1.0); BUN/CREATININE RATIO 15; CALCIUM 9.3 MG/DL (8.5-10.1); CARBON DIOXIDE 23 MMOL/L (21-32); CHLORIDE 114 MMOL/L (98-107); CREATININE SERUM 0.89 MG/DL (0.60-1.30); GFR ESTIMATED > 60; GLUCOSE 80 MG/DL (70-105); POTASSIUM 3.4 MMOL/L (3.6-5.0); SODIUM 145 MMOL/L (135-145); TOTAL PROTEIN 7.3 GM/DL (6.4-8.2)
[2019-05-15 12:45] LABS: BASOPHILS % (AUTO) 1 % (0-10); EOSINOPHILS # (AUTO) 0.3 10^3/uL (0.0-0.3); EOSINOPHILS % (AUTO) 7 % (0-10); HEMATOCRIT 41 % (35-52); HEMOGLOBIN 12.9 G/DL (11.5-16.0); LYMPHOCYTES # (AUTO) 0.4 X 10^3 (1.0-4.0); LYMPHOCYTES % (AUTO) 12 % (12-44); MEAN CORPUSCULAR HEMOGLOBIN 28 PG (25-34); MEAN CORPUSCULAR HGB CONC 32 G/DL (32-36); MEAN CORPUSCULAR VOLUME 88 FL (80-99); MEAN PLATELET VOLUME 11.5 FL (7.4-10.4); MONOCYTES # (AUTO) 0.4 X 10^3 (0.0-1.0); MONOCYTES % (AUTO) 10 % (0-12); NEUTROPHILS # (AUTO) 2.6 X 10^3 (1.8-7.8); NEUTROPHILS % (AUTO) 71 % (42-75); PLATELET COUNT 171 10^3/uL (130-400); RED CELL DISTRIBUTION WIDTH 15.1 % (10.0-14.5); WHITE BLOOD COUNT 3.7 10^3/uL (4.3-11.0)
[2019-05-15 13:04] LABS: ALANINE AMINOTRANSFERASE 42 U/L (0-55); ALBUMIN 4.2 GM/DL (3.2-4.5); ALKALINE PHOSPHATASE 129 U/L (40-136); BILIRUBIN,TOTAL 0.9 MG/DL (0.1-1.0); BUN/CREATININE RATIO 15; CALCIUM 9.2 MG/DL (8.5-10.1); CARBON DIOXIDE 21 MMOL/L (21-32); CHLORIDE 110 MMOL/L (98-107); CREATININE SERUM 0.78 MG/DL (0.60-1.30); GFR ESTIMATED > 60; GLUCOSE 82 MG/DL (70-105); POTASSIUM 3.9 MMOL/L (3.6-5.0); SODIUM 143 MMOL/L (135-145)
[2019-06-12 10:55] LABS: BASOPHILS % (AUTO) 2 % (0-10); EOSINOPHILS # (AUTO) 0.2 10^3/uL (0.0-0.3); EOSINOPHILS % (AUTO) 10 % (0-10); HEMATOCRIT 37 % (35-52); HEMOGLOBIN 12.2 G/DL (11.5-16.0); LYMPHOCYTES # (AUTO) 0.4 X 10^3 (1.0-4.0); LYMPHOCYTES % (AUTO) 17 % (12-44); MEAN CORPUSCULAR HEMOGLOBIN 28 PG (25-34); MEAN CORPUSCULAR HGB CONC 33 G/DL (32-36); MEAN CORPUSCULAR VOLUME 86 FL (80-99); MEAN PLATELET VOLUME 11.6 FL (7.4-10.4); MONOCYTES # (AUTO) 0.3 X 10^3 (0.0-1.0); MONOCYTES % (AUTO) 12 % (0-12); NEUTROPHILS # (AUTO) 1.4 X 10^3 (1.8-7.8); NEUTROPHILS % (AUTO) 59 % (42-75); PLATELET COUNT 177 10^3/uL (130-400); RED CELL DISTRIBUTION WIDTH 14.4 % (10.0-14.5); WHITE BLOOD COUNT 2.4 10^3/uL (4.3-11.0)
[2019-06-12 11:20] LABS: ALANINE AMINOTRANSFERASE 42 U/L (0-55); ALBUMIN 4.3 GM/DL (3.2-4.5); ALKALINE PHOSPHATASE 127 U/L (40-136); BILIRUBIN,TOTAL 0.9 MG/DL (0.1-1.0); BUN/CREATININE RATIO 17; CARBON DIOXIDE 24 MMOL/L (21-32); CHLORIDE 111 MMOL/L (98-107); CREATININE SERUM 0.82 MG/DL (0.60-1.30); GFR ESTIMATED > 60; GLUCOSE 82 MG/DL (70-105); POTASSIUM 3.6 MMOL/L (3.6-5.0); SODIUM 144 MMOL/L (135-145); TOTAL PROTEIN 6.9 GM/DL (6.4-8.2)
== END 2019-06-17 | disposition home or self-care (01) ==
LOC: ONC 10:32
PROVIDERS: ATTEND Internal Medicine Hematology & Oncology
DX: C71.0 Malignant neoplasm of cerebrum, except lobes and ventricles (principal); F20.81 Schizophreniform disorder; M25.512 Pain in left shoulder; F79 Unspecified intellectual disabilities; N39.0 Urinary tract infection, site not specified; Z79.899 Other long term (current) drug therapy; Z98.890 Other specified postprocedural states
CPT/HCPCS: 36415; 80053; 85025; 99213

== ENCOUNTER → 2019-07-10 | Outpatient (CLI) | payer MEDICAID ==
[~2019-07-10] MED LIST changes: +GADOBUTROL 10 MMOL/10 ML (GADAVIST) VIAL IV ONE
--- NOTE | 2019-07-10 09:39 | Diagnostic Imaging Report ---
PROCEDURE: MR imaging of the brain with and without contrast. TECHNIQUE: Multiplanar, multisequence MR imaging of the brain was performed with and without contrast. INDICATION: Astrocytoma. 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 There is no sign of a mass in this area but there was residual dural enhancement. On this exam, the dural enhancement seen previously is again evident and does not appear to have changed significantly. However, in the interval since the previous study, a spiculated area of enhancement has developed in the operative site. This area measures 4.4 x 7.6 x 11.2 mm in maximum longitudinal, transverse and AP dimensions. While this finding could be secondary to scar formation/gliosis, the possibility that this is related to recurrent malignancy should be the primary concern. The overall appearance of the brain has not changed significantly otherwise. There is no other area of abnormal enhancement on the postcontrast series. There is no mass, shift to the midline or hemorrhage to indicate an acute abnormality. Furthermore, there is no abnormal signal arising from the brain on the diffusion series to indicate an area of acute ischemia. The ventricles are stable in size. The diffuse areas of increased signal about the operative site seen on the FLAIR series of the prior exam are again evident and no different. There is also diffusely increased signal in the periventricular white matter of the right frontoparietal lobe. This finding is also stable. The orbits are symmetrical and within normal limits. The left maxillary antrum is hypoplastic and there is chronic mucosal thickening. The sinuses are otherwise generally clear. The 7th and 8th nerve complexes are unremarkable. IMPRESSION: 1. In the interval since the prior exam, a spiculated area of enhancement has developed in the operative site in the left frontal lobe. While this could be secondary to scar formation/gliosis, the possibility that this is related to recurrent neoplasm should be the primary concern. Neurosurgical consultation would be recommended. 2. There is no other abnormal enhancement to suggest neoplastic disease or an infectious process. 3. There is no sign of an acute abnormality. Dictated by: Dictated on workstation # [id number]
== END ==
LOC: RAD 07:21
PROVIDERS: ATTEND Internal Medicine Hematology & Oncology
DX: C71.9 Malignant neoplasm of brain, unspecified (principal); Z98.890 Other specified postprocedural states
CPT/HCPCS: 70553

== ENCOUNTER → 2019-07-16 | Outpatient (CLI) | payer MEDICAID ==
[~2019-07-16] MED LIST changes: -GADOBUTROL 10 MMOL/10 ML (GADAVIST) VIAL IV ONE
[2019-07-16 10:54] LABS: BASOPHILS % (AUTO) 2 % (0-10); EOSINOPHILS # (AUTO) 0.2 10^3/uL (0.0-0.3); EOSINOPHILS % (AUTO) 9 % (0-10); HEMATOCRIT 39 % (35-52); HEMOGLOBIN 12.5 G/DL (11.5-16.0); LYMPHOCYTES # (AUTO) 0.2 X 10^3 (1.0-4.0); LYMPHOCYTES % (AUTO) 12 % (12-44); MEAN CORPUSCULAR HEMOGLOBIN 28 PG (25-34); MEAN CORPUSCULAR HGB CONC 32 G/DL (32-36); MEAN CORPUSCULAR VOLUME 88 FL (80-99); MEAN PLATELET VOLUME 11.6 FL (7.4-10.4); MONOCYTES # (AUTO) 0.2 X 10^3 (0.0-1.0); MONOCYTES % (AUTO) 11 % (0-12); NEUTROPHILS # (AUTO) 1.4 X 10^3 (1.8-7.8); NEUTROPHILS % (AUTO) 67 % (42-75); PLATELET COUNT 154 10^3/uL (130-400); RED CELL DISTRIBUTION WIDTH 13.7 % (10.0-14.5)
[2019-07-16 11:25] LABS: ALANINE AMINOTRANSFERASE 22 U/L (0-55); ALBUMIN 4.1 GM/DL (3.2-4.5); ALKALINE PHOSPHATASE 122 U/L (40-136); BILIRUBIN,TOTAL 0.9 MG/DL (0.1-1.0); BUN/CREATININE RATIO 17; CALCIUM 9.1 MG/DL (8.5-10.1); CARBON DIOXIDE 25 MMOL/L (21-32); CHLORIDE 110 MMOL/L (98-107); CHOLESTEROL 152 MG/DL (< 200); CREATININE SERUM 0.84 MG/DL (0.60-1.30); GFR ESTIMATED > 60; GLUCOSE 85 MG/DL (70-105); HDL CHOLESTEROL 56 MG/DL (40-60); POTASSIUM 3.9 MMOL/L (3.6-5.0); SODIUM 143 MMOL/L (135-145); TOTAL PROTEIN 6.6 GM/DL (6.4-8.2); TRIGLYCERIDES 115 MG/DL (<150); VLDL CHOLESTEROL 23 MG/DL (5-40)
== END ==
LOC: LAB 10:09
PROVIDERS: ATTEND Psychiatry & Neurology Psychiatry
DX: F25.1 Schizoaffective disorder, depressive type (principal)
CPT/HCPCS: 36415; 80053; 80061; 83036; 84443

== ENCOUNTER 2019-09-18 10:48 | Outpatient (RCR) | payer MEDICAID ==
[2019-07-16 10:46] LABS: BASOPHILS % (AUTO) 2 % (0-10); EOSINOPHILS # (AUTO) 0.2 10^3/uL (0.0-0.3); EOSINOPHILS % (AUTO) 9 % (0-10); HEMATOCRIT 39 % (35-52); HEMOGLOBIN 12.5 G/DL (11.5-16.0); LYMPHOCYTES # (AUTO) 0.2 X 10^3 (1.0-4.0); LYMPHOCYTES % (AUTO) 12 % (12-44); MEAN CORPUSCULAR HEMOGLOBIN 28 PG (25-34); MEAN CORPUSCULAR HGB CONC 32 G/DL (32-36); MEAN CORPUSCULAR VOLUME 88 FL (80-99); MEAN PLATELET VOLUME 11.6 FL (7.4-10.4); MONOCYTES # (AUTO) 0.2 X 10^3 (0.0-1.0); MONOCYTES % (AUTO) 11 % (0-12); NEUTROPHILS # (AUTO) 1.4 X 10^3 (1.8-7.8); NEUTROPHILS % (AUTO) 67 % (42-75); PLATELET COUNT 154 10^3/uL (130-400); RED CELL DISTRIBUTION WIDTH 13.7 % (10.0-14.5)
[2019-07-16 11:09] LABS: ALANINE AMINOTRANSFERASE 22 U/L (0-55); ALBUMIN 4.1 GM/DL (3.2-4.5); ALKALINE PHOSPHATASE 122 U/L (40-136); BILIRUBIN,TOTAL 0.9 MG/DL (0.1-1.0); BUN/CREATININE RATIO 16; CALCIUM 9.1 MG/DL (8.5-10.1); CARBON DIOXIDE 26 MMOL/L (21-32); CHLORIDE 110 MMOL/L (98-107); CREATININE SERUM 0.85 MG/DL (0.60-1.30); GFR ESTIMATED > 60; GLUCOSE 85 MG/DL (70-105); POTASSIUM 3.9 MMOL/L (3.6-5.0); SODIUM 144 MMOL/L (135-145); TOTAL PROTEIN 6.6 GM/DL (6.4-8.2)
[2019-08-21 11:06] LABS: BASOPHILS % (AUTO) 1 % (0-10); EOSINOPHILS # (AUTO) 0.2 10^3/uL (0.0-0.3); EOSINOPHILS % (AUTO) 7 % (0-10); HEMATOCRIT 37 % (35-52); HEMOGLOBIN 11.9 G/DL (11.5-16.0); LYMPHOCYTES # (AUTO) 0.3 X 10^3 (1.0-4.0); LYMPHOCYTES % (AUTO) 11 % (12-44); MEAN CORPUSCULAR HEMOGLOBIN 28 PG (25-34); MEAN CORPUSCULAR HGB CONC 32 G/DL (32-36); MEAN CORPUSCULAR VOLUME 87 FL (80-99); MEAN PLATELET VOLUME 11.4 FL (7.4-10.4); MONOCYTES # (AUTO) 0.2 X 10^3 (0.0-1.0); MONOCYTES % (AUTO) 9 % (0-12); NEUTROPHILS # (AUTO) 1.7 X 10^3 (1.8-7.8); NEUTROPHILS % (AUTO) 71 % (42-75); PLATELET COUNT 154 10^3/uL (130-400); RED CELL DISTRIBUTION WIDTH 13.8 % (10.0-14.5); WHITE BLOOD COUNT 2.4 10^3/uL (4.3-11.0)
[2019-08-21 11:20] LABS: ALANINE AMINOTRANSFERASE 17 U/L (0-55); ALKALINE PHOSPHATASE 122 U/L (40-136); BILIRUBIN,TOTAL 0.7 MG/DL (0.1-1.0); BUN/CREATININE RATIO 10; CALCIUM 8.7 MG/DL (8.5-10.1); CARBON DIOXIDE 22 MMOL/L (21-32); CHLORIDE 112 MMOL/L (98-107); CREATININE SERUM 0.88 MG/DL (0.60-1.30); GFR ESTIMATED > 60; GLUCOSE 81 MG/DL (70-105); POTASSIUM 4.1 MMOL/L (3.6-5.0); SODIUM 142 MMOL/L (135-145); TOTAL PROTEIN 6.6 GM/DL (6.4-8.2)
[2019-09-18 11:13] LABS: BASOPHILS % (AUTO) 1 % (0-10); EOSINOPHILS # (AUTO) 0.2 10^3/uL (0.0-0.3); EOSINOPHILS % (AUTO) 7 % (0-10); HEMATOCRIT 37 % (35-52); HEMOGLOBIN 11.7 G/DL (11.5-16.0); LYMPHOCYTES # (AUTO) 0.4 X 10^3 (1.0-4.0); LYMPHOCYTES % (AUTO) 16 % (12-44); MEAN CORPUSCULAR HEMOGLOBIN 28 PG (25-34); MEAN CORPUSCULAR HGB CONC 32 G/DL (32-36); MEAN CORPUSCULAR VOLUME 88 FL (80-99); MONOCYTES # (AUTO) 0.3 X 10^3 (0.0-1.0); MONOCYTES % (AUTO) 11 % (0-12); NEUTROPHILS # (AUTO) 1.6 X 10^3 (1.8-7.8); NEUTROPHILS % (AUTO) 65 % (42-75); PLATELET COUNT 184 10^3/uL (130-400); RED CELL DISTRIBUTION WIDTH 14.5 % (10.0-14.5); WHITE BLOOD COUNT 2.4 10^3/uL (4.3-11.0)
[2019-09-18 11:30] LABS: ALANINE AMINOTRANSFERASE 18 U/L (0-55); ALKALINE PHOSPHATASE 133 U/L (40-136); BILIRUBIN,TOTAL 0.7 MG/DL (0.1-1.0); BUN/CREATININE RATIO 15; CALCIUM 8.9 MG/DL (8.5-10.1); CARBON DIOXIDE 22 MMOL/L (21-32); CHLORIDE 112 MMOL/L (98-107); CREATININE SERUM 0.92 MG/DL (0.60-1.30); GFR ESTIMATED > 60; GLUCOSE 78 MG/DL (70-105); POTASSIUM 3.8 MMOL/L (3.6-5.0); SODIUM 144 MMOL/L (135-145); TOTAL PROTEIN 6.8 GM/DL (6.4-8.2)
== END 2019-10-14 | disposition home or self-care (01) ==
LOC: ONC 10:48
PROVIDERS: ATTEND Internal Medicine Hematology & Oncology
DX: C71.0 Malignant neoplasm of cerebrum, except lobes and ventricles (principal); F20.81 Schizophreniform disorder; M25.512 Pain in left shoulder; F79 Unspecified intellectual disabilities; N39.0 Urinary tract infection, site not specified; Z79.899 Other long term (current) drug therapy; Z98.890 Other specified postprocedural states
CPT/HCPCS: 36415; 80053; 85025; 99213

== ENCOUNTER → 2019-10-25 | Outpatient (CLI) | payer MEDICAID ==
[~2019-10-25] MED LIST changes: +GADOBUTROL 10 MMOL/10 ML (GADAVIST) VIAL IV ONE
--- NOTE | 2019-10-25 10:52 | Diagnostic Imaging Report ---
PROCEDURE: MR imaging of the brain with and without contrast. TECHNIQUE: Multiplanar, multisequence MR imaging of the brain was performed with and without contrast. INDICATION: Follow-up astrocytoma. No new symptoms. COMPARISON: MRI brain on 07/10/2019, 09/01/2018. FINDINGS: Redemonstration of postsurgical changes of left frontal craniotomy and mass resection from the anterior left frontal lobe. No new areas of abnormal enhancement are visualized. There is slight increase in amount of T2 hyperintense signal surrounding the surgical bed and extending into the white matter of the bilateral centrum semiovale and leonard radiata. No development of mass effect or midline shift. No evidence of acute ischemia or hemorrhage. The basilar cisterns are symmetric and unremarkable. The sellar and suprasellar regions have a normal appearance. The major intracranial flow voids are intact. The brainstem and posterior fossa are unremarkable. The paranasal sinuses and mastoid air cells demonstrate normal signal characteristics. The globes and orbits are symmetric and unremarkable. The scalp and calvarium have a normal appearance. IMPRESSION: 1. Postsurgical changes of left frontal craniotomy and mass resection from the anterior left frontal lobe are again seen. No developing enhancing masses are seen. There has been slight increase in T2 hyperintense signal surrounding the surgical bed and extending into the white matter of the bilateral centrum semiovale and leonard radiata. These findings may represent evolving sequelae of posttreatment changes; however, infiltrative tumor is not excluded and continued close follow-up is recommended with MRI brain with and without contrast. 2. No acute ischemia or hemorrhage. Dictated by: Dictated on workstation # [id number]
== END ==
LOC: RAD 09:03
PROVIDERS: ATTEND Internal Medicine Hematology & Oncology
DX: C71.1 Malignant neoplasm of frontal lobe (principal); Z98.890 Other specified postprocedural states
CPT/HCPCS: 70553

== ENCOUNTER 2020-01-01 14:17 | Outpatient (RCR) | payer MEDICAID ==
[2019-10-16 14:06] LABS: BASOPHILS % (AUTO) 1 % (0-10); EOSINOPHILS # (AUTO) 0.2 10^3/uL (0.0-0.3); EOSINOPHILS % (AUTO) 5 % (0-10); HEMATOCRIT 36 % (35-52); HEMOGLOBIN 11.7 G/DL (11.5-16.0); LYMPHOCYTES # (AUTO) 0.4 X 10^3 (1.0-4.0); LYMPHOCYTES % (AUTO) 13 % (12-44); MEAN CORPUSCULAR HEMOGLOBIN 28 PG (25-34); MEAN CORPUSCULAR HGB CONC 33 G/DL (32-36); MEAN CORPUSCULAR VOLUME 86 FL (80-99); MEAN PLATELET VOLUME 10.7 FL (7.4-10.4); MONOCYTES # (AUTO) 0.3 X 10^3 (0.0-1.0); MONOCYTES % (AUTO) 10 % (0-12); NEUTROPHILS % (AUTO) 71 % (42-75); PLATELET COUNT 172 10^3/uL (130-400); WHITE BLOOD COUNT 2.8 10^3/uL (4.3-11.0)
[2019-10-16 14:27] LABS: ALANINE AMINOTRANSFERASE 18 U/L (0-55); ALBUMIN 4.1 GM/DL (3.2-4.5); ALKALINE PHOSPHATASE 123 U/L (40-136); BILIRUBIN,TOTAL 0.9 MG/DL (0.1-1.0); BUN/CREATININE RATIO 17; CALCIUM 8.8 MG/DL (8.5-10.1); CARBON DIOXIDE 21 MMOL/L (21-32); CHLORIDE 112 MMOL/L (98-107); CREATININE SERUM 0.82 MG/DL (0.60-1.30); GFR ESTIMATED > 60; GLUCOSE 96 MG/DL (70-105); POTASSIUM 3.8 MMOL/L (3.6-5.0); SODIUM 142 MMOL/L (135-145); TOTAL PROTEIN 7.1 GM/DL (6.4-8.2)
[2019-11-02 10:50] LABS: BASOPHILS % (AUTO) 1 % (0-10); EOSINOPHILS # (AUTO) 0.2 10^3/uL (0.0-0.3); EOSINOPHILS % (AUTO) 4 % (0-10); HEMATOCRIT 39 % (35-52); HEMOGLOBIN 12.8 G/DL (11.5-16.0); LYMPHOCYTES # (AUTO) 0.7 X 10^3 (1.0-4.0); LYMPHOCYTES % (AUTO) 16 % (12-44); MEAN CORPUSCULAR HEMOGLOBIN 29 PG (25-34); MEAN CORPUSCULAR HGB CONC 33 G/DL (32-36); MEAN CORPUSCULAR VOLUME 88 FL (80-99); MEAN PLATELET VOLUME 11.7 FL (7.4-10.4); MONOCYTES # (AUTO) 0.4 X 10^3 (0.0-1.0); MONOCYTES % (AUTO) 9 % (0-12); NEUTROPHILS # (AUTO) 2.9 X 10^3 (1.8-7.8); NEUTROPHILS % (AUTO) 71 % (42-75); PLATELET COUNT 138 10^3/uL (130-400); WHITE BLOOD COUNT 4.1 10^3/uL (4.3-11.0)
[2019-11-30 09:54] LABS: BASOPHILS % (AUTO) 1 % (0-10); EOSINOPHILS # (AUTO) 0.1 10^3/uL (0.0-0.3); EOSINOPHILS % (AUTO) 5 % (0-10); HEMATOCRIT 34 % (35-52); LYMPHOCYTES # (AUTO) 0.4 X 10^3 (1.0-4.0); LYMPHOCYTES % (AUTO) 14 % (12-44); MEAN CORPUSCULAR HEMOGLOBIN 28 PG (25-34); MEAN CORPUSCULAR HGB CONC 32 G/DL (32-36); MEAN CORPUSCULAR VOLUME 87 FL (80-99); MEAN PLATELET VOLUME 11.2 FL (7.4-10.4); MONOCYTES # (AUTO) 0.2 X 10^3 (0.0-1.0); MONOCYTES % (AUTO) 8 % (0-12); NEUTROPHILS # (AUTO) 1.9 X 10^3 (1.8-7.8); NEUTROPHILS % (AUTO) 72 % (42-75); PLATELET COUNT 149 10^3/uL (130-400); WHITE BLOOD COUNT 2.6 10^3/uL (4.3-11.0)
[2019-11-30 10:11] LABS: ALANINE AMINOTRANSFERASE 16 U/L (0-55); ALBUMIN 3.8 GM/DL (3.2-4.5); ALKALINE PHOSPHATASE 118 U/L (40-136); BILIRUBIN,TOTAL 0.8 MG/DL (0.1-1.0); BUN/CREATININE RATIO 19; CALCIUM 8.6 MG/DL (8.5-10.1); CARBON DIOXIDE 22 MMOL/L (21-32); CHLORIDE 113 MMOL/L (98-107); CREATININE SERUM 0.81 MG/DL (0.60-1.30); GFR ESTIMATED > 60; GLUCOSE 78 MG/DL (70-105); POTASSIUM 3.7 MMOL/L (3.6-5.0); SODIUM 145 MMOL/L (135-145); TOTAL PROTEIN 6.6 GM/DL (6.4-8.2)
[2019-12-04 14:11] LABS: BASOPHILS % (AUTO) 1 % (0-10); EOSINOPHILS # (AUTO) 0.2 10^3/uL (0.0-0.3); EOSINOPHILS % (AUTO) 6 % (0-10); HEMATOCRIT 36 % (35-52); HEMOGLOBIN 11.7 G/DL (11.5-16.0); LYMPHOCYTES # (AUTO) 0.4 X 10^3 (1.0-4.0); LYMPHOCYTES % (AUTO) 13 % (12-44); MEAN CORPUSCULAR HEMOGLOBIN 28 PG (25-34); MEAN CORPUSCULAR HGB CONC 32 G/DL (32-36); MEAN CORPUSCULAR VOLUME 87 FL (80-99); MONOCYTES # (AUTO) 0.3 X 10^3 (0.0-1.0); MONOCYTES % (AUTO) 11 % (0-12); NEUTROPHILS % (AUTO) 69 % (42-75); PLATELET COUNT 155 10^3/uL (130-400); WHITE BLOOD COUNT 2.9 10^3/uL (4.3-11.0)
[~2020-01-01 14:17] MED LIST changes: -GADOBUTROL 10 MMOL/10 ML (GADAVIST) VIAL IV ONE
[2020-01-01 14:28] LABS: BASOPHILS % (AUTO) 1 % (0-10); EOSINOPHILS # (AUTO) 0.2 10^3/uL (0.0-0.3); EOSINOPHILS % (AUTO) 7 % (0-10); HEMATOCRIT 37 % (35-52); HEMOGLOBIN 12.2 G/DL (11.5-16.0); LYMPHOCYTES # (AUTO) 0.4 X 10^3 (1.0-4.0); LYMPHOCYTES % (AUTO) 14 % (12-44); MEAN CORPUSCULAR HEMOGLOBIN 28 PG (25-34); MEAN CORPUSCULAR HGB CONC 33 G/DL (32-36); MEAN CORPUSCULAR VOLUME 87 FL (80-99); MEAN PLATELET VOLUME 10.9 FL (7.4-10.4); MONOCYTES # (AUTO) 0.2 X 10^3 (0.0-1.0); MONOCYTES % (AUTO) 8 % (0-12); NEUTROPHILS # (AUTO) 1.9 X 10^3 (1.8-7.8); NEUTROPHILS % (AUTO) 70 % (42-75); PLATELET COUNT 172 10^3/uL (130-400); WHITE BLOOD COUNT 2.7 10^3/uL (4.3-11.0)
[2020-01-01 14:54] LABS: ALANINE AMINOTRANSFERASE 13 U/L (0-55); ALBUMIN 4.2 GM/DL (3.2-4.5); ALKALINE PHOSPHATASE 103 U/L (40-136); BILIRUBIN,TOTAL 1.1 MG/DL (0.1-1.0); BUN/CREATININE RATIO 20; CALCIUM 9.5 MG/DL (8.5-10.1); CARBON DIOXIDE 25 MMOL/L (21-32); CHLORIDE 111 MMOL/L (98-107); CREATININE SERUM 0.86 MG/DL (0.60-1.30); GFR ESTIMATED > 60; GLUCOSE 89 MG/DL (70-105); SODIUM 144 MMOL/L (135-145)
== END 2020-01-14 | disposition home or self-care (01) ==
LOC: ONC 14:17
PROVIDERS: ATTEND Internal Medicine Hematology & Oncology
DX: C71.0 Malignant neoplasm of cerebrum, except lobes and ventricles (principal); F20.81 Schizophreniform disorder; M25.512 Pain in left shoulder; F79 Unspecified intellectual disabilities; N39.0 Urinary tract infection, site not specified; Z79.899 Other long term (current) drug therapy; Z98.890 Other specified postprocedural states
CPT/HCPCS: 80053; 85025; G0463; 99213

== ENCOUNTER → 2020-02-06 | Outpatient (CLI) | payer MEDICAID ==
[~2020-02-06] MED LIST changes: +GADOBUTROL 10 MMOL/10 ML (GADAVIST) VIAL IV ONE
--- NOTE | 2020-02-06 10:43 | Diagnostic Imaging Report ---
PROCEDURE: MR imaging of the brain with and without contrast. TECHNIQUE: Multiplanar, multisequence MR imaging of the brain was performed with and without contrast. 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 Surveillance imaging. COMPARISON: MRI brain from 10/25/2019, 07/10/2019. FINDINGS: Resection cavity in the left frontal lobe is stable in size and appearance. The surrounding T2/FLAIR hyperintense signal in the left frontal white matter and corpus callosum is similar. However, there do appear to be increased FLAIR hyperintensities in the right frontal white matter which now have a posterior convex margin (best seen on image 18, series 5). No nodular enhancement has developed along the resection cavity. Additionally, there are no satellite nodules of enhancement within the brain. Expected thin linear meningeal enhancement at the resection bed is stable. No restricted diffusion has developed. The pituitary and pineal regions are normal in appearance. Brainstem is unremarkable. No cerebellar tonsillar ectopia. Prominence of the right nasal turbinate is unchanged. Hypoplastic and opacified left maxillary sinus is unchanged. Paranasal sinuses are otherwise clear. Left frontoparietal craniotomy is stable in appearance. IMPRESSION: 1. Left frontal lobe resection cavity is stable in size and configuration and there is no new nodular enhancement. However, there are continued increased T2/FLAIR hyperintensities in the right frontal white matter that may be post-treatment change versus infiltrative tumor as the original tumor was characterized by infiltrative T2 hyperintensities without significant enhancement. Continued attention on surveillance imaging is advised. Dictated by: Dictated on workstation # [id number]
== END ==
LOC: RAD 09:03
PROVIDERS: ATTEND Internal Medicine Hematology & Oncology
DX: C71.1 Malignant neoplasm of frontal lobe (principal); G93.89 Other specified disorders of brain
CPT/HCPCS: 70553

== ENCOUNTER 2020-04-07 12:36 | Outpatient (RCR) | payer MEDICAID ==
[2020-01-31 13:26] LABS: BASOPHILS % (AUTO) 1 % (0-10); EOSINOPHILS # (AUTO) 0.3 10^3/uL (0.0-0.3); EOSINOPHILS % (AUTO) 13 % (0-10); HEMATOCRIT 37 % (35-52); LYMPHOCYTES # (AUTO) 0.3 10^3/uL (1.0-4.0); LYMPHOCYTES % (AUTO) 13 % (12-44); MEAN CORPUSCULAR HEMOGLOBIN 29 pg (25-34); MEAN CORPUSCULAR HGB CONC 32 g/dL (32-36); MEAN CORPUSCULAR VOLUME 89 fL (80-99); MEAN PLATELET VOLUME 10.9 fL (9.0-12.2); MONOCYTES # (AUTO) 0.2 10^3/uL (0.0-1.0); MONOCYTES % (AUTO) 9 % (0-12); NEUTROPHILS # (AUTO) 1.6 10^3/uL (1.8-7.8); NEUTROPHILS % (AUTO) 63 % (42-75); PLATELET COUNT 154 10^3/uL (130-400); WHITE BLOOD COUNT 2.5 10^3/uL (4.3-11.0)
[2020-01-31 13:45] LABS: ALANINE AMINOTRANSFERASE 10 U/L (0-55); ALBUMIN 3.9 GM/DL (3.2-4.5); ALKALINE PHOSPHATASE 101 U/L (40-136); BUN/CREATININE RATIO 24; CALCIUM 8.6 MG/DL (8.5-10.1); CARBON DIOXIDE 25 MMOL/L (21-32); CHLORIDE 110 MMOL/L (98-107); CREATININE SERUM 0.78 MG/DL (0.60-1.30); GFR ESTIMATED > 60; GLUCOSE 72 MG/DL (70-105); SODIUM 144 MMOL/L (135-145); TOTAL PROTEIN 6.8 GM/DL (6.4-8.2)
[2020-03-10 13:53] LABS: BASOPHILS % (AUTO) 1 % (0-10); EOSINOPHILS # (AUTO) 0.2 10^3/uL (0.0-0.3); EOSINOPHILS % (AUTO) 6 % (0-10); HEMATOCRIT 42 % (35-52); HEMOGLOBIN 13.7 g/dL (11.5-16.0); LYMPHOCYTES # (AUTO) 0.5 10^3/uL (1.0-4.0); LYMPHOCYTES % (AUTO) 14 % (12-44); MEAN CORPUSCULAR HEMOGLOBIN 30 pg (25-34); MEAN CORPUSCULAR HGB CONC 33 g/dL (32-36); MEAN CORPUSCULAR VOLUME 89 fL (80-99); MONOCYTES # (AUTO) 0.2 10^3/uL (0.0-1.0); MONOCYTES % (AUTO) 7 % (0-12); NEUTROPHILS # (AUTO) 2.4 10^3/uL (1.8-7.8); NEUTROPHILS % (AUTO) 73 % (42-75); PLATELET COUNT 192 10^3/uL (130-400); WHITE BLOOD COUNT 3.3 10^3/uL (4.3-11.0)
[2020-03-10 14:15] LABS: ALANINE AMINOTRANSFERASE 17 U/L (0-55); ALBUMIN 4.3 GM/DL (3.2-4.5); ALKALINE PHOSPHATASE 106 U/L (40-136); BILIRUBIN,TOTAL 1.2 MG/DL (0.1-1.0); BUN/CREATININE RATIO 28; CALCIUM 9.2 MG/DL (8.5-10.1); CARBON DIOXIDE 27 MMOL/L (21-32); CHLORIDE 106 MMOL/L (98-107); CREATININE SERUM 0.96 MG/DL (0.60-1.30); GFR ESTIMATED > 60; GLUCOSE 105 MG/DL (70-105); POTASSIUM 3.6 MMOL/L (3.6-5.0); SODIUM 144 MMOL/L (135-145); TOTAL PROTEIN 7.3 GM/DL (6.4-8.2)
[~2020-04-07 12:36] MED LIST changes: -GADOBUTROL 10 MMOL/10 ML (GADAVIST) VIAL IV ONE
[2020-04-07 13:12] LABS: BASOPHILS % (AUTO) 2 % (0-10); EOSINOPHILS # (AUTO) 0.2 10^3/uL (0.0-0.3); EOSINOPHILS % (AUTO) 7 % (0-10); HEMATOCRIT 40 % (35-52); HEMOGLOBIN 13.1 g/dL (11.5-16.0); LYMPHOCYTES # (AUTO) 0.4 10^3/uL (1.0-4.0); LYMPHOCYTES % (AUTO) 14 % (12-44); MEAN CORPUSCULAR HEMOGLOBIN 30 pg (25-34); MEAN CORPUSCULAR HGB CONC 33 g/dL (32-36); MEAN CORPUSCULAR VOLUME 90 fL (80-99); MEAN PLATELET VOLUME 10.4 fL (9.0-12.2); MONOCYTES # (AUTO) 0.2 10^3/uL (0.0-1.0); MONOCYTES % (AUTO) 8 % (0-12); NEUTROPHILS # (AUTO) 1.8 10^3/uL (1.8-7.8); NEUTROPHILS % (AUTO) 70 % (42-75); PLATELET COUNT 182 10^3/uL (130-400); WHITE BLOOD COUNT 2.6 10^3/uL (4.3-11.0)
[2020-04-07 13:37] LABS: ALANINE AMINOTRANSFERASE 25 U/L (0-55); ALBUMIN 4.2 GM/DL (3.2-4.5); ALKALINE PHOSPHATASE 107 U/L (40-136); BILIRUBIN,TOTAL 1.1 MG/DL (0.1-1.0); BUN/CREATININE RATIO 24; CALCIUM 9.2 MG/DL (8.5-10.1); CARBON DIOXIDE 28 MMOL/L (21-32); CHLORIDE 103 MMOL/L (98-107); CREATININE SERUM 0.89 MG/DL (0.60-1.30); GFR ESTIMATED > 60; GLUCOSE 77 MG/DL (70-105); POTASSIUM 3.3 MMOL/L (3.6-5.0); SODIUM 142 MMOL/L (135-145); TOTAL PROTEIN 7.1 GM/DL (6.4-8.2)
== END 2020-04-30 | disposition home or self-care (01) ==
LOC: ONC 12:36
PROVIDERS: ATTEND Internal Medicine Hematology & Oncology
DX: C71.0 Malignant neoplasm of cerebrum, except lobes and ventricles (principal); F20.81 Schizophreniform disorder; M25.512 Pain in left shoulder; F79 Unspecified intellectual disabilities; N39.0 Urinary tract infection, site not specified; F20.9 Schizophrenia, unspecified; S41.012A Laceration without foreign body of left shoulder, initial encounter; F41.9 Anxiety disorder, unspecified; D72.819 Decreased white blood cell count, unspecified; Z80.9 Family history of malignant neoplasm, unspecified; Z78.0 Asymptomatic menopausal state; Z79.899 Other long term (current) drug therapy; Z98.890 Other specified postprocedural states
CPT/HCPCS: 80053; 85025; G0463; 99213

== ENCOUNTER 2020-05-05 11:51 | Outpatient (RCR) | payer MEDICAID ==
[2020-05-05 12:10] LABS: BASOPHILS % (AUTO) 1 % (0-10); EOSINOPHILS # (AUTO) 0.2 10^3/uL (0.0-0.3); EOSINOPHILS % (AUTO) 6 % (0-10); HEMATOCRIT 41 % (35-52); HEMOGLOBIN 13.8 g/dL (11.5-16.0); LYMPHOCYTES # (AUTO) 0.3 10^3/uL (1.0-4.0); LYMPHOCYTES % (AUTO) 12 % (12-44); MEAN CORPUSCULAR HEMOGLOBIN 30 pg (25-34); MEAN CORPUSCULAR HGB CONC 33 g/dL (32-36); MEAN CORPUSCULAR VOLUME 90 fL (80-99); MEAN PLATELET VOLUME 10.7 fL (9.0-12.2); MONOCYTES # (AUTO) 0.2 10^3/uL (0.0-1.0); MONOCYTES % (AUTO) 9 % (0-12); NEUTROPHILS # (AUTO) 1.9 10^3/uL (1.8-7.8); NEUTROPHILS % (AUTO) 72 % (42-75); PLATELET COUNT 188 10^3/uL (130-400); WHITE BLOOD COUNT 2.7 10^3/uL (4.3-11.0)
== END 2020-05-23 08:21 | disposition still patient (30) ==
LOC: ONC 11:51
PROVIDERS: ATTEND Internal Medicine Hematology & Oncology
DX: C71.0 Malignant neoplasm of cerebrum, except lobes and ventricles (principal); S41.012A Laceration without foreign body of left shoulder, initial encounter; F20.81 Schizophreniform disorder; F41.9 Anxiety disorder, unspecified; D72.819 Decreased white blood cell count, unspecified; F41.8 Other specified anxiety disorders; Z78.0 Asymptomatic menopausal state; Z79.899 Other long term (current) drug therapy; Z98.890 Other specified postprocedural states; Z92.3 Personal history of irradiation
CPT/HCPCS: 85025

== ENCOUNTER 2020-08-19 10:56 | Outpatient (RCR) | payer MEDICAID ==
[2020-06-03 09:36] LABS: BASOPHILS % (AUTO) 1 % (0-10); EOSINOPHILS # (AUTO) 0.2 10^3/uL (0.0-0.3); EOSINOPHILS % (AUTO) 6 % (0-10); HEMATOCRIT 39 % (35-52); HEMOGLOBIN 12.8 g/dL (11.5-16.0); LYMPHOCYTES # (AUTO) 0.3 10^3/uL (1.0-4.0); LYMPHOCYTES % (AUTO) 12 % (12-44); MEAN CORPUSCULAR HEMOGLOBIN 31 pg (25-34); MEAN CORPUSCULAR HGB CONC 33 g/dL (32-36); MEAN CORPUSCULAR VOLUME 93 fL (80-99); MEAN PLATELET VOLUME 10.4 fL (9.0-12.2); MONOCYTES # (AUTO) 0.2 10^3/uL (0.0-1.0); MONOCYTES % (AUTO) 7 % (0-12); NEUTROPHILS % (AUTO) 74 % (42-75); PLATELET COUNT 167 10^3/uL (130-400); WHITE BLOOD COUNT 2.6 10^3/uL (4.3-11.0)
[2020-06-03 09:57] LABS: ALANINE AMINOTRANSFERASE 19 U/L (0-55); ALBUMIN 4.1 GM/DL (3.2-4.5); ALKALINE PHOSPHATASE 108 U/L (40-136); BILIRUBIN,TOTAL 0.8 MG/DL (0.1-1.0); BUN/CREATININE RATIO 29; CARBON DIOXIDE 24 MMOL/L (21-32); CHLORIDE 107 MMOL/L (98-107); CREATININE SERUM 0.87 MG/DL (0.60-1.30); GFR ESTIMATED > 60; GLUCOSE 79 MG/DL (70-105); POTASSIUM 3.6 MMOL/L (3.6-5.0); SODIUM 144 MMOL/L (135-145)
[2020-07-02 14:03] LABS: BASOPHILS % (AUTO) 1 % (0-10); EOSINOPHILS # (AUTO) 0.1 10^3/uL (0.0-0.3); EOSINOPHILS % (AUTO) 5 % (0-10); HEMATOCRIT 38 % (35-52); HEMOGLOBIN 12.8 g/dL (11.5-16.0); LYMPHOCYTES # (AUTO) 0.4 10^3/uL (1.0-4.0); LYMPHOCYTES % (AUTO) 13 % (12-44); MEAN CORPUSCULAR HEMOGLOBIN 31 pg (25-34); MEAN CORPUSCULAR HGB CONC 34 g/dL (32-36); MEAN CORPUSCULAR VOLUME 91 fL (80-99); MEAN PLATELET VOLUME 10.6 fL (9.0-12.2); MONOCYTES # (AUTO) 0.2 10^3/uL (0.0-1.0); MONOCYTES % (AUTO) 9 % (0-12); NEUTROPHILS % (AUTO) 72 % (42-75); PLATELET COUNT 166 10^3/uL (130-400); WHITE BLOOD COUNT 2.7 10^3/uL (4.3-11.0)
[2020-07-02 14:23] LABS: ALANINE AMINOTRANSFERASE 18 U/L (0-55); ALBUMIN 4.2 GM/DL (3.2-4.5); ALKALINE PHOSPHATASE 107 U/L (40-136); BILIRUBIN,TOTAL 0.8 MG/DL (0.1-1.0); BUN/CREATININE RATIO 25; CALCIUM 9.3 MG/DL (8.5-10.1); CARBON DIOXIDE 25 MMOL/L (21-32); CHLORIDE 107 MMOL/L (98-107); CREATININE SERUM 0.89 MG/DL (0.60-1.30); GFR ESTIMATED > 60; GLUCOSE 79 MG/DL (70-105); POTASSIUM 3.7 MMOL/L (3.6-5.0); SODIUM 145 MMOL/L (135-145); TOTAL PROTEIN 7.3 GM/DL (6.4-8.2)
[2020-07-30 14:08] LABS: BASOPHILS % (AUTO) 1 % (0-10); EOSINOPHILS # (AUTO) 0.2 10^3/uL (0.0-0.3); EOSINOPHILS % (AUTO) 6 % (0-10); HEMATOCRIT 39 % (35-52); HEMOGLOBIN 13.1 g/dL (11.5-16.0); LYMPHOCYTES # (AUTO) 0.4 10^3/uL (1.0-4.0); LYMPHOCYTES % (AUTO) 16 % (12-44); MEAN CORPUSCULAR HEMOGLOBIN 31 pg (25-34); MEAN CORPUSCULAR HGB CONC 33 g/dL (32-36); MEAN CORPUSCULAR VOLUME 91 fL (80-99); MEAN PLATELET VOLUME 10.7 fL (9.0-12.2); MONOCYTES # (AUTO) 0.3 10^3/uL (0.0-1.0); MONOCYTES % (AUTO) 10 % (0-12); NEUTROPHILS # (AUTO) 1.7 10^3/uL (1.8-7.8); NEUTROPHILS % (AUTO) 66 % (42-75); PLATELET COUNT 158 10^3/uL (130-400); WHITE BLOOD COUNT 2.6 10^3/uL (4.3-11.0)
[2020-07-30 14:32] LABS: ALANINE AMINOTRANSFERASE 20 U/L (0-55); ALBUMIN 4.3 GM/DL (3.2-4.5); ALKALINE PHOSPHATASE 112 U/L (40-136); BILIRUBIN,TOTAL 0.9 MG/DL (0.1-1.0); BUN/CREATININE RATIO 23; CALCIUM 9.4 MG/DL (8.5-10.1); CARBON DIOXIDE 23 MMOL/L (21-32); CHLORIDE 106 MMOL/L (98-107); CREATININE SERUM 0.87 MG/DL (0.60-1.30); GFR ESTIMATED > 60; GLUCOSE 74 MG/DL (70-105); POTASSIUM 3.6 MMOL/L (3.6-5.0); SODIUM 143 MMOL/L (135-145); TOTAL PROTEIN 7.5 GM/DL (6.4-8.2)
== END 2020-09-01 | disposition home or self-care (01) ==
LOC: ONC 10:56
PROVIDERS: ATTEND Internal Medicine Hematology & Oncology
DX: C71.0 Malignant neoplasm of cerebrum, except lobes and ventricles (principal); F20.81 Schizophreniform disorder; F79 Unspecified intellectual disabilities; N39.0 Urinary tract infection, site not specified; F42.8 Other obsessive-compulsive disorder; S41.012A Laceration without foreign body of left shoulder, initial encounter; D72.819 Decreased white blood cell count, unspecified; Z80.9 Family history of malignant neoplasm, unspecified; Z78.0 Asymptomatic menopausal state; Z79.899 Other long term (current) drug therapy; Z98.890 Other specified postprocedural states; Z92.3 Personal history of irradiation
CPT/HCPCS: 80053; 85025; G0463; 99213

== ENCOUNTER → 2020-08-26 | Outpatient (CLI) | payer MEDICAID ==
--- NOTE | 2020-08-26 12:33 | Diagnostic Imaging Report ---
EXAM: MRI right foot without contrast. DATE: August 26, 2020. INDICATION: 45-year-old female, ulcer at the volar aspect of the third digit. COMPARISON: None. TECHNIQUE: Multiple noncontrast MRI sequences of the foot were obtained. FINDINGS: There is abnormal signal within the volar soft tissues extending to the skin surface centered in the region of the third metatarsophalangeal joint. The overall extent of abnormal soft tissue signal measures approximately 3.1 x 2.2 cm in short axis and approximately 3.4 cm in proximal to distal extent. The abnormal soft tissue signal encases the third digit flexor tendon and also contacts the fourth metatarsal and fourth proximal phalanx as well as contacts bone in the region of the second metatarsophalangeal joint. The abnormal signal is predominantly low signal and not fluid intensity. There is no cortical or aggressive bone destruction. There is no loss of normal T1 marrow signal. There is no identified marrow edema. There are limitations for assessment of possible neoplasm and for sensitivity to detection of abscess without the use of intravenous contrast. No focal fluid collection is identified. The visualized portions of the peroneal tendons, anterior extensor tendons, and posterior flexor tendons are otherwise unremarkable in appearance. There is no evidence of tenosynovitis. IMPRESSION: 1. Prominent abnormal signal within the soft tissues volarly located centered in the region of the third metatarsophalangeal joint extending to the skin surface with additional extent as described above. This is not of fluid signal intensity to specifically suggest an abscess or other focal fluid collection. This could relate to callus or other inflammatory process. A neoplastic etiology would also be in the differential diagnosis. There are limitations of the study given the lack of post contrast imaging. 2. No evidence of osteomyelitis or other bone marrow signal abnormality. 3. Well-preserved joint spaces and no joint effusion to suggest septic arthritis. 4. Negative for tenosynovitis. Dictated by: Dictated on workstation # [id number]
== END ==
LOC: RAD 10:24
PROVIDERS: ATTEND Podiatrist Foot & Ankle Surgery
DX: L97.519 Non-pressure chronic ulcer of other part of right foot with unspecified severity (principal)

== ENCOUNTER → 2020-10-21 | Outpatient (CLI) | payer MEDICAID ==
[2020-10-21 14:20] LABS: HEMATOCRIT 40 % (35-52); HEMOGLOBIN 13.1 g/dL (11.5-16.0); MEAN CORPUSCULAR HEMOGLOBIN 30 pg (25-34); MEAN CORPUSCULAR HGB CONC 33 g/dL (32-36); MEAN CORPUSCULAR VOLUME 93 fL (80-99); MEAN PLATELET VOLUME 10.6 fL (9.0-12.2); PLATELET COUNT 195 10^3/uL (130-400); WHITE BLOOD COUNT 3.5 10^3/uL (4.3-11.0)
[2020-10-21 14:39] LABS: ALBUMIN 4.4 GM/DL (3.2-4.5); BILIRUBIN,TOTAL 0.8 MG/DL (0.1-1.0); CALCIUM 10.2 MG/DL (8.5-10.1); CREATININE SERUM 1.08 MG/DL (0.60-1.30); TOTAL PROTEIN 7.8 GM/DL (6.4-8.2)
== END ==
LOC: LAB 13:56
PROVIDERS: ATTEND Psychiatry & Neurology Neurology
DX: R56.9 Unspecified convulsions (principal)
CPT/HCPCS: 36415; 80053; 80177; 85027

== ENCOUNTER → 2020-10-21 | Outpatient (CLI) | payer MEDICAID ==
[~2020-10-21] MED LIST changes: +GADOBUTROL 10 MMOL/10 ML (GADAVIST) VIAL IV ONE
--- NOTE | 2020-10-21 17:43 | Diagnostic Imaging Report ---
PROCEDURE: MR imaging of the brain with and without contrast. TECHNIQUE: Multiplanar, multisequence MR imaging of the brain was performed with and without contrast. DATE: October 21, 2020. COMPARISON: MRI brain February 06, 2020. HISTORY: 45-year-old female, history of anaplastic astrocytoma. FINDINGS: There are left sided craniotomy changes. There is a resection cavity in the anterior aspect of the left frontal lobe with adjacent T2 and FLAIR hyperintense signal. There is also T2 and FLAIR hyperintense signal in the right frontal subcortical white matter and periventricular white matter. There is no diffusion restriction. There is thin dural enhancement. There is no nodular masslike contrast enhancement. There is no otherwise noted area of abnormal intracranial enhancement. The ventricles and additional CSF spaces are normal in size and configuration for patient age. There is preservation of normal intracranial flow voids. There are no additional areas of abnormal intracranial signal. There is no midline shift. IMPRESSION: 1. Postoperative related changes of the anterior aspect of the left frontal lobe without clear evidence of residual or recurrent malignancy. There are stable areas of T2 and FLAIR hyperintense signal involving both frontal lobes in the periventricular white matter. 2. No interval acute intracranial abnormality. Dictated by: Dictated on workstation # [id number]
== END ==
LOC: RAD 13:15
PROVIDERS: ATTEND Internal Medicine Hematology & Oncology
DX: C71.9 Malignant neoplasm of brain, unspecified (principal); G40.89 Other seizures
CPT/HCPCS: 70553

== ENCOUNTER 2020-11-26 13:12 | Outpatient (RCR) | payer MEDICAID ==
[2020-09-17 13:36] LABS: BASOPHILS % (AUTO) 1 % (0-10); EOSINOPHILS # (AUTO) 0.1 10^3/uL (0.0-0.3); EOSINOPHILS % (AUTO) 6 % (0-10); HEMATOCRIT 38 % (35-52); HEMOGLOBIN 12.4 g/dL (11.5-16.0); LYMPHOCYTES # (AUTO) 0.5 10^3/uL (1.0-4.0); LYMPHOCYTES % (AUTO) 20 % (12-44); MEAN CORPUSCULAR HEMOGLOBIN 31 pg (25-34); MEAN CORPUSCULAR HGB CONC 33 g/dL (32-36); MEAN CORPUSCULAR VOLUME 94 fL (80-99); MEAN PLATELET VOLUME 11.2 fL (9.0-12.2); MONOCYTES # (AUTO) 0.3 10^3/uL (0.0-1.0); MONOCYTES % (AUTO) 14 % (0-12); NEUTROPHILS # (AUTO) 1.4 10^3/uL (1.8-7.8); NEUTROPHILS % (AUTO) 59 % (42-75); PLATELET COUNT 135 10^3/uL (130-400); WHITE BLOOD COUNT 2.4 10^3/uL (4.3-11.0)
[2020-09-17 14:05] LABS: ALANINE AMINOTRANSFERASE 41 U/L (0-55); ALBUMIN 4.2 GM/DL (3.2-4.5); ALKALINE PHOSPHATASE 112 U/L (40-136); BILIRUBIN,TOTAL 0.9 MG/DL (0.1-1.0); BUN/CREATININE RATIO 30; CALCIUM 9.1 MG/DL (8.5-10.1); CARBON DIOXIDE 29 MMOL/L (21-32); CHLORIDE 105 MMOL/L (98-107); CREATININE SERUM 0.88 MG/DL (0.60-1.30); GFR ESTIMATED > 60; GLUCOSE 72 MG/DL (70-105); SODIUM 142 MMOL/L (135-145); TOTAL PROTEIN 7.2 GM/DL (6.4-8.2)
[2020-10-29 13:02] LABS: BASOPHILS % (AUTO) 1 % (0-10); EOSINOPHILS # (AUTO) 0.2 10^3/uL (0.0-0.3); EOSINOPHILS % (AUTO) 8 % (0-10); HEMATOCRIT 38 % (35-52); HEMOGLOBIN 12.7 g/dL (11.5-16.0); LYMPHOCYTES # (AUTO) 0.4 10^3/uL (1.0-4.0); LYMPHOCYTES % (AUTO) 15 % (12-44); MEAN CORPUSCULAR HEMOGLOBIN 31 pg (25-34); MEAN CORPUSCULAR HGB CONC 34 g/dL (32-36); MEAN CORPUSCULAR VOLUME 92 fL (80-99); MEAN PLATELET VOLUME 10.7 fL (9.0-12.2); MONOCYTES # (AUTO) 0.3 10^3/uL (0.0-1.0); MONOCYTES % (AUTO) 10 % (0-12); NEUTROPHILS # (AUTO) 1.7 10^3/uL (1.8-7.8); NEUTROPHILS % (AUTO) 66 % (42-75); PLATELET COUNT 158 10^3/uL (130-400); WHITE BLOOD COUNT 2.5 10^3/uL (4.3-11.0)
[2020-10-29 13:20] LABS: ALANINE AMINOTRANSFERASE 21 U/L (0-55); ALBUMIN 3.9 GM/DL (3.2-4.5); ALKALINE PHOSPHATASE 107 U/L (40-136); BILIRUBIN,TOTAL 0.9 MG/DL (0.1-1.0); BUN/CREATININE RATIO 27; CALCIUM 9.3 MG/DL (8.5-10.1); CARBON DIOXIDE 28 MMOL/L (21-32); CHLORIDE 107 MMOL/L (98-107); CREATININE SERUM 0.85 MG/DL (0.60-1.30); GFR ESTIMATED > 60; GLUCOSE 89 MG/DL (70-105); POTASSIUM 3.9 MMOL/L (3.6-5.0); SODIUM 142 MMOL/L (135-145); TOTAL PROTEIN 6.7 GM/DL (6.4-8.2)
[~2020-11-26 13:12] MED LIST changes: -GADOBUTROL 10 MMOL/10 ML (GADAVIST) VIAL IV ONE
[2020-11-26 13:40] LABS: BASOPHILS % (AUTO) 1 % (0-10); EOSINOPHILS # (AUTO) 0.2 10^3/uL (0.0-0.3); EOSINOPHILS % (AUTO) 7 % (0-10); HEMATOCRIT 36 % (35-52); HEMOGLOBIN 11.8 g/dL (11.5-16.0); LYMPHOCYTES # (AUTO) 0.4 10^3/uL (1.0-4.0); LYMPHOCYTES % (AUTO) 18 % (12-44); MEAN CORPUSCULAR HEMOGLOBIN 31 pg (25-34); MEAN CORPUSCULAR HGB CONC 33 g/dL (32-36); MEAN CORPUSCULAR VOLUME 93 fL (80-99); MEAN PLATELET VOLUME 10.4 fL (9.0-12.2); MONOCYTES # (AUTO) 0.3 10^3/uL (0.0-1.0); MONOCYTES % (AUTO) 10 % (0-12); NEUTROPHILS # (AUTO) 1.5 10^3/uL (1.8-7.8); NEUTROPHILS % (AUTO) 63 % (42-75); PLATELET COUNT 159 10^3/uL (130-400); WHITE BLOOD COUNT 2.4 10^3/uL (4.3-11.0)
[2020-11-26 13:59] LABS: ALBUMIN 3.8 GM/DL (3.2-4.5); BILIRUBIN,TOTAL 0.6 MG/DL (0.1-1.0); CALCIUM 8.8 MG/DL (8.5-10.1); CREATININE SERUM 0.94 MG/DL (0.60-1.30); POTASSIUM 3.7 MMOL/L (3.6-5.0); TOTAL PROTEIN 6.4 GM/DL (6.4-8.2)
== END 2020-12-16 | disposition home or self-care (01) ==
LOC: ONC 13:12
PROVIDERS: ATTEND Internal Medicine Hematology & Oncology
DX: C71.0 Malignant neoplasm of cerebrum, except lobes and ventricles (principal); F20.81 Schizophreniform disorder; F79 Unspecified intellectual disabilities; N39.0 Urinary tract infection, site not specified; F42.8 Other obsessive-compulsive disorder; L02.611 Cutaneous abscess of right foot; D72.819 Decreased white blood cell count, unspecified; Z80.9 Family history of malignant neoplasm, unspecified; Z78.0 Asymptomatic menopausal state; Z79.899 Other long term (current) drug therapy; Z98.890 Other specified postprocedural states; Z92.3 Personal history of irradiation
CPT/HCPCS: 80053; 85025; G0463; 99213

== ENCOUNTER → 2021-01-28 | Outpatient (CLI) | payer MEDICAID | LOC: WOUNDCARE 08:49 | PROVIDERS: ATTEND Surgery | DX: C71.1 Malignant neoplasm of frontal lobe (principal); L97.512 Non-pressure chronic ulcer of other part of right foot with fat layer exposed; R41.843 Psychomotor deficit | CPT/HCPCS: 11042; A6266; G0463 ==

== ENCOUNTER → 2021-02-03 | Outpatient (CLI) | payer MEDICAID | LOC: WOUNDCARE 14:16 | PROVIDERS: ATTEND Surgery | DX: C71.1 Malignant neoplasm of frontal lobe (principal); L97.512 Non-pressure chronic ulcer of other part of right foot with fat layer exposed; I96 Gangrene, not elsewhere classified; R41.843 Psychomotor deficit | CPT/HCPCS: 11042; G0463 ==

== ENCOUNTER → 2021-02-10 | Outpatient (CLI) | payer MEDICAID | LOC: WOUNDCARE 13:51 | PROVIDERS: ATTEND Surgery | DX: R41.843 Psychomotor deficit (principal); L97.512 Non-pressure chronic ulcer of other part of right foot with fat layer exposed; C71.1 Malignant neoplasm of frontal lobe; I96 Gangrene, not elsewhere classified | CPT/HCPCS: 11042; G0463 ==

== ENCOUNTER → 2021-02-17 | Outpatient (CLI) | payer MEDICAID | LOC: WOUNDCARE 14:11 | PROVIDERS: ATTEND Surgery | DX: L97.512 Non-pressure chronic ulcer of other part of right foot with fat layer exposed (principal); C71.1 Malignant neoplasm of frontal lobe; I96 Gangrene, not elsewhere classified; R41.843 Psychomotor deficit | CPT/HCPCS: 11042; G0463 ==

== ENCOUNTER → 2021-02-24 | Outpatient (CLI) | payer MEDICAID | LOC: WOUNDCARE 14:22 | PROVIDERS: ATTEND Family Medicine | DX: I96 Gangrene, not elsewhere classified (principal); C71.1 Malignant neoplasm of frontal lobe; L97.512 Non-pressure chronic ulcer of other part of right foot with fat layer exposed; M20.41 Other hammer toe(s) (acquired), right foot; R41.843 Psychomotor deficit | CPT/HCPCS: 11042; G0463; L4360 ==

== ENCOUNTER 2021-02-25 12:28 | Outpatient (RCR) | payer MEDICAID ==
[2020-12-24 13:35] LABS: BASOPHILS % (AUTO) 1 % (0-10); EOSINOPHILS # (AUTO) 0.2 10^3/uL (0.0-0.3); EOSINOPHILS % (AUTO) 6 % (0-10); HEMATOCRIT 39 % (35-52); HEMOGLOBIN 13.2 g/dL (11.5-16.0); LYMPHOCYTES # (AUTO) 0.6 10^3/uL (1.0-4.0); LYMPHOCYTES % (AUTO) 19 % (12-44); MEAN CORPUSCULAR HEMOGLOBIN 31 pg (25-34); MEAN CORPUSCULAR HGB CONC 34 g/dL (32-36); MEAN CORPUSCULAR VOLUME 91 fL (80-99); MEAN PLATELET VOLUME 10.7 fL (9.0-12.2); MONOCYTES # (AUTO) 0.4 10^3/uL (0.0-1.0); MONOCYTES % (AUTO) 13 % (0-12); NEUTROPHILS # (AUTO) 2.1 10^3/uL (1.8-7.8); NEUTROPHILS % (AUTO) 61 % (42-75); PLATELET COUNT 200 10^3/uL (130-400); WHITE BLOOD COUNT 3.4 10^3/uL (4.3-11.0)
[2020-12-24 13:58] LABS: ALBUMIN 4.2 GM/DL (3.2-4.5); BILIRUBIN,TOTAL 1.1 MG/DL (0.1-1.0); CREATININE SERUM 0.98 MG/DL (0.60-1.30); POTASSIUM 3.5 MMOL/L (3.6-5.0); TOTAL PROTEIN 7.2 GM/DL (6.4-8.2)
[2021-01-21 14:12] LABS: BASOPHILS % (AUTO) 1 % (0-10); EOSINOPHILS # (AUTO) 0.3 10^3/uL (0.0-0.3); EOSINOPHILS % (AUTO) 9 % (0-10); HEMATOCRIT 40 % (35-52); HEMOGLOBIN 13.1 g/dL (11.5-16.0); LYMPHOCYTES # (AUTO) 0.6 10^3/uL (1.0-4.0); LYMPHOCYTES % (AUTO) 18 % (12-44); MEAN CORPUSCULAR HEMOGLOBIN 31 pg (25-34); MEAN CORPUSCULAR HGB CONC 33 g/dL (32-36); MEAN CORPUSCULAR VOLUME 94 fL (80-99); MEAN PLATELET VOLUME 10.4 fL (9.0-12.2); MONOCYTES # (AUTO) 0.4 10^3/uL (0.0-1.0); MONOCYTES % (AUTO) 13 % (0-12); NEUTROPHILS # (AUTO) 1.9 10^3/uL (1.8-7.8); NEUTROPHILS % (AUTO) 60 % (42-75); PLATELET COUNT 187 10^3/uL (130-400); WHITE BLOOD COUNT 3.2 10^3/uL (4.3-11.0)
[2021-01-21 14:31] LABS: ALBUMIN 4.2 GM/DL (3.2-4.5); BILIRUBIN,TOTAL 1.1 MG/DL (0.1-1.0); CALCIUM 9.8 MG/DL (8.5-10.1); CREATININE SERUM 0.94 MG/DL (0.60-1.30); POTASSIUM 3.4 MMOL/L (3.6-5.0); TOTAL PROTEIN 7.2 GM/DL (6.4-8.2)
[2021-02-25 12:55] LABS: BASOPHILS % (AUTO) 1 % (0-10); EOSINOPHILS # (AUTO) 0.2 10^3/uL (0.0-0.3); EOSINOPHILS % (AUTO) 7 % (0-10); HEMATOCRIT 40 % (35-52); HEMOGLOBIN 13.4 g/dL (11.5-16.0); LYMPHOCYTES # (AUTO) 0.6 10^3/uL (1.0-4.0); LYMPHOCYTES % (AUTO) 21 % (12-44); MEAN CORPUSCULAR HEMOGLOBIN 31 pg (25-34); MEAN CORPUSCULAR HGB CONC 34 g/dL (32-36); MEAN CORPUSCULAR VOLUME 91 fL (80-99); MEAN PLATELET VOLUME 10.6 fL (9.0-12.2); MONOCYTES # (AUTO) 0.3 10^3/uL (0.0-1.0); MONOCYTES % (AUTO) 9 % (0-12); NEUTROPHILS # (AUTO) 1.8 10^3/uL (1.8-7.8); NEUTROPHILS % (AUTO) 62 % (42-75); PLATELET COUNT 174 10^3/uL (130-400); WHITE BLOOD COUNT 2.9 10^3/uL (4.3-11.0)
[2021-02-25 13:15] LABS: ALBUMIN 4.1 GM/DL (3.2-4.5); CALCIUM 9.9 MG/DL (8.5-10.1); CREATININE SERUM 1.11 MG/DL (0.60-1.30); POTASSIUM 3.5 MMOL/L (3.6-5.0); TOTAL PROTEIN 7.4 GM/DL (6.4-8.2)
== END 2021-03-24 | disposition home or self-care (01) ==
LOC: ONC 12:28
PROVIDERS: ATTEND Internal Medicine Hematology & Oncology
DX: C71.0 Malignant neoplasm of cerebrum, except lobes and ventricles (principal); F20.81 Schizophreniform disorder; F79 Unspecified intellectual disabilities; N39.0 Urinary tract infection, site not specified; F42.8 Other obsessive-compulsive disorder; S41.012A Laceration without foreign body of left shoulder, initial encounter; D72.819 Decreased white blood cell count, unspecified; Z80.9 Family history of malignant neoplasm, unspecified; Z78.0 Asymptomatic menopausal state; Z79.899 Other long term (current) drug therapy; Z92.3 Personal history of irradiation
CPT/HCPCS: 80053; 85025; G0463; 99213

== ENCOUNTER → 2021-03-03 | Outpatient (CLI) | payer MEDICAID | LOC: WOUNDCARE 14:19 | PROVIDERS: ATTEND Family Medicine | DX: C71.1 Malignant neoplasm of frontal lobe (principal); L97.512 Non-pressure chronic ulcer of other part of right foot with fat layer exposed; M20.41 Other hammer toe(s) (acquired), right foot; R41.843 Psychomotor deficit | CPT/HCPCS: 11042; A6207; G0463 ==

== ENCOUNTER → 2021-03-10 | Outpatient (CLI) | payer MEDICAID | LOC: WOUNDCARE 14:14 | PROVIDERS: ATTEND Family Medicine | DX: C71.1 Malignant neoplasm of frontal lobe (principal); L97.512 Non-pressure chronic ulcer of other part of right foot with fat layer exposed; M20.41 Other hammer toe(s) (acquired), right foot; L03.115 Cellulitis of right lower limb; F06.4 Anxiety disorder due to known physiological condition; R41.843 Psychomotor deficit | CPT/HCPCS: 11042; G0463 ==

== ENCOUNTER → 2021-03-17 | Outpatient (CLI) | payer MEDICAID | LOC: WOUNDCARE 14:21 | PROVIDERS: ATTEND Family Medicine | DX: C71.1 Malignant neoplasm of frontal lobe (principal); L97.512 Non-pressure chronic ulcer of other part of right foot with fat layer exposed; F06.4 Anxiety disorder due to known physiological condition; R41.843 Psychomotor deficit | CPT/HCPCS: 11042; G0463 ==

== ENCOUNTER → 2021-03-26 | Outpatient (CLI) | payer MEDICAID | LOC: LAB 15:25 | PROVIDERS: ATTEND Family Medicine | DX: L97.512 Non-pressure chronic ulcer of other part of right foot with fat layer exposed (principal); C71.1 Malignant neoplasm of frontal lobe; M20.41 Other hammer toe(s) (acquired), right foot; F06.4 Anxiety disorder due to known physiological condition; R41.843 Psychomotor deficit | CPT/HCPCS: 36415; 85652; 86141 ==

== ENCOUNTER → 2021-03-26 | Outpatient (CLI) | payer MEDICAID | LOC: WOUNDCARE 14:22 | PROVIDERS: ATTEND Family Medicine | DX: C71.1 Malignant neoplasm of frontal lobe (principal); I96 Gangrene, not elsewhere classified; L97.512 Non-pressure chronic ulcer of other part of right foot with fat layer exposed; M20.41 Other hammer toe(s) (acquired), right foot; F06.4 Anxiety disorder due to known physiological condition; R41.843 Psychomotor deficit | CPT/HCPCS: A6021; G0463; 99212 ==

== ENCOUNTER → 2021-03-31 | Outpatient (CLI) | payer MEDICAID | LOC: WOUNDCARE 14:19 | PROVIDERS: ATTEND Family Medicine | DX: L97.512 Non-pressure chronic ulcer of other part of right foot with fat layer exposed (principal); C71.1 Malignant neoplasm of frontal lobe; M20.41 Other hammer toe(s) (acquired), right foot; F06.4 Anxiety disorder due to known physiological condition; I96 Gangrene, not elsewhere classified; R41.843 Psychomotor deficit | CPT/HCPCS: 99212 ==

== ENCOUNTER → 2021-03-31 | Outpatient (CLI) | payer MEDICAID ==
[2021-03-31 15:46] LABS: CREATININE SERUM 0.81 MG/DL (0.60-1.30)
== END ==
LOC: LAB 14:58
PROVIDERS: ATTEND Family Medicine
DX: L97.512 Non-pressure chronic ulcer of other part of right foot with fat layer exposed (principal); C71.1 Malignant neoplasm of frontal lobe; M20.41 Other hammer toe(s) (acquired), right foot; F06.4 Anxiety disorder due to known physiological condition; R41.843 Psychomotor deficit
CPT/HCPCS: 36415; 82565; 84520

== ENCOUNTER → 2021-04-07 | Outpatient (CLI) | payer MEDICAID | LOC: WOUNDCARE 13:15 | PROVIDERS: ATTEND Family Medicine | DX: C71.1 Malignant neoplasm of frontal lobe (principal); I96 Gangrene, not elsewhere classified; L97.512 Non-pressure chronic ulcer of other part of right foot with fat layer exposed; M20.41 Other hammer toe(s) (acquired), right foot; F06.4 Anxiety disorder due to known physiological condition; R41.843 Psychomotor deficit | CPT/HCPCS: 11042; A6207; G0463 ==

== ENCOUNTER 2021-04-08 12:38 | Outpatient (RCR) | payer MEDICAID ==
[2021-04-08 13:10] LABS: BASOPHILS % (AUTO) 1 % (0-10); EOSINOPHILS # (AUTO) 0.2 10^3/uL (0.0-0.3); EOSINOPHILS % (AUTO) 6 % (0-10); HEMATOCRIT 39 % (35-52); HEMOGLOBIN 13.1 g/dL (11.5-16.0); LYMPHOCYTES # (AUTO) 0.7 10^3/uL (1.0-4.0); LYMPHOCYTES % (AUTO) 26 % (12-44); MEAN CORPUSCULAR HEMOGLOBIN 31 pg (25-34); MEAN CORPUSCULAR HGB CONC 34 g/dL (32-36); MEAN CORPUSCULAR VOLUME 91 fL (80-99); MEAN PLATELET VOLUME 10.4 fL (9.0-12.2); MONOCYTES # (AUTO) 0.3 10^3/uL (0.0-1.0); MONOCYTES % (AUTO) 10 % (0-12); NEUTROPHILS # (AUTO) 1.5 10^3/uL (1.8-7.8); NEUTROPHILS % (AUTO) 58 % (42-75); PLATELET COUNT 156 10^3/uL (130-400); WHITE BLOOD COUNT 2.6 10^3/uL (4.3-11.0)
[2021-04-08 13:28] LABS: BILIRUBIN,TOTAL 1.1 MG/DL (0.1-1.0); CALCIUM 9.3 MG/DL (8.5-10.1); CREATININE SERUM 0.96 MG/DL (0.60-1.30); POTASSIUM 3.1 MMOL/L (3.6-5.0); TOTAL PROTEIN 7.1 GM/DL (6.4-8.2)
== END 2021-05-08 | disposition home or self-care (01) ==
LOC: ONC 12:38
PROVIDERS: ATTEND Internal Medicine Hematology & Oncology
DX: C71.1 Malignant neoplasm of frontal lobe (principal); F20.81 Schizophreniform disorder; F79 Unspecified intellectual disabilities; N39.0 Urinary tract infection, site not specified; F42.8 Other obsessive-compulsive disorder; S41.012A Laceration without foreign body of left shoulder, initial encounter; D72.819 Decreased white blood cell count, unspecified; E66.9 Obesity, unspecified; Z80.9 Family history of malignant neoplasm, unspecified; Z78.0 Asymptomatic menopausal state; Z79.899 Other long term (current) drug therapy; Z92.3 Personal history of irradiation
CPT/HCPCS: 80053; 85025; G0463; 99213

== ENCOUNTER → 2021-04-09 | Outpatient (CLI) | payer MEDICAID | LOC: RAD 12:27 | PROVIDERS: ATTEND Family Medicine | DX: Z53.9 Procedure and treatment not carried out, unspecified reason (principal) ==

== ENCOUNTER → 2021-04-09 | Outpatient (CLI) | payer MEDICAID ==
[~2021-04-09] MED LIST changes: +GADOTERATE 0.5 MMOL/ML (CLARISCAN) 20 ML VIAL IV ONE
--- NOTE | 2021-04-09 15:48 | Diagnostic Imaging Report ---
PROCEDURE: MR imaging of the brain with and without contrast. TECHNIQUE: Multiplanar, multisequence MR imaging of the brain was performed with and without contrast. INDICATION: Malignant neoplasm of brain. COMPARISON: Exam is compared with study 10/21/2020. FINDINGS: Postsurgical left frontal cystic cavity and regional gliosis are unchanged. Along its margins, there is very stable mild thin enhancement. No nodularity or soft tissue mass. No resultant mass effect. Periventricular white matter T2 hyperintensity likely on a post-treatment basis is also stable. Ventricular calibers and morphologies are stable. Basilar cisterns are patent. No shift or herniation. No new or suspicious area of enhancement following contrast. Orbital contents and paranasal sinuses are clear. Surgical changes to the left frontal calvarium, chronic. IMPRESSION: Stable post-therapeutic changes to the brain. No evidence for infarct, hemorrhage, or findings suggestive of neoplastic recurrence. Dictated by: Dictated on workstation # [id number]
--- NOTE | 2021-04-09 15:55 | Diagnostic Imaging Report ---
Exam: MRI right foot without and with intravenous contrast. Date: April 09, 2021. Indication: 45-year-old female, unhealed wound at the level of the volar aspect of the foot. Comparison: MRI right foot August 26, 2020. Technique: Multiple pre and postcontrast MR sequences of the foot were obtained. Findings: The Lisfranc ligament proper is intact. There is a peripherally enhancing focus with central low signal measuring 2.2 x 1.4 cm in short axis and 2.7 cm in proximal to distal extent volarly located directly abutting the third digit flexor tendon which appears to be intact and without clear evidence of tenosynovitis. The soft tissue enhancement directly abuts the bones near the third and fourth metatarsophalangeal joints. There is no identified clear T1 marrow signal loss or bone destruction. There is no abnormal marrow edema or enhancement or findings to specifically suggest osteomyelitis. There is no fatty muscle atrophy. The joint spaces are well preserved. There is no joint effusion. Impression: 1. Abnormal masslike area of central low signal with peripheral enhancement volarly located centered near the level of the third digit flexor tendons in the region of the third metatarsophalangeal joint, concerning for an abscess measuring 2.2 x 1.4 x 2.7 cm in size. There is direct contact of the third digit flexor tendons without clear abnormal fluid in the tendon sheath to specifically suggest tenosynovitis. 2. There is soft tissue enhancement directly contacting bones near the third and fourth metatarsophalangeal joint although without evidence of osteomyelitis. 3. No evidence of septic arthritis. Dictated by: Dictated on workstation # [id number]
== END ==
LOC: RAD 12:30
PROVIDERS: ATTEND Internal Medicine Hematology & Oncology
DX: C71.9 Malignant neoplasm of brain, unspecified (principal); S91.301A Unspecified open wound, right foot, initial encounter; X58.XXXA Exposure to other specified factors, initial encounter
CPT/HCPCS: 70553; 73720

== ENCOUNTER → 2021-04-09 | Outpatient (CLI) | payer MEDICAID ==
[~2021-04-09] MED LIST changes: -GADOTERATE 0.5 MMOL/ML (CLARISCAN) 20 ML VIAL IV ONE
== END ==
LOC: WOUNDCARE 13:57
PROVIDERS: ATTEND Family Medicine
DX: C71.1 Malignant neoplasm of frontal lobe (principal); L97.512 Non-pressure chronic ulcer of other part of right foot with fat layer exposed; M20.41 Other hammer toe(s) (acquired), right foot; F06.4 Anxiety disorder due to known physiological condition; R41.843 Psychomotor deficit
CPT/HCPCS: 29445; A6207; G0463

== ENCOUNTER → 2021-04-15 | Outpatient (CLI) | payer MEDICAID | LOC: WOUNDCARE 13:55 | PROVIDERS: ATTEND Family Medicine | DX: L97.512 Non-pressure chronic ulcer of other part of right foot with fat layer exposed (principal); C71.1 Malignant neoplasm of frontal lobe; M20.41 Other hammer toe(s) (acquired), right foot; F06.4 Anxiety disorder due to known physiological condition; M65.072 Abscess of tendon sheath, left ankle and foot; I96 Gangrene, not elsewhere classified; R41.843 Psychomotor deficit | CPT/HCPCS: 29445; G0463 ==

== ENCOUNTER → 2021-04-21 | Outpatient (CLI) | payer MEDICAID | LOC: WOUNDCARE 12:55 | PROVIDERS: ATTEND Family Medicine | DX: C71.1 Malignant neoplasm of frontal lobe (principal); M20.41 Other hammer toe(s) (acquired), right foot; F06.4 Anxiety disorder due to known physiological condition; M65.071 Abscess of tendon sheath, right ankle and foot; R41.843 Psychomotor deficit | CPT/HCPCS: 99212 ==

== ENCOUNTER 2021-05-18 14:22 | Outpatient (RCR) | payer MEDICAID ==
[2021-05-18 14:32] LABS: BASOPHILS % (AUTO) 1 % (0-10); EOSINOPHILS # (AUTO) 0.1 10^3/uL (0.0-0.3); EOSINOPHILS % (AUTO) 3 % (0-10); HEMATOCRIT 41 % (35-52); HEMOGLOBIN 13.5 g/dL (11.5-16.0); LYMPHOCYTES # (AUTO) 1.2 10^3/uL (1.0-4.0); LYMPHOCYTES % (AUTO) 29 % (12-44); MEAN CORPUSCULAR HEMOGLOBIN 30 pg (25-34); MEAN CORPUSCULAR HGB CONC 33 g/dL (32-36); MEAN CORPUSCULAR VOLUME 92 fL (80-99); MEAN PLATELET VOLUME 10.2 fL (9.0-12.2); MONOCYTES # (AUTO) 0.4 10^3/uL (0.0-1.0); MONOCYTES % (AUTO) 9 % (0-12); NEUTROPHILS # (AUTO) 2.5 10^3/uL (1.8-7.8); NEUTROPHILS % (AUTO) 59 % (42-75); PLATELET COUNT 168 10^3/uL (130-400); WHITE BLOOD COUNT 4.2 10^3/uL (4.3-11.0)
[2021-05-18 15:05] LABS: ALBUMIN 4.2 GM/DL (3.2-4.5); BILIRUBIN,TOTAL 0.9 MG/DL (0.1-1.0); CALCIUM 9.3 MG/DL (8.5-10.1); CREATININE SERUM 1.09 MG/DL (0.60-1.30); POTASSIUM 3.1 MMOL/L (3.6-5.0); TOTAL PROTEIN 7.3 GM/DL (6.4-8.2)
== END 2021-06-08 | disposition home or self-care (01) ==
LOC: ONC 14:22
PROVIDERS: ATTEND Internal Medicine Hematology & Oncology
DX: C71.1 Malignant neoplasm of frontal lobe (principal); F20.9 Schizophrenia, unspecified; N39.0 Urinary tract infection, site not specified; S41.012A Laceration without foreign body of left shoulder, initial encounter; D72.819 Decreased white blood cell count, unspecified; E66.9 Obesity, unspecified; Z80.9 Family history of malignant neoplasm, unspecified; Z78.0 Asymptomatic menopausal state; Z79.899 Other long term (current) drug therapy; Z92.3 Personal history of irradiation
CPT/HCPCS: 80053; 85025; G0463; 99213

== ENCOUNTER 2021-06-18 13:44 | Outpatient (RCR) | payer MEDICAID ==
[2021-06-18 13:57] LABS: BASOPHILS % (AUTO) 1 % (0-10); EOSINOPHILS # (AUTO) 0.2 10^3/uL (0.0-0.3); EOSINOPHILS % (AUTO) 6 % (0-10); HEMATOCRIT 40 % (35-52); HEMOGLOBIN 13.2 g/dL (11.5-16.0); LYMPHOCYTES % (AUTO) 33 % (12-44); MEAN CORPUSCULAR HEMOGLOBIN 30 pg (25-34); MEAN CORPUSCULAR HGB CONC 33 g/dL (32-36); MEAN CORPUSCULAR VOLUME 91 fL (80-99); MEAN PLATELET VOLUME 10.7 fL (9.0-12.2); MONOCYTES # (AUTO) 0.3 10^3/uL (0.0-1.0); MONOCYTES % (AUTO) 10 % (0-12); NEUTROPHILS # (AUTO) 1.6 10^3/uL (1.8-7.8); NEUTROPHILS % (AUTO) 51 % (42-75); PLATELET COUNT 156 10^3/uL (130-400); WHITE BLOOD COUNT 3.1 10^3/uL (4.3-11.0)
[2021-06-18 14:16] LABS: ALBUMIN 4.2 GM/DL (3.2-4.5); BILIRUBIN,TOTAL 1.4 MG/DL (0.1-1.0); CALCIUM 9.5 MG/DL (8.5-10.1); CREATININE SERUM 1.12 MG/DL (0.60-1.30); POTASSIUM 3.2 MMOL/L (3.6-5.0); TOTAL PROTEIN 7.8 GM/DL (6.4-8.2)
== END 2021-07-06 | disposition home or self-care (01) ==
LOC: ONC 13:44
PROVIDERS: ATTEND Internal Medicine Hematology & Oncology
DX: C71.1 Malignant neoplasm of frontal lobe (principal); F20.9 Schizophrenia, unspecified; N39.0 Urinary tract infection, site not specified; S41.012A Laceration without foreign body of left shoulder, initial encounter; D72.819 Decreased white blood cell count, unspecified; E66.9 Obesity, unspecified; F41.8 Other specified anxiety disorders; Z80.9 Family history of malignant neoplasm, unspecified; Z78.0 Asymptomatic menopausal state; Z79.899 Other long term (current) drug therapy; Z92.3 Personal history of irradiation
CPT/HCPCS: 80053; 85025; G0463; 36415; 99213

== ENCOUNTER 2021-07-13 10:42 | Outpatient (RCR) | payer MEDICAID ==
[2021-07-13 10:54] LABS: BASOPHILS % (AUTO) 1 % (0-10); EOSINOPHILS # (AUTO) 0.1 10^3/uL (0.0-0.3); EOSINOPHILS % (AUTO) 4 % (0-10); HEMATOCRIT 40 % (35-52); HEMOGLOBIN 13.1 g/dL (11.5-16.0); LYMPHOCYTES # (AUTO) 1.1 10^3/uL (1.0-4.0); LYMPHOCYTES % (AUTO) 33 % (12-44); MEAN CORPUSCULAR HEMOGLOBIN 30 pg (25-34); MEAN CORPUSCULAR HGB CONC 33 g/dL (32-36); MEAN CORPUSCULAR VOLUME 93 fL (80-99); MEAN PLATELET VOLUME 10.6 fL (9.0-12.2); MONOCYTES # (AUTO) 0.3 10^3/uL (0.0-1.0); MONOCYTES % (AUTO) 9 % (0-12); NEUTROPHILS # (AUTO) 1.8 10^3/uL (1.8-7.8); NEUTROPHILS % (AUTO) 54 % (42-75); PLATELET COUNT 155 10^3/uL (130-400); WHITE BLOOD COUNT 3.4 10^3/uL (4.3-11.0)
[2021-07-13 11:19] LABS: ALBUMIN 4.2 GM/DL (3.2-4.5); BILIRUBIN,TOTAL 0.9 MG/DL (0.1-1.0); CALCIUM 9.3 MG/DL (8.5-10.1); CREATININE SERUM 1.18 MG/DL (0.60-1.30); POTASSIUM 3.5 MMOL/L (3.6-5.0); TOTAL PROTEIN 7.4 GM/DL (6.4-8.2)
== END 2021-08-06 09:52 | disposition home or self-care (01) ==
LOC: ONC 10:42
PROVIDERS: ATTEND Internal Medicine Hematology & Oncology
DX: Z45.2 Encounter for adjustment and management of vascular access device (principal); C71.1 Malignant neoplasm of frontal lobe; F20.9 Schizophrenia, unspecified; N39.0 Urinary tract infection, site not specified; S41.012A Laceration without foreign body of left shoulder, initial encounter; D72.819 Decreased white blood cell count, unspecified; E66.9 Obesity, unspecified; F41.8 Other specified anxiety disorders; Z80.9 Family history of malignant neoplasm, unspecified; Z78.0 Asymptomatic menopausal state; Z79.899 Other long term (current) drug therapy; Z92.3 Personal history of irradiation
CPT/HCPCS: 80053; 85025; G0463; 36415; 99213

== ENCOUNTER 2021-08-10 12:58 | Outpatient (RCR) | payer MEDICAID ==
[2021-08-10 13:16] LABS: BASOPHILS % (AUTO) 1 % (0-10); EOSINOPHILS # (AUTO) 0.2 10^3/uL (0.0-0.3); EOSINOPHILS % (AUTO) 7 % (0-10); HEMATOCRIT 39 % (35-52); HEMOGLOBIN 12.9 g/dL (11.5-16.0); LYMPHOCYTES # (AUTO) 0.7 10^3/uL (1.0-4.0); LYMPHOCYTES % (AUTO) 27 % (12-44); MEAN CORPUSCULAR HEMOGLOBIN 31 pg (25-34); MEAN CORPUSCULAR HGB CONC 33 g/dL (32-36); MEAN CORPUSCULAR VOLUME 93 fL (80-99); MEAN PLATELET VOLUME 11.1 fL (9.0-12.2); MONOCYTES # (AUTO) 0.3 10^3/uL (0.0-1.0); MONOCYTES % (AUTO) 11 % (0-12); NEUTROPHILS # (AUTO) 1.4 10^3/uL (1.8-7.8); NEUTROPHILS % (AUTO) 53 % (42-75); PLATELET COUNT 154 10^3/uL (130-400); WHITE BLOOD COUNT 2.6 10^3/uL (4.3-11.0)
[2021-08-10 13:37] LABS: ALBUMIN 4.2 GM/DL (3.2-4.5); BILIRUBIN,TOTAL 1.3 MG/DL (0.1-1.0); CALCIUM 9.5 MG/DL (8.5-10.1); CREATININE SERUM 1.06 MG/DL (0.60-1.30); POTASSIUM 3.4 MMOL/L (3.6-5.0); TOTAL PROTEIN 7.2 GM/DL (6.4-8.2)
== END 2021-09-05 | disposition home or self-care (01) ==
LOC: ONC 12:58
PROVIDERS: ATTEND Internal Medicine Hematology & Oncology
DX: C71.1 Malignant neoplasm of frontal lobe (principal); F20.9 Schizophrenia, unspecified; N39.0 Urinary tract infection, site not specified; S41.012A Laceration without foreign body of left shoulder, initial encounter; D72.819 Decreased white blood cell count, unspecified; E66.9 Obesity, unspecified; F41.8 Other specified anxiety disorders; Z80.9 Family history of malignant neoplasm, unspecified; Z78.0 Asymptomatic menopausal state; Z79.899 Other long term (current) drug therapy; Z92.3 Personal history of irradiation
CPT/HCPCS: 80053; 85025; G0463; 36415; 99213

== ENCOUNTER 2021-09-14 13:16 | Outpatient (RCR) | payer MEDICAID ==
[2021-09-14 13:28] LABS: BASOPHILS % (AUTO) 1 % (0-10); EOSINOPHILS # (AUTO) 0.3 10^3/uL (0.0-0.3); EOSINOPHILS % (AUTO) 7 % (0-10); HEMATOCRIT 38 % (35-52); LYMPHOCYTES # (AUTO) 0.9 10^3/uL (1.0-4.0); LYMPHOCYTES % (AUTO) 21 % (12-44); MEAN CORPUSCULAR HEMOGLOBIN 31 pg (25-34); MEAN CORPUSCULAR HGB CONC 34 g/dL (32-36); MEAN CORPUSCULAR VOLUME 90 fL (80-99); MEAN PLATELET VOLUME 10.4 fL (9.0-12.2); MONOCYTES # (AUTO) 0.4 10^3/uL (0.0-1.0); MONOCYTES % (AUTO) 11 % (0-12); NEUTROPHILS # (AUTO) 2.6 10^3/uL (1.8-7.8); NEUTROPHILS % (AUTO) 62 % (42-75); PLATELET COUNT 179 10^3/uL (130-400); WHITE BLOOD COUNT 4.2 10^3/uL (4.3-11.0)
[2021-09-14 13:41] LABS: ALBUMIN 4.3 GM/DL (3.2-4.5)
[2021-09-14 13:42] LABS: POTASSIUM 3.2 MMOL/L (3.6-5.0)
[2021-09-14 13:43] LABS: CALCIUM 9.6 MG/DL (8.5-10.1)
[2021-09-14 13:44] LABS: TOTAL PROTEIN 7.5 GM/DL (6.4-8.2)
[2021-09-14 13:48] LABS: CREATININE SERUM 1.07 MG/DL (0.60-1.30)
== END 2021-10-06 | disposition home or self-care (01) ==
LOC: ONC 13:16
PROVIDERS: ATTEND Internal Medicine Hematology & Oncology
DX: C71.9 Malignant neoplasm of brain, unspecified (principal); Z98.890 Other specified postprocedural states
CPT/HCPCS: 80053; 85025; G0463; 36415; 99213

== ENCOUNTER 2021-10-26 12:41 | Outpatient (RCR) | payer MEDICAID ==
[2021-10-26 13:25] LABS: BASOPHILS % (AUTO) 1 % (0-10); EOSINOPHILS # (AUTO) 0.2 10^3/uL (0.0-0.3); EOSINOPHILS % (AUTO) 7 % (0-10); HEMATOCRIT 40 % (35-52); HEMOGLOBIN 13.2 g/dL (11.5-16.0); LYMPHOCYTES # (AUTO) 0.8 10^3/uL (1.0-4.0); LYMPHOCYTES % (AUTO) 27 % (12-44); MEAN CORPUSCULAR HEMOGLOBIN 31 pg (25-34); MEAN CORPUSCULAR HGB CONC 33 g/dL (32-36); MEAN CORPUSCULAR VOLUME 92 fL (80-99); MEAN PLATELET VOLUME 10.8 fL (9.0-12.2); MONOCYTES # (AUTO) 0.3 10^3/uL (0.0-1.0); MONOCYTES % (AUTO) 9 % (0-12); NEUTROPHILS # (AUTO) 1.7 10^3/uL (1.8-7.8); NEUTROPHILS % (AUTO) 57 % (42-75); PLATELET COUNT 129 10^3/uL (130-400); WHITE BLOOD COUNT 2.9 10^3/uL (4.3-11.0)
[2021-10-26 13:42] LABS: ALBUMIN 4.4 GM/DL (3.2-4.5); BILIRUBIN,TOTAL 1.1 MG/DL (0.1-1.0); CALCIUM 9.8 MG/DL (8.5-10.1); CREATININE SERUM 1.04 MG/DL (0.60-1.30); POTASSIUM 3.5 MMOL/L (3.6-5.0); TOTAL PROTEIN 7.7 GM/DL (6.4-8.2)
== END 2021-11-05 | disposition home or self-care (01) ==
LOC: ONC 12:41
PROVIDERS: ATTEND Internal Medicine Hematology & Oncology
DX: C71.9 Malignant neoplasm of brain, unspecified (principal); F41.8 Other specified anxiety disorders; E66.9 Obesity, unspecified; D72.819 Decreased white blood cell count, unspecified; Z98.890 Other specified postprocedural states
CPT/HCPCS: 80053; 85025; G0463; 36415; 99213

== ENCOUNTER 2021-11-25 14:03 | Outpatient (RCR) | payer MEDICAID | END 2021-12-06 | disposition home or self-care (01) | LOC: ONC 14:03 | PROVIDERS: ATTEND Internal Medicine Hematology & Oncology | DX: C71.9 Malignant neoplasm of brain, unspecified (principal); F20.9 Schizophrenia, unspecified; D72.819 Decreased white blood cell count, unspecified; E66.9 Obesity, unspecified; Z92.3 Personal history of irradiation | CPT/HCPCS: 99213 ==

== ENCOUNTER 2021-12-25 13:43 | Outpatient (RCR) | payer MEDICAID ==
[2021-12-25 13:55] LABS: BASOPHILS % (AUTO) 0 % (0-10); EOSINOPHILS # (AUTO) 0.1 10^3/uL (0.0-0.3); EOSINOPHILS % (AUTO) 2 % (0-10); HEMATOCRIT 38 % (35-52); HEMOGLOBIN 12.7 g/dL (11.5-16.0); LYMPHOCYTES # (AUTO) 0.7 10^3/uL (1.0-4.0); LYMPHOCYTES % (AUTO) 22 % (12-44); MEAN CORPUSCULAR HEMOGLOBIN 31 pg (25-34); MEAN CORPUSCULAR HGB CONC 33 g/dL (32-36); MEAN CORPUSCULAR VOLUME 93 fL (80-99); MEAN PLATELET VOLUME 10.8 fL (9.0-12.2); MONOCYTES # (AUTO) 0.2 10^3/uL (0.0-1.0); MONOCYTES % (AUTO) 7 % (0-12); NEUTROPHILS # (AUTO) 2.1 10^3/uL (1.8-7.8); NEUTROPHILS % (AUTO) 68 % (42-75); PLATELET COUNT 151 10^3/uL (130-400); WHITE BLOOD COUNT 3.1 10^3/uL (4.3-11.0)
[2021-12-25 14:13] LABS: ALBUMIN 4.3 GM/DL (3.2-4.5); BILIRUBIN,TOTAL 1.1 MG/DL (0.1-1.0); CALCIUM 9.6 MG/DL (8.5-10.1); CREATININE SERUM 1.06 MG/DL (0.60-1.30); POTASSIUM 3.4 MMOL/L (3.6-5.0); TOTAL PROTEIN 7.4 GM/DL (6.4-8.2)
== END 2022-01-06 | disposition home or self-care (01) ==
LOC: ONC 13:43
PROVIDERS: ATTEND Internal Medicine Hematology & Oncology
DX: C71.9 Malignant neoplasm of brain, unspecified (principal); F20.9 Schizophrenia, unspecified; D72.819 Decreased white blood cell count, unspecified; E66.9 Obesity, unspecified; F41.8 Other specified anxiety disorders; Z92.3 Personal history of irradiation
CPT/HCPCS: 80053; 85025; G0463; 36415; 99213

== ENCOUNTER 2022-02-26 13:16 | Outpatient (RCR) | payer MEDICAID ==
[2022-02-26 14:05] LABS: BASOPHILS % (AUTO) 0 % (0-10); EOSINOPHILS # (AUTO) 0.1 10^3/uL (0.0-0.3); EOSINOPHILS % (AUTO) 4 % (0-10); HEMATOCRIT 37 % (35-52); HEMOGLOBIN 12.5 g/dL (11.5-16.0); LYMPHOCYTES # (AUTO) 0.9 X 10^3 (1.0-4.0); LYMPHOCYTES % (AUTO) 32 % (12-44); MEAN CORPUSCULAR HEMOGLOBIN 32 pg (25-34); MEAN CORPUSCULAR HGB CONC 34 g/dL (32-36); MEAN CORPUSCULAR VOLUME 93 fL (80-99); MEAN PLATELET VOLUME 10.7 fL (9.0-12.2); MONOCYTES # (AUTO) 0.2 X 10^3 (0.0-1.0); MONOCYTES % (AUTO) 8 % (0-12); NEUTROPHILS # (AUTO) 1.6 X 10^3 (1.8-7.8); NEUTROPHILS % (AUTO) 56 % (42-75); PLATELET COUNT 133 10^3/uL (130-400); WHITE BLOOD COUNT 2.9 10^3/uL (4.3-11.0)
[2022-02-26 14:18] LABS: ALBUMIN 4.1 GM/DL (3.2-4.5); POTASSIUM 3.5 MMOL/L (3.6-5.0)
[2022-02-26 14:19] LABS: CALCIUM 9.4 MG/DL (8.5-10.1)
[2022-02-26 14:20] LABS: TOTAL PROTEIN 7.1 GM/DL (6.4-8.2)
[2022-02-26 14:22] LABS: BILIRUBIN,TOTAL 0.9 MG/DL (0.1-1.0)
[2022-02-26 14:24] LABS: CREATININE SERUM 0.93 MG/DL (0.60-1.30)
== END 2022-03-08 | disposition home or self-care (01) ==
LOC: ONC 13:16
PROVIDERS: ATTEND Internal Medicine Hematology & Oncology
DX: C71.9 Malignant neoplasm of brain, unspecified (principal); F20.9 Schizophrenia, unspecified; D72.819 Decreased white blood cell count, unspecified; E66.9 Obesity, unspecified; F41.8 Other specified anxiety disorders; Z92.3 Personal history of irradiation
CPT/HCPCS: 80053; 85025; G0463; 36415; 99213

== ENCOUNTER → 2022-04-21 | Outpatient (CLI) | payer MEDICAID ==
[~2022-04-21] MED LIST changes: +GADOTERATE 0.5 MMOL/ML (CLARISCAN) 20 ML VIAL IV ONE
--- NOTE | 2022-04-21 15:01 | Diagnostic Imaging Report ---
PROCEDURE: MR imaging of the brain with and without contrast. TECHNIQUE: Multiplanar, multisequence MR imaging of the brain was performed with and without contrast. INDICATION: Astrocytoma. COMPARISON: MRI brain without and with IV contrast from 04/09/2021. FINDINGS: Stable large resection bed in the left frontal lobe underlying a craniotomy. The surrounding T2 hyperintensities in the left frontal lobe, corpus callosum and right frontal lobe are stable compared to the prior exam. Mild linear enhancement about the resection bed is stable compared to the prior exam. No new or nodular-appearing enhancement is identified. No restricted water diffusion. No evidence of acute hemorrhage. Normal morphology of the major midline structures, sella, posterior fossa and cerebellopontine angle. Normal intracranial flow voids. No hydrocephalus or extra-axial fluid collections. The orbits are negative. Complete opacification of the left maxillary sinus is stable. The mastoids are clear. IMPRESSION: 1. Stable postoperative changes in the left frontal lobe and adjacent T2 hyperintensities. Stable degree of surrounding T2 hyperintensities with no suspicious enhancement. 2. No acute intracranial MRI findings. Dictated by: Dictated on workstation # [id number]
== END ==
LOC: RAD 12:25
PROVIDERS: ATTEND Internal Medicine Hematology & Oncology
DX: C71.9 Malignant neoplasm of brain, unspecified (principal); G40.89 Other seizures
CPT/HCPCS: 70553

== ENCOUNTER 2022-04-23 10:30 | Outpatient (RCR) | payer MEDICAID ==
[~2022-04-23 10:30] MED LIST changes: -GADOTERATE 0.5 MMOL/ML (CLARISCAN) 20 ML VIAL IV ONE
== END 2022-05-08 | disposition home or self-care (01) ==
LOC: ONC 10:30
PROVIDERS: ATTEND Internal Medicine Hematology & Oncology
DX: C71.9 Malignant neoplasm of brain, unspecified (principal); F20.9 Schizophrenia, unspecified; D72.819 Decreased white blood cell count, unspecified; E66.9 Obesity, unspecified; F41.8 Other specified anxiety disorders; Z92.3 Personal history of irradiation; M25.512 Pain in left shoulder; S91.331A Puncture wound without foreign body, right foot, initial encounter
CPT/HCPCS: 99213

== ENCOUNTER 2022-07-22 13:12 | Outpatient (RCR) | payer MEDICAID ==
[2022-07-22 13:53] LABS: BASOPHILS % (AUTO) 0 % (0-10); EOSINOPHILS # (AUTO) 0.1 10^3/uL (0.0-0.3); EOSINOPHILS % (AUTO) 3 % (0-10); HEMATOCRIT 38 % (35-52); HEMOGLOBIN 12.9 g/dL (11.5-16.0); LYMPHOCYTES % (AUTO) 33 % (12-44); MEAN CORPUSCULAR HEMOGLOBIN 31 pg (25-34); MEAN CORPUSCULAR HGB CONC 34 g/dL (32-36); MEAN CORPUSCULAR VOLUME 90 fL (80-99); MEAN PLATELET VOLUME 10.3 fL (9.0-12.2); MONOCYTES # (AUTO) 0.3 10^3/uL (0.0-1.0); MONOCYTES % (AUTO) 9 % (0-12); NEUTROPHILS # (AUTO) 1.7 10^3/uL (1.8-7.8); NEUTROPHILS % (AUTO) 55 % (42-75); PLATELET COUNT 156 10^3/uL (130-400)
[2022-07-22 14:15] LABS: ALBUMIN 4.1 GM/DL (3.2-4.5); BILIRUBIN,TOTAL 1.1 MG/DL (0.1-1.0); CALCIUM 9.7 MG/DL (8.5-10.1); POTASSIUM 3.3 MMOL/L (3.6-5.0); TOTAL PROTEIN 7.3 GM/DL (6.4-8.2)
== END 2022-08-06 | disposition home or self-care (01) ==
LOC: ONC 13:12
PROVIDERS: ATTEND Internal Medicine Hematology & Oncology
DX: C71.9 Malignant neoplasm of brain, unspecified (principal); F20.9 Schizophrenia, unspecified; D72.819 Decreased white blood cell count, unspecified; E66.9 Obesity, unspecified; F41.8 Other specified anxiety disorders; Z92.3 Personal history of irradiation; M25.512 Pain in left shoulder
CPT/HCPCS: 36415; 80053; 85025

== ENCOUNTER → 2022-07-22 | Outpatient (CLI) | payer MEDICAID | LOC: LAB 14:06 | DX: Z53.9 Procedure and treatment not carried out, unspecified reason (principal) ==

== ENCOUNTER → 2022-07-22 | Outpatient (CLI) | payer MEDICAID ==
[2022-07-22 14:38] LABS: BILIRUBIN,TOTAL 1.1 MG/DL (0.1-1.0); CALCIUM 9.7 MG/DL (8.5-10.1); POTASSIUM 3.3 MMOL/L (3.6-5.0); TOTAL PROTEIN 7.3 GM/DL (6.4-8.2)
[2022-07-22 14:39] LABS: ALBUMIN 4.1 GM/DL (3.2-4.5); HEMATOCRIT 38 % (35-52); MEAN CORPUSCULAR HEMOGLOBIN 31 pg (25-34); MEAN CORPUSCULAR HGB CONC 34 g/dL (32-36); MEAN CORPUSCULAR VOLUME 90 fL (80-99); MEAN PLATELET VOLUME 10.9 fL (9.0-12.2); PLATELET COUNT 172 10^3/uL (130-400); WHITE BLOOD COUNT 2.9 10^3/uL (4.3-11.0)
[2022-07-22 15:10] LABS: FREE T4 (FREE THYROXINE) 0.99 NG/DL (0.70-1.48)
== END ==
LOC: ONC 14:23
DX: Z51.11 Encounter for antineoplastic chemotherapy (principal); C71.9 Malignant neoplasm of brain, unspecified; D72.819 Decreased white blood cell count, unspecified; S91.301A Unspecified open wound, right foot, initial encounter; F79 Unspecified intellectual disabilities; E66.9 Obesity, unspecified
CPT/HCPCS: 80053; 82306; 83036; 84439; 84443; 85027

== ENCOUNTER → 2022-07-26 | Outpatient (CLI) | payer MEDICAID ==
[2022-07-26 09:58] LABS: CHOLESTEROL 173 MG/DL (< 200); HDL CHOLESTEROL 58 MG/DL (40-60); TRIGLYCERIDES 107 MG/DL (<150); VLDL CHOLESTEROL 21 MG/DL (5-40)
== END ==
LOC: LAB 09:16
DX: F25.1 Schizoaffective disorder, depressive type (principal)
CPT/HCPCS: 36415; 80061

== ENCOUNTER 2022-09-08 21:25 | Emergency (ER) | payer MEDICARE, MEDICAID ==
[~2022-09-08] VITALS: Ht 165 cm; Wt 104.3 kg
[2022-09-08] MEDS ORDERED: ESCI5TAB PO (21:39)
[2022-09-08] MEDS ORDERED: LEVE750T5 (21:39)
[2022-09-08] MEDS ORDERED: ARIP2TAB3 PO (21:39)
[2022-09-08] MEDS ORDERED: AMOX500C2 (21:39)
[2022-09-08] MEDS ORDERED: HYDR12.56 PO (21:39)
[2022-09-08] MEDS ORDERED: HYDR-700 PO (21:39)
--- NOTE | 2022-09-08 22:06 | ED Cough/URI ---
General Chief Complaint: COVID19 Suspect/Confirmed Stated Complaint: FEVER|CHEST PAINS Nursing Triage Note: sore throat, non productive cough starting 09/03/22, fever, chest wall pain with coughing today. started on amoxicillin 09/07/22 for strep throat. apap given at 2100 Source: patient Exam Limitations: no limitations History of Present Illness Date Seen by Provider: September 08, 2022 Time Seen by Provider: 21:45 Initial Comments Patient is a 47-year-old female who presents to the emergency room with a chief complaint of sore throat, cough, fever today. She was exposed to a family member a few days ago who had strep throat and started on amoxicillin 500 mg twice daily. She developed fever today with persistent cough. Per family member she had temp greater than 103. She was given 1000mg of tylenol about 30min prior to arrival. She denies earache, rash, swelling, vomiting, dysuria. Has had a little diarrhea the last couple of days. Currently 101.5 Timing/Duration: this afternoon (fever today) Severity/Quality: moderate, dry cough Associated Symptoms: chest pain/soreness, cough, fever/chills, nasal drainage, sore throat Allergies and Home Medications Allergies Coded Allergies: Iodinated Contrast Media (Verified Allergy, Unknown, 02/05/19) Patient Home Medication List Home Medication List Reviewed: Yes Albuterol Sulfate (Ventolin Hfa) 1 Puff Puff, 2 PUFF INH Q6H PRN for SHORTNESS OF BREATH Prescribed by: JASMINA PALUMBO on 09/08/222330 Amoxicillin (Amoxicillin) 500 Mg Capsule, (Reported) Entered as Reported by: VINICIO GUZMAN on 09/08/222138 Last Action: New Order Aripiprazole (Abilify) 2 Mg Tablet, Unknown Dose PO, (Reported) Entered as Reported by: VINICIO GUZMAN on 09/08/222138 Last Action: New Order Azithromycin (Azithromycin) 250 Mg Tablet, 250 MG PO UD Prescribed by: JASMINA PALUMBO on 09/08/222330 Escitalopram Oxalate (Lexapro) 10 Mg Tablet, 1 EACH PO DAILY, (Reported) Entered as Reported by: EMERSON MARS on 02/20/102023 Escitalopram Oxalate (Lexapro) 5 Mg Tablet, Unknown Dose PO, (Reported) Entered as Reported by: VINICIO GUZMAN on 09/08/222138 Last Action: New Order Hydrochlorothiazide (Hydrochlorothiazide) 12.5 Mg Tablet, Unknown Dose PO, (Reported) Entered as Reported by: VINICIO GUZMAN on 09/08/222138 Last Action: New Order Hydroxyzine HCl (Hydroxyzine HCl) 25 Mg Tablet, Unknown Dose PO, (Reported) Entered as Reported by: VINICIO GUZMAN on 09/08/222138 Last Action: New Order Levetiracetam (Levetiracetam) 750 Mg Tablet, (Reported) Entered as Reported by: VINICIO GUZMAN on 09/08/222138 Last Action: New Order Discontinued Medications Benztropine Mesylate (Cogentin Po) 1 Mg Tab, (Reported) Discontinued Reason: No Longer Taking Entered as Reported by: EMERSON MARS on 02/20/102023 Last Action: Discontinued Levetiracetam (Keppra) 500 Mg Tablet, 500 MG PO BID Discontinued Reason: No Longer Taking Prescribed by: JOSÉ MIGUEL THOMAS on 02/05/191743 Last Action: Discontinued Prednisone (Prednisone) 20 Mg Tab, 40 MG PO DAILY Discontinued Reason: No Longer Taking Prescribed by: DANNY CHAMPAGNE on 11/08/182146 Last Action: Discontinued Risperidone (Risperdal M-Tab) 2 Mg Tab, (Reported) Discontinued Reason: No Longer Taking Entered as Reported by: EMERSON MARS on 02/20/102023 Last Action: Discontinued Sulfamethoxazole/Trimethoprim (Sulfamethoxazole-Tmp Ds Tablet) 1 Each Tablet, 1 EACH PO BID Discontinued Reason: No Longer Taking Prescribed by: KENDRA TRUJILLO on 01/01/191919 Last Action: Discontinued Review of Systems Review of Systems Constitutional: see HPI, fever, malaise EENTM: nose congestion, throat pain Respiratory: cough Cardiovascular: chest pain (with cough) Gastrointestinal: diarrhea Genitourinary: no symptoms reported : No Musculoskeletal: no symptoms reported Skin: no symptoms reported; No rash Psychiatric/Neurological: No Symptoms Reported All Other Systems Reviewed Negative Unless Noted: Yes Past Bbkwdkl-Oampea-Pnvxag Hx Patient Social History Tobacco Use?: No Substance use?: No Alcohol Use?: No Pt feels they are or have been: No Immunizations Up To Date First/Initial COVID19 Vaccinat: na Seasonal Allergies Seasonal Allergies: No Past Medical History Surgery/Hospitalization HX: brain tumor with resection, right foot brain cancer, seizures, htn, depression Surgeries: Yes (craniotomy 10/04/18) Respiratory: No Cardiac: No Neurological: No Genitourinary: No Gastrointestinal: No Musculoskeletal: No Endocrine: No HEENT: No Cancer: Yes Brain Did You Recieve Any Treatments: Yes What Type of Treatment Did You: Chemotherapy, Radiation, Surgical Intervention Psychosocial: No Integumentary: No Physical Exam Vital Signs - First Documented 09/08/22 21:30 Temp 38.5 Pulse 111 Resp 16 B/P (MAP) 142/90 (107) Pulse Ox 97 O2 Delivery Room Air Capillary Refill : Less Than 3 Seconds Height: 5'5.00" Weight: 237lbs. oz. 107.583987nj; 38.00 BMI Method:Stated General Appearance: WD/WN, no apparent distress, obese Eyes: Bilateral Eye Normal Inspection, Bilateral Eye PERRL, Bilateral Eye EOMI HEENT: TM abnormal (R) (occluded completely by cerumen) Neck: full range of motion, supple Respiratory: lungs clear, normal breath sounds, no respiratory distress, no accessory muscle use Cardiovascular: regular rate, rhythm, tachycardia (107) Gastrointestinal: normal bowel sounds, soft, tenderness (mild lower abdominal tenderness) Extremities: normal range of motion, non-tender, normal inspection, no pedal edema, no calf tenderness Neurologic/Psychiatric: alert, normal mood/affect, oriented x 3 Skin: normal color, warm/dry Progress/Results/Core Measures Suspected Sepsis SIRS Temperature: Pulse: 111 Respiratory Rate: 16 Blood Pressure 142 /90 Mean: 107 Results/Orders Lab Results Laboratory Tests Test 09/08/22 22:21 Range/Units Influenza Type A (RT-PCR) Not Detected Not Detecte Influenza Type B (RT-PCR) Not Detected Not Detecte SARS-CoV-2 RNA (RT-PCR) Not Detected Not Detecte My Orders Orders - JASMINA PALUMBO MD Ekg Tracing (09/08/22 21:31) Covid 19 Inhouse Test (09/08/22 21:59) Influenza A And B By Pcr (09/08/22 21:59) Isolation Central Supply Req (09/08/22 21:59) Chest 1 View, Ap/Pa Only (5/3/23 22:55) Vital Signs/I&O 09/08/22 09/08/22 21:30 23:38 Temp 38.5 37.9 Pulse 111 89 Resp 16 14 B/P (MAP) 142/90 (107) 116/72 Pulse Ox 97 95 O2 Delivery Room Air Room Air Capillary Refill : Less Than 3 Seconds Blood Pressure Mean: 107 Progress Note : Time: 23:20 Progress Note Patient seen and evaluated by me. Evaluation today includes physical exam, EKG, single view chest x-ray, COVID flu swabs. Pertinent physical exam, well- developed well-nourished obese female in no acute distress. Tachycardic, lungs are clear. Abdomen is soft and benign. No lower extremity edema. No abnormal findings in the ears or throat. No rashes. Differential diagnosis based on history and physical exam, acute viral syndrome, pneumonia. EKG shows sinus tachycardia at 106 without ectopy. Chest x-ray reveals perihilar congestion vs developing infiltrate, as interpreted by me. COVID and flu swabs are negative. Patient had Tylenol approximately 30 minutes prior to arrival, defervesced nicely. Looks better on reevaluation prior to discharge. Sitting up in the bed smiling, interactive. Heart rate is down. Oxygen saturations 93%. No increased work of breathing or respiratory distress is noted. Secondary to fever and findings on chest x-ray and relatively low oxygen saturations for her age and health status will add azithromycin to her amoxicillin. Covering for community-acquired pneumonia. Prescription for albuterol also sent to her pharmacy. Return precautions given in both verbal and written format. Patient and her family member are agreeable with the plan of care. All questions are sought and answered. Patient is improved at discharge ECG Initial ECG Impression Date: September 09, 2022 Initial ECG Impression Time: 21:45 Initial ECG Rate: 106 Initial ECG Rhythm: S.Tach, S.Douglas Initial ECG Impression: Normal Diagnostic Imaging Diagonstic Imaging: Xray Plain Films/CT/US/NM/MRI: chest Comments independent interpretation by me - single view CXR - bilateral perihilar infiltrates; no effusion Departure Impression Primary Impression: Pneumonia Qualified Codes: J18.9 - Pneumonia, unspecified organism Disposition: 01 HOME, SELF-CARE Condition: Improved Departure-Patient Inst. Decision time for Depature: 23:27 Referrals: [facility]/ (PCP) Primary Care Physician YANELI MALLORY APRN (Family) Primary Care Physician Patient Instructions: Pneumonia, Adult ED Add. Discharge Instructions: Use the albuterol inhaler 2 puffs every 4-6 hours as needed for shortness of breath. Start the azithromycin antibiotic tomorrow WITH your amoxicillin. You should take an over the counter PROBIOTIC daily. When you roll picker your prescription of antibiotic tomorrow, ask the pharmacist which one would be best. Over the counter ibuprofen 3 tablets (600mg) every 6 hours as needed for fever. Alternate with extra strength tylenol 1000mg every 6 hours. REturn to the Emergency Department for any new, concerning or emergent complaints. Scripts Azithromycin (Azithromycin) 250 Mg Tablet 250 MG PO UD, #6 TAB TAKE 2 TABLETS ON DAY ONE THEN TAKE 1 TABLET DAILY FOR FOUR MORE DAYS Prov: JASMINA PALUMBO MD 09/08/22 Albuterol Sulfate (VENTOLIN HFA) 1 Puff Puff 2 PUFF INH Q6H PRN for SHORTNESS OF BREATH, #1 EA 1 PUFF = 90 MCG Prov: JASMINA PALUMBO MD 09/08/22 Copy Copies To 1: BRANDY ADAIR KATHRYN M MD September 08, 2022 22:06
[2022-09-08] MEDS ORDERED: RT-ALBUINH INH (23:31)
[2022-09-08] MEDS ORDERED: AZIT250T12 PO (23:31)
[2022-09-08 23:38] VITALS: BP 116/72
--- NOTE | 2022-09-09 06:55 | Diagnostic Imaging Report ---
INDICATION: Cough and dyspnea Single AP view of the chest is obtained without previous study for comparison. Heart size and pulmonary vascularity are within normal limits. There is no pneumothorax or consolidation. No pleural fluid is seen. IMPRESSION: No evidence of acute abnormality. Dictated by: Dictated on workstation # [id number]
== END 2022-09-08 23:40 | disposition home or self-care (01) ==
LOC: EDUNIT# 21:25 → ER 21:27
DX: J18.9 Pneumonia, unspecified organism (principal); E66.9 Obesity, unspecified; Z68.38 Body mass index [BMI] 38.0-38.9, adult; Z20.822 Contact with and (suspected) exposure to COVID-19; Z28.310 Unvaccinated for COVID-19
CPT/HCPCS: 71045; 87636; 93005

== ENCOUNTER 2022-10-07 10:37 | Outpatient (RCR) | payer MEDICARE, MEDICAID ==
[~2022-10-07 10:37] MED LIST changes: +AMOX500C2; +ARIP2TAB3 PO; +AZIT250T12 PO; +ESCI5TAB PO; +HYDR-700 PO; +HYDR12.56 PO; +LEVE750T5; +RT-ALBUINH INH
[2022-10-07 10:47] LABS: BASOPHILS % (AUTO) 1 % (0-10); EOSINOPHILS # (AUTO) 0.2 10^3/uL (0.0-0.3); EOSINOPHILS % (AUTO) 5 % (0-10); HEMATOCRIT 39 % (35-52); HEMOGLOBIN 13.1 g/dL (11.5-16.0); LYMPHOCYTES # (AUTO) 1.2 10^3/uL (1.0-4.0); LYMPHOCYTES % (AUTO) 38 % (12-44); MEAN CORPUSCULAR HEMOGLOBIN 31 pg (25-34); MEAN CORPUSCULAR HGB CONC 33 g/dL (32-36); MEAN CORPUSCULAR VOLUME 92 fL (80-99); MONOCYTES # (AUTO) 0.3 10^3/uL (0.0-1.0); MONOCYTES % (AUTO) 9 % (0-12); NEUTROPHILS # (AUTO) 1.5 10^3/uL (1.8-7.8); NEUTROPHILS % (AUTO) 46 % (42-75); PLATELET COUNT 146 10^3/uL (130-400); WHITE BLOOD COUNT 3.1 10^3/uL (4.3-11.0)
[2022-10-07 11:28] LABS: ALBUMIN 4.3 GM/DL (3.2-4.5); BILIRUBIN,TOTAL 1.4 MG/DL (0.1-1.0); CALCIUM 9.3 MG/DL (8.5-10.1); CREATININE SERUM 1.14 MG/DL (0.60-1.30); POTASSIUM 3.6 MMOL/L (3.6-5.0); TOTAL PROTEIN 7.2 GM/DL (6.4-8.2)
== END 2022-11-05 | disposition home or self-care (01) ==
LOC: ONC 10:37
PROVIDERS: ATTEND Internal Medicine Hematology & Oncology
DX: C71.9 Malignant neoplasm of brain, unspecified (principal); F20.9 Schizophrenia, unspecified; D72.819 Decreased white blood cell count, unspecified; E66.9 Obesity, unspecified; F41.8 Other specified anxiety disorders; Z92.3 Personal history of irradiation; M25.512 Pain in left shoulder
CPT/HCPCS: 80053; 85025

== ENCOUNTER → 2022-11-30 | Outpatient (CLI) | payer MEDICARE, MEDICAID ==
[~2022-11-30] MED LIST changes: +GADOTERATE 0.5 MMOL/ML (CLARISCAN) 20 ML VIAL IV ONE
--- NOTE | 2022-11-30 15:10 | Diagnostic Imaging Report ---
PROCEDURE: MR imaging of the brain with and without contrast. TECHNIQUE: Multiplanar, multisequence MR imaging of the brain was performed with and without contrast. INDICATION: Brain tumor follow-up. History of astrocytoma resection. COMPARISON: 04/21/2022 and 04/09/2021. Correlation is also made with the patient's prior preoperative MRI 09/01/2018. FINDINGS: There are stable operative changes of a previous frontal craniotomy with a stable resection cavity within the left frontal lobe. There is linear dural enhancement deep to the craniotomy. Stable T2 signal changes are noted throughout both of the frontal lobes, left greater than right. There is very slight stable bowing of the midline from left to right anteriorly. The diffusion series demonstrates no restriction. There are no findings of acute ischemia. There is no acute hemorrhage. There is no hydrocephalus. There is no abnormal extra-axial collection. The basilar cisterns are patent. The pituitary gland and the pineal region are normal. There is normal alignment of the craniocervical junction. The mastoid air cells demonstrate some fluid on the right. The left are clear. The paranasal sinuses are clear. Orbital contents are normal. The major expected vascular flow voids are maintained. IMPRESSION: 1. Stable operative changes of left frontal craniotomy with left frontal resection cavity. There has been no interval change or progression in the T2 signal abnormalities throughout the white matter of the frontal lobes. Minimal [id number] shift and local mass effect is unchanged. 2. No findings of a new or acute intracranial abnormality. Dictated by: Dictated on workstation # [id number]
== END ==
LOC: RAD 13:30
PROVIDERS: ATTEND Internal Medicine Hematology & Oncology
DX: C71.9 Malignant neoplasm of brain, unspecified (principal); G40.89 Other seizures; Z98.890 Other specified postprocedural states
CPT/HCPCS: 70553

== ENCOUNTER 2022-12-02 13:17 | Outpatient (RCR) | payer MEDICARE, MEDICAID ==
[~2022-12-02 13:17] MED LIST changes: -GADOTERATE 0.5 MMOL/ML (CLARISCAN) 20 ML VIAL IV ONE
== END 2022-12-06 | disposition home or self-care (01) ==
LOC: ONC 13:17
PROVIDERS: ATTEND Internal Medicine Hematology & Oncology
DX: C71.9 Malignant neoplasm of brain, unspecified (principal); F20.9 Schizophrenia, unspecified; D72.819 Decreased white blood cell count, unspecified; E66.9 Obesity, unspecified; F41.8 Other specified anxiety disorders; Z92.3 Personal history of irradiation; M25.512 Pain in left shoulder

== ENCOUNTER 2023-02-24 12:56 | Outpatient (RCR) | payer MEDICARE, MEDICAID ==
[2023-02-24 13:15] LABS: BASOPHILS % (AUTO) 1 % (0-10); EOSINOPHILS # (AUTO) 0.1 10^3/uL (0.0-0.3); EOSINOPHILS % (AUTO) 3 % (0-10); HEMATOCRIT 38 % (35-52); HEMOGLOBIN 12.9 g/dL (11.5-16.0); LYMPHOCYTES # (AUTO) 1.2 10^3/uL (1.0-4.0); LYMPHOCYTES % (AUTO) 33 % (12-44); MEAN CORPUSCULAR HEMOGLOBIN 31 pg (25-34); MEAN CORPUSCULAR HGB CONC 34 g/dL (32-36); MEAN CORPUSCULAR VOLUME 92 fL (80-99); MEAN PLATELET VOLUME 10.6 fL (9.0-12.2); MONOCYTES # (AUTO) 0.2 10^3/uL (0.0-1.0); MONOCYTES % (AUTO) 6 % (0-12); NEUTROPHILS # (AUTO) 2.1 10^3/uL (1.8-7.8); NEUTROPHILS % (AUTO) 58 % (42-75); PLATELET COUNT 151 10^3/uL (130-400); WHITE BLOOD COUNT 3.6 10^3/uL (4.3-11.0)
[2023-02-24 13:36] LABS: ALBUMIN 4.3 GM/DL (3.2-4.5); BILIRUBIN,TOTAL 1.6 MG/DL (0.1-1.0); CALCIUM 9.3 MG/DL (8.5-10.1); CREATININE SERUM 0.95 MG/DL (0.60-1.30); POTASSIUM 3.3 MMOL/L (3.6-5.0); TOTAL PROTEIN 7.5 GM/DL (6.4-8.2)
== END 2023-03-08 | disposition home or self-care (01) ==
LOC: ONC 12:56
PROVIDERS: ATTEND Internal Medicine Hematology & Oncology
DX: C71.9 Malignant neoplasm of brain, unspecified (principal); F20.9 Schizophrenia, unspecified; D72.819 Decreased white blood cell count, unspecified; E66.9 Obesity, unspecified; F41.8 Other specified anxiety disorders; M25.512 Pain in left shoulder; Z92.3 Personal history of irradiation
CPT/HCPCS: 80053; 85025; G0463; 36415; 99214